=== PATIENT | female | born 1945 | race Caucasian/White ===

== ENCOUNTER 2018-02-16 10:53 | Inpatient (IN) | payer OTHER ==
[2018-02-16 12:19] VITALS: BMI 29.7
--- NOTE | 2018-02-16 12:30 | RAD REPORT ---
EXAM DESCRIPTION: RAD - Foot Right 2 View - 02/16/2018 12:12 pm CLINICAL HISTORY: Soft tissue foot infection COMPARISON: None. FINDINGS: No fracture, dislocation or periosteal reaction. No acute or destructive bone process seen . Moderate plantar spur is present. There is spurring at the Achilles attachment as well. Second- fourth toe soft tissue swelling is evident. No air or foreign body in the soft tissues. IMPRESSION: Soft tissue swelling of the second-fourth toes with no air or foreign body in the soft t issues. No acute or destructive bone process.
[2018-02-16 12:33] LABS: Absolute Lymphocytes (CBC) 1.4 K/uL (0.7-4.9); Absolute Monocytes 0.5 K/uL (0.1-1.3); Basophils % 0.7 % (0-1.3); Eosinophils % 3.5 % (0-4.4); Hematocrit 37.4 % (36.0-45.0); MCH 28.1 pg (27.0-35.0); MCV 86.2 fL (80-100); MPV 10.3 fL (7.6-11.3); Monocytes % 8.7 % (3.3-12.3); RBC Red Blood Cell Count 4.34 M/uL (3.86-4.86)
[2018-02-16 12:43] LABS: Albumin 4.1 g/dL (3.2-5.5); Bilirubin Total 1.1 mg/dL (0.3-1.2); Protein, Total 8.2 g/dL (6.0-8.3)
[2018-02-16 12:57] LABS: Urine Appearance CLEAR; Urine Bilirubin NEGATIVE (NEG); Urine Blood NEGATIVE (NEG); Urine Color YELLOW; Urine Glucose NEGATIVE (NEG); Urine Protein NEGATIVE (NEG)
[2018-02-16] MEDS ORDERED: VANCOMYCIN 1.5 GM in NA CHLORIDE 0.9% 500 ML IVPB ONE (13:00)
[2018-02-16 13:01] LABS: Urine Microscopic Reflex NO UMIC
[2018-02-16] MEDS: VANCOMYCIN 1.5 GM in NA CHLORIDE 0.9% 500 ML IVPB SCH (13:57)
[2018-02-16] MEDS ORDERED: HYDROCODONE/APAP 5/325 MG TAB PO PRN (16:03)
[2018-02-16] MEDS: HYDRALAZINE HCL 20 MG/ML VIAL IV PRN (18:06)
[2018-02-16] MEDS: ATORVASTATIN 20 MG TAB PO SCH (21:43)
[2018-02-16] MEDS: CITALOPRAM 10 MG TABLET PO SCH (21:43)
[2018-02-16] MEDS: GLIMEPIRIDE 2 MG TABLET PO SCH (21:43)
[2018-02-16] MEDS: METOPROLOL TAR 50 MG TAB PO SCH (21:43)
[2018-02-17] MEDS: VANCOMYCIN 1.5 GM in NA CHLORIDE 0.9% 500 ML IVPB SCH (06:47)
[2018-02-17] MEDS: LOSARTAN POTASSIUM 50 MG TABLET PO SCH (08:52)
[2018-02-17] MEDS: METOPROLOL TAR 50 MG TAB PO SCH ×2 (08:53→20:26)
[2018-02-17] MEDS: CLOPIDOGREL 75 MG TABLET PO SCH (08:53)
[2018-02-17] MEDS: ENOXAPARIN 30 MG/0.3 ML SQ SCH (17:32)
--- NOTE | 2018-02-17 20:03 | HP ---
Date of Admission: 02/16/2018 Chief Complaint: Pain, redness, and swelling, foot. History Of Present Illness: A 72-year-old female, who has history of diabetes and history of previou s foot infections, was brought to the office with redness, swelling, and pain of the right distal marilee t. She was found to have evidence of cellulitis and possible early abscess formation. The patient i s admitted for IV antibiotic therapy in view of her diabetes and previous surgeries that were require d for her foot infection. Past Medical History: Positive for type 2 diabetes, hyperlipidemia, coronary artery disease, hyperte nsion, depression. Past Surgical History: Include cardiac coronary stenting, hysterectomy, left foot surgery, cataract surgery. Family History: Diabetes present. Personal History: Allergic to sulfa. Review of Systems: No chest pain or shortness of breath. Physical Examination: General: Revealed a 72-year-old female, in moderate pain. HEENT: Negative. Neck: Supple. JVD negative. Chest: Clear. Heart: Regular. Abdomen: Soft. Extremities: There is diffuse area of redness of the distal foot that includes the first, second, an d third toes. There is minimal fluctuation with mild lymphangitis. Assessment: 1.Cellulitis, right foot. 2.Type 2 diabetes. 3.Known coronary artery disease. 4.Hypertension. 5.Hyperlipidemia. Plan: IV vancomycin. Restart home medications, fingerstick blood sugars, and insulin coverage. BENNETT/CK Voice ID: [id number]
[2018-02-17] MEDS: GLIMEPIRIDE 2 MG TABLET PO SCH (20:27)
[2018-02-17] MEDS: ATORVASTATIN 20 MG TAB PO SCH (20:27)
[2018-02-17] MEDS: CITALOPRAM 10 MG TABLET PO SCH (20:27)
[2018-02-18] MEDS: VANCOMYCIN 1.5 GM in NA CHLORIDE 0.9% 500 ML IVPB SCH ×2 (00:06→18:29)
--- NOTE | 2018-02-18 06:31 | PN ---
Her foot looks better. The swelling and redness are better. Lymphangitis is more contained. The pa paulette very likely will not need surgical exploration. She will be continued on the same antibiotic. BENNETT/CK Voice ID: [id number] Report ID: [id number]
[2018-02-18] MEDS: METOPROLOL TAR 50 MG TAB PO SCH ×2 (09:00→10:04)
[2018-02-18] MEDS: LOSARTAN POTASSIUM 50 MG TABLET PO SCH ×2 (10:04→12:21)
[2018-02-18] MEDS: CLOPIDOGREL 75 MG TABLET PO SCH (10:04)
--- NOTE | 2018-02-18 15:22 | EKG ---
Test Date: 2018-02-18 Test Time: 10:40:09 Cast Shell Grinder: AJ MEASUREMENT RESULTS: Intervals: Rate: 44 WV: 154 QRSD: 92 QT: 488 QTc: 417 [place]: P: 50 WV: 154 QRS: 11 T: 30 INTERPRETIVE STATEMENTS: Marked sinus bradycardia Abnormal ECG Compared to ECG 11/15/2015 06:36:50 no significant change from previous ECG Electronically Signed On 02-18-18 15:21:36 CDT by Rajinder Roberts
[2018-02-18] MEDS: HYDRALAZINE HCL 20 MG/ML VIAL IV PRN (18:29)
[2018-02-18] MEDS: ENOXAPARIN 30 MG/0.3 ML SQ SCH (18:29)
[2018-02-18] MEDS: ATORVASTATIN 20 MG TAB PO SCH (22:12)
[2018-02-18] MEDS: CITALOPRAM 10 MG TABLET PO SCH (22:13)
[2018-02-18] MEDS: GLIMEPIRIDE 2 MG TABLET PO SCH (22:14)
[2018-02-19] MEDS: LOSARTAN POTASSIUM 50 MG TABLET PO SCH (08:31)
[2018-02-19] MEDS: CLOPIDOGREL 75 MG TABLET PO SCH (08:31)
[2018-02-19] MEDS: AMLODIPINE 5 MG TAB PO SCH (08:31)
[2018-02-19] MEDS: VANCOMYCIN 1.5 GM in NA CHLORIDE 0.9% 500 ML IVPB SCH (14:38)
[2018-02-19] MEDS: ENOXAPARIN 30 MG/0.3 ML SQ SCH (17:47)
[2018-02-19] MEDS: GLIMEPIRIDE 2 MG TABLET PO SCH (21:18)
[2018-02-19] MEDS: CITALOPRAM 10 MG TABLET PO SCH (21:18)
[2018-02-19] MEDS: ATORVASTATIN 20 MG TAB PO SCH (21:18)
[2018-02-19 22:50] VITALS: O2SAT 99
[2018-02-20] MEDS: VANCOMYCIN 1.5 GM in NA CHLORIDE 0.9% 500 ML IVPB SCH (06:37)
--- NOTE | 2018-02-20 07:33 | PN ---
Date of Progress Note: 02/19/2018 The patient had minimal redness and swelling. No fever. The patient is able to walk in the hallways . It was decided that the patient would need another 24 hours of IV antibiotics, which was given. BENNETT/CK Voice ID: [id number] Report ID: [id number]
[2018-02-20] MEDS: CLOPIDOGREL 75 MG TABLET PO SCH (08:54)
[2018-02-20] MEDS: LOSARTAN POTASSIUM 50 MG TABLET PO SCH (08:54)
[2018-02-20] MEDS: AMLODIPINE 5 MG TAB PO SCH (08:55)
[2018-02-20 10:41] VITALS: BP 195/81; TEMP 97.1
--- NOTE | 2018-03-16 04:20 | DS ---
Date of Discharge: 02/20/2018 Final Diagnoses: 1.Cellulitis, right foot. 2.Type 2 diabetes. 3.Known coronary artery disease. 4.Hypertension. 5.Hyperlipidemia. Hospital Course: This patient was admitted because of evidence of cellulitis and type 2 diabetes. T he patient after admission to the hospital was started on IV antibiotic in the form of vancomycin. H er regular medications were restarted and fingerstick blood sugar insulin coverage was instituted. T he patient showed improvement over the next few days with decreased swelling and redness. She was ab le to walk on 3:30 at the time of discharge. She was given oral antibiotic and advised to follow up in the office. Laboratory: Please refer to the chart. BENNETT/CK Voice ID: [id number] Report ID: [id number]
== END 2018-02-20 09:02 | disposition home or self-care (01) | DRG 603 ==
LOC: 2ND 11:39
PROVIDERS: ADMIT Internal Medicine; ATTEND Internal Medicine
DX: L03.115 Cellulitis of right lower limb (principal); E11.9 Type 2 diabetes mellitus without complications; I25.10 Atherosclerotic heart disease of native coronary artery without angina pectoris; I10 Essential (primary) hypertension; E78.5 Hyperlipidemia, unspecified; Z88.2 Allergy status to sulfonamides; Z95.5 Presence of coronary angioplasty implant and graft
CPT/HCPCS: 36415; 80053; 80202; 81003; 82962; 85025; 87040; 93005; J0360; J1650

== ENCOUNTER 2018-10-09 14:21 | Inpatient (IN) | payer OTHER ==
[2018-10-09] MEDS ORDERED: D50W 25 GM/50 ML SYRINGE IV PRN (16:04)
[2018-10-09] MEDS ORDERED: GLUCAGON 1 MG/VIAL IM PRN (16:04)
[2018-10-09 16:27] LABS: Absolute Lymphocytes (CBC) 1.3 K/uL (0.7-4.9); Absolute Monocytes 0.8 K/uL (0.1-1.3); Absolute Neutrophil 6.4 K/uL (1.8-8.0); Basophils % 0.6 % (0-1.3); Eosinophils % 2.6 % (0-4.4); Lymphocytes % 14.8 % (15.3-44.8); MCH 28.8 pg (27.0-35.0); MCV 86.1 fL (80-100); MPV 10.2 fL (7.6-11.3); Monocytes % 8.6 % (3.3-12.3); RBC Red Blood Cell Count 4.06 M/uL (3.86-4.86)
[2018-10-09] MEDS: INSULIN -REGULAR HUMAN 50 UNIT/0.5 ML ML SQ SCH ×2 (16:30→20:32)
[2018-10-09 16:42] LABS: Albumin 3.5 g/dL (3.4-5.0); Bilirubin Total 0.6 mg/dL (0.2-1.0); Potassium 3.6 mmol/L (3.5-5.1); Protein, Total 8.3 g/dL (6.4-8.2)
--- NOTE | 2018-10-09 17:52 | RAD REPORT ---
EXAM DESCRIPTION: RAD - Hand Right 3 View - 10/09/2018 5:40 pm CLINICAL HISTORY: Right hand pain and swelling FINDINGS: Most of the second distal phalanx is destroyed likely the sequela of osteomyelitis. Amputation involves part of the third middle phalanx. No fracture or dislocation seen
[2018-10-09 19:19] VITALS: BMI 25.0
[2018-10-09] MEDS: CODEINE 30MG/APAP 300MG TAB PO PRN (20:32)
[2018-10-09] MEDS ORDERED: VANCOMYCIN 1.5 GM in NA CHLORIDE 0.9% 500 ML IVPB SCH (21:00)
[2018-10-10] MEDS: CODEINE 30MG/APAP 300MG TAB PO PRN ×3 (04:09→20:48)
[2018-10-10] MEDS: INSULIN -REGULAR HUMAN 50 UNIT/0.5 ML ML SQ SCH ×4 (07:30→20:50)
[2018-10-10] MEDS ORDERED: INFLUENZA VACCINE (for 3y+) 0.5 ML DOSE IMVAC ONE (08:00)
[2018-10-10] MEDS ORDERED: AMLODIPINE 5 MG TAB PO ONE (08:24)
[2018-10-10] MEDS: LOSARTAN POTASSIUM 50 MG TABLET PO SCH (12:13)
[2018-10-10] MEDS: VANCOMYCIN 1.25 GM in NA CHLORIDE 0.9% 250 ML IVPB SCH (15:15)
[2018-10-10] MEDS: ENOXAPARIN 30 MG/0.3 ML SQ SCH (17:17)
[2018-10-10] MEDS: ATORVASTATIN 10 MG TAB PO SCH (20:48)
[2018-10-10] MEDS: CITALOPRAM 10 MG TABLET PO SCH (20:49)
--- NOTE | 2018-10-10 22:03 | HP ---
Date of Admission: 10/09/2018 Chief Complaint: Pain, redness, right hand finger. History Of Present Illness: A 72-year-old female was brought to the office because of pain and redne ss. She was found to have evidence of cellulitis with open wound. In view of her diabetes, she was admitted for IV antibiotic therapy. She had similar episodes of cellulitis and osteomyelitis, requir ing amputation of the fingers in the past. Past Medical History: Positive for type 2 diabetes and depression. Family History: Noncontributory. Allergies: SHE HAS ALLERGIES TO SULFA. Home Medicines: Citalopram, metformin. Review of Systems: The patient denied any chest pain, fever, chills, or rigors. Physical Examination: General: Revealed a 72-year-old female, slightly confused HEENT: Negative. Neck: Supple. JVD negative. Chest: Occasional wheezes. Heart: Regular. Abdomen: Soft. Extremities: There is open area and clear-cut cellulitis of the second finger. There is an old ampu tation of the third finger. Assessment: 1.Osteomyelitis, right hand. 2.Type 2 diabetes. 3.Depression. Plan: IV vancomycin and Surgery consultation. BENNETT/CK Voice ID: [id number]
[2018-10-11] MEDS: INSULIN -REGULAR HUMAN 50 UNIT/0.5 ML ML SQ SCH ×4 (07:30→21:00)
[2018-10-11] MEDS: LOSARTAN POTASSIUM 50 MG TABLET PO SCH (09:05)
[2018-10-11] MEDS: AMLODIPINE 5 MG TAB PO SCH (09:05)
[2018-10-11] MEDS: VANCOMYCIN 1.25 GM in NA CHLORIDE 0.9% 250 ML IVPB SCH (09:06)
[2018-10-11] MEDS ORDERED: VANCOMYCIN 250 MG in NA CHLORIDE 0.9% 100 ML IVPB ONE (12:00)
[2018-10-11] MEDS: ENOXAPARIN 30 MG/0.3 ML SQ SCH (16:08)
[2018-10-11] MEDS: CODEINE 30MG/APAP 300MG TAB PO PRN (21:12)
[2018-10-11] MEDS: ATORVASTATIN 10 MG TAB PO SCH (21:14)
[2018-10-11] MEDS: CITALOPRAM 10 MG TABLET PO SCH (21:14)
--- NOTE | 2018-10-11 22:22 | PN ---
The patient's finger swelling is slightly better. However, in view of osteomyelitis, she may still n eed any intervention. This was explained to the family members as well as the patient. The patient will be seen by Dr. Early in a.m. after which plan will be done whether to continue long-term IV antibiotics or whether surgical intervention will be better in patient's interest. BENNETT/CK Voice ID: [id number] Report ID: [id number]
[2018-10-12] MEDS ORDERED: VANCOMYCIN 1.5 GM in NA CHLORIDE 0.9% 500 ML IVPB SCH ×2 (02:00→06:00)
[2018-10-12] MEDS: VANCOMYCIN 1.5 GM in NA CHLORIDE 0.9% 500 ML IVPB SCH ×2 (03:23→20:36)
[2018-10-12] MEDS: INSULIN -REGULAR HUMAN 50 UNIT/0.5 ML ML SQ SCH ×4 (07:30→21:00)
[2018-10-12] MEDS: CODEINE 30MG/APAP 300MG TAB PO PRN ×2 (09:21→22:54)
[2018-10-12] MEDS: LOSARTAN POTASSIUM 50 MG TABLET PO SCH (09:22)
[2018-10-12] MEDS: AMLODIPINE 5 MG TAB PO SCH (09:22)
[2018-10-12] MEDS: ENOXAPARIN 30 MG/0.3 ML SQ SCH (16:35)
[2018-10-12] MEDS: CITALOPRAM 10 MG TABLET PO SCH (20:36)
[2018-10-12] MEDS: ATORVASTATIN 10 MG TAB PO SCH (20:37)
--- NOTE | 2018-10-13 01:01 | PN ---
The patient has been seen by Dr. Early. He is planning to do exploration, debridement of the fin franck. The patient meanwhile will be continued on vancomycin as the blood cultures were positive for g mei-positive cocci. BENNETT/CK Voice ID: [id number] Report ID: [id number]
[2018-10-13] MEDS: INSULIN -REGULAR HUMAN 50 UNIT/0.5 ML ML SQ SCH ×4 (07:30→20:22)
[2018-10-13] MEDS: LOSARTAN POTASSIUM 50 MG TABLET PO SCH (08:10)
[2018-10-13] MEDS: AMLODIPINE 5 MG TAB PO SCH (08:10)
[2018-10-13] MEDS ORDERED: NA CHLORIDE 0.9% 1,000 ML ONE (08:24)
[2018-10-13] MEDS ORDERED: MIDAZOLAM HCL 2 MG/2 ML INJ ONE (08:49)
[2018-10-13] MEDS ORDERED: FENTANYL CITR 100 MCG/2 ML ONE (08:49)
[2018-10-13] MEDS ORDERED: LIDOCAINE 2% MPF 5 ML VIAL ONE (08:49)
[2018-10-13] MEDS ORDERED: KETOROLAC 30 MG/ML INJ ONE (08:49)
[2018-10-13] MEDS ORDERED: PROPOFOL 200 MG/20 ML VIAL IV ONE (08:49)
[2018-10-13] MEDS ORDERED: GLYCOPYRROLATE 0.2 MG/ML SYR ONE (09:09)
[2018-10-13] MEDS: VANCOMYCIN 1.5 GM in NA CHLORIDE 0.9% 500 ML IVPB SCH (15:21)
[2018-10-13] MEDS: ENOXAPARIN 30 MG/0.3 ML SQ SCH (17:00)
[2018-10-13] MEDS: ATORVASTATIN 10 MG TAB PO SCH (20:22)
[2018-10-13] MEDS: CITALOPRAM 10 MG TABLET PO SCH (20:22)
[2018-10-13] MEDS: HYDROCODONE/APAP 5/325 MG TAB PO PRN (21:22)
--- NOTE | 2018-10-13 22:37 | PN ---
The patient underwent surgery today. Postoperatively, the patient is stable, afebrile. Her vital si gns include a blood pressure of 155/67, oxygen saturation 100%, and afebrile. BENNETT/CK Voice ID: [id number] Report ID: [id number]
[2018-10-14] MEDS: HYDROCODONE/APAP 5/325 MG TAB PO PRN (02:05)
[2018-10-14] MEDS: INSULIN -REGULAR HUMAN 50 UNIT/0.5 ML ML SQ SCH ×4 (07:30→20:53)
[2018-10-14] MEDS: AMLODIPINE 5 MG TAB PO SCH (09:10)
[2018-10-14] MEDS: LOSARTAN POTASSIUM 50 MG TABLET PO SCH (09:10)
[2018-10-14] MEDS: VANCOMYCIN 1.5 GM in NA CHLORIDE 0.9% 500 ML IVPB SCH (09:13)
[2018-10-14] MEDS: ENOXAPARIN 30 MG/0.3 ML SQ SCH (16:50)
[2018-10-14] MEDS: CITALOPRAM 10 MG TABLET PO SCH (20:04)
[2018-10-14] MEDS: ATORVASTATIN 10 MG TAB PO SCH (20:04)
--- NOTE | 2018-10-15 01:45 | PN ---
The patient is afebrile. I spoke to Dr. Early. He wants to revise the surgical site on Friday. Pending that, she will be continued on IV antibiotics. BENNETT/CK Voice ID: [id number] Report ID: [id number]
[2018-10-15] MEDS: VANCOMYCIN 1.5 GM in NA CHLORIDE 0.9% 500 ML IVPB SCH (02:33)
--- NOTE | 2018-10-15 03:55 | DS ---
The patient every 8 hours. We will plan on surgery next week when the flank goes down. C william antibiotics. KATELYN/CK Voice ID: [id number] Report ID: [id number]
[2018-10-15] MEDS: INSULIN -REGULAR HUMAN 50 UNIT/0.5 ML ML SQ SCH ×4 (07:30→21:00)
[2018-10-15] MEDS: LOSARTAN POTASSIUM 50 MG TABLET PO SCH ×2 (09:00→10:27)
[2018-10-15] MEDS: AMLODIPINE 5 MG TAB PO SCH (10:27)
[2018-10-15] MEDS ORDERED: AMLODIPINE 5 MG TAB PO ONE (12:41)
[2018-10-15 14:08] LABS: Potassium 3.8 mmol/L (3.5-5.1)
[2018-10-15] MEDS: ENOXAPARIN 30 MG/0.3 ML SQ SCH (17:00)
[2018-10-15] MEDS: CITALOPRAM 10 MG TABLET PO SCH (21:19)
[2018-10-15] MEDS: ATORVASTATIN 10 MG TAB PO SCH (21:19)
[2018-10-16] MEDS: HYDROCODONE/APAP 5/325 MG TAB PO PRN (03:30)
[2018-10-16] MEDS: AMLODIPINE 5 MG TAB PO SCH (09:06)
[2018-10-16] MEDS: levoFLOXacin 500 MG TAB PO SCH (09:08)
[2018-10-16] MEDS: LOSARTAN POTASSIUM 50 MG TABLET PO SCH (09:08)
[2018-10-16] MEDS: INSULIN -REGULAR HUMAN 50 UNIT/0.5 ML ML SQ SCH ×4 (09:09→21:57)
[2018-10-16] MEDS: ENOXAPARIN 30 MG/0.3 ML SQ SCH (17:37)
--- NOTE | 2018-10-16 19:53 | PN ---
The patient is afebrile. She still has difficulty with range of motion of the finger. The patient w ill be continued on Levaquin pending re-evaluation by Hand Surgery and possible closure of the wound. BENNETT/CK Voice ID: [id number] Report ID: [id number]
[2018-10-16] MEDS: CITALOPRAM 10 MG TABLET PO SCH (21:58)
[2018-10-16] MEDS: ATORVASTATIN 10 MG TAB PO SCH (21:58)
[2018-10-17] MEDS: INSULIN -REGULAR HUMAN 50 UNIT/0.5 ML ML SQ SCH ×4 (07:30→21:58)
[2018-10-17] MEDS: AMLODIPINE 5 MG TAB PO SCH (10:07)
[2018-10-17] MEDS: LOSARTAN POTASSIUM 50 MG TABLET PO SCH (10:08)
[2018-10-17] MEDS: levoFLOXacin 500 MG TAB PO SCH (10:08)
--- NOTE | 2018-10-17 10:52 | PN ---
Date of Progress Note: 10/09/2018 The patient is a 72-year-old white female, right-hand dominant . She has diabetes and infe cted right index finger probably for several months. She amputation of the right middle f demetra 2 years ago. No other medical problems other than diabetes mellitus. Surgery was amputation. Does not smoke. Does not drink. She . She is 5 feet 7 inches, weighs approximately 200 pounds. On examination, she had fusiform swelling of the entire finger. There is purulent drainage the nail. Assessment: Osteomyelitis of the right index finger. Plan: Debridement and possible amputation. N.p.o. at midnight. KATELYN/CK Voice ID: [id number] Report ID: [id number]
--- NOTE | 2018-10-17 10:55 | OP ---
Surgeon: Ugo Early MD Glazier Supervisor: Robert. Preoperative Diagnosis: Osteomyelitis of the right index finger. Postoperative Diagnosis: Osteomyelitis of the right index finger. Procedure: Amputation of the right index finger at the middle phalanx level. Anesthesia: General. Procedure In Detail: After satisfactory induction of general anesthesia, the right hand was prepped with Betadine scrub, Betadine paint, dry sterile drapes placed in the usual manner. The arm was elev ated and exsanguinated with Esmarch outside the area of the infection. Tourniquet inflated to 250 mm Hg. Hand placed on a [place] table. Bilateral lateral incisions were made, and the transverse incis ion was made over the middle of the middle phalanx. The tissue was quite woody and indurated. There was cloudy fluid present in the flexor tendon sheath. The profundus was placed on tension, transect ed proximally and was retracted. This was done after cultures were taken and then the bone was cut w ith a bone cutter, then wound jet lavaged, irrigated with 3 L of dilute Betadine solution. Tournique t released. Electrocautery was used for hemostasis. Wound packed with Betadine soaked, quarter-inch Nu Gauze and 2-inch Stanley. The patient tolerated the procedure well and returned to Recovery. KATELYN/CK Voice ID: [id number] Report ID: [id number]
[2018-10-17] MEDS: ENOXAPARIN 30 MG/0.3 ML SQ SCH (17:02)
[2018-10-17] MEDS: ATORVASTATIN 10 MG TAB PO SCH (21:58)
[2018-10-17] MEDS: CITALOPRAM 10 MG TABLET PO SCH (21:58)
[2018-10-18] MEDS: INSULIN -REGULAR HUMAN 50 UNIT/0.5 ML ML SQ SCH ×4 (07:26→21:38)
[2018-10-18] MEDS: AMLODIPINE 5 MG TAB PO SCH (08:41)
[2018-10-18] MEDS: levoFLOXacin 500 MG TAB PO SCH (08:42)
[2018-10-18] MEDS: LOSARTAN POTASSIUM 50 MG TABLET PO SCH (08:42)
[2018-10-18] MEDS: HYDROCODONE/APAP 5/325 MG TAB PO PRN (14:11)
[2018-10-18] MEDS: ENOXAPARIN 30 MG/0.3 ML SQ SCH (18:51)
--- NOTE | 2018-10-18 20:05 | PN ---
The patient is doing well. She is ambulating and she is scheduled for surgery Friday after which juliane will be discharged. BENNETT/CK Voice ID: [id number] Report ID: [id number]
[2018-10-18] MEDS: ATORVASTATIN 10 MG TAB PO SCH (21:42)
[2018-10-18] MEDS: CITALOPRAM 10 MG TABLET PO SCH (21:43)
[2018-10-19] MEDS: INSULIN -REGULAR HUMAN 50 UNIT/0.5 ML ML SQ SCH ×4 (07:30→21:06)
[2018-10-19] MEDS: AMLODIPINE 5 MG TAB PO SCH (08:46)
[2018-10-19] MEDS: levoFLOXacin 500 MG TAB PO SCH (08:46)
[2018-10-19] MEDS: LOSARTAN POTASSIUM 50 MG TABLET PO SCH (08:46)
[2018-10-19] MEDS: ENOXAPARIN 30 MG/0.3 ML SQ SCH (17:36)
[2018-10-19] MEDS: CITALOPRAM 10 MG TABLET PO SCH (21:05)
[2018-10-19] MEDS: ATORVASTATIN 10 MG TAB PO SCH (21:06)
--- NOTE | 2018-10-20 00:09 | PN ---
The patient is afebrile. She does not have any chest pain, shortness of breath, or any other symptom s. She is scheduled for surgery tomorrow, after which she will be discharged. BENNETT/CK Voice ID: [id number] Report ID: [id number]
[2018-10-20] MEDS: INSULIN -REGULAR HUMAN 50 UNIT/0.5 ML ML SQ SCH ×2 (07:30→11:30)
[2018-10-20 07:50] LABS: Absolute Monocytes 0.4 K/uL (0.1-1.3); Basophils % 0.5 % (0-1.3); Eosinophils % 5.3 % (0-4.4); Hematocrit 35.1 % (36.0-45.0); MCV 86.8 fL (80-100); MPV 9.5 fL (7.6-11.3); Monocytes % 7.8 % (3.3-12.3); RBC Red Blood Cell Count 4.04 M/uL (3.86-4.86)
[2018-10-20] MEDS: NA CHLORIDE 0.9% 1,000 ML ONE ×2 (08:07→08:51)
[2018-10-20] MEDS ORDERED: FENTANYL CITR 100 MCG/2 ML ONE (08:48)
[2018-10-20] MEDS ORDERED: MIDAZOLAM HCL 2 MG/2 ML INJ ONE (08:48)
[2018-10-20] MEDS ORDERED: LIDOCAINE 1% MPF 5 ML VIAL ONE (08:48)
[2018-10-20] MEDS ORDERED: PROPOFOL 200 MG/20 ML VIAL IV ONE (08:48)
[2018-10-20] MEDS ORDERED: GLYCOPYRROLATE 0.2 MG/ML SYR ONE (09:20)
[2018-10-20] MEDS ORDERED: EPHEDRINE SULF 50 MG/10 ML SYR ONE (09:26)
[2018-10-20] MEDS ORDERED: KETOROLAC 30 MG/ML INJ ONE (09:52)
[2018-10-20] MEDS ORDERED: ONDANSETRON 4 MG/2 ML VIAL ONE (09:52)
[2018-10-20 10:14] VITALS: O2SAT 99
[2018-10-20 10:22] VITALS: TEMP 98.1
[2018-10-20 12:05] VITALS: BP 150/58
[2018-10-20] MEDS: AMLODIPINE 5 MG TAB PO SCH (12:05)
[2018-10-20] MEDS: levoFLOXacin 500 MG TAB PO SCH (12:05)
[2018-10-20] MEDS: LOSARTAN POTASSIUM 50 MG TABLET PO SCH (12:05)
--- NOTE | 2018-10-22 10:05 | OP ---
Surgeon: Ugo Early MD Voip Network Engineer: Robert. Preoperative Diagnosis: Open amputation of the right index finger. Postoperative Diagnosis: Open amputation of the right index finger. Procedure Performed: Revision amputation with debridement of skin, subcutaneous tissue, and bone wit h flap closure. Anesthesia: General. General. Description Of Procedure: After satisfactory general anesthesia, the hand was prepped with Betadine scrub, Betadine paint, dry sterile drapes were applied in usual manner. Arm was elevated, exsanguina sara with Esmarch. Tourniquet inflated to 250 mmHg. Scalpel was used to debride the skin edges and t he underlying flexor tendon as well as extensor tendon. The wound was jet lavaged, irrigated, after the bone was filed with a file and then scrubbed with . Tourniquet released. Electrocaute ry was used for hemostasis. The flaps were advanced and closed with 4-0 Prolene simple sutures mattress. Dressed with Xeroform, 2 inch Stanley and Kerlix. The patient tolerated the procedure well. KATELYN/CK Voice ID: [id number] Report ID: [id number]
--- NOTE | 2018-10-27 12:55 | DS ---
Date of Discharge: 10/20/2018 The patient's wound is open with packing . KATELYN/MODL Voice ID: [id number] Report ID: [id number]
== END 2018-10-20 14:17 | disposition home or self-care (01) | DRG 623 ==
LOC: 4TH 15:11
PROVIDERS: ADMIT Internal Medicine; ATTEND Internal Medicine
PROC: 0X6N0Z2 Detachment at Right Index Finger, Mid, Open Approach (ICD-10-PCS; principal; 2018-10-13 09:00)
PROC: 0HXFXZZ Transfer Right Hand Skin, External Approach (ICD-10-PCS; 2018-10-20)
DX: E11.69 Type 2 diabetes mellitus with other specified complication (principal); M86.8X4 Other osteomyelitis, hand; F32.9 Major depressive disorder, single episode, unspecified; Z88.2 Allergy status to sulfonamides; Z23 Encounter for immunization
CPT/HCPCS: 36415; 80048; 80053; 80202; 82565; 82962; 85025; 87040; 87070; 87075; 87077; 87186; 87205; 88304; 88305; G0008; J1650; J2250; J2405; J2704; J3010; J7030; Q2035

== ENCOUNTER 2019-02-05 12:24 | Emergency (ER) | payer OTHER ==
--- NOTE | 2019-02-05 13:03 | RAD REPORT ---
EXAM DESCRIPTION: CT - Head Brain Wo Cont - 02/05/2019 12:57 pm CLINICAL HISTORY: Headache COMPARISON: June 2018 TECHNIQUE: Computed axial tomography of the head was obtained. IV contrast was not requested. All CT scans are performed using dose optimization technique as appropriate and may include automated exposure control or mA/KV adjustment according to patient size. FINDINGS: An intracranial bleed is not seen . The ventricles are normal in caliber. No extra-axial fluid collection is noted. Fluid within the sinuses/ mastoids is not seen. IMPRESSION: No acute intracranial abnormality is seen. If patient's symptoms persist MRI of the bra in would be recommended.
--- NOTE | 2019-02-05 13:30 | RAD REPORT ---
EXAM DESCRIPTION: RAD - Chest Single View - 02/05/2019 1:06 pm CLINICAL HISTORY: Seizure, shortness of breath COMPARISON: January 2017 TECHNIQUE: AP portable chest image was obtained 1302 hours . FINDINGS: No failure, mass, infiltrate or pulmonary edema findings. Heart and vasculature are normal . No measurable pleural effusion and no pneumothorax. Bony degenerative changes are present. No acute aortic findings suspected. IMPRESSION: No acute cardiopulmonary process. No significant interval changes.
[2019-02-05 13:50] LABS: Absolute Lymphocytes (CBC) 1.3 K/uL (0.7-4.9); Absolute Monocytes 0.4 K/uL (0.1-1.3); Absolute Neutrophil 2.8 K/uL (1.8-8.0); Basophils % 0.9 % (0-1.3); Eosinophils % 1.7 % (0-4.4); Hematocrit 40.1 % (36.0-45.0); Lymphocytes % 28.1 % (15.3-44.8); MPV 9.9 fL (7.6-11.3); Monocytes % 8.5 % (3.3-12.3); RBC Red Blood Cell Count 4.65 M/uL (3.86-4.86)
[2019-02-05 13:51] LABS: Protime INR 1.1
[2019-02-05 14:04] LABS: ALT/SGPT 19 U/L (12-78); AST/SGOT 16 U/L (15-37); Alkaline Phosphatase 67 U/L (45-117); BUN Blood Urea Nitrogen 15 mg/dL (7-18); Bicarbonate 29 mmol/L (21-32); Bilirubin Direct 0.2 mg/dL (0-0.2); Bilirubin Total 0.5 mg/dL (0.2-1.0); Glucose Level 137 mg/dL (74-106); Magnesium 1.8 mg/dL (1.8-2.4); NT PRO-BNP 758 pg/mL (<125); Potassium 4.2 mmol/L (3.5-5.1); Protein, Total 7.8 g/dL (6.4-8.2); Sodium Level 141 mmol/L (136-145); Troponin (Emerg Dept Use Only) < 0.02 ng/mL (0.0-0.045)
[2019-02-05 14:13] LABS: Barbiturates NEGATIVE (NEGATIVE); Benzodiazepines NEGATIVE (NEGATIVE); Cocaine NEGATIVE (NEGATIVE); METHAMPHETAM NEGATIVE (NEGATIVE); Methadone NEGATIVE (NEGATIVE); Opiates NEGATIVE (NEGATIVE); Phencyclidine NEGATIVE (NEGATIVE); THC Cannibis NEGATIVE (NEGATIVE)
--- NOTE | 2019-02-05 15:54 | EDPHYS ---
Physician Documentation [facility] Name: Ana Vang Age: 73 yrs Sex: Female : 1945 Arrival Date: 02/05/2019 Time: 12:31 Bed 23 Private MD: ED Physician Kadeem Polk HPI: 02/05 13:19 This 73 yrs old Female presents to ER via EMS with complaints of Probable asif Seizure. 13:19 The patient presents after having a single isolated seizure, that lasted 30 second(s). asif Character of seizure(s): Loss of consciousness: the patient experienced loss of consciousness, Motor activity: generalized, Incontinence: none, Apnea: the patient did not experience apnea, Circulation: the patient did not experience evidence of pulse disturbance. Seizure onset: just prior to arrival. Context: the seizure(s) was witnessed, by no one. Seizure Hx: the patient has no previous seizure history. Associated injury: The patient did not suffer any apparent associated injury. The patient has not experienced similar symptoms in the past. Historical: - Allergies: 12:32 Sulfa (Sulfonamide Antibiotics); aa5 - PMHx: 12:32 Diabetes - NIDDM; Hypertension; Anxiety; Depression; aa5 - PSHx: 12:32 Hysterectomy; PARTIAL AMPUTATION OF RIGHT MIDDLE FINGER; aa5 - Immunization history:: Flu vaccine status is unknown. - Social history:: Smoking status: Patient/guardian denies using tobacco. - Ebola Screening: : No symptoms or risks identified at this time. - Family history:: not pertinent. ROS: 13:19 Constitutional: Negative for fever, chills, and weight loss, Eyes: Negative for injury, asif pain, redness, and discharge, ENT: Negative for injury, pain, and discharge, Neck: Negative for injury, pain, and swelling, Cardiovascular: Negative for chest pain, palpitations, and edema, Respiratory: Negative for shortness of breath, cough, wheezing, and pleuritic chest pain, Abdomen/GI: Negative for abdominal pain, nausea, vomiting, diarrhea, and constipation, Back: Negative for injury and pain, : Negative for injury, bleeding, discharge, and swelling, MS/Extremity: Negative for injury and deformity, Skin: Negative for injury, rash, and discoloration, Psych: Negative for depression, anxiety, suicide ideation, homicidal ideation, and hallucinations, Allergy/Immunology: Negative for hives, rash, and allergies, Endocrine: Negative for neck swelling, polydipsia, polyuria, polyphagia, and marked weight changes, Hematologic/Lymphatic: Negative for swollen nodes, abnormal bleeding, and unusual bruising. 13:19 Neuro: Positive for seizure activity. Exam: 13:19 Constitutional: This is a well developed, well nourished patient who is awake, alert, asif and in no acute distress. Head/Face: Normocephalic, atraumatic. Eyes: Pupils equal round and reactive to light, extra-ocular motions intact. Lids and lashes normal. Conjunctiva and sclera are non-icteric and not injected. Cornea within normal limits. Periorbital areas with no swelling, redness, or edema. ENT: Nares patent. No nasal discharge, no septal abnormalities noted. Tympanic membranes are normal and external auditory canals are clear. Oropharynx with no redness, swelling, or masses, exudates, or evidence of obstruction, uvula midline. Mucous membranes moist. Neck: Trachea midline, no thyromegaly or masses palpated, and no cervical lymphadenopathy. Supple, full range of motion without nuchal rigidity, or vertebral point tenderness. No Meningismus. Chest/axilla: Normal chest wall appearance and motion. Nontender with no deformity. No lesions are appreciated. Cardiovascular: Regular rate and rhythm with a normal S1 and S2. No gallops, murmurs, or rubs. Normal PMI, no JVD. No pulse deficits. Respiratory: Lungs have equal breath sounds bilaterally, clear to auscultation and percussion. No rales, rhonchi or wheezes noted. No increased work of breathing, no retractions or nasal flaring. Abdomen/GI: Soft, non-tender, with normal bowel sounds. No distension or tympany. No guarding or rebound. No evidence of tenderness throughout. Back: No spinal tenderness. No costovertebral tenderness. Full range of motion. Female : Normal external genitalia. Skin: Warm, dry with normal turgor. Normal color with no rashes, no lesions, and no evidence of cellulitis. MS/ Extremity: Pulses equal, no cyanosis. Neurovascular intact. Full, normal range of motion. Neuro: Awake and alert, GCS 15, oriented to person, place, time, and situation. Cranial nerves II-XII grossly intact. Motor strength 5/5 in all extremities. Sensory grossly intact. Cerebellar exam normal. Normal gait. Psych: Awake, alert, with orientation to person, place and time. Behavior, mood, and affect are within normal limits. Vital Signs: 12:32 BP 197 / 60; Pulse 50; Resp 16 S; Temp 97.7(O); Pulse Ox 99% on R/A; Weight 77.11 kg aa5 (R); Height 5 ft. 6 in. (167.64 cm) (R); Pain 8/10; 14:25 BP 188 / 51; Pulse 47; Resp 16; Pulse Ox 98% on R/A; ca1 15:05 BP 172 / 59; Pulse 46; Resp 16; Pulse Ox 98% on R/A; ca1 15:35 BP 180 / 58; Pulse 51; Resp 19; Pulse Ox 100% on R/A; ca1 12:32 Body Mass Index 27.44 (77.11 kg, 167.64 cm) aa5 Tomy Coma Score: 12:35 Eye Response: spontaneous(4). Verbal Response: oriented(5). Motor Response: obeys aa5 commands(6). Total: 15. MDM: 12:54 Patient medically screened. [facility] 13:20 Data reviewed: vital signs, nurses notes, lab test result(s), EKG, radiologic studies, [facility] CT scan, plain films. 02/05 12:43 Order name: Basic Metabolic Panel ms 02/05 12:43 Order name: CBC with Diff ms 02/05 12:43 Order name: LFT's ms 02/05 12:43 Order name: Magnesium ms 02/05 12:43 Order name: NT PRO-BNP; Complete Time: 15:07 ms 02/05 12:43 Order name: PT-INR; Complete Time: 15: ms 02/05 12:43 Order name: Troponin (emerg Dept Use Only); Complete Time: 15:07 ms 02/05 12:44 Order name: Basic Metabolic Panel; Complete Time: 15: EDMS 02/05 12:44 Order name: CBC with Automated Diff; Complete Time: 15:07 EDMS 02/05 12:44 Order name: Liver (Hepatic) Function; Complete Time: 15:07 EDMS 02/05 12:44 Order name: Magnesium; Complete Time: 15: EDMS 02/05 13:19 Order name: Urine Culture [facility] 02/05 13:19 Order name: Urine Drug Screen; Complete Time: 15:07 [facility] 02/05 14:23 Order name: Glucose, Ancillary Testing EDNM 02/05 12:43 Order name: XRAY Chest (1 view); Complete Time: 15:07 ms 02/05 12:43 Order name: EKG; Complete Time: 12:44 ms 02/05 12:43 Order name: Cardiac monitoring; Complete Time: 12:45 ms 02/05 12:43 Order name: EKG - Nurse/Tech; Complete Time: 12:45 ms 02/05 12:43 Order name: IV Saline Lock; Complete Time: 12:45 ms 02/05 12:43 Order name: Labs collected and sent; Complete Time: 12:45 ms 02/05 12:43 Order name: O2 Per Protocol; Complete Time: 12:45 ms 02/05 12:43 Order name: O2 Sat Monitoring; Complete Time: 12:45 ms 02/05 12:44 Order name: CT Head Brain wo Cont; Complete Time: 15:07 la 02/05 13:19 Order name: Seizure Precautions; Complete Time: 14:11 [facility] 02/05 14:29 Order name: Urine Dipstick--Ancillary (enter results) eb Administered Medications: No medications were administered Point of Care Testing: Blood Glucose: 13:30 Blood Glucose: 144 mg/dL; ca1 Ranges: Critical Glucose Levels:Adult <50 mg/dl or >400 mg/dl <40 mg/dl or >180 mg/dl Disposition: 02/05/19 15:53 Discharged to Home. Impression: Epileptic seizures related to external causes, not intractable, Syncope and collapse. - Condition is Stable. - Discharge Instructions: Near-Syncope, Nonepileptic Seizures, Seizure, Adult, Weakness, Near-Syncope, [id number], Seizure, Adult, [id number], Syncope, Lmky-[id number]-Icqm, Weakness, [id number]. - Medication Reconciliation Form, Thank You Letter, Antibiotic Education, Prescription Opioid Use form. - Follow up: Private Physician; When: 2 - 3 days; Reason: Recheck today's complaints, Re-evaluation by your physician. Follow up: Madi Licona MD; When: 2 - 3 days; Reason: Recheck today's complaints, Continuance of care, Re-evaluation by your physician. Follow up: Marcial Monzon MD; When: 2 - 3 days; Reason: Recheck today's complaints, Re-evaluation by your physician. - Problem is new. - Symptoms have improved. Signatures: Dispatcher [employer] Kadeem Ashley MD MD cha Solis, Maria ms Kay, Ophelia, RN RN aa5 AcBrianna martell RN RN ca1 Corrections: (The following items were deleted from the chart) 16:10 15:53 02/05/2019 15:53 Discharged to Home. Impression: Epileptic seizures related to ca1 external causes, not intractable; Syncope and collapse. Condition is Stable. Forms are Medication Reconciliation Form, Thank You Letter, Antibiotic Education, Prescription Opioid Use. Follow up: Private Physician; When: 2 - 3 days; Reason: Recheck today's complaints, Re-evaluation by your physician. Follow up: Madi Licona; When: 2 - 3 days; Reason: Recheck today's complaints, Continuance of care, Re-evaluation by your physician. Follow up: Marcial Monzon; When: 2 - 3 days; Reason: Recheck today's complaints, Re-evaluation by your physician. Problem is new. Symptoms have improved. asif
--- NOTE | 2019-02-05 15:54 | ER ---
Nurse's Notes [facility] Name: Ana Vang Age: 73 yrs Sex: Female : 1945 Arrival Date: 02/05/2019 Time: 12:31 Bed 23 Private MD: Diagnosis: Epileptic seizures related to external causes, not intractable;Syncope and collapse Presentation: 02/05 12:31 Presenting complaint: EMS states: states "she was sitting in her chair coloring aa5 and she dropped the coloring book, her eyes rolled back and she went unresponsive for about 15 seconds". Pt c/o frontal headache at this time. States "I feel numb like not myself". Denies chest pain. EMS reports pt is uncompliant with home medication including anti-hypertensive and metformin, pt reports she has not taken them for the last 2 days. EMS also reports initial BP was 220/90 and HR 50bpm. Transition of care: patient was not received from another setting of care. Onset of symptoms was February 05, 2019. Risk Assessment: Do you want to hurt yourself or someone else? Patient reports no desire to harm self or others. Care prior to arrival: IV initiated. 20 GA, in the left antecubital area, Glucose check: 113. 12:31 Method Of Arrival: EMS: [facility] aa5 12:31 Acuity: MARICHUY 2 aa5 12:31 Initial Sepsis Screen: Does the patient meet any 2 criteria? No. Patient's initial aa5 sepsis screen is negative. Does the patient have a suspected source of infection? No. Patient's initial sepsis screen is negative. Historical: - Allergies: 12:32 Sulfa (Sulfonamide Antibiotics); aa5 - PMHx: 12:32 Diabetes - NIDDM; Hypertension; Anxiety; Depression; aa5 - PSHx: 12:32 Hysterectomy; PARTIAL AMPUTATION OF RIGHT MIDDLE FINGER; aa5 - Immunization history:: Flu vaccine status is unknown. - Social history:: Smoking status: Patient/guardian denies using tobacco. - Ebola Screening: : No symptoms or risks identified at this time. - Family history:: not pertinent. Screenin:35 Abuse screen: Denies threats or abuse. Nutritional screening: No deficits noted. aa5 Tuberculosis screening: No symptoms or risk factors identified. Fall Risk IV access (20 points). Total Lindsay Fall Scale indicates No Risk (0-24 pts). Assessment: 12:34 General: Appears uncomfortable, Behavior is calm, cooperative. Pain: Complains of pain aa5 in forehead Pain does not radiate. Pain currently is 8 out of 10 on a pain scale. Quality of pain is described as aching, Pain began today Is continuous. Neuro: Level of Consciousness is awake, alert, obeys commands, Oriented to person, place, time, situation, Cam Milling Machine Operator are equal bilaterally Moves all extremities. Speech is normal, Facial symmetry appears normal, Pupils are PERRLA. Cardiovascular: Heart tones S1 S2 present Rhythm is sinus bradycardia. Respiratory: Airway is patent Respiratory effort is even, unlabored, Respiratory pattern is regular, symmetrical. GI: Abdomen is round non-distended, Bowel sounds present X 4 quads. Abd is soft and non tender X 4 quads. : No signs and/or symptoms were reported regarding the genitourinary system. EENT: No signs and/or symptoms were reported regarding the EENT system. Derm: Skin is pink, warm \\T\\ dry. Musculoskeletal: Range of motion: intact in all extremities. 13:00 Reassessment: Pt's care will be continued by Brianna Rubio RN. aa5 13:30 Reassessment: Patient appears in no apparent distress at this time. Patient and/or ca1 family updated on plan of care and expected duration. Pain level reassessed. Patient is alert, oriented x 3, equal unlabored respirations, skin warm/dry/pink. 14:25 Reassessment: Patient appears in no apparent distress at this time. Patient and/or ca1 family updated on plan of care and expected duration. Pain level reassessed. Patient is alert, oriented x 3, equal unlabored respirations, skin warm/dry/pink. 15:35 Reassessment: Patient appears in no apparent distress at this time. Patient and/or ca1 family updated on plan of care and expected duration. Pain level reassessed. Patient is alert, oriented x 3, equal unlabored respirations, skin warm/dry/pink. Vital Signs: 12:32 BP 197 / 60; Pulse 50; Resp 16 S; Temp 97.7(O); Pulse Ox 99% on R/A; Weight 77.11 kg aa5 (R); Height 5 ft. 6 in. (167.64 cm) (R); Pain 8/10; 14:25 BP 188 / 51; Pulse 47; Resp 16; Pulse Ox 98% on R/A; ca1 15:05 BP 172 / 59; Pulse 46; Resp 16; Pulse Ox 98% on R/A; ca1 15:35 BP 180 / 58; Pulse 51; Resp 19; Pulse Ox 100% on R/A; ca1 12:32 Body Mass Index 27.44 (77.11 kg, 167.64 cm) aa5 [place] Coma Score: 12:35 Eye Response: spontaneous(4). Verbal Response: oriented(5). Motor Response: obeys aa5 commands(6). Total: 15. ED Course: 12:31 Patient arrived in ED. aa5 12:31 Arm band placed on. aa5 12:33 Triage completed. aa5 12:36 Placed in gown. Bed in low position. Call light in reach. Side rails up X 1. Side rails jp3 up X2. Warm blanket given. Pillow given. flame annealing machine operator on. Pulse ox on. NIBP on. 12:36 Seizure precautions initiated. jp3 12:48 Ophelia Kay, RN is Primary Nurse. aa5 12:54 Kadeem Polk MD is Attending Physician. [facility] 12:57 CT completed. Patient tolerated procedure well. Patient moved to CT via stretcher. Patient moved back from CT. 12:58 CT Head Brain wo Cont In Process Unspecified. EDMS 13:04 X-ray completed. Patient tolerated procedure well. Patient moved to radiology via mh1 stretcher. 13:04 XRAY Chest (1 view) In Process Unspecified. EDMS 13:27 EKG done, by environmental technology professor. reviewed by Kadeem Polk MD. at1 13:45 Maintain EMS IV. Dressing intact. Site clean \\T\\ dry. Gauge \\T\\ site: 20 gauge in LAC. carmen 3 Flushed left antecubital saline lock. 13:45 Initial lab(s) drawn, by me, sent to lab. jp3 13:50 Assisted to bedside commode. jp3 13:50 Urine collected: clean catch specimen, clear, micaela colored, Amount Voided: 100mL. jp3 Patient maintains SpO2 saturation greater than 95% on room air. 14:11 Urine Drug Screen Sent. jp3 14:11 Urine Culture Sent. jp3 14:11 CBC with Automated Diff Sent. jp3 14:11 Magnesium Sent. jp3 14:11 LFT's Sent. jp3 14:11 CBC with Diff Sent. jp3 14:11 Basic Metabolic Panel Sent. jp3 15:52 Madi Licona MD is Referral Physician. [facility] 15:52 Marcial Monzon MD is Referral Physician. asif 16:05 No provider procedures requiring assistance completed. IV discontinued, intact, ca1 bleeding controlled, No redness/swelling at site. Pressure dressing applied. Administered Medications: No medications were administered Point of Care Testing: Blood Glucose: 13:30 Blood Glucose: 144 mg/dL; ca1 Ranges: Outcome: 15:53 Discharge ordered by MD. asif 16:05 Discharged to home via wheelchair, with significant other. ca1 16:05 Condition: stable 16:05 Discharge instructions given to patient, significant other, Instructed on discharge instructions, follow up and referral plans. Demonstrated understanding of instructions, follow-up care. 16:10 Patient left the ED. ca1 Signatures: Dispatcher [employer] EDMS Kadeem Polk MD MD cha Harvey, Martha mh1 Krysten Faust Audri, RN RN aa5 Belinda Jones, monument mason EKG Tat1 Kenneth Bowie jp3 Brianna Rubio, RN RN ca1 Corrections: (The following items were deleted from the chart) 12:35 12:31 Presenting complaint: EMS states: states "she was sitting in her chair aa5 coloring and she dropped the coloring book, her eyes rolled back and she went unresponsive for about 15 seconds". Pt c/o frontal headache at this time. States "I feel numb like not myself" aa5 12:36 12:31 Care prior to arrival: IV initiated. 20 GA, in the left antecubital area, aa5 aa5 12:36 12:31 Presenting complaint: EMS states: states "she was sitting in her chair aa5 coloring and she dropped the coloring book, her eyes rolled back and she went unresponsive for about 15 seconds". Pt c/o frontal headache at this time. States "I feel numb like not myself". Denies chest pain. EMS reports pt is uncompliant with home medication including anti-hypertensive and metformin, pt reports she has not taken them for the last 2 days. aa5 12:50 12:31 Acuity: MARICHUY 3 aa5 aa5
[2019-02-05 16:16] VITALS: TEMP 97.7
[2019-02-05 16:20] VITALS: BP 180/58; O2SAT 100
[2019-02-05 18:11] LABS: Urine Blood 2+ (NEG); Urine Glucose NEGATIVE (NEG); Urine Protein 1+ (NEG)
--- NOTE | 2019-02-06 09:24 | EKG ---
Test Date: 2019-02-05 Test Time: 12:37:21 Networker: AJ MEASUREMENT RESULTS: Intervals: Rate: 50 ND: 164 QRSD: 92 QT: 482 QTc: 439 [place]: P: 54 ND: 164 QRS: 1 T: 19 INTERPRETIVE STATEMENTS: Sinus bradycardia Otherwise normal ECG Compared to ECG 02/18/2018 10:40:09 No significant changes Electronically Signed On 02-06-19 09:21:50 CDT by Conrad Martin
== END 2019-02-05 16:10 | disposition home or self-care (01) ==
LOC: ER 12:24
DX: G40.909 Epilepsy, unspecified, not intractable, without status epilepticus (principal); R55 Syncope and collapse; Z88.2 Allergy status to sulfonamides; E11.9 Type 2 diabetes mellitus without complications; I10 Essential (primary) hypertension; F41.9 Anxiety disorder, unspecified; F32.9 Major depressive disorder, single episode, unspecified
CPT/HCPCS: 36415; 70450; 71045; 80048; 80076; 80307; 81003; 82962; 83735; 83880; 84484; 85025; 85610; 87086; 87088; 93005; 99285

== ENCOUNTER 2020-05-27 18:47 | Emergency (ER) | payer OTHER ==
--- NOTE | 2020-05-27 19:10 | RAD REPORT ---
EXAM DESCRIPTION: CT - [id number] - 05/27/2020 7:01 pm CLINICAL HISTORY: Trauma, head and neck injury. PAIN COMPARISON: <Comparisons> TECHNIQUE: Axial 5 mm thick images of the head were obtained. Axial 2 mm thick images of the cervical spine were obtained with sagittal and coronal reconstruction images generated and reviewed. All CT scans are performed using dose optimization technique as appropriate and may include automated exposure control or mA/KV adjustment according to patient size. FINDINGS: CT HEAD WITHOUT CONTRAST: No acute hemorrhage, hydrocephalus or extra-axial collection is identified.No areas of brain edema or midline shift. The paranasal sinuses and mastoids are clear.The calvarium is intact. Small posterior scalp hematoma. Vertebral atherosclerosis. CT CERVICAL SPINE WITHOUT CONTRAST: No fracture or subluxation.Multilevel degenerative change involves the mid and lower cervical spine, most severe advanced C5-6.No prevertebral soft tissues swelling is identified. IMPRESSION: No acute intracranial or cervical spine findings. Moderate lower cervical degenerative change.
--- NOTE | 2020-05-27 20:21 | EDPHYS ---
Physician Documentation [facility] Name: Ana Vang Age: 74 yrs Sex: Female : 1945 Arrival Date: 05/27/2020 Time: 18:46 Bed 16 Private MD: ED Physician Kirill Yepez HPI: 05/27 19:21 This 74 yrs old Female presents to ER via Ambulatory with complaints of rn Closed Head Injury-Adult - on blood thinners. 19:21 The patient or guardian reports injury. The complaints affect the back of head. Context rn of injury: The problem was sustained at home, resulted from a fall. Onset: The symptoms/episode began/occurred just prior to arrival. Severity of symptoms: At their worst the symptoms were mild, in the emergency department the symptoms have improved. The patient has experienced similar episodes in the past. reports chasing dog, slipped on loose gravel, hit back of head on hard surface, no LOC, remembers all events, on blood thinners but does not recall what kind. No other injury. states at baseline mentally. . Historical: - Allergies: 18:50 Sulfa (Sulfonamide Antibiotics); dm5 - PMHx: 18:50 Anxiety; Depression; Diabetes - NIDDM; Hypertension; alzhiemer's disease; dm5 - Family history:: not pertinent. - Hospitalizations: : No recent hospitalization is reported. ROS: 19:21 Constitutional: Negative for fever, chills, and weight loss, Eyes: Negative for injury, rn pain, redness, and discharge, Neck: Negative for injury, pain, and swelling, Cardiovascular: Negative for chest pain, palpitations, and edema, Respiratory: Negative for shortness of breath, cough, wheezing, and pleuritic chest pain, Abdomen/GI: Negative for abdominal pain, nausea, vomiting, diarrhea, and constipation, MS/Extremity: Negative for injury and deformity, Skin: + wound to scalp Neuro: + headache, neg for numbness/tingling/seizure. Exam: 19:21 Constitutional: This is a well developed, well nourished patient who is awake, alert, rn and in no acute distress. Head/Face: Normocephalic, + non-bleeding wound to back of scalp, appears to be approx 2 cm superficial laceration. Eyes: Pupils equal round and reactive to light, extra-ocular motions intact. ENT: No oral trauma. Neck: Supple, full range of motion without nuchal rigidity, or vertebral point tenderness. Cardiovascular: Regular rate and rhythm with a normal S1 and S2. No gallops, murmurs, or rubs. Normal PMI, no JVD. No pulse deficits. Respiratory: Lungs have equal breath sounds bilaterally, clear to auscultation and percussion. No rales, rhonchi or wheezes noted. No increased work of breathing, no retractions or nasal flaring. Abdomen/GI: Soft, non-tender, with normal bowel sounds. No distension or tympany. No guarding or rebound. No evidence of tenderness throughout. MS/ Extremity: Pulses equal, no cyanosis. Neurovascular intact. Full, normal range of motion. Equal circumference. Neuro: Awake and alert, GCS 15, oriented to person, place, and situation. Cranial nerves II-XII grossly intact. Motor strength 5/5 in all extremities. Sensory grossly intact. Cerebellar exam normal. Vital Signs: 18:47 BP 184 / 63; Pulse 68; Resp 18; Temp 98.1; Pulse Ox 100% on R/A; Weight 69.85 kg; dm5 Height 5 ft. 6 in. (167.64 cm); Pain 5/10; 20:17 BP 183 / 57; Pulse 52; Resp 17; Temp 97.9; Pulse Ox 100% ; ah 18:47 Body Mass Index 24.86 (69.85 kg, 167.64 cm) dm5 [place] Coma Score: 18:47 Eye Response: spontaneous(4). Verbal Response: oriented(5). Motor Response: obeys dm5 commands(6). Total: 15. 19:21 Eye Response: spontaneous(4). Verbal Response: oriented(5). Motor Response: obeys rn commands(6). Total: 15. 20:18 Eye Response: spontaneous(4). Verbal Response: oriented(5). Motor Response: obeys rn commands(6). Total: 15. 18:47 pt has history of alzhiemer's dm5 Laceration: 20:18 Wound Repair of 2cm ( 0.8in ) subcutaneous laceration to scalp. Distal rn neuro/vascular/tendon intact. Wound prep: Extensive cleansing by nurse, Particulate matter removal of gravel. Skin closed with 2 35wide Miriam using staple gun. Patient tolerated well. MDM: 19:01 Patient medically screened. rn 20:18 Differential diagnosis: Contusion of Hematoma on Laceration of Intracranial bleed- rn Concussion cerebral contusion. Data reviewed: vital signs, nurses notes, radiologic studies, CT scan, and as a result, I will discharge patient. Counseling: I had a detailed discussion with the patient and/or guardian regarding: the historical points, exam findings, and any diagnostic results supporting the discharge/admit diagnosis, radiology results, the need for outpatient follow up, to return to the emergency department if symptoms worsen or persist or if there are any questions or concerns that arise at home. 20:18 Special discussion: Based on the patient's history, exam and DX evaluation, there is no rn indication for emergent intervention or inpatient TX. It is understood by the patient/guardian that if the SXs persist or worsen they need to return immediately for re-evaluation. I discussed with the patient/guardian in detail that at this point there is no indication for admission to the hospital. It is understood, however, that if the symptoms persist or worsen the patient needs to return immediately for re-evaluation. 05/27 18:53 Order name: CT Head C Spine; Complete Time: 19:21 05/27 19:07 Order name: Wound Care; Complete Time: 20:26 rn Administered Medications: No medications were administered Disposition: 05/27/20 20:20 Discharged to Home. Impression: Superficial injury of head, Scalp laceration. - Condition is Stable. - Discharge Instructions: Head Injury, Adult, Hematoma, Stitches, Backus, or Adhesive Wound Closure. - Medication Reconciliation Form, Thank You Letter, Antibiotic Education, Prescription Opioid Use form. - Follow up: Private Physician; When: As needed; Reason: Recheck today's complaints, Re-evaluation by your physician. - Problem is new. - Symptoms have improved. Signatures: Dispatcher [employer] Najma Davis RN RN [id number] Kirill Yepez MD MD rn Smirch, Shelby, RN RN ss Corrections: (The following items were deleted from the chart) 20:28 20:20 05/27/2020 20:20 Discharged to Home. Impression: Superficial injury of head; ss Scalp laceration. Condition is Stable. Forms are Medication Reconciliation Form, Thank You Letter, Antibiotic Education, Prescription Opioid Use. Follow up: Private Physician; When: As needed; Reason: Recheck today's complaints, Re-evaluation by your physician. Problem is new. Symptoms have improved. rn
--- NOTE | 2020-05-27 20:21 | ER ---
Nurse's Notes [facility] Name: Ana Vang Age: 74 yrs Sex: Female : 1945 Arrival Date: 05/27/2020 Time: 18:46 Bed 16 Private MD: Diagnosis: Superficial injury of head;Scalp laceration Presentation: 05/27 18:47 Chief complaint: Spouse and/or significant other states: fell from standing position dm5 backward. Pt is bleeding from scalp. Bleeding controlled at this time. Mechanism of Injury: resulted from a fall, from a standing position. Initial Sepsis Screen: Does the patient meet any 2 criteria? No. Patient's initial sepsis screen is negative. Does the patient have a suspected source of infection? No. Patient's initial sepsis screen is negative. Risk Assessment: Do you want to hurt yourself or someone else? Patient reports no desire to harm self or others. 18:47 Method Of Arrival: Ambulatory dm5 18:47 Acuity: MARICHUY 2 dm5 18:47 Coronavirus screen: Proceed with normal triage. Patient denies a cough. Patient denies dm5 shortness of breath or difficulty breathing. Patient denies measured and/or subjective temperature greater than 100.4F prior to today's visit. Patient reports travel on a cruise ship or to a country the [facility] currently lists as an affected area. Patient denies contact with known and/or suspected case of COVID-19. Ebola Screen: Patient negative for fever greater than or equal to 101.5 degrees Fahrenheit, and additional compatible Ebola Virus Disease symptoms Patient denies exposure to infectious person. Patient denies travel to an Ebola-affected area in the 21 days before illness onset. No symptoms or risks identified at this time. Triage Assessment: 18:47 General: Appears in no apparent distress. uncomfortable, Behavior is calm, cooperative. dm5 Pain: Complains of pain in right parietal area. Neuro: Level of Consciousness is awake, obeys commands, at baseline. Reports headache. Historical: - Allergies: 18:50 Sulfa (Sulfonamide Antibiotics); dm5 - PMHx: 18:50 Anxiety; Depression; Diabetes - NIDDM; Hypertension; alzhiemer's disease; dm5 - Family history:: not pertinent. - Hospitalizations: : No recent hospitalization is reported. Screenin:20 Abuse screen: Denies threats or abuse. Nutritional screening: No deficits noted. Tuberculosis screening: No symptoms or risk factors identified. Fall Risk None identified. Assessment: 18:47 General: SEE TRIAGE ASSESSMENT. ss 19:45 Reassessment: Cleansed wound to head with NS and chlorhexadine. Pt tolerated well. Minimal bleeding noted. Pt tolerated well. Vital Signs: 18:47 BP 184 / 63; Pulse 68; Resp 18; Temp 98.1; Pulse Ox 100% on R/A; Weight 69.85 kg; dm5 Height 5 ft. 6 in. (167.64 cm); Pain 5/10; 20:17 BP 183 / 57; Pulse 52; Resp 17; Temp 97.9; Pulse Ox 100% ; ah 18:47 Body Mass Index 24.86 (69.85 kg, 167.64 cm) dm5 [place] Coma Score: 18:47 Eye Response: spontaneous(4). Verbal Response: oriented(5). Motor Response: obeys dm5 commands(6). Total: 15. 19:21 Eye Response: spontaneous(4). Verbal Response: oriented(5). Motor Response: obeys rn commands(6). Total: 15. 20:18 Eye Response: spontaneous(4). Verbal Response: oriented(5). Motor Response: obeys rn commands(6). Total: 15. 18:47 pt has history of alzhiemer's dm5 ED Course: 18:46 Patient arrived in ED. dm5 18:47 Arm band placed on Patient placed in an exam room, on a stretcher. dm5 18:49 Triage completed. dm5 19:01 CT Head C Spine In Process Unspecified. EDMS 19:01 Kirill Yepez MD is Attending Physician. rn 20:00 Assist provider with laceration repair on back of head that was 2.5 cm. or less using cayla. Performed by Kirill Yepez MD Patient tolerated well. 20:20 Patient has correct armband on for positive identification. Bed in low position. Call light in reach. Side rails up X 1. Pulse ox on. NIBP on. 20:28 Patient did not have IV access during this emergency room visit. Administered Medications: No medications were administered Outcome: 20:20 Discharge ordered by . rn 20:23 Discharged to home ambulatory. 20:23 Condition: good 20:23 Discharge instructions given to patient, Instructed on discharge instructions, follow up and referral plans. wound care, Demonstrated understanding of instructions, follow-up care, wound care. 20:28 Patient left the ED. Signatures: Dispatcher [employer] Najma Davis, RN RN dm5 Kirill Yepez MD MD rn Smirch, Shelby, RN RN Mariella Roberts RN RN
[2020-05-27 20:39] VITALS: O2SAT 100
[2020-05-27 20:41] VITALS: BP 183/57; TEMP 97.9
== END 2020-05-27 20:28 | disposition home or self-care (01) ==
LOC: ER 18:47
PROC: 0JQ00ZZ Repair Scalp Subcutaneous Tissue and Fascia, Open Approach (ICD-10-PCS; principal; 2020-05-27)
DX: S01.01XA Laceration without foreign body of scalp, initial encounter (principal); W19.XXXA Unspecified fall, initial encounter; Y93.02 Activity, running; Y92.89 Other specified places as the place of occurrence of the external cause; I10 Essential (primary) hypertension; G30.9 Alzheimer's disease, unspecified; F02.80 Dementia in other diseases classified elsewhere, unspecified severity, without behavioral disturbance, psychotic disturbance, mood disturbance, and anxiety; Z88.2 Allergy status to sulfonamides
CPT/HCPCS: 70450; 72125; 99283

== ENCOUNTER 2021-03-22 12:43 | Inpatient (IN) | payer OTHER ==
--- NOTE | 2021-03-22 13:33 | RAD REPORT ---
EXAM DESCRIPTION: RAD - Chest Single View - 03/22/2021 1:25 pm CLINICAL HISTORY: CHEST PAIN COMPARISON: Portable January 2019 TECHNIQUE: AP portable chest image was obtained 03/22/2021 1:25 pm . FINDINGS: No peripheral mass or consolidation. Interstitial pattern is slightly increased from sandy rison. Interval changes minimal but a mild edema or infiltrate could be present. Heart size is normal range and stable. No abnormal vascular engorgement seen. No measurable pleural effusion and no pneumothorax. No acute bony abnormality seen. No acute aortic findings suspected. IMPRESSION: No focal mass or consolidation identified. Slight increase in prominence of the interstitial pattern since 2019 could indicated minimal amount o f underlying edema or infiltrate. Correlation is needed with clinical presentation.
[2021-03-22 13:45] LABS: Absolute Lymphocytes (CBC) 1.1 K/uL (0.7-4.9); Basophils % 0.6 % (0-1.3); Hematocrit 34.3 % (36.0-45.0); Lymphocytes % 18.4 % (15.3-44.8); MPV 9.2 fL (7.6-11.3); RBC Red Blood Cell Count 4.04 M/uL (3.86-4.86)
[2021-03-22 14:01] LABS: Protime INR 1.21
[2021-03-22 14:16] LABS: ALT/SGPT 14 U/L (12-78); AST/SGOT 13 U/L (15-37); Albumin 3.6 g/dL (3.4-5.0); Alkaline Phosphatase 64 U/L (45-117); BUN Blood Urea Nitrogen 17 mg/dL (7-18); Bicarbonate 27 mmol/L (21-32); Bilirubin Direct < 0.1 mg/dL (0-0.2); Bilirubin Total 0.4 mg/dL (0.2-1.0); Glucose Level 126 mg/dL (74-106); NT PRO-BNP 547 pg/mL (<125); Potassium 4.2 mmol/L (3.5-5.1); Protein, Total 7.6 g/dL (6.4-8.2); Sodium Level 142 mmol/L (136-145); Troponin (Emerg Dept Use Only) < 0.02 ng/mL (0.0-0.045)
--- NOTE | 2021-03-22 17:45 | EDPHYS ---
Physician Documentation [facility] Name: Ana Vang Age: 75 yrs Sex: Female : 1945 Arrival Date: 03/22/2021 Time: 12:49 Bed 16 Private MD: ED Physician Lei Tineo HPI: 03/22 17:44 This 75 yrs old Female presents to ER via EMS with complaints of Chest Pain > kdr 30 y/o, Nausea/Vomiting, Wound Infection. 17:44 The patient or guardian reports chest pain that is located primarily in the anterior kdr chest wall, right. Onset: suddenly, this morning. The pain does not radiate. Associated signs and symptoms: Pertinent positives: nausea, shortness of breath, vomiting. The chest pain is described as sharp. Duration: The patient or guardian reports a single episode, that is now resolved. Modifying factors: The symptoms are alleviated by nothing. the symptoms are aggravated by nothing. Severity of pain: At its worst the pain was moderate severe just prior to arrival. The patient has not experienced similar symptoms in the past. The patient has not recently seen a physician. Shortly after the patient got up this morning, she had acute onset of sharp CP with n/v and SOB at 7:30. Historical: - Allergies: 12:53 Sulfa (Sulfonamide Antibiotics); tw2 - Home Meds: 12:53 citalopram oral [Active]; tw2 - PMHx: 12:53 alzhiemer's disease; Anxiety; Depression; Diabetes - NIDDM; Hypertension; tw2 - Immunization history:: Adult Immunizations. - Social history:: Smoking status: . ROS: 17:44 Constitutional: Negative for fever, chills, and weight loss, Eyes: Negative for injury, kdr pain, redness, and discharge, ENT: Negative for injury, pain, and discharge, Neck: Negative for injury, pain, and swelling, Respiratory: Negative for shortness of breath, cough, wheezing, and pleuritic chest pain, Back: Negative for injury and pain, : Negative for injury, bleeding, discharge, and swelling, MS/Extremity: Negative for injury and deformity, Skin: Negative for injury, rash, and discoloration, Neuro: Negative for headache, weakness, numbness, tingling, and seizure activity. Psych: Negative for depression, anxiety, suicide ideation, homicidal ideation, and hallucinations, Allergy/Immunology: Negative for hives, rash, and allergies, Endocrine: Negative for neck swelling, polydipsia, polyuria, polyphagia, and marked weight changes, Hematologic/Lymphatic: Negative for swollen nodes, abnormal bleeding, and unusual bruising. 17:44 Cardiovascular: Positive for chest pain, Negative for edema, orthopnea, palpitations, paroxysmal nocturnal dyspnea. Exam: 17:44 Constitutional: This is a well developed, well nourished patient who is awake, alert, kdr and in no acute distress. Head/Face: Normocephalic, atraumatic. Eyes: Pupils equal round and reactive to light, extra-ocular motions intact. Lids and lashes normal. Conjunctiva and sclera are non-icteric and not injected. Cornea within normal limits. Periorbital areas with no swelling, redness, or edema. Neck: Trachea midline, no thyromegaly or masses palpated, and no cervical lymphadenopathy. Supple, full range of motion without nuchal rigidity, or vertebral point tenderness. No Meningismus. Chest/axilla: Normal chest wall appearance and motion. Nontender with no deformity. No lesions are appreciated. Respiratory: Lungs have equal breath sounds bilaterally, clear to auscultation and percussion. No rales, rhonchi or wheezes noted. No increased work of breathing, no retractions or nasal flaring. Abdomen/GI: Soft, non-tender, with normal bowel sounds. No distension or tympany. No guarding or rebound. No evidence of tenderness throughout. Back: No spinal tenderness. No costovertebral tenderness. Full range of motion. Skin: Warm, dry with normal turgor. Normal color with no rashes, no lesions, and no evidence of cellulitis. MS/ Extremity: Pulses equal, no cyanosis. Neurovascular intact. Full, normal range of motion. Neuro: Awake and alert, GCS 15, oriented to person, place, time, and situation. Cranial nerves II-XII grossly intact. Motor strength 5/5 in all extremities. Sensory grossly intact. Cerebellar exam normal. Normal gait. Psych: Awake, alert, with orientation to person, place and time. Behavior, mood, and affect are within normal limits. 17:44 Cardiovascular: Rate: bradycardic, actual rate is 45 bpm, Rhythm: regular, Heart sounds: normal. Vital Signs: 12:50 Pulse 48; Temp 97.6(O); Weight 58.97 kg (R); Height 5 ft. 5 in. (165.10 cm); tw2 13:30 BP 145 / 53; Pulse 48; Resp 14; Pulse Ox 100% on R/A; vg1 14:00 BP 144 / 56; Pulse 46; Resp 16; Pulse Ox 100% on R/A; vg1 14:30 BP 154 / 56; Pulse 48; Resp 12; Pulse Ox 100% on R/A; vg1 15:00 BP 168 / 56; Pulse 47; Resp 12; Pulse Ox 100% on R/A; vg1 16:26 BP 172 / 52 Supine; Pulse 45; vg1 16:28 BP 175 / 59 Sitting; Pulse 45; vg1 16:30 BP 180 / 57 Standing; Pulse 52; vg1 17:30 BP 200 / 60; Pulse 50; Resp 16; Pulse Ox 98% on R/A; vg1 18:00 BP 187 / 55; Pulse 46; Resp 16; Pulse Ox 100% on R/A; vg1 18:30 BP 164 / 47; Pulse 50; Resp 16; Pulse Ox 100% on R/A; vg1 19:00 BP 178 / 58; Pulse 47; Resp 14; Pulse Ox 100% on R/A; vg1 19:30 BP 186 / 64; Pulse 49; Resp 16; Pulse Ox 100% on R/A; vg1 19:45 BP 183 / 63; Pulse 51; Resp 18; Pulse Ox 100% on R/A; vg1 20:30 BP 162 / 70; Pulse 46; Resp 14; Temp 97.7; Pulse Ox 100% on R/A; vg1 12:50 Body Mass Index 21.63 (58.97 kg, 165.10 cm) tw2 MDM: 17:44 Patient medically screened. kdr 17:44 Data reviewed: vital signs, nurses notes. Counseling: I had a detailed discussion with kdr the patient and/or guardian regarding: the historical points, exam findings, and any diagnostic results supporting the discharge/admit diagnosis, lab results, radiology results, the need for further work-up and treatment in the hospital. 03/22 12:55 Order name: Basic Metabolic Panel; Complete Time: 15:18 em 03/22 12:55 Order name: CBC with Diff; Complete Time: 15:18 em 03/22 12:55 Order name: LFT's; Complete Time: 15:18 em 03/22 12:55 Order name: Magnesium; Complete Time: 15:18 em 03/22 12:55 Order name: NT PRO-BNP; Complete Time: 15:18 em 03/22 12:55 Order name: PT-INR; Complete Time: 15:18 em 03/22 12:55 Order name: Troponin (emerg Dept Use Only); Complete Time: 15:18 em 03/22 13:28 Order name: Basic Metabolic Panel kdr 03/22 13:28 Order name: CBC with Diff kdr 03/22 12:55 Order name: XRAY Chest (1 view); Complete Time: 15:18 em 03/22 12:55 Order name: EKG; Complete Time: 12:56 em 03/22 12:55 Order name: Cardiac monitoring; Complete Time: 13:58 em 03/22 12:55 Order name: EKG - Nurse/Tech; Complete Time: 13:58 em 03/22 12:55 Order name: IV Saline Lock; Complete Time: 13:58 em 03/22 12:55 Order name: Labs collected and sent; Complete Time: 13:58 em 03/22 12:55 Order name: O2 Per Protocol; Complete Time: 13:57 em 03/22 13:28 Order name: EKG; Complete Time: 13:29 kdr 03/22 15:31 Order name: Troponin (emerg Dept Use Only); Complete Time: 17:20 kdr 03/22 17:56 Order name: COVID-19 : Document "Date of Symptom Onset" if Symptomatic. 03/22 18:03 Order name: Hand Left 3 View XRAY; Complete Time: 21:10 vg1 03/22 20:16 Order name: SARS-COV-2 RT PCR; Complete Time: 21:10 EDMS 03/22 12:55 Order name: O2 Sat Monitoring; Complete Time: 13:57 em 03/22 13:28 Order name: Cardiac monitoring; Complete Time: 13:58 kdr 03/22 13:28 Order name: EKG - Nurse/Tech; Complete Time: 13:58 kdr 03/22 13:28 Order name: IV Saline Lock; Complete Time: 13:57 kdr 03/22 13:28 Order name: Labs collected and sent; Complete Time: 13:57 [facility] 03/22 13:28 Order name: O2 Per Protocol; Complete Time: 13:58 [facility] 03/22 13:28 Order name: O2 Sat Monitoring; Complete Time: 13:58 [facility] 03/22 15:31 Order name: Orthostatic Blood Pressure; Complete Time: 16:35 [facility] Administered Medications: No medications were administered Disposition: 03/22/21 17:44 Hospitalization ordered by Flex Yepez for Observation. Preliminary diagnosis are Chest pain, unspecified, Bradycardia, unspecified. - Bed requested for Telemetry/MedSurg (observation). - Status is Observation. bb - Condition is Fair. - Problem is an ongoing problem. - Symptoms are unchanged. Signatures: Dispatcher [employer] EDMS Lei Tineo MD MD kdr Misael Benjamin, RN SANDER em Darleen Nagy RN RN bb Christ Nagel, RETENTION MANAGER-C RETENTION MANAGER-Cla1 Lalitha Kumari RN RN cg Wise, Tara, RN RN tw2 Corrections: (The following items were deleted from the chart) 13:36 13:29 Chest Single View+RAD.RAD.BRZ ordered. [facility] 17:36 13:29 PROTIME (+INR)+COAG.LAB.BRZ ordered. [facility] 17:37 13:28 Basic Metabolic Panel ordered. [facility] 17:37 13:28 CBC with Automated Diff ordered. [facility] 17:37 13:29 HEPATIC FUNCTION+C.LAB.BRZ ordered. [facility] 17:37 13:29 MAGNESIUM+C.LAB.BRZ ordered. [facility] 17:37 13:29 PROBNP+C.LAB.BRZ ordered. [facility] 17:37 13:29 TROPONIN (EMERG DEPT USE ONLY)+C.LAB.BRZ ordered. [facility] 19:33 17:56 CORONAVIRUS ordered. [facility] 20:08 17:44 Hospitalization Ordered by Jovan Cabello DO for Observation. Preliminary cg diagnosis is Chest pain, unspecified; Bradycardia, unspecified. Bed requested for Telemetry/MedSurg (observation). Status is Observation. Condition is Fair. Problem is an ongoing problem. Symptoms are unchanged. kdr 21:12 20:08 03/22/2021 17:44 Hospitalization Ordered by Jovan Cabello DO for Observation. la1 Preliminary diagnosis is Chest pain, unspecified; Bradycardia, unspecified. Bed requested for Telemetry/MedSurg (observation). Status is Observation. Condition is Fair. Problem is an ongoing problem. Symptoms are unchanged. cg 22:08 21:12 03/22/2021 17:44 Hospitalization Ordered by Flex Yepez MD for Observation. bb Preliminary diagnosis is Chest pain, unspecified; Bradycardia, unspecified. Bed requested for Telemetry/MedSurg (observation). Status is Observation. Condition is Fair. Problem is an ongoing problem. Symptoms are unchanged. la1
--- NOTE | 2021-03-22 17:45 | ER ---
Nurse's Notes [facility] Name: Ana Vang Age: 75 yrs Sex: Female : 1945 Arrival Date: 03/22/2021 Time: 12:49 Bed 16 Private MD: Diagnosis: Chest pain, unspecified;Bradycardia, unspecified Presentation: 03/22 12:50 Chief complaint: EMS states: from home, has not been feeling well today, she does have tw2 an infected LEFT 1st finger, not sure if that is what is causing the nausea/vomiting, there is no blood or black tarry stools, she has started having chest pain on the right side, we gave 324 mg ASA and 4 mg Zofran, BGL 168 mg/dL, she was a little hypertensive and bradycardic as well, they are not sure if she is normally albino. Coronavirus screen: nausea, vomiting. Client presents with at least one sign or symptom that may indicate coronavirus-19. Standard/surgical mask placed on the client. Provider contacted for isolation considerations. Ebola Screen: Patient denies travel to an Ebola-affected area in the 21 days before illness onset. Initial Sepsis Screen: Does the patient meet any 2 criteria? Does the patient have a suspected source of infection? Yes: Skin breakdown/wound. Risk Assessment: Do you want to hurt yourself or someone else? Patient reports no desire to harm self or others. Onset of symptoms was March 22, 2021. Care prior to arrival: Medication(s) given: ASA, 324 mg zofran 4 mg, IV initiated. 20 GA, in the right antecubital area. 12:50 Method Of Arrival: EMS: [facility] tw2 12:50 Acuity: MARICHUY 2 tw2 Triage Assessment: 12:53 General: Appears ill, Behavior is calm, cooperative, appropriate for age. Pain: tw2 Complains of pain in chest. Cardiovascular: Reports chest pain. Derm:. Historical: - Allergies: 12:53 Sulfa (Sulfonamide Antibiotics); tw2 - Home Meds: 12:53 citalopram oral [Active]; tw2 - PMHx: 12:53 alzhiemer's disease; Anxiety; Depression; Diabetes - NIDDM; Hypertension; tw2 - Immunization history:: Adult Immunizations. - Social history:: Smoking status: . Screenin:54 Abuse screen: Denies threats or abuse. Nutritional screening: No deficits noted. em Tuberculosis screening: No symptoms or risk factors identified. Fall Risk None identified. Assessment: 13:55 Reassessment: Pt denies CP, but states that chest has a feeling of 'discomfort' and vg1 'pressure'. General: Appears in no apparent distress. comfortable, Behavior is calm, cooperative. Pain: Denies pain. Neuro: Level of Consciousness is awake, alert, obeys commands, Oriented to person, place, time, situation. Cardiovascular: Patient's skin is warm and dry. Respiratory: Airway is patent Respiratory effort is even, unlabored, Denies shortness of breath. GI: Patient currently denies nausea. : No signs and/or symptoms were reported regarding the genitourinary system. EENT: No signs and/or symptoms were reported regarding the EENT system. Derm: Skin is pink, warm \T\ dry. 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 Circulation, motion, and sensation intact. Swelling present in left index fingernail. 15:05 Reassessment: Patient appears in no apparent distress at this time. Patient and/or vg1 family updated on plan of care and expected duration. Pain level reassessed. Patient is alert, oriented x 3, equal unlabored respirations, skin warm/dry/pink. Pt stated that pressure in mid chest has subsided. Provider notified Patient states feeling better. 16:36 Reassessment: Othrostatics completed; pts stated 'i know why her BP is so high, vg1 I forgot to give her her blood pressure medication.' Provider notified. 17:48 Reassessment: Patient appears in no apparent distress at this time. Patient and/or vg1 family updated on plan of care and expected duration. Pain level reassessed. Patient is alert, oriented x 3, equal unlabored respirations, skin warm/dry/pink. Patient denies pain at this time. 20:10 Reassessment: Patient appears in no apparent distress at this time. Patient and/or vg1 family updated on plan of care and expected duration. Pain level reassessed. Patient is alert, oriented x 3, equal unlabored respirations, skin warm/dry/pink. Patient denies pain at this time. Vital Signs: 12:50 Pulse 48; Temp 97.6(O); Weight 58.97 kg (R); Height 5 ft. 5 in. (165.10 cm); tw2 13:30 BP 145 / 53; Pulse 48; Resp 14; Pulse Ox 100% on R/A; vg1 14:00 BP 144 / 56; Pulse 46; Resp 16; Pulse Ox 100% on R/A; vg1 14:30 BP 154 / 56; Pulse 48; Resp 12; Pulse Ox 100% on R/A; vg1 15:00 BP 168 / 56; Pulse 47; Resp 12; Pulse Ox 100% on R/A; vg1 16:26 BP 172 / 52 Supine; Pulse 45; vg1 16:28 BP 175 / 59 Sitting; Pulse 45; vg1 16:30 BP 180 / 57 Standing; Pulse 52; vg1 17:30 BP 200 / 60; Pulse 50; Resp 16; Pulse Ox 98% on R/A; vg1 18:00 BP 187 / 55; Pulse 46; Resp 16; Pulse Ox 100% on R/A; vg1 18:30 BP 164 / 47; Pulse 50; Resp 16; Pulse Ox 100% on R/A; vg1 19:00 BP 178 / 58; Pulse 47; Resp 14; Pulse Ox 100% on R/A; vg1 19:30 BP 186 / 64; Pulse 49; Resp 16; Pulse Ox 100% on R/A; vg1 19:45 BP 183 / 63; Pulse 51; Resp 18; Pulse Ox 100% on R/A; vg1 20:30 BP 162 / 70; Pulse 46; Resp 14; Temp 97.7; Pulse Ox 100% on R/A; vg1 12:50 Body Mass Index 21.63 (58.97 kg, 165.10 cm) tw2 ED Course: 12:49 Patient arrived in ED. tw2 12:51 EKG done, by ED staff, reviewed by Lei Tineo MD. em 12:53 Triage completed. tw2 12:53 Lei Tineo MD is Attending Physician. kdr 12:53 Misael Benjamin, SANDER is Primary Nurse. em 12:53 Arm band placed on. tw2 12:54 Patient has correct armband on for positive identification. Bed in low position. Call em light in reach. Side rails up X2. Adult w/ patient. secured entrance monitor on. Pulse ox on. NIBP on. 12:54 Maintain EMS IV. Dressing intact. Good blood return noted. Site clean \T\ dry. Gauge \T\ em site: 20 R AC. Patient maintains SpO2 saturation greater than 95% on room air. 13:25 XRAY Chest (1 view) In Process Unspecified. EDMS 17:44 Jovan Cabello DO is Hospitalizing Provider. kdr 18:11 COVID swab sent to lab. vg1 19:36 Hand Left 3 View XRAY In Process Unspecified. EDMS 20:30 Primary Nurse role handed off by Misael Benjamin, RN mw2 20:54 Jessica Kumari, RN is Primary Nurse. vg1 21:06 No provider procedures requiring assistance completed. Patient admitted, IV remains in vg1 place. 21:12 Flex Yepez MD is Hospitalizing Provider. la1 Administered Medications: No medications were administered Outcome: 17:44 Decision to Hospitalize by Provider. kdr 21:07 Admitted to Med/surg accompanied by tech, via wheelchair, room 407, with chart, Report vg1 called to SANDER Desai 21:07 Condition: stable 21:07 Instructed on the need for admit. 22:08 Patient left the ED. bb Signatures: Dispatcher [employer] EDWV Lei Tineo MD MD kdr Misael Benjamin, RN SANDER Darleen Nagy RN RN bb Christ Nagel, GRATING MACHINE OPERATOR-C GRATING MACHINE OPERATOR-Cla1 Shira Smith RN RN tw2 Noy Galindo mw2 Jessica Kumari, SANDER RN vg1 Corrections: (The following items were deleted from the chart) 13:04 13:00 Inserted saline lock: 22 gauge in right forearm, using aseptic technique. Blood tw2 collected. tw2 21:06 13:55 Derm: Skin is pink, warm \T\ dry. vg1 vg1 21:06 13:55 Musculoskeletal: Circulation, motion, and sensation intact. vg1 vg1
--- NOTE | 2021-03-22 19:53 | RAD REPORT ---
EXAM DESCRIPTION: RAD - Hand Left 3 View - 03/22/2021 7:36 pm CLINICAL HISTORY: PAIN, left second digit infection COMPARISON: None. FINDINGS: Significant soft tissue swelling involves the left second digit. Erosive bone destructive changes are present involving the second distal phalanx. Advanced degenerative change at the second D IP joint with joint space narrowing and large marginal spurs. Erosive changes do not involve the IP j oint. Patient has significant IP joint degenerative changes throughout the hand with all findings wor se at the DIP joints compared to the PIP joints. MCP joint degenerative changes minimal. Trapezium fi rst metacarpal degenerative changes are present. No air or foreign body in the soft tissues. IMPRESSION: Osteomyelitis with bone destruction involving left second distal phalanx. DIP joint does not appear to be involved Advanced bony degenerative change as detailed
--- NOTE | 2021-03-22 21:18 | P.HP ---
Certification for Inpatient Patient admitted to: Inpatient With expected LOS: >2 Midnights Patient will require the following post-hospital care: None Practitioner: I am a practitioner with admitting privileges, knowledge of patient current condition, hospital course, and medical plan of care. Services: Services provided to patient in accordance with Admission requirements found in Title 42 Section 412.3 of the Code of Federal Regulations Patient History Date of Service: 03/22/21 Reason for admission: Chest pain, osteomyelitis History of Present Illness: 75-year-old female with history of dementia, diabetes mellitus type 2, hypertension, CAD presents emergency department for chest pain. has been elicited patient reports that earlier today she complained of chest pain and said that she is also dizzy, patient unable to recall these events that she does have significant Alzheimer's. Evaluation in the emergency department relatively unremarkable, troponin negative B and P 547 chest x-ray shows slight increase in prominence of interstitial pattern from 2019, possible trace edema/infiltrate. During my exam patient was noted to have some ulcerations to the distal tip of her left fingers, for this reason an x-ray of the left hand was ordered which did reveal osteomyelitis with bone destruction involving the left 2nd distal phalanx. Will admit for further evaluation and management. Allergies Sulfa (Sulfonamide Antibiotics) Allergy (Verified 11/14/15 16:08) Hives/Rash Home Medications: Citalopram [Celexa*] 40 mg PO BEDTIME 10/08/13 Metformin ER [Glucophage ER*] 1,000 mg PO BID 10/08/13 levoFLOXacin [Levaquin] 500 mg PO DAILY #7 tab 10/20/18 - Past Medical/Surgical History Diabetic: Yes -: NIDDM -: HTN -: CAD -: hyperlipidemia -: anxiety -: depression -: Dementia -: HEART STENT -: HYSTERECTOMY-tumor removal -: CATARACT SX -: sx. left foot -: Amputation digits Psychosocial/ Personal History: Patient is disabled, lives at home with her - Family History Father -: Heart disease, Hypertension Mother -: Heart disease, Hypertension, Lung disease, Stroke, Cancer, Seizures - Social History Smoking Status: Never smoker Alcohol use: No CD- Drugs: No Caffeine use: No Place of Residence: Home Review of Systems 10-point ROS is otherwise unremarkable Cardiovascular: Chest Pain, Light Headedness, As per HPI Physical Examination - Physical Exam General: Alert, In no apparent distress, Oriented x2 HEENT: Atraumatic, PERRLA, Mucous membr. moist/pink Neck: Supple, 2+ carotid pulse no bruit, No LAD Respiratory: Clear to auscultation bilaterally, Normal air movement Cardiovascular: Regular rate/rhythm, Normal S1 S2 Gastrointestinal: Normal bowel sounds, No tenderness Musculoskeletal: No tenderness Integumentary: Diabetic ulcer (Distal tip of the left 2nd digit) Neurological: Normal speech, Normal strength at 5/5 x4 extr, Normal tone, Normal affect - Studies Laboratory Data (last 24 hrs) 03/22/21 13:30: PT 14.0 H, INR 1.21 03/22/21 13:30: WBC 5.80, Hgb 11.3 L, Hct 34.3 L, Plt Count 207 03/22/21 13:30: Sodium 142, Potassium 4.2, BUN 17, Creatinine 0.81, Glucose 126 H, Magnesium 2.0, Total Bilirubin 0.4, AST 13 L, ALT 14, Alkaline Phosphatase 64 03/22/21 13:28: PT Cancelled, INR Cancelled 03/22/21 13:28: WBC Cancelled, Hgb Cancelled, Hct Cancelled, Plt Count Cancelled 03/22/21 13:28: Sodium Cancelled, Potassium Cancelled, BUN Cancelled, Creatinine Cancelled, Glucose Cancelled, Magnesium Cancelled, Total Bilirubin Cancelled, AST Cancelled, ALT Cancelled, Alkaline Phosphatase Cancelled Assessment and Plan - Plan Assessment Chest pain, bradycardia rule out ACS Osteomyelitis Left 2nd digit phalanx Diabetes mellitus type 2 Hypertension, hyperlipidemia, Alzheimer's/dementia Plan Chest pain, bradycardia rule out ACS: Monitor on telemetry, trend troponins, continue home medications including aspirin, statin. DVT prophylaxis Lovenox 40 mg subcutaneous once daily. Cardiology consult in place. Osteomyelitis Left 2nd digit phalanx : Discussed case with surgery who will see patient. Continue with IV vancomycin/cefepime at this time. Infectious Disease consulted for additional input. Surgery plans for debridement early next week. Diabetes mellitus type 2: A.c. HS Accu-Cheks, sliding scale insulin therapy. ADA diet, A1c with morning labs. Hypertension, hyperlipidemia, Alzheimer's/dementia: Obtain and continue home medications as appropriate. Adjust as necessary. Discharge Plan: Home Plan to discharge in: Greater than 2 days - Advance Directives Does patient have a Living Will: No Does patient have a Durable POA for Healthcare: No - Code Status/Comfort Care Code Status Assessed: Yes (Full code) Critical Care: No Time Spent Managing Pts Care (In Minutes): 55
[2021-03-22] MEDS: INSULIN -REGULAR HUMAN 50 UNIT/0.5 ML ML SQ SCH (22:25)
[2021-03-22] MEDS ORDERED: CEFEPIME 1 GM/VIAL IV SCH (22:25)
[2021-03-22 22:44] VITALS: BMI 21.6
[2021-03-22] MEDS ORDERED: CEFEPIME/SWI 1gm 10 ML IV SCH (22:45)
[2021-03-22] MEDS: VANCOMYCIN/NS 1 gm 1 GM/250 ML BAG IVPB SCH (23:00)
[2021-03-22] MEDS: ATORVASTATIN 40 MG TAB PO SCH (23:00)
[2021-03-23] MEDS ORDERED: VANCOMYCIN 1 GM/VIAL ONE (00:38)
[2021-03-23] MEDS ORDERED: NA CHLORIDE 0.9% 250 ML ONE (00:46)
[2021-03-23] MEDS ORDERED: CEFEPIME/SWI 1gm 10 ML ONE (00:56)
[2021-03-23 03:07] LABS: Urine Appearance CLEAR (Clear); Urine Bilirubin NEGATIVE (Negataive); Urine Blood NEGATIVE (Negative); Urine Color YELLOW (Yellow); Urine Glucose NEGATIVE (Negative); Urine Protein NEGATIVE (Negative); Urine Urobilinogen 0.2 mg/dL (0.2-1.0)
[2021-03-23 03:33] LABS: Urine Microscopic Reflex NO UMIC
[2021-03-23 04:09] LABS: Absolute Lymphocytes (CBC) 1.9 K/uL (0.7-4.9); Basophils % 0.7 % (0-1.3); Hematocrit 34.9 % (36.0-45.0); MPV 9.2 fL (7.6-11.3)
[2021-03-23 04:22] LABS: ALT/SGPT 15 U/L (12-78); AST/SGOT 12 U/L (15-37); Albumin 3.3 g/dL (3.4-5.0); Alkaline Phosphatase 58 U/L (45-117); BUN Blood Urea Nitrogen 17 mg/dL (7-18); Bicarbonate 26 mmol/L (21-32); Bilirubin Total 0.4 mg/dL (0.2-1.0); Glucose Level 88 mg/dL (74-106); HDL Cholesterol 43 mg/dL (40-60); LDL Cholesterol, Calculated 103 (<130); Magnesium 1.9 mg/dL (1.8-2.4); Potassium 3.8 mmol/L (3.5-5.1); Protein, Total 7.3 g/dL (6.4-8.2); Sodium Level 144 mmol/L (136-145); Troponin I < 0.02 ng/mL (0.0-0.045)
[2021-03-23] MEDS: INSULIN -REGULAR HUMAN 50 UNIT/0.5 ML ML SQ SCH ×4 (07:30→19:47)
[2021-03-23] MEDS ORDERED: POTASSIUM CL SA 10 MEQ TAB PO ONE (08:00)
[2021-03-23] MEDS: CEFEPIME/SWI 1gm 10 ML IV SCH ×2 (08:40→19:58)
[2021-03-23] MEDS: ENOXAPARIN 40 MG/0.4 ML SQ SCH (08:40)
[2021-03-23] MEDS: DONEPEZIL HCL 5 MG TAB PO SCH ×2 (08:41→19:58)
[2021-03-23] MEDS: ASPIRIN EC 81 MG TAB PO SCH (08:41)
[2021-03-23] MEDS: AMLODIPINE 5 MG TAB PO SCH (08:41)
[2021-03-23] MEDS: CITALOPRAM 10 MG TABLET PO SCH (08:42)
[2021-03-23] MEDS: METFORMIN HCL 500 MG TAB PO SCH ×2 (08:42→16:39)
[2021-03-23] MEDS: ONDANSETRON 4 MG/2 ML VIAL IV PRN ×2 (11:20→16:39)
[2021-03-23] MEDS ORDERED: HYDRALAZINE HCL 20 MG/ML VIAL IV ONE (11:47)
--- NOTE | 2021-03-23 12:18 | P.CNS ---
Date of Consult: 03/23/21 Chief Complaint: Chest pain, osteomyelitis History of Present Illness: The patient is a 75-year-old female with a past medical history of dementia, diabetes type 2, hypertension, CAD, chronic chewing tobacco user who presented to the emergency department due to chest pain and nausea. Patient stated that earlier that stay she was experiencing some chest pain and also felt dizzy and of vomited about morning. Evaluation emergency department was relatively unremarkable, any acute myocardial infarction has been ruled out. Patient had ulcerations on the distal aspect of her left 2nd and 3rd phalanges. X-ray of the left hand showed osteomyelitis in the distal phalanx of the left 2nd digit. Patient has been started on cefepime, will need an antibiotic course of 6 weeks. Also recommend a surgery consultation. Sugars well controlled with an hemoglobin A1c is 6.0. Patient denies nausea, vomiting, chest pain, shortness of breath. Allergies Sulfa (Sulfonamide Antibiotics) Allergy (Verified 11/14/15 16:08) Hives/Rash Home Medications: Amlodipine [Norvasc] 5 mg PO DAILY 03/22/21 Citalopram Hydrobromide [Celexa] 40 mg PO DAILY 03/22/21 Donepezil HCl 10 mg PO BID 03/22/21 Doxycycline Hyclate [Vibramycin] 100 mg PO BID 03/22/21 Memantine HCl [Namenda] 10 mg PO BEDTIME 03/22/21 Metformin HCl 1,000 mg PO BID 03/22/21 - Past Medical/Surgical History Diabetic: Yes -: NIDDM -: HTN -: CAD -: hyperlipidemia -: anxiety -: depression -: Dementia -: HEART STENT -: HYSTERECTOMY-tumor removal -: CATARACT SX -: sx. left foot -: Amputation digits Psychosocial/ Personal History: Patient is disabled, lives at home with her - Family History Father Medical History: Heart disease, Hypertension Mother Medical History: Heart disease, Hypertension, Lung disease, Stroke, Cancer, Seizures - Social History Smoking Status: Never smoker Alcohol use: No CD- Drugs: No Caffeine use: No Place of Residence: Home Review of Systems 10-point ROS is otherwise unremarkable Physical Examination Temp Pulse Resp BP Pulse Ox 97.9 F 50 16 181/79 H 100 03/23/21 11:36 03/23/21 11:36 03/23/21 11:36 03/23/21 11:36 03/23/21 11:36 General: Alert, In no apparent distress HEENT: Atraumatic, Normocephalic Neck: Supple, 2+ carotid pulse no bruit Respiratory: Clear to auscultation bilaterally, Normal air movement Cardiovascular: No edema, Normal pulses Capillary refill: >2 Seconds Gastrointestinal: Soft and benign Musculoskeletal: No clubbing, No swelling Integumentary: No rashes, No breakdown, Arterial ulcer (2 distal aspect of left 2nd phalanges and left 3rd phalanges.) Neurological: Normal speech Laboratory Data (last 24 hrs) 03/23/21 03:27: Sodium 144, Potassium 3.8, BUN 17, Creatinine 0.76, Glucose 88, Magnesium 1.9, Total Bilirubin 0.4, AST 12 L, ALT 15, Alkaline Phosphatase 58, Troponin I < 0.02, Triglycerides 103, Cholesterol 167, HDL Cholesterol 43, Cholesterol/HDL Ratio 3.88 03/23/21 03:27: WBC 6.20, Hgb 11.5 L, Hct 34.9 L, Plt Count 208 03/22/21 23:06: Troponin I < 0.02 03/22/21 13:30: PT 14.0 H, INR 1.21 03/22/21 13:30: WBC 5.80, Hgb 11.3 L, Hct 34.3 L, Plt Count 207 03/22/21 13:30: Sodium 142, Potassium 4.2, BUN 17, Creatinine 0.81, Glucose 126 H, Magnesium 2.0, Total Bilirubin 0.4, AST 13 L, ALT 14, Alkaline Phosphatase 64 03/22/21 13:28: PT Cancelled, INR Cancelled 03/22/21 13:28: WBC Cancelled, Hgb Cancelled, Hct Cancelled, Plt Count Cancelled 03/22/21 13:28: Sodium Cancelled, Potassium Cancelled, BUN Cancelled, Creatinine Cancelled, Glucose Cancelled, Magnesium Cancelled, Total Bilirubin Cancelled, AST Cancelled, ALT Cancelled, Alkaline Phosphatase Cancelled Conclusions/Impression: Antibiotics: Vancomycin start: 03/22 stop:-- Cefepime start: 03/22 stop:-- Assessment: 1. Osteomyelitis of left 2nd distal phalanx 2. Diabetes mellitus type 2 3. Chronic chewing tobacco user plan: 1. X-ray of left hand demonstrated osteomyelitis to the left 2nd distal phalanx. Surgery consulted. Patient started on vancomycin and cefepime. Continue to monitor vanc trough order vanc trough after 4th dose of vancomycin, goal of 15-20. 2. Sugars well controlled with hemoglobin A1c of 6.0. -medical management per primary team -continue monitor for signs of infection -continue monitor CBC and BMP plan of care discussed with Dr. Tobias Thank you for consultation.
[2021-03-23] MEDS: ACETAMINOPHEN 500 MG TAB PO PRN (16:38)
--- NOTE | 2021-03-23 17:24 | P.PN ---
Subjective Date of Service: 03/23/21 Chief Complaint: Chest pain, osteomyelitis Subjective: No new changes (overall feeling ok, denies chest pain at this time, +dementia) Review of Systems 10-point ROS is otherwise unremarkable Physical Examination - Vital Signs Temperature: 97.9 F Blood Pressure: 167/71 Pulse: 52 Respirations: 16 Pulse Ox (%): 99 - Studies Laboratory Data (last 24 hrs) 03/23/21 03:27: Sodium 144, Potassium 3.8, BUN 17, Creatinine 0.76, Glucose 88, Magnesium 1.9, Total Bilirubin 0.4, AST 12 L, ALT 15, Alkaline Phosphatase 58, Troponin I < 0.02, Triglycerides 103, Cholesterol 167, HDL Cholesterol 43, Cholesterol/HDL Ratio 3.88 03/23/21 03:27: WBC 6.20, Hgb 11.5 L, Hct 34.9 L, Plt Count 208 03/22/21 23:06: Troponin I < 0.02 03/22/21 13:28: PT Cancelled, INR Cancelled 03/22/21 13:28: WBC Cancelled, Hgb Cancelled, Hct Cancelled, Plt Count Cancelled 03/22/21 13:28: Sodium Cancelled, Potassium Cancelled, BUN Cancelled, Creatinine Cancelled, Glucose Cancelled, Magnesium Cancelled, Total Bilirubin Cancelled, AST Cancelled, ALT Cancelled, Alkaline Phosphatase Cancelled Assessment & Plan Physician Review Additional Text: Physical Exam Gen: alert, NAD, AAOx3, +Dementia HEENT: PERRL, normal conjunctiva Pulm: CTAB, nonlabored CV: regular rate and rhythm, normal S1/S2 Abd: soft, nontender Ext: Distal tip of left 2nd digit: small ulceration/erythema, with swelling Problem List Chest pain, bradycardia rule out ACS Osteomyelitis Left 2nd digit phalanx Diabetes mellitus type 2 Hypertension, hyperlipidemia, Alzheimer's/dementia -monitor on telemetry -trend troponin -continue asa,statin -cardiology consuled -Osteomyelitis - has had prior amputations, Dr. Early consulted -continue IV vanc/cefepime -ID consulted -continue home meds as appropriate Time Spent Managing Pts Care (In Minutes): 35
[2021-03-23] MEDS: HYDRALAZINE HCL 20 MG/ML VIAL IV PRN (17:46)
[2021-03-23] MEDS: MEMANTINE HCL 10 MG TABLET PO SCH (19:58)
[2021-03-23] MEDS: TRAMADOL HCL 50 MG TAB PO PRN (19:58)
[2021-03-23] MEDS: ATORVASTATIN 40 MG TAB PO SCH (19:58)
[2021-03-24] MEDS: VANCOMYCIN/NS 1 gm 1 GM/250 ML BAG IVPB SCH (00:25)
[2021-03-24 04:12] LABS: Hematocrit 36.2 % (36.0-45.0); MPV 9.4 fL (7.6-11.3); RBC Red Blood Cell Count 4.24 M/uL (3.86-4.86)
[2021-03-24 04:27] LABS: Albumin 3.3 g/dL (3.4-5.0); Bilirubin Total 0.5 mg/dL (0.2-1.0); Magnesium 1.6 mg/dL (1.8-2.4); Protein, Total 7.3 g/dL (6.4-8.2)
[2021-03-24] MEDS: TRAMADOL HCL 50 MG TAB PO PRN ×2 (04:49→21:12)
[2021-03-24] MEDS ORDERED: MAGNESIUM SULFATE 1 gm IVPB 1 GM/100 ML BAG IV ONE (06:13)
--- NOTE | 2021-03-24 07:28 | EKG ---
Test Date: 2021-03-22 Test Time: 12:51:05 Zinc Plate Grainer: MUMTAZ MEASUREMENT RESULTS: Intervals: Rate: 48 RI: 146 QRSD: 92 QT: 526 QTc: 469 [place]: P: RI: 146 QRS: 50 T: 100 INTERPRETIVE STATEMENTS: Marked sinus bradycardia Abnormal ECG Compared to ECG 02/05/2019 12:37:21 No significant changes Electronically Signed On 03-24-21 07:22:45 CDT by Conrad Martin
[2021-03-24] MEDS: INSULIN -REGULAR HUMAN 50 UNIT/0.5 ML ML SQ SCH ×2 (07:30→11:30)
[2021-03-24] MEDS: CITALOPRAM 10 MG TABLET PO SCH (09:48)
[2021-03-24] MEDS: DONEPEZIL HCL 5 MG TAB PO SCH ×2 (09:48→19:31)
[2021-03-24] MEDS: CEFEPIME/SWI 1gm 10 ML IV SCH ×2 (09:48→19:31)
[2021-03-24] MEDS: AMLODIPINE 5 MG TAB PO SCH (09:49)
[2021-03-24] MEDS: ASPIRIN EC 81 MG TAB PO SCH (09:50)
[2021-03-24] MEDS: METFORMIN HCL 500 MG TAB PO SCH ×2 (09:50→16:50)
[2021-03-24] MEDS: ENOXAPARIN 40 MG/0.4 ML SQ SCH (09:50)
--- NOTE | 2021-03-24 12:09 | CON ---
Date of Consultation: 03/23/2021 Reason For Consultation: Ms. Vang is a 75-year-old woman. She has history of dementia, Alzheimer' s, diabetes, hypertension, and depression. Has had a finger osteomyelitis for which she has been fol lowed for that by Dr. Early. She is on antibiotics right now. She came in mostly with nausea, v omiting, wound infection, sharp stabbing pain at the mid-epigastric that lasted very briefly. She wa s noted to be bradycardic, heart rate of 50. No syncope reported. She had an EKG in my office years ago that showed the same exact heart rate of 60. The patient denies any dizziness or syn cope on a regular basis. Allergies: SULFA. Review of Systems: Negative. Social History: Negative. Family History: Noncontributory. Medications: At home include Celexa, benazepril, Namenda, and metformin. Physical Examination: Vital Signs: When I saw her, blood pressure was 160/77. Her pulse was 52, asymptomatic and afebrile . HEENT: Negative. Neck: Supple. No bruit. Chest: Clear. Cardiac: No pericardial rub. Abdomen: Benign. Extremities: Revealed no clubbing, cyanosis, or edema. Impression And Plan: 1.Chronic bradycardia, asymptomatic. No need for cardiac workup. No need to change medicine. 2.Diabetes, well controlled. 3.Hypertension, poorly controlled. May need to add small dose of diuretic observe this. 4.Depression. She has osteomyelitis, which being followed by Dr. Early and I think I need to do more surgery in her left fingers. Very comfortable with her going home. Okay with Dr. Yepez. ANABEL/CK Voice ID: [id number] Report ID: [id number]
--- NOTE | 2021-03-24 12:20 | P.PN ---
Subjective Date of Service: 03/24/21 Chief Complaint: Chest pain, osteomyelitis Subjective: No new changes (+dementia, AAO to self only, pleasant. without complaints this morning except for L finger pain) Review of Systems 10-point ROS is otherwise unremarkable Physical Examination - Vital Signs Temperature: 97.0 F Blood Pressure: 142/65 Pulse: 44 Respirations: 16 Pulse Ox (%): 99 Assessment & Plan Physician Review Additional Text: Physical Exam Gen: alert, NAD, AAOx1, +Dementia HEENT: PERRL, normal conjunctiva Pulm: CTAB, nonlabored CV: regular rate and rhythm, normal S1/S2 Abd: soft, nontender Ext: Distal tip of left 2nd digit: small ~3mm ulceration/erythema, with swelling and tenderness Problem List Chest pain, bradycardia Osteomyelitis Left 2nd digit phalanx Diabetes mellitus type 2 Hypertension Hyperlipidemia Alzheimer's/dementia -monitor on telemetry, continues with chronic bradycardia, no acute events overnight -troponin negative, cardiology consulted - bradycardia is chronic for patient, recommend no changes to home medications at this time and can continue to f/u as outpatient -continue asa, statin -Osteomyelitis - has had prior amputations on other fingers for similar issues, Dr. Early consulted - for possible debridement Fri/ -ID consulted, continue IV vanc/cefepime -continue home meds as appropriate Dispo: anticipate hospitalization for 3-4 days, possible debridement/amputation Time Spent Managing Pts Care (In Minutes): 35
[2021-03-24] MEDS: ACETAMINOPHEN 500 MG TAB PO PRN (16:54)
[2021-03-24] MEDS: ATORVASTATIN 40 MG TAB PO SCH (19:31)
[2021-03-24] MEDS: MEMANTINE HCL 10 MG TABLET PO SCH (19:32)
[2021-03-24] MEDS: GUAIFENESIN 600 MG SA TAB PO PRN (21:52)
[2021-03-25] MEDS: VANCOMYCIN/NS 1 gm 1 GM/250 ML BAG IVPB SCH ×2 (00:07→17:00)
[2021-03-25 04:10] LABS: Magnesium 1.9 mg/dL (1.8-2.4)
[2021-03-25] MEDS: CITALOPRAM 10 MG TABLET PO SCH (08:49)
[2021-03-25] MEDS: AMLODIPINE 5 MG TAB PO SCH (08:49)
[2021-03-25] MEDS: ENOXAPARIN 40 MG/0.4 ML SQ SCH (08:49)
[2021-03-25] MEDS: CEFEPIME/SWI 1gm 10 ML IV SCH ×2 (08:49→20:36)
[2021-03-25] MEDS: ASPIRIN EC 81 MG TAB PO SCH (08:49)
[2021-03-25] MEDS: METFORMIN HCL 500 MG TAB PO SCH ×2 (08:49→18:52)
[2021-03-25] MEDS: DONEPEZIL HCL 5 MG TAB PO SCH ×2 (08:50→20:36)
[2021-03-25] MEDS: TRAMADOL HCL 50 MG TAB PO PRN ×3 (09:13→22:50)
[2021-03-25] MEDS: GUAIFENESIN 600 MG SA TAB PO PRN ×2 (09:13→20:36)
--- NOTE | 2021-03-25 09:18 | P.PN ---
Subjective Date of Service: 03/25/21 Chief Complaint: Chest pain, osteomyelitis Subjective: No new changes (doing well, confused/+Dementia, without complaints this morning) Review of Systems 10-point ROS is otherwise unremarkable Physical Examination - Vital Signs Temperature: 97.4 F Blood Pressure: 164/72 Pulse: 46 Respirations: 16 Pulse Ox (%): 100 Assessment & Plan Physician Review Additional Text: Physical Exam Gen: alert, NAD, AAOx1, +Dementia HEENT: PERRL, normal conjunctiva Pulm: CTAB, nonlabored on room air CV: regular rate and rhythm, normal S1/S2 Abd: soft, nontender Ext: Distal tip of left 2nd digit: small ~3mm ulceration/erythema, with swelling and tenderness, mild drainage Problem List Chest pain, bradycardia Osteomyelitis Left 2nd digit phalanx Diabetes mellitus type 2 Hypertension Hyperlipidemia Alzheimer's/dementia -monitor on telemetry, continues with chronic bradycardia, no acute events overnight -troponin negative, cardiology consulted - bradycardia is chronic for patient, recommend no changes to home medications at this time and can continue to f/u as outpatient -continue ASA, statin -denies any further chest pain since admission -Osteomyelitis - has had prior amputations on other fingers for similar issues, Dr. Early consulted - for possible debridement Fri/ -ID consulted, continue IV vanc/cefepime -continue home meds as appropriate Dispo: anticipate hospitalization for 2-3 days, possible debridement/amputation Time Spent Managing Pts Care (In Minutes): 35
[2021-03-25] MEDS: ATORVASTATIN 40 MG TAB PO SCH (20:36)
[2021-03-25] MEDS: MEMANTINE HCL 10 MG TABLET PO SCH (20:36)
[2021-03-26] MEDS: ACETAMINOPHEN 500 MG TAB PO PRN ×2 (04:54→16:12)
[2021-03-26] MEDS: ONDANSETRON 4 MG/2 ML VIAL IV PRN ×2 (04:54→20:26)
[2021-03-26 06:20] LABS: Protime INR 1.12
[2021-03-26 06:32] LABS: Absolute Lymphocytes (CBC) 1.6 K/uL (0.7-4.9); Basophils % 0.9 % (0-1.3); Hematocrit 34.8 % (36.0-45.0); Lymphocytes % 30.8 % (15.3-44.8); MPV 9.5 fL (7.6-11.3); RBC Red Blood Cell Count 4.11 M/uL (3.86-4.86)
[2021-03-26] MEDS: CEFEPIME/SWI 1gm 10 ML IV SCH ×2 (08:41→20:26)
[2021-03-26] MEDS: METFORMIN HCL 500 MG TAB PO SCH ×2 (08:42→16:12)
[2021-03-26] MEDS: ENOXAPARIN 40 MG/0.4 ML SQ SCH (08:42)
[2021-03-26] MEDS: DONEPEZIL HCL 5 MG TAB PO SCH ×2 (08:42→20:26)
[2021-03-26] MEDS: AMLODIPINE 5 MG TAB PO SCH (08:42)
[2021-03-26] MEDS: ASPIRIN EC 81 MG TAB PO SCH (08:43)
[2021-03-26] MEDS: CITALOPRAM 10 MG TABLET PO SCH (08:43)
--- NOTE | 2021-03-26 10:45 | P.PN ---
Subjective Date of Service: 03/26/21 Chief Complaint: Chest pain, osteomyelitis Patient seen examined at bedside, no acute complaints at this time. Patient took off the bandages on the left fingers yesterday, spoke with nurse to send she will readdress the wounds. Also recommend denture shakes with every male due to protein caloric malnutrition. Vital stable, labs reviewed with no significant abnormalities. Review of Systems 10-point ROS is otherwise unremarkable Physical Examination - Vital Signs Temperature: 97.7 F Blood Pressure: 141/67 Pulse: 53 Respirations: 16 Pulse Ox (%): 98 - Physical Exam General: Alert, In no apparent distress HEENT: Atraumatic, Normocephalic Neck: Supple, 2+ carotid pulse no bruit Respiratory: Clear to auscultation bilaterally Cardiovascular: No edema, Normal pulses, Regular rate/rhythm Gastrointestinal: Normal bowel sounds, Hypoactive Musculoskeletal: No clubbing, No swelling Integumentary: Arterial ulcer (On left 2nd and 3rd digit) - Studies Temp Pulse Resp BP Pulse Ox 97.7 F 53 16 141/67 H 98 03/26/21 08:00 03/26/21 08:42 03/26/21 08:00 03/26/21 08:42 03/26/21 08:00 Laboratory Last Values WBC 6.20 K/uL (4.3-10.9) 03/23/21 03:27 RBC 4.10 M/uL (3.86-4.86) 03/23/21 03:27 Hgb 11.5 g/dL (12.0-15.0) L 03/23/21 03:27 Hct 34.9 % (36.0-45.0) L 03/23/21 03:27 MCV 84.9 fL (80-100) 03/23/21 03:27 MCH 28.0 pg (27.0-35.0) 03/23/21 03:27 MCHC 32.9 g/dL (32.0-36.0) 03/23/21 03:27 RDW 13.7 % (12.1-15.2) 03/23/21 03:27 Plt Count 208 K/uL (152-406) 03/23/21 03:27 MPV 9.2 fL (7.6-11.3) 03/23/21 03:27 Plt Distribution Width Cancelled 03/22/21 13:28 Absolute Nucleated RBC Cancelled 03/22/21 13:28 Neutrophils % 57.1 % (41.7-73.7) 03/23/21 03:27 Lymphocytes % 31.0 % (15.3-44.8) 03/23/21 03:27 Monocytes % 8.8 % (3.3-12.3) 03/23/21 03:27 Eosinophils % 2.4 % (0-4.4) 03/23/21 03:27 Basophils % 0.7 % (0-1.3) 03/23/21 03:27 Nucleated RBC % Cancelled 03/22/21 13:28 Absolute Neutrophils 3.6 K/uL (1.8-8.0) 03/23/21 03:27 Absolute Lymphocytes 1.9 K/uL (0.7-4.9) 03/23/21 03:27 Absolute Monocytes 0.5 K/uL (0.1-1.3) 03/23/21 03:27 Absolute Eosinophils 0.1 K/uL (0-0.5) 03/23/21 03:27 Absolute Basophils 0.0 K/uL (0-0.5) 03/23/21 03:27 Diff Path Review Cancelled 03/22/21 13:28 PT 14.0 SECONDS (9.5-12.5) H 03/22/21 13:30 INR 1.21 03/22/21 13:30 Sodium 144 mmol/L (136-145) 03/23/21 03:27 Potassium 3.8 mmol/L (3.5-5.1) 03/23/21 03:27 Chloride 112 mmol/L (98-107) H 03/23/21 03:27 Carbon Dioxide 26 mmol/L (21-32) 03/23/21 03:27 BUN 17 mg/dL (7-18) 03/23/21 03:27 Creatinine 0.76 mg/dL (0.55-1.3) 03/23/21 03:27 Estimated GFR 74 mL/min (=/>90) L 03/23/21 03:27 Glucose 88 mg/dL (74-106) 03/23/21 03:27 POC Glucose 99 mg/dL (65-120) 03/22/21 22:15 Hemoglobin A1c 6.0 % (4.2-6.3) 03/23/21 03:27 Calcium 9.0 mg/dL (8.5-10.1) 03/23/21 03:27 Magnesium 1.9 mg/dL (1.8-2.4) 03/23/21 03:27 Total Bilirubin 0.4 mg/dL (0.2-1.0) 03/23/21 03:27 Direct Bilirubin < 0.1 mg/dL (0-0.2) 03/22/21 13:30 AST 12 U/L (15-37) L 03/23/21 03:27 ALT 15 U/L (12-78) 03/23/21 03:27 Alkaline Phosphatase 58 U/L (45-117) 03/23/21 03:27 Rapid Troponin I < 0.02 ng/mL (0.0-0.045) 03/22/21 15:56 Troponin I < 0.02 ng/mL (0.0-0.045) 03/23/21 03:27 NT-Pro-B Natriuret Pep 547 pg/mL (<125) H 03/22/21 13:30 Serum Total Protein 7.3 g/dL (6.4-8.2) 03/23/21 03:27 Albumin 3.3 g/dL (3.4-5.0) L 03/23/21 03:27 Globulin 4.0 g/dL (2.3-3.5) H 03/23/21 03:27 Albumin/Globulin Ratio 0.8 (1.1-1.8) L 03/23/21 03:27 Triglycerides 103 mg/dL (<150) 03/23/21 03:27 Cholesterol 167 mg/dL (<200) 03/23/21 03:27 LDL Cholesterol, Calc 103 (<130) 03/23/21 03:27 HDL Cholesterol 43 mg/dL (40-60) 03/23/21 03:27 Cholesterol/HDL Ratio 3.88 03/23/21 03:27 TSH 1.780 uIU/mL (0.360-3.740) 03/23/21 03:27 Free T4 0.84 ng/dL (0.76-1.46) 03/23/21 03:27 Urine Color Yellow (Yellow) 03/23/21 00:17 Urine Appearance Clear (Clear) 03/23/21 00:17 Urine pH 6.0 (5.0-7.0) 03/23/21 00:17 Ur Specific Centre 1.020 (1.005-1.030) 03/23/21 00:17 Glucose (UA)(Auto) Negative (Negative) 03/23/21 00:17 Urine Ketones Negative (Negative) 03/23/21 00:17 Urine Blood Negative (Negative) 03/23/21 00:17 Urine Nitrite Negative (Negative) 03/23/21 00:17 Urine Bilirubin Negative (Negataive) 03/23/21 00:17 Urine Urobilinogen 0.2 mg/dL (0.2-1.0) 03/23/21 00:17 Ur Leukocyte Esterase Negative (Negative) 03/23/21 00:17 Urine Total Protein Negative (Negative) 03/23/21 00:17 SARS-CoV-2 RNA (RT-PCR) Negative (NEGATIVE) 03/22/21 18:10 Assessment And Plan - Plan Antibiotics: Vancomycin start: 03/22 stop:-- Cefepime start: 03/22 stop:-- Assessment: 1. Osteomyelitis of left 2nd distal phalanx 2. Diabetes mellitus type 2 3. Chronic chewing tobacco user 4. Protein caloric malnutrition plan: 1. X-ray of left hand demonstrated osteomyelitis to the left 2nd distal phalanx. Surgery consulted-Dr. Early consulted for possible debridement to either Friday or Friday of this week. Patient started on vancomycin and cefepime. Continue to monitor vanc trough order vanc trough after 4th dose of vancomycin, goal of 15-20. Vanc trough on 03/24 was 7.5, recommend increasing dose. 2. Sugars well controlled with hemoglobin A1c of 6.0. 3. Albumin low, recommend supplemental Ensure drinks with every meal. -medical management per primary team -continue monitor for signs of infection -continue monitor CBC and BMP plan of care discussed with Dr. Tobias Thank you for consultation.
[2021-03-26] MEDS: VANCOMYCIN/NS 1 gm 1 GM/250 ML BAG IVPB SCH (12:01)
--- NOTE | 2021-03-26 12:57 | P.PN ---
Subjective Date of Service: 03/26/21 Chief Complaint: Chest pain, osteomyelitis Subjective: No new changes (without complaints this morning, +confusion/dementia, but pleasant) Review of Systems 10-point ROS is otherwise unremarkable Physical Examination - Vital Signs Temperature: 97.4 F Blood Pressure: 127/58 Pulse: 54 Respirations: 16 Pulse Ox (%): 100 Assessment & Plan Physician Review Additional Text: Physical Exam Gen: alert, NAD, AAOx1, +Dementia HEENT: PERRL, normal conjunctiva Pulm: CTAB, nonlabored on room air CV: regular rate and rhythm, normal S1/S2 Abd: soft, nontender Ext: Distal tip of left 2nd digit: small ~3mm ulceration/erythema, with swelling, nontender, mild drainage Problem List Chest pain, bradycardia Acute Osteomyelitis Left 2nd digit phalanx Diabetes mellitus type 2, noninsulin dependent Hypertension Hyperlipidemia Alzheimer's/dementia -monitor on telemetry, continues with chronic bradycardia, no acute events overnight -troponin negative, cardiology consulted - bradycardia is chronic for patient, recommend no changes to home medications at this time and can continue to f/u as outpatient -continue ASA, statin, denies any further chest pain since admission -Osteomyelitis - has had prior amputations on other fingers for similar issues, Dr. Early consulted - for possible debridement Fri/ -ID consulted, continue IV vanc/cefepime -holding off on PICC at this time, may not need if undergoes amputation -continue home meds as appropriate Dispo: anticipate hospitalization for 2-3 days, possible debridement/amputation Time Spent Managing Pts Care (In Minutes): 35
[2021-03-26] MEDS: ATORVASTATIN 40 MG TAB PO SCH (20:25)
[2021-03-26] MEDS: MEMANTINE HCL 10 MG TABLET PO SCH (20:26)
[2021-03-27] MEDS ORDERED: NA CHLORIDE 0.9% 250 ML ONE (04:16)
[2021-03-27] MEDS ORDERED: VANCOMYCIN 1 GM/VIAL ONE (04:17)
[2021-03-27] MEDS: VANCOMYCIN/NS 1 gm 1 GM/250 ML BAG IVPB SCH (04:36)
[2021-03-27] MEDS: CITALOPRAM 10 MG TABLET PO SCH (07:57)
[2021-03-27] MEDS: DONEPEZIL HCL 5 MG TAB PO SCH ×3 (07:57→22:14)
[2021-03-27] MEDS: ASPIRIN EC 81 MG TAB PO SCH (07:57)
[2021-03-27] MEDS: AMLODIPINE 5 MG TAB PO SCH (07:58)
[2021-03-27] MEDS: METFORMIN HCL 500 MG TAB PO SCH ×2 (08:00→16:32)
[2021-03-27] MEDS: ENOXAPARIN 40 MG/0.4 ML SQ SCH (09:00)
[2021-03-27] MEDS: CEFEPIME/SWI 1gm 10 ML IV SCH ×2 (10:12→22:15)
--- NOTE | 2021-03-27 12:05 | P.PN ---
Subjective Date of Service: 03/27/21 Chief Complaint: Chest pain, osteomyelitis Patient seen examined at bedside, no acute complaints at this time. Still awaiting consultation from , family is getting irritated. Review of Systems 10-point ROS is otherwise unremarkable Physical Examination - Vital Signs Temperature: 97.4 F Blood Pressure: 152/68 Pulse: 48 Respirations: 16 Pulse Ox (%): 96 - Studies Active Medications Acetaminophen (Acetaminophen 500 Mg Tab) 500 mg PO Q4HP PRN PRN Reason: TEMP > 100' F Last Admin: 03/26/21 16:12 Dose: 500 mg Documented by: Amlodipine Besylate (Amlodipine 5 Mg Tab) 5 mg PO DAILY [facility] Last Admin: 03/27/21 07:58 Dose: 5 mg Documented by: Aspirin (Aspirin Ec 81 Mg Tab) 81 mg PO DAILY [facility] Last Admin: 03/27/21 07:57 Dose: 81 mg Documented by: Atorvastatin Calcium (Atorvastatin 40 Mg Tab) 40 mg PO BEDTIME [facility] Last Admin: 03/26/21 20:25 Dose: 40 mg Documented by: Citalopram Hydrobromide (Citalopram 10 Mg Tablet) 40 mg PO DAILY [facility] Last Admin: 03/27/21 07:57 Dose: 40 mg Documented by: Donepezil HCl (Donepezil Hcl 5 Mg Tab) 10 mg PO BID [facility] Last Admin: 03/27/21 07:57 Dose: 10 mg Documented by: Enoxaparin Sodium (Enoxaparin 40 Mg/0.4 Ml) 40 mg SQ DAILY [facility] Last Admin: 03/27/21 09:00 Dose: Not Given Documented by: Guaifenesin (Guaifenesin 600 Mg Sa Tab) 600 mg PO BID PRN PRN Reason: nasal congestion Last Admin: 03/25/21 20:36 Dose: 600 mg Documented by: Hydralazine HCl (Hydralazine Hcl 20 Mg/Ml Vial) 5 mg IV Q6HP PRN PRN Reason: Titrate to SBP (MUST DEFINE) Last Admin: 03/23/21 17:46 Dose: 5 mg Documented by: Cefepime HCl (Maxipime 1 Gm/10 Ml Ivp) 10 mls @ 120 mls/hr IV BID [facility] Last Admin: 03/27/21 10:12 Dose: 10 mls Documented by: Vancomycin HCl (Vancomycin 1 Gm/250 Ml Ns Ivpb) 1 gm in 250 mls @ 166.667 mls/hr IVPB Q18H [facility]; Protocol Last Admin: 03/27/21 04:36 Dose: Not Given Documented by: Memantine (Memantine Hcl 10 Mg Tablet) 10 mg PO BEDTIME [facility] Last Admin: 03/26/21 20:26 Dose: 10 mg Documented by: Metformin HCl (Metformin Hcl 500 Mg Tab) 1,000 mg PO BIDWM [facility] Last Admin: 03/27/21 08:00 Dose: Not Given Documented by: Ondansetron HCl (Ondansetron 4 Mg/2 Ml Vial) 4 mg IV Q6HP PRN PRN Reason: NAUSEA / VOMITING Last Admin: 03/26/21 20:26 Dose: 4 mg Documented by: Sodium Chloride (Flush Normal Saline 10 Ml) 10 ml IV BID [facility] Last Admin: 03/27/21 08:00 Dose: 10 ml Documented by: Tramadol HCl (Tramadol Hcl 50 Mg Tab) 50 mg PO TID PRN PRN Reason: Pain scale 5-7 (Moderate) Last Admin: 03/25/21 22:50 Dose: 50 mg Documented by: Temp Pulse Resp BP Pulse Ox 97.4 F 48 L 16 152/68 H 96 03/27/21 12:05 03/27/21 12:05 03/27/21 12:05 03/27/21 12:05 03/27/21 12:05 Assessment And Plan - Plan General: Alert, In no apparent distress HEENT: Atraumatic, Normocephalic Neck: Supple, 2+ carotid pulse no bruit Respiratory: Clear to auscultation bilaterally Cardiovascular: No edema, Normal pulses, Regular rate/rhythm Gastrointestinal: Normal bowel sounds, Hypoactive Musculoskeletal: No clubbing, No swelling Integumentary: Arterial ulcer (On left 2nd and 3rd digit) Antibiotics: Vancomycin start: 03/22 stop:-- Cefepime start: 03/22 stop:-- Assessment: 1. Osteomyelitis of left 2nd distal phalanx 2. Diabetes mellitus type 2 3. Chronic chewing tobacco user 4. Protein caloric malnutrition plan: 1. X-ray of left hand demonstrated osteomyelitis to the left 2nd distal phalanx. Surgery consulted-Dr. Early consulted for possible debridement to either Friday or Friday of this week. Patient started on vancomycin and cefepime. Continue to monitor vanc trough order vanc trough after 4th dose of vancomycin, goal of 15-20. Vanc trough on 03/24 was 7.5, recommend increasing dose. Repeat trough taken on 03/27: Pending. 2. Sugars well controlled with hemoglobin A1c of 6.0. 3. Albumin low, recommend supplemental Ensure drinks with every meal. -medical management per primary team -continue monitor for signs of infection -continue monitor CBC and BMP plan of care discussed with Dr. Tobias Thank you for consultation.
[2021-03-27] MEDS: HYDRALAZINE HCL 20 MG/ML VIAL IV PRN (12:22)
--- NOTE | 2021-03-27 14:07 | P.PN ---
Subjective Date of Service: 03/27/21 Chief Complaint: Chest pain, osteomyelitis Subjective: No new changes Patient seen and examined. No signs or symptoms of distress. Patient currently denies pain to her left finger. Continue supportive care <Chandler Jesus - Last Filed: 03/27/21 14:23> Date of Service: 03/27/21 <annette de jesus - Last Filed: 03/27/21 17:22> Review of Systems General: Unremarkable Eyes: Unremarkable ENT: Unremarkable Respiratory: Wheezing, Unremarkable Cardiovascular: Unremarkable Gastrointestinal: Unremarkable Genitourinary: Unremarkable Musculoskeletal: Unremarkable Integumentary: Unremarkable Neurological: Unremarkable <Chandler Jesus - Last Filed: 03/27/21 14:23> Physical Examination - Vital Signs Temperature: 97.4 F Blood Pressure: 133/62 Pulse: 50 Respirations: 16 Pulse Ox (%): 96 - Physical Exam General: Alert, In no apparent distress, Oriented x3 HEENT: Atraumatic, PERRLA, EOMI Neck: Supple, JVD not distended Respiratory: Clear to auscultation bilaterally, Normal air movement Cardiovascular: Regular rate/rhythm, Normal S1 S2 Gastrointestinal: Normal bowel sounds, No tenderness Musculoskeletal: No tenderness Integumentary: No rashes, Other ( Distal tip of left 2nd digit: small ~3mm ulceration/erythema, with swelling, nontender, mild drainage) Neurological: Normal speech, Normal tone, Normal affect Lymphatics: No axilla or inguinal lymphadenopathy External genitalia: Deferred Rectal: Deferred <Chandler Jesus - Last Filed: 03/27/21 14:23> Assessment And Plan - Plan --Chest pain\ Bradycardia. Stable. Serial troponins negative. Telemetry. Further management per mission manager. --Acute Osteomyelitis Left 2nd digit phalanx. Previous amputations on other fingers for similar issues. Infection disease MD onboard. Continue antibiotics. Awaiting further recommendation from Surgeon --Diabetes mellitus type 2. BS monitoring with sliding scale insulin. --Hypertension. Poorly controlled. Continue current BP meds and hydralazine prn . --Hyperlipidemia. Continue statin --Alzheimer's/dementia. Stable. Continue home meds. --DVT prophylaxis with Lovenox subQ Discharge Plan: Home Plan to discharge in: 24 Hours - Code Status/Comfort Care Code Status: Full Code Critical Care: No <GiuliaChandler cardozo Nuris - Last Filed: 03/27/21 14:23> Physician Review: Patient Assessed, Agree with Above Assessment and Plan Physician Review Additional Text: Patient seen and examined. Patient declines prolonged antibiotic therapy via PICC line and preferring amputation. Contacted Dr. Early. Surgery scheduled for tomorrow. Patient seen by cardiology. No further cardiac intervention needed. Bradycardia is chronic. Condition is optimal for surgery. <annette de jesus - Last Filed: 03/27/21 17:22>
[2021-03-27] MEDS ORDERED: GLUCAGON 1 MG/VIAL IM PRN (14:22)
[2021-03-27] MEDS ORDERED: D50W 25 GM/50 ML SYRINGE IV PRN (14:22)
[2021-03-27] MEDS: INSULIN -REGULAR HUMAN 50 UNIT/0.5 ML ML SQ SCH ×2 (16:30→21:00)
[2021-03-27] MEDS: ATORVASTATIN 40 MG TAB PO SCH (22:12)
[2021-03-27] MEDS: MEMANTINE HCL 10 MG TABLET PO SCH (22:13)
--- NOTE | 2021-03-27 23:23 | CON ---
History Of Present Illness: The patient is well known to me from the previous amputation. She is a 75-year-old white female right-hand dominant, who has already had amputation of right index and middle left fingertips. Over the last month, she had a progressive infection to the fingertips and now has osteomyelitis of the tip of the left index finger. She previously has hysterectomy, multiple finger amputations Physical Examination: Reveals swelling of the tip of the finger. Assessment: Osteomyelitis. Plan: Amputation at the dIP joint . KATELYN/CK Voice ID: [id number] Report ID: [id number] MTDSelina
[2021-03-28] MEDS: VANCOMYCIN/NS 1 gm 1 GM/250 ML BAG IVPB SCH ×2 (00:47→17:21)
[2021-03-28] MEDS ORDERED: LORazepam 2 MG/ML VIAL IV PRN (00:50)
[2021-03-28] MEDS: INSULIN -REGULAR HUMAN 50 UNIT/0.5 ML ML SQ SCH ×4 (07:30→20:34)
[2021-03-28] MEDS: METFORMIN HCL 500 MG TAB PO SCH ×2 (08:00→16:40)
[2021-03-28] MEDS: CEFEPIME/SWI 1gm 10 ML IV SCH ×2 (08:17→20:29)
[2021-03-28] MEDS: HYDRALAZINE HCL 20 MG/ML VIAL IV PRN (08:17)
[2021-03-28] MEDS: AMLODIPINE 5 MG TAB PO SCH (08:18)
[2021-03-28] MEDS: ASPIRIN EC 81 MG TAB PO SCH (08:18)
[2021-03-28] MEDS: ENOXAPARIN 40 MG/0.4 ML SQ SCH (08:18)
[2021-03-28] MEDS: CITALOPRAM 10 MG TABLET PO SCH (08:18)
--- NOTE | 2021-03-28 11:41 | P.PN ---
Subjective Date of Service: 03/28/21 Chief Complaint: Chest pain, osteomyelitis Patient seen examined at bedside, no acute complaints at this time. Seen by -plan for amputation today. Vitals stable, no new labs. Review of Systems 10-point ROS is otherwise unremarkable Physical Examination - Vital Signs Temperature: 97.0 F Blood Pressure: 167/67 Pulse: 51 Respirations: 16 Pulse Ox (%): 99 - Studies Temp Pulse Resp BP Pulse Ox 97.0 F 51 16 167/67 H 99 03/28/21 08:00 03/28/21 08:00 03/28/21 08:00 03/28/21 08:00 03/28/21 08:00 Active Medications Acetaminophen (Acetaminophen 500 Mg Tab) 500 mg PO Q4HP PRN PRN Reason: TEMP > 100' F Last Admin: 03/26/21 16:12 Dose: 500 mg Documented by: Amlodipine Besylate (Amlodipine 5 Mg Tab) 5 mg PO DAILY [facility] Last Admin: 03/28/21 08:18 Dose: Not Given Documented by: Aspirin (Aspirin Ec 81 Mg Tab) 81 mg PO DAILY [facility] Last Admin: 03/28/21 08:18 Dose: Not Given Documented by: Atorvastatin Calcium (Atorvastatin 40 Mg Tab) 40 mg PO BEDTIME [facility] Last Admin: 03/27/21 22:12 Dose: 40 mg Documented by: Citalopram Hydrobromide (Citalopram 10 Mg Tablet) 40 mg PO DAILY [facility] Last Admin: 03/28/21 08:18 Dose: Not Given Documented by: Dextrose (D50w 25 Gm/50 Ml Syringe) 12.5 gm IV PRN PRN PRN Reason: HYPOGLYCEMIA Donepezil HCl (Donepezil Hcl 5 Mg Tab) 10 mg PO BID [facility] Last Admin: 03/27/21 22:14 Dose: 10 mg Documented by: Enoxaparin Sodium (Enoxaparin 40 Mg/0.4 Ml) 40 mg SQ DAILY [facility] Last Admin: 03/28/21 08:18 Dose: Not Given Documented by: Glucagon (Glucagon 1 Mg/Vial) 1 mg IM 1X PRN PRN Reason: HYPOGLYCEMIA Guaifenesin (Guaifenesin 600 Mg Sa Tab) 600 mg PO BID PRN PRN Reason: nasal congestion Last Admin: 03/25/21 20:36 Dose: 600 mg Documented by: Hydralazine HCl (Hydralazine Hcl 20 Mg/Ml Vial) 5 mg IV Q6HP PRN PRN Reason: Titrate to SBP (MUST DEFINE) Last Admin: 03/28/21 08:17 Dose: 5 mg Documented by: Cefepime HCl (Maxipime 1 Gm/10 Ml Ivp) 10 mls @ 120 mls/hr IV BID [facility] Last Admin: 03/28/21 08:17 Dose: 10 mls Documented by: Vancomycin HCl (Vancomycin 1 Gm/250 Ml Ns Ivpb) 1 gm in 250 mls @ 166.667 mls/hr IVPB Q18H [facility]; Protocol Last Admin: 03/28/21 00:47 Dose: 250 mls Documented by: Insulin Human Regular (Insulin -Regular Human 50 Unit/0.5 Ml Ml) 0 unit SQ ACHS [facility]; Protocol Last Admin: 03/28/21 07:30 Dose: Not Given Documented by: Lorazepam (Lorazepam 2 Mg/Ml Vial) 0.5 mg IV 1X PRN PRN Reason: ANXIETY Last Admin: 03/28/21 01:50 Dose: 0.5 mg Documented by: Memantine (Memantine Hcl 10 Mg Tablet) 10 mg PO BEDTIME [facility] Last Admin: 03/27/21 22:13 Dose: 10 mg Documented by: Metformin HCl (Metformin Hcl 500 Mg Tab) 1,000 mg PO BIDWM [facility] Last Admin: 03/28/21 08:00 Dose: Not Given Documented by: Ondansetron HCl (Ondansetron 4 Mg/2 Ml Vial) 4 mg IV Q6HP PRN PRN Reason: NAUSEA / VOMITING Last Admin: 03/26/21 20:26 Dose: 4 mg Documented by: Sodium Chloride (Flush Normal Saline 10 Ml) 10 ml IV BID [facility] Last Admin: 03/28/21 08:18 Dose: 10 ml Documented by: Tramadol HCl (Tramadol Hcl 50 Mg Tab) 50 mg PO TID PRN PRN Reason: Pain scale 5-7 (Moderate) Last Admin: 03/25/21 22:50 Dose: 50 mg Documented by: Assessment And Plan - Plan General: Alert, In no apparent distress HEENT: Atraumatic, Normocephalic Neck: Supple, 2+ carotid pulse no bruit Respiratory: Clear to auscultation bilaterally Cardiovascular: No edema, Normal pulses, Regular rate/rhythm Gastrointestinal: Normal bowel sounds, Hypoactive Musculoskeletal: No clubbing, No swelling Integumentary: Arterial ulcer (On left 2nd and 3rd digit) Antibiotics: Vancomycin start: 03/22 stop:-- Cefepime start: 03/22 stop:-- Assessment: 1. Osteomyelitis of left 2nd distal phalanx 2. Diabetes mellitus type 2 3. Chronic chewing tobacco user 4. Protein caloric malnutrition plan: 1. X-ray of left hand demonstrated osteomyelitis to the left 2nd distal phalanx. Surgery consulted-Dr. Early consulted plan for amputation on 03/28. Patient started on vancomycin and cefepime. Continue to monitor vanc trough order vanc trough after 4th dose of vancomycin, goal of 15-20. Vanc trough . Repeat trough taken on 03/27: 14.6. Patient does not want senior care treatment with IV antibioitcs and favor amputation. Patinet can be sent home on oral antibiotics depending on outcome of surgery. 2. Sugars well controlled with hemoglobin A1c of 6.0. 3. Albumin low, recommend supplemental Ensure drinks with every meal. -medical management per primary team -continue monitor for signs of infection -continue monitor CBC and BMP plan of care discussed with Dr. Tobias Thank you for consultation. Physician Review: Patient Assessed, Agree with Above Assessment and Plan
[2021-03-28] MEDS ORDERED: NA CHLORIDE 0.9% 1,000 ML ONE (12:58)
[2021-03-28] MEDS ORDERED: FENTANYL CITR 100 MCG/2 ML ONE (13:35)
[2021-03-28] MEDS ORDERED: propofoL 200 MG/20 ML VIAL IV ONE (13:35)
[2021-03-28] MEDS ORDERED: LIDOCAINE 1% MPF 5 ML VIAL ONE (13:35)
[2021-03-28] MEDS ORDERED: dexAMETHasone 10 MG/ML VIAL ONE (13:59)
[2021-03-28] MEDS ORDERED: KETOROLAC 30 MG/ML INJ ONE (13:59)
[2021-03-28] MEDS ORDERED: D50W 25 GM/50 ML VIAL IV PRN (14:00)
[2021-03-28] MEDS ORDERED: ONDANSETRON 4 MG/2 ML VIAL ONE (14:06)
[2021-03-28] MEDS ORDERED: EPHEDRINE SULF 50 MG/ML VIAL ONE (14:07)
[2021-03-28] MEDS ORDERED: NS 0.9% VIAL 10 ML ONE (14:07)
--- NOTE | 2021-03-28 14:33 | P.PN ---
Subjective Date of Service: 03/28/21 Chief Complaint: Chest pain, osteomyelitis Patient has no new complain. She is scheduled for surgery today. Physical Examination - Vital Signs Temperature: 97.5 F Blood Pressure: 130/63 Pulse: 53 Respirations: 16 Pulse Ox (%): 97 - Physical Exam General: Alert, In no apparent distress Respiratory: Clear to auscultation bilaterally, Normal air movement Cardiovascular: No edema, Regular rate/rhythm, Normal S1 S2 Gastrointestinal: Normal bowel sounds, Soft and benign, Non-distended Musculoskeletal: Other (Left index distal phalanx is deformed.) Integumentary: No rashes Neurological: Normal strength at 5/5 x4 extr Assessment And Plan Physician Review: Patient Assessed, Agree with Above Assessment and Plan Physician Review Additional Text: Continue antibiotics. Patient declines prolonged antibiotic therapy via PICC line and preferring amputation. Patient seen by Dr. Early and scheduled for left index distal phalanx amputation today. Patient seen by cardiology. No further cardiac intervention needed. Bradycardia is chronic. Pain management as needed.
[2021-03-28 15:01] VITALS: O2SAT 99
[2021-03-28] MEDS: ACETAMINOPHEN 500 MG TAB PO PRN (20:27)
[2021-03-28] MEDS: DONEPEZIL HCL 5 MG TAB PO SCH (20:28)
[2021-03-28] MEDS: MEMANTINE HCL 10 MG TABLET PO SCH (20:28)
[2021-03-28] MEDS: ATORVASTATIN 40 MG TAB PO SCH (20:29)
[2021-03-29 04:02] LABS: Absolute Lymphocytes (CBC) 0.8 K/uL (0.7-4.9); Basophils % 0.2 % (0-1.3); Hematocrit 34.3 % (36.0-45.0); Lymphocytes % 16.7 % (15.3-44.8); MPV 10.2 fL (7.6-11.3); RBC Red Blood Cell Count 4.07 M/uL (3.86-4.86)
[2021-03-29 04:26] LABS: Potassium 4.4 mmol/L (3.5-5.1)
[2021-03-29] MEDS: INSULIN -REGULAR HUMAN 50 UNIT/0.5 ML ML SQ SCH ×2 (07:30→11:30)
[2021-03-29 08:40] VITALS: TEMP 97.6
[2021-03-29] MEDS: DONEPEZIL HCL 5 MG TAB PO SCH (09:00)
[2021-03-29] MEDS: ENOXAPARIN 40 MG/0.4 ML SQ SCH (09:23)
[2021-03-29] MEDS: CEFEPIME/SWI 1gm 10 ML IV SCH (09:23)
[2021-03-29] MEDS: CITALOPRAM 10 MG TABLET PO SCH (09:24)
[2021-03-29] MEDS: ASPIRIN EC 81 MG TAB PO SCH (09:24)
[2021-03-29] MEDS: AMLODIPINE 5 MG TAB PO SCH (09:25)
[2021-03-29] MEDS: METFORMIN HCL 500 MG TAB PO SCH (09:31)
--- NOTE | 2021-03-29 10:34 | P.PN ---
Subjective Date of Service: 03/29/21 Chief Complaint: Chest pain, osteomyelitis Patient seen examined at bedside status post amputation of left 2nd distal phalanx. Patient is doing well, surgical dressing still in place. Denies any acute complaints. Review of Systems 10-point ROS is otherwise unremarkable Physical Examination - Vital Signs Temperature: 97.6 F Blood Pressure: 124/50 Pulse: 49 Respirations: 17 Pulse Ox (%): 100 - Studies Temp Pulse Resp BP Pulse Ox 97.6 F 49 L 17 124/50 L 100 03/29/21 08:00 03/29/21 09:25 03/29/21 08:00 03/29/21 09:25 03/29/21 08:00 Acetaminophen (Acetaminophen 500 Mg Tab) 500 mg PO Q4HP PRN PRN Reason: TEMP > 100' F Last Admin: 03/28/21 20:27 Dose: 500 mg Documented by: Amlodipine Besylate (Amlodipine 5 Mg Tab) 5 mg PO DAILY [facility] Last Admin: 03/29/21 09:25 Dose: 5 mg Documented by: Aspirin (Aspirin Ec 81 Mg Tab) 81 mg PO DAILY [facility] Last Admin: 03/29/21 09:24 Dose: 81 mg Documented by: Atorvastatin Calcium (Atorvastatin 40 Mg Tab) 40 mg PO BEDTIME [facility] Last Admin: 03/28/21 20:29 Dose: 40 mg Documented by: Citalopram Hydrobromide (Citalopram 10 Mg Tablet) 40 mg PO DAILY [facility] Last Admin: 03/29/21 09:24 Dose: 40 mg Documented by: Dextrose (D50w 25 Gm/50 Ml Vial) 12.5 gm IV PRN PRN PRN Reason: HYPOGLYCEMIA Donepezil HCl (Donepezil Hcl 5 Mg Tab) 10 mg PO BID [facility] Last Admin: 03/29/21 09:00 Dose: 10 mg Documented by: Enoxaparin Sodium (Enoxaparin 40 Mg/0.4 Ml) 40 mg SQ DAILY [facility] Last Admin: 03/29/21 09:23 Dose: 40 mg Documented by: Glucagon (Glucagon 1 Mg/Vial) 1 mg IM 1X PRN PRN Reason: HYPOGLYCEMIA Guaifenesin (Guaifenesin 600 Mg Sa Tab) 600 mg PO BID PRN PRN Reason: nasal congestion Last Admin: 03/25/21 20:36 Dose: 600 mg Documented by: Hydralazine HCl (Hydralazine Hcl 20 Mg/Ml Vial) 5 mg IV Q6HP PRN PRN Reason: Titrate to SBP (MUST DEFINE) Last Admin: 03/28/21 08:17 Dose: 5 mg Documented by: Cefepime HCl (Maxipime 1 Gm/10 Ml Ivp) 10 mls @ 120 mls/hr IV BID [facility] Last Admin: 03/29/21 09:23 Dose: 10 mls Documented by: Vancomycin HCl (Vancomycin 1 Gm/250 Ml Ns Ivpb) 1 gm in 250 mls @ 166.667 mls/hr IVPB Q18H [facility]; Protocol Last Admin: 03/28/21 17:21 Dose: 250 mls Documented by: Insulin Human Regular (Insulin -Regular Human 50 Unit/0.5 Ml Ml) 0 unit SQ ACHS [facility]; Protocol Last Admin: 03/29/21 07:30 Dose: Not Given Documented by: Lorazepam (Lorazepam 2 Mg/Ml Vial) 0.5 mg IV 1X PRN PRN Reason: ANXIETY Last Admin: 03/28/21 01:50 Dose: 0.5 mg Documented by: Memantine (Memantine Hcl 10 Mg Tablet) 10 mg PO BEDTIME [facility] Last Admin: 03/28/21 20:28 Dose: 10 mg Documented by: Metformin HCl (Metformin Hcl 500 Mg Tab) 1,000 mg PO BIDWM [facility] Last Admin: 03/29/21 09:31 Dose: 1,000 mg Documented by: Ondansetron HCl (Ondansetron 4 Mg/2 Ml Vial) 4 mg IV Q6HP PRN PRN Reason: NAUSEA / VOMITING Last Admin: 03/26/21 20:26 Dose: 4 mg Documented by: Sodium Chloride (Flush Normal Saline 10 Ml) 10 ml IV BID [facility] Last Admin: 03/29/21 09:00 Dose: 10 ml Documented by: Tramadol HCl (Tramadol Hcl 50 Mg Tab) 50 mg PO TID PRN PRN Reason: Pain scale 5-7 (Moderate) Last Admin: 03/25/21 22:50 Dose: 50 mg Documented by: Assessment And Plan - Plan General: Alert, In no apparent distress HEENT: Atraumatic, Normocephalic Neck: Supple, 2+ carotid pulse no bruit Respiratory: Clear to auscultation bilaterally Cardiovascular: No edema, Normal pulses, Regular rate/rhythm Gastrointestinal: Normal bowel sounds, Hypoactive Musculoskeletal: No clubbing, No swelling Integumentary: Arterial ulcer (On left 2nd and 3rd digit--2nd distal phalanx amputation performed on 03/28.) Antibiotics: Vancomycin start: 03/22 stop:-- Cefepime start: 03/22 stop:-- Assessment: 1. Osteomyelitis of left 2nd distal phalanx 2. Diabetes mellitus type 2 3. Chronic chewing tobacco user 4. Protein caloric malnutrition plan: 1. X-ray of left hand demonstrated osteomyelitis to the left 2nd distal phalanx. Surgery consulted-Dr. Early performed amputation on 03/28. No longer need for 6 weeks treatment of antibiotics, recommend sending patient home on 1 week of oral antibiotic therapy. 2. Sugars well controlled with hemoglobin A1c of 6.0. 3. Albumin low, recommend supplemental Ensure drinks with every meal. -medical management per primary team -continue monitor for signs of infection -continue monitor CBC and BMP plan of care discussed with Dr. Tobias Thank you for consultation. Physician Review: Patient Assessed, Agree with Above Assessment and Plan
[2021-03-29] MEDS: VANCOMYCIN/NS 1 gm 1 GM/250 ML BAG IVPB SCH (12:09)
[2021-03-29] MEDS: ACETAMINOPHEN 500 MG TAB PO PRN (12:11)
[2021-03-29 12:31] VITALS: BP 155/58
--- NOTE | 2021-03-29 13:22 | P.DS ---
Admission Date: 03/23/21 Discharge Date: 03/29/21 Disposition: ROUTINE DISCHARGE Discharge Condition: FAIR Reason for Admission: Chest pain, osteomyelitis Consultations: Hand Surgeon-Dr. Early Cardiology-Dr. Martin. - Problems (1) Alzheimer's dementia Status: Acute (2) Diabetes mellitus, type II Onset Date: 11/15/15 Status: Acute (3) Finger osteomyelitis, right Onset Date: 01/20/17 Status: Acute (4) Bradycardia Status: Acute (5) Hypertension Status: Acute Brief History of Present Illness: 75-year-old woman with history of dementia, diabetes mellitus type 2, hypertension, CAD presented to the emergency department with a complaint of chest pain and dizziness. She has memory impairment due to Alzheimer's dementia and could not provide much history. Troponin in the ED was negative, BNP 547 chest x-ray showed slight increase in prominence of interstitial pattern from 2019, possible trace edema/infiltrate. Patient was noted to have some ulcerations to the distal tip of her left fingers, for this reason an x-ray of the left hand was ordered which did reveal osteomyelitis with bone destruction involving the left 2nd distal phalanx. Patient admitted for further management. Hospital Course: Patient was admitted to the medical floor and started on IV Vanco and IV cefepime. She was seen by cardiology for chest pain and bradycardia. No further recommendation by cardiology. Troponin trended negative. Patient was seen by hand surgeon Dr. Early who amputated her left 2nd distal phalanx per spouse request. He did not want the option of prolonged IV antibiotic therapy. Patient was stable after surgery, had no symptoms. She was seen in consultation by infectious disease who assisted with antibiotic treatment. Patient is discharged with 7 days of Augmentin per infectious disease recommendation. Vital Signs/Physical Exam: Temp Pulse Resp BP Pulse Ox 97.6 F 51 16 155/58 H 100 03/29/21 12:00 03/29/21 12:00 03/29/21 12:00 03/29/21 12:00 03/29/21 12:00 General: In no apparent distress, Other (Awake) Respiratory: Clear to auscultation bilaterally, Normal air movement Cardiovascular: No edema, Regular rate/rhythm, Normal S1 S2 Gastrointestinal: Normal bowel sounds, Soft and benign, Non-distended, No tenderness Musculoskeletal: Other (Left 2nd finger in dressing) Integumentary: No rashes Neurological: Normal strength at 5/5 x4 extr Laboratory Data at Discharge: WBC 4.70 K/uL (4.3-10.9) 03/29/21 03:04 Hgb 11.6 g/dL (12.0-15.0) L 03/29/21 03:04 Hct 34.3 % (36.0-45.0) L 03/29/21 03:04 Plt Count 175 K/uL (152-406) 03/29/21 03:04 PT 12.9 SECONDS (9.5-12.5) H 03/26/21 05:09 INR 1.12 03/26/21 05:09 Sodium 140 mmol/L (136-145) 03/29/21 03:04 Potassium 4.4 mmol/L (3.5-5.1) 03/29/21 03:04 BUN 28 mg/dL (7-18) H 03/29/21 03:04 Creatinine 0.83 mg/dL (0.55-1.3) 03/29/21 03:04 Glucose 163 mg/dL (74-106) H 03/29/21 03:04 Magnesium 1.9 mg/dL (1.8-2.4) 03/25/21 03:43 Total Bilirubin 0.5 mg/dL (0.2-1.0) 03/24/21 03:44 AST 16 U/L (15-37) 03/24/21 03:44 ALT 14 U/L (12-78) 03/24/21 03:44 Alkaline Phosphatase 55 U/L (45-117) 03/24/21 03:44 Troponin I < 0.02 ng/mL (0.0-0.045) 03/23/21 03:27 Triglycerides 103 mg/dL (<150) 03/23/21 03:27 Cholesterol 167 mg/dL (<200) 03/23/21 03:27 HDL Cholesterol 43 mg/dL (40-60) 03/23/21 03:27 Cholesterol/HDL Ratio 3.88 03/23/21 03:27 Home Medications: Amlodipine [Norvasc*] 5 mg PO DAILY 03/22/21 Citalopram Hydrobromide [Celexa] 40 mg PO DAILY 03/22/21 Donepezil HCl 10 mg PO BID 03/22/21 Memantine HCl [Namenda*] 10 mg PO BEDTIME 03/22/21 Metformin HCl 1,000 mg PO BID 03/22/21 Amox/Clavulanate [Augmentin 875-125 Tab] 1 each PO BID #14 tab 03/29/21 Atorvastatin Calcium [Lipitor] 40 mg PO BEDTIME #30 tab 03/29/21 traMADol HCL [Ultram*] 50 mg PO TID PRN #20 tab 03/29/21 New Medications: Amox/Clavulanate [Augmentin 875-125 Tab] 1 each PO BID #14 tab Atorvastatin Calcium [Lipitor] 40 mg PO BEDTIME #30 tab traMADol HCL [Ultram*] 50 mg PO TID PRN #20 tab PRN Reason: Pain Scale 5-7 (Moderate) Diet: ADA Activity: Ad loly Followup: Ugo Early MD [ACTIVE - CAN ADMIT] - 04/02/21 8:00 am (follow up in [place] office at [address] [place] [address] [address]) Madi Licona MD [Primary Care Provider] - Time spent managing pt's care (in minutes): 32
== END 2021-03-29 15:10 | disposition home or self-care (01) | DRG 988 ==
LOC: ER 12:43 → ERHOLD 19:54 → 4TH 21:03 → OBSVTOIN 03-23 07:22 → 4TH 03-24 22:34
PROVIDERS: ADMIT Hospitalist; ATTEND Internal Medicine
PROC: 0X6P0Z3 Detachment at Left Index Finger, Low, Open Approach (ICD-10-PCS; principal; 2021-03-28 13:00)
DX: E11.69 Type 2 diabetes mellitus with other specified complication (principal); E46 Unspecified protein-calorie malnutrition; M86.142 Other acute osteomyelitis, left hand; I10 Essential (primary) hypertension; I25.10 Atherosclerotic heart disease of native coronary artery without angina pectoris; G30.9 Alzheimer's disease, unspecified; F02.80 Dementia in other diseases classified elsewhere, unspecified severity, without behavioral disturbance, psychotic disturbance, mood disturbance, and anxiety; F17.220 Nicotine dependence, chewing tobacco, uncomplicated; E78.5 Hyperlipidemia, unspecified; F32.9 Major depressive disorder, single episode, unspecified; L98.499 Non-pressure chronic ulcer of skin of other sites with unspecified severity; R00.1 Bradycardia, unspecified; Z79.899 Other long term (current) drug therapy; Z88.1 Allergy status to other antibiotic agents; Z79.84 Long term (current) use of oral hypoglycemic drugs; Z95.5 Presence of coronary angioplasty implant and graft; Z90.710 Acquired absence of both cervix and uterus; Z68.21 Body mass index [BMI] 21.0-21.9, adult; Z89.022 Acquired absence of left finger(s); Z89.021 Acquired absence of right finger(s); Z20.822 Contact with and (suspected) exposure to COVID-19
CPT/HCPCS: 36415; 71045; 80048; 80053; 80061; 80076; 80202; 81003; 82947; 83036; 83735; 83880; 84439; 84443; 84484; 85025; 85610; 86140; 88305; 88311; 93005; 99285; G0378; J0360; J0692; J1100; J1650; J2405; J2704; J3010; J3370; J3475; J7030; J7050; U0003

== ENCOUNTER 2023-11-12 15:27 | Inpatient (IN) | payer OTHER ==
--- OUTSIDE RECORDS SUMMARY | 2023-11-12 15:41 | XMS REPORT | Continuity of Care Document ---
Author Name Unknown Address [address] [facility] [address] [place] [address] [facility] thconnect Address [address] [facility] 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 Role Phone Raza Starr Primary Care Physician [phone] JESUS MARQUEZ Attending Clinician Unavail able RAZA AMAYA Attending Clinician Unavailable GRICELDA MEJIA Attending Clinician Unavailable CHUY MCKNIGHT Attending Clinician UnavailRaza Frias Attending Clinician + [phone] Twin Joseph MD Attending Clinician [phone] Kalyn Méndez Attending Clinician + [phone] GERALD WEST Attending Clinician Unavailable Gerald West MD Attending Clinician [phone] Doctor Unassigned, [place] Attending Clinician U navailable Lab, Ang - Db Attending Clinician Unavailable Teresita Russo MA Attending Clinician Unavail able Demetrius Mcnair RN Attending Clinician Unavailab Nils Alvares MD Attending Clinician + [phone] TWIN JOSEPH Attending Clinician Unavail able TWIN JOSEPH Attending Clinician Unavail able Gretel Jon RN Attending Clinician Unavailable YOKO PALACIO Attending Clinician Unav Yoko Collins MDika Attending Clinician + ARVIND CROSS Attending Clinician Unavailable Arvind Cross MD Attending Clinician [phone] Ana Bright Attending Clinician [phone] KALYN ROD Attending Clinician Unavailable Vaccine, Ang Db Cbc Fam Attending Clinician Unav ailreal Nurse, Ang Db Attending Clinician Unavailable ANA LI Attending Clinician Unavailable ErvinLesly Pa Attending Clinician [phone] ERVINLESLY CONTRERAS Attending Clinician Unavailable Jacob Wheeler MD Attending Clinician [phone] JACOB WHEELER Attending Clinician UnavailFARAZ Heard Attending Clinician Unavaila bowen Morris HUNTERFaraz Ruano F Attending Clinician [phone] BECKY ROSS S Attending Clinician Unavailable RossBecky Nino S Attending Clinician [phone] Jon Roblero MD Attending Clinician [phone] JON ROBLERO Attending Clinician Unavailcoleman Buckley HUNTERLisa Ruano A Attending Clinician [phone] Jesus Marquez MD Attending Clinician [phone] Ector_S_AH Attending Clinician Unavailable Refugio-Deirdreayo_A_AH Attending Clinician Unavailable JESUS MARQUEZ Admitting Clinician Unavail able GERALD WEST Admitting Clinician Unavailable YOKO PALACIO Admitting Clinician Unav kacey Palacio MD, Yoko Simmons Admitting Clinician + ARVIND CROSS Admitting Clinician Unavailable JACOB WHEELER Admitting Clinician UnavailJacob Philip MD Admitting Clinician [phone] LinoSDANNY Admitting Clinician Unavailable Refugio-Deirdreayo_A_AH Admitting Clinician Unavailable Payers Payer Name Policy Type Policy Number Effective Date Expirati on Date Source [facility] [id number] 2020 00:00:00 [employer] [place] [facility] [place] (MEDICARE REPLACEMENT/ADVANT AGE - HMO) [id number] [id number] 00:00:00 Problems Condition Name Condition Details Condition Category Status Onset Date Resolution Date Last Treatment Date Treating Clinician Comments Source Syncope and collapse Syncope and collapse Disease Active 330 00:00: 00 [facility] Essential hypertensi on Essential hypertensi on Disease Active 04-13 00:00: 00 [facility] Coronary artery disease involving [place] coronary artery of [place] heart without angina 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 Disease Active 04-13 00:00: 00 [facility] Chronic right shoulder pain Chronic right shoulder pain Disease Active 04-13 00:00: 00 [facility] Dementia without behavioral disturbanc e, unspecifie d dementia type Dementia without behavioral disturbanc e, unspecifie d dementia type Disease Active 04-13 00:00: 00 [facility] Coronary artery disease involving [place] coronary artery of [place] heart without angina 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 Disease Active 04-13 00:00: 00 [facility] 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, 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 Added automatic ally from request for surgery [id number] [facility] Allergies, Adverse Reactions, Alerts Allergy Name Allergy Type Status Severity Reaction(s) Onset Date Inactive Date Treating Clinician Comments Source Sulfur Propensi ty to adverse reaction s Active Unknown - See comments 2020-11 00:00: 00 [facility] SULFUR DRUG INGREDI Active Unknown-Cmnt 2020-11 0 00:00: 00 [facility] Social History Social Habit Start Date Stop Date Quantity Comments Source Gender identity [facility] 2023-11-03 00:00:00 2023-11-03 00:00:00 Lifetime non-drinker (finding) [facility] History of Social function 2023-09-19 00:00:00 2023-09-19 00:00:00 [facility] Exposure to SARS-CoV-2 (event) 2023-05-03 00:00:00 2023-05-13 06:33:00 Not sure [facility] Tobacco use and exposure 2021-08-30 00:00:00 2021-08-30 00:00:00 Smokeless tobacco non-user [facility] Sex Ass[birth year] At 1945 00:00:00 1945 00:00:00 [facility] Smoking Status Start Date Stop Date Source Never smoked tobacco [facility] Medications Ordered Medication Name Filled Medication Name Start Date Stop Date Current Medication? Ordering Clinician Indication Dosage Frequency Signature (SIG) Comments Components Source mirtazapine 15 mg tablet 2022-11 00:00: 00 Yes [id number] 15mg Take 1 tablet by mouth at bedtime. [facility] mirtazapine 15 mg tablet 2022-11 00:00: 00 Yes [id number] 15mg Take 1 tablet by mouth at bedtime. [facility] cyclobenzap rine 10 mg tablet 2022-11 00:00: 00 Yes [id number] 10mg Take 1 tablet by mouth in the morning and 1 tablet at noon and 1 tablet in the evening. [facility] metFORMIN 1,000 mg tablet 2022-11 00:00: 00 Yes [id number] 1000mg Take 1 tablet by mouth in the morning and 1 tablet in the evening. Take with meals. [facility] cyclobenzap rine 10 mg tablet 2022-11 00:00: 00 Yes [id number] 10mg Take 1 tablet by mouth in the morning and 1 tablet at noon and 1 tablet in the evening. [facility] metFORMIN 1,000 mg tablet 2022-11 00:00: 00 Yes [id number] 1000mg Take 1 tablet by mouth in the morning and 1 tablet in the evening. Take with meals. [facility] cyclobenzap rine 10 mg tablet 2022-11 00:00: 00 Yes [id number] 10mg Take 1 tablet by mouth in the morning and 1 tablet at noon and 1 tablet in the evening. [facility] metFORMIN 1,000 mg tablet 2022-11 00:00: 00 Yes [id number] 1000mg Take 1 tablet by mouth in the morning and 1 tablet in the evening. Take with meals. [facility] Donepezil 23 mg Tab 2022-11 00:00: 00 Yes [id number] 23mg Take 23 mg by mouth at bedtime. [facility] Donepezil 23 mg Tab 2022-11 00:00: 00 Yes [id number] 23mg Take 23 mg by mouth at bedtime. [facility] Donepezil 23 mg Tab 2022-11 00:00: 00 Yes [id number] 23mg Take 23 mg by mouth at bedtime. [facility] Donepezil 23 mg Tab 2022-11 00:00: 00 Yes [id number] 23mg Take 23 mg by mouth at bedtime. [facility] Donepezil 23 mg Tab 2022-11 00:00: 00 Yes [id number] 23mg Take 23 mg by mouth at bedtime. [facility] Donepezil 23 mg Tab 2022-11 00:00: 00 Yes [id number] 23mg Take 23 mg by mouth at bedtime. [facility] memantine 10 mg tablet 2022-11 00:00: 00 Yes [id number] 10mg Take 1 tablet by mouth in the morning and 1 tablet in the evening. [facility] divalproex 250 mg EC tablet 2022-11 00:00: 00 Yes [id number] 250mg Take 1 tablet by mouth every 12 (twelve) hours. [facility] clonazePAM 1 mg tablet 2022-11 00:00: 00 Yes [id number] 1mg Take 1 tablet by mouth at bedtime. [facility] memantine 10 mg tablet 2022-11 00:00: 00 Yes [id number] 10mg Take 1 tablet by mouth in the morning and 1 tablet in the evening. [facility] divalproex 250 mg EC tablet 2022-11 00:00: 00 Yes [id number] 250mg Take 1 tablet by mouth every 12 (twelve) hours. [facility] clonazePAM 1 mg tablet 2022-11 00:00: 00 Yes [id number] 1mg Take 1 tablet by mouth at bedtime. [facility] memantine 10 mg tablet 2022-11 00:00: 00 Yes [id number] 10mg Take 1 tablet by mouth in the morning and 1 tablet in the evening. [facility] divalproex 250 mg EC tablet 2022-11 00:00: 00 Yes [id number] 250mg Take 1 tablet by mouth every 12 (twelve) hours. [facility] clonazePAM 1 mg tablet 2022-11 00:00: 00 Yes [id number] 1mg Take 1 tablet by mouth at bedtime. [facility] memantine 10 mg tablet 2022-11 00:00: 00 Yes [id number] 10mg Take 1 tablet by mouth in the morning and 1 tablet in the evening. [facility] divalproex 250 mg EC tablet 2022-11 00:00: 00 Yes [id number] 250mg Take 1 tablet by mouth every 12 (twelve) hours. [facility] clonazePAM 1 mg tablet 2022-11 00:00: 00 Yes [id number] 1mg Take 1 tablet by mouth at bedtime. [facility] memantine 10 mg tablet 2022-11 00:00: 00 Yes [id number] 10mg Take 1 tablet by mouth in the morning and 1 tablet in the evening. [facility] divalproex 250 mg EC tablet 2022-11 00:00: 00 Yes [id number] 250mg Take 1 tablet by mouth every 12 (twelve) hours. [facility] clonazePAM 1 mg tablet 2022-11 00:00: 00 Yes [id number] 1mg Take 1 tablet by mouth at bedtime. [facility] memantine 10 mg tablet 2022-11 00:00: 00 Yes [id number] 10mg Take 1 tablet by mouth in the morning and 1 tablet in the evening. [facility] divalproex 250 mg EC tablet 2022-11 00:00: 00 Yes [id number] 250mg Take 1 tablet by mouth every 12 (twelve) hours. [facility] clonazePAM 1 mg tablet 2022-11 00:00: 00 Yes [id number] 1mg Take 1 tablet by mouth at bedtime. [facility] memantine 10 mg tablet 2022-11 00:00: 00 Yes [id number] 10mg Take 1 tablet by mouth in the morning and 1 tablet in the evening. [facility] divalproex 250 mg EC tablet 2022-11 00:00: 00 Yes [id number] 250mg Take 1 tablet by mouth every 12 (twelve) hours. [facility] clonazePAM 1 mg tablet 2022-11 00:00: 00 Yes [id number] 1mg Take 1 tablet by mouth at bedtime. [facility] donepeziL 23 mg Tab 2022-11 00:00: 00 11-04 00:00 :00 No [id number] 10mg Take 10 mg by mouth at bedtime. [facility] donepeziL 23 mg Tab 2022-11 00:00: 00 11-04 00:00 :00 No [id number] 10mg Take 10 mg by mouth at bedtime. [facility] NaCl 0.9% (NS) bolus infusion 1,000 mL 2022-11 04:15: 00 10-01 04:33 :00 No 1000mL at 999 mL/hr, 1,000 mL, IV Infusion, ONCE, 1 dose, On Fri09/30/23 at 2215, STAT [facility] cefTRIAXone (ROCEPHIN) 1,000 mg in NaCl 0.9% (NS) 100 mL MINI-BAG 2022-11 03:45: 00 10-01 04:08 :00 No 1000mg 1,000 mg, IV Piggyback, ONCE, 1 dose, On Fri09/30/23 at 2145, Administer over 30 Minutes, 100 mL
Reas on for Anti-Infec tive: Documented Infection< br>Documen sara Infection Site: Urine
D uration of Therapy: Other (see Comments) [facility] cefpodoxime 200 mg tablet 2022-11 00:00: 00 Yes [id number] 200mg Take 1 tablet by mouth in the morning and 1 tablet in the evening. [facility] cefpodoxime 200 mg tablet 2022-11 00:00: 00 Yes [id number] 200mg Take 1 tablet by mouth in the morning and 1 tablet in the evening. [facility] cefpodoxime 200 mg tablet 2022-11 00:00: 00 Yes [id number] 200mg Take 1 tablet by mouth in the morning and 1 tablet in the evening. [facility] cefpodoxime 200 mg tablet 2022-11 00:00: 00 Yes [id number] 200mg Take 1 tablet by mouth in the morning and 1 tablet in the evening. [facility] cefpodoxime 200 mg tablet 2022-11 00:00: 00 Yes [id number] 200mg Take 1 tablet by mouth in the morning and 1 tablet in the evening. [facility] cefpodoxime 200 mg tablet 2022-11 00:00: 00 Yes [id number] 200mg Take 1 tablet by mouth in the morning and 1 tablet in the evening. [facility] cefpodoxime 200 mg tablet 2022-11 00:00: 00 Yes [id number] 200mg Take 1 tablet by mouth in the morning and 1 tablet in the evening. [facility] cefpodoxime 200 mg tablet 2022-11 00:00: 00 Yes [id number] 200mg Take 1 tablet by mouth in the morning and 1 tablet in the evening. [facility] cefpodoxime 200 mg tablet 2022-11 00:00: 00 Yes [id number] 200mg Take 1 tablet by mouth in the morning and 1 tablet in the evening. [facility] cefpodoxime 200 mg tablet 2022-11 00:00: 00 Yes [id number] 200mg Take 1 tablet by mouth in the morning and 1 tablet in the evening. [facility] cefpodoxime 200 mg tablet 2022-11 00:00: 00 Yes [id number] 200mg Take 1 tablet by mouth in the morning and 1 tablet in the evening. [facility] cefpodoxime 200 mg tablet 2022-11 00:00: 00 Yes [id number] 200mg Take 1 tablet by mouth in the morning and 1 tablet in the evening. [facility] rosuvastati n 10 mg tablet 2022-11 00:00: 00 Yes [id number] 10mg Take 1 tablet by mouth at bedtime. [facility] rosuvastati n 10 mg tablet 2022-11 00:00: 00 Yes [id number] 10mg Take 1 tablet by mouth at bedtime. [facility] rosuvastati n 10 mg tablet 2022-11 00:00: 00 Yes [id number] 10mg Take 1 tablet by mouth at bedtime. [facility] rosuvastati n 10 mg tablet 2022-11 00:00: 00 Yes [id number] 10mg Take 1 tablet by mouth at bedtime. [facility] rosuvastati n 10 mg tablet 2022-11 00:00: 00 Yes [id number] 10mg Take 1 tablet by mouth at bedtime. [facility] rosuvastati n 10 mg tablet 2022-11 00:00: 00 Yes [id number] 10mg Take 1 tablet by mouth at bedtime. [facility] rosuvastati n 10 mg tablet 2022-11 00:00: 00 Yes [id number] 10mg Take 1 tablet by mouth at bedtime. [facility] rosuvastati n 10 mg tablet 2022-11 0 00:00: 00 Yes [id number] 10mg Take 1 tablet by mouth at bedtime. [facility] rosuvastati n 10 mg tablet 2022-11 0 00:00: 00 Yes [id number] 10mg Take 1 tablet by mouth at bedtime. [facility] rosuvastati n 10 mg tablet 2022-11 0 00:00: 00 Yes [id number] 10mg Take 1 tablet by mouth at bedtime. [facility] rosuvastati n 10 mg tablet 2022-11 0 00:00: 00 Yes [id number] 10mg Take 1 tablet by mouth at bedtime. [facility] rosuvastati n 10 mg tablet 2022-11 0 00:00: 00 Yes [id number] 10mg Take 1 tablet by mouth at bedtime. [facility] rosuvastati n 10 mg tablet 2022-11 00:00: 00 Yes [id number] 10mg Take 1 tablet by mouth at bedtime. [facility] rosuvastati n 10 mg tablet 2022-11 0 00:00: 00 Yes [id number] 10mg Take 1 tablet by mouth at bedtime. [facility] mirtazapine 15 mg tablet 2022-11 00:00: 00 Yes [id number] 15mg Take 1 tablet by mouth at bedtime. [facility] DULoxetine 30 mg capsule 2022-11 0 00:00: 00 Yes 30mg Take 1 capsule by mouth in the morning and 1 capsule in the evening. [facility] mirtazapine 15 mg tablet 2022-11 0 00:00: 00 Yes [id number] 15mg Take 1 tablet by mouth at bedtime. [facility] DULoxetine 30 mg capsule 2022-11 0 00:00: 00 Yes 30mg Take 1 capsule by mouth in the morning and 1 capsule in the evening. [facility] mirtazapine 15 mg tablet 2022-11 0 00:00: 00 Yes [id number] 15mg Take 1 tablet by mouth at bedtime. [facility] DULoxetine 30 mg capsule 2022-11 0 00:00: 00 Yes 30mg Take 1 capsule by mouth in the morning and 1 capsule in the evening. [facility] mirtazapine 15 mg tablet 2022-11 0 00:00: 00 Yes [id number] 15mg Take 1 tablet by mouth at bedtime. [facility] DULoxetine 30 mg capsule 2022-11 0 00:00: 00 Yes 30mg Take 1 capsule by mouth in the morning and 1 capsule in the evening. [facility] mirtazapine 15 mg tablet 2022-11 0 00:00: 00 Yes [id number] 15mg Take 1 tablet by mouth at bedtime. [facility] DULoxetine 30 mg capsule 2022-11 0 00:00: 00 Yes 30mg Take 1 capsule by mouth in the morning and 1 capsule in the evening. [facility] mirtazapine 15 mg tablet 2022-11 0 00:00: 00 Yes [id number] 15mg Take 1 tablet by mouth at bedtime. [facility] DULoxetine 30 mg capsule 2022-11 0 00:00: 00 Yes 30mg Take 1 capsule by mouth in the morning and 1 capsule in the evening. [facility] mirtazapine 15 mg tablet 2022-11 0 00:00: 00 Yes [id number] 15mg Take 1 tablet by mouth at bedtime. [facility] DULoxetine 30 mg capsule 2022-11 0 00:00: 00 Yes 30mg Take 1 capsule by mouth in the morning and 1 capsule in the evening. [facility] mirtazapine 15 mg tablet 2022-11 0 00:00: 00 Yes [id number] 15mg Take 1 tablet by mouth at bedtime. [facility] DULoxetine 30 mg capsule 2022-11 0 00:00: 00 Yes 30mg Take 1 capsule by mouth in the morning and 1 capsule in the evening. [facility] mirtazapine 15 mg tablet 2022-11 0 00:00: 00 Yes [id number] 15mg Take 1 tablet by mouth at bedtime. [facility] DULoxetine 30 mg capsule 2022-11 0 00:00: 00 Yes 30mg Take 1 capsule by mouth in the morning and 1 capsule in the evening. [facility] mirtazapine 15 mg tablet 2022-11 0 00:00: 00 Yes [id number] 15mg Take 1 tablet by mouth at bedtime. [facility] DULoxetine 30 mg capsule 2022-11 0 00:00: 00 Yes 30mg Take 1 capsule by mouth in the morning and 1 capsule in the evening. [facility] mirtazapine 15 mg tablet 2022-11 0 00:00: 00 Yes [id number] 15mg Take 1 tablet by mouth at bedtime. [facility] DULoxetine 30 mg capsule 2022-11 0 00:00: 00 Yes 30mg Take 1 capsule by mouth in the morning and 1 capsule in the evening. [facility] mirtazapine 15 mg tablet 2022-11 0 00:00: 00 Yes [id number] 15mg Take 1 tablet by mouth at bedtime. [facility] DULoxetine 30 mg capsule 2022-11 0 00:00: 00 Yes 30mg Take 1 capsule by mouth in the morning and 1 capsule in the evening. [facility] mirtazapine 15 mg tablet 2022-11 0 00:00: 00 Yes [id number] 15mg Take 1 tablet by mouth at bedtime. [facility] DULoxetine 30 mg capsule 2022-11 0 00:00: 00 Yes 30mg Take 1 capsule by mouth in the morning and 1 capsule in the evening. [facility] mirtazapine 15 mg tablet 2022-11 0 00:00: 00 Yes [id number] 15mg Take 1 tablet by mouth at bedtime. [facility] DULoxetine 30 mg capsule 2022-11 0 00:00: 00 Yes 30mg Take 1 capsule by mouth in the morning and 1 capsule in the evening. [facility] mirtazapine 15 mg tablet 2022-11 0 00:00: 00 Yes [id number] 15mg Take 1 tablet by mouth at bedtime. [facility] DULoxetine 30 mg capsule 2022-11 0 00:00: 00 Yes 30mg Take 1 capsule by mouth in the morning and 1 capsule in the evening. [facility] mirtazapine 15 mg tablet 2022-11 0 00:00: 00 Yes [id number] 15mg Take 1 tablet by mouth at bedtime. [facility] DULoxetine 30 mg capsule 2022-11 0 00:00: 00 Yes 30mg Take 1 capsule by mouth in the morning and 1 capsule in the evening. [facility] mirtazapine 15 mg tablet 2022-11 0 00:00: 00 Yes [id number] 15mg Take 1 tablet by mouth at bedtime. [facility] DULoxetine 30 mg capsule 2022-11 0 00:00: 00 Yes 30mg Take 1 capsule by mouth in the morning and 1 capsule in the evening. [facility] DULoxetine 30 mg capsule 2022-11 0 00:00: 00 Yes 30mg Take 1 capsule by mouth in the morning and 1 capsule in the evening. [facility] DULoxetine 30 mg capsule 2022-11 0 00:00: 00 Yes 30mg Take 1 capsule by mouth in the morning and 1 capsule in the evening. [facility] mirtazapine 15 mg tablet 2022-11 0 00:00: 00 11-11 00:00 :00 No [id number] 15mg Take 1 tablet by mouth at bedtime. [facility] gabapentin 100 mg capsule 2022-11 0 00:00: 00 09-19 00:00 :00 No [id number] 100mg Take 1 capsule by mouth in the morning and 1 capsule at noon and 1 capsule in the evening. [facility] gabapentin 100 mg capsule 2022-11 0 00:00: 00 09-19 00:00 :00 No [id number] 100mg Take 1 capsule by mouth in the morning and 1 capsule at noon and 1 capsule in the evening. [facility] gabapentin 100 mg capsule 2022-11 0 00:00: 00 09-19 00:00 :00 No [id number] 100mg Take 1 capsule by mouth in the morning and 1 capsule at noon and 1 capsule in the evening. [facility] gabapentin 100 mg capsule 2022-11 0 00:00: 00 09-19 00:00 :00 No [id number] 100mg Take 1 capsule by mouth in the morning and 1 capsule at noon and 1 capsule in the evening. [facility] divalproex 125 mg EC tablet 2022-11 0 00:00: 00 Yes [id number] 125mg Take 1 tablet by mouth every 12 (twelve) hours. [facility] memantine 10 mg tablet 2022-11 0 00:00: 00 Yes 10mg Take 1 tablet by mouth in the morning and 1 tablet in the evening. [facility] divalproex 125 mg EC tablet 2022-11 0 00:00: 00 Yes [id number] 125mg Take 1 tablet by mouth every 12 (twelve) hours. [facility] memantine 10 mg tablet 2022-11 0 00:00: 00 Yes 10mg Take 1 tablet by mouth in the morning and 1 tablet in the evening. [facility] divalproex 125 mg EC tablet 2022-11 0 00:00: 00 Yes [id number] 125mg Take 1 tablet by mouth every 12 (twelve) hours. [facility] memantine 10 mg tablet 2022-11 0 00:00: 00 Yes 10mg Take 1 tablet by mouth in the morning and 1 tablet in the evening. [facility] divalproex 125 mg EC tablet 2022-11 0 00:00: 00 Yes [id number] 125mg Take 1 tablet by mouth every 12 (twelve) hours. [facility] memantine 10 mg tablet 2022-11 0 00:00: 00 Yes 10mg Take 1 tablet by mouth in the morning and 1 tablet in the evening. [facility] divalproex 125 mg EC tablet 2022-11 0-24 00:00: 00 Yes [id number] 125mg Take 1 tablet by mouth every 12 (twelve) hours. [facility] memantine 10 mg tablet 2022-11 0-24 00:00: 00 Yes 10mg Take 1 tablet by mouth in the morning and 1 tablet in the evening. [facility] divalproex 125 mg EC tablet 2022-11 0- 00:00: 00 Yes [id number] 125mg Take 1 tablet by mouth every 12 (twelve) hours. [facility] memantine 10 mg tablet 2022-11 0 00:00: 00 Yes 10mg Take 1 tablet by mouth in the morning and 1 tablet in the evening. [facility] divalproex 125 mg EC tablet 2022-11 0 00:00: 00 Yes [id number] 125mg Take 1 tablet by mouth every 12 (twelve) hours. [facility] memantine 10 mg tablet 2022-11 0 00:00: 00 Yes 10mg Take 1 tablet by mouth in the morning and 1 tablet in the evening. [facility] divalproex 125 mg EC tablet 2022-11 0 00:00: 00 Yes [id number] 125mg Take 1 tablet by mouth every 12 (twelve) hours. [facility] memantine 10 mg tablet 2022-11 0 00:00: 00 Yes 10mg Take 1 tablet by mouth in the morning and 1 tablet in the evening. [facility] divalproex 125 mg EC tablet 2022-11 0 00:00: 00 Yes [id number] 125mg Take 1 tablet by mouth every 12 (twelve) hours. [facility] memantine 10 mg tablet 2022-11 024 00:00: 00 Yes 10mg Take 1 tablet by mouth in the morning and 1 tablet in the evening. [facility] divalproex 125 mg EC tablet 2022-11 0 00:00: 00 Yes [id number] 125mg Take 1 tablet by mouth every 12 (twelve) hours. [facility] memantine 10 mg tablet 2022-11 0-24 00:00: 00 Yes 10mg Take 1 tablet by mouth in the morning and 1 tablet in the evening. [facility] divalproex 125 mg EC tablet 2022-11 0-24 00:00: 00 Yes [id number] 125mg Take 1 tablet by mouth every 12 (twelve) hours. [facility] memantine 10 mg tablet 2022-11 0-24 00:00: 00 Yes 10mg Take 1 tablet by mouth in the morning and 1 tablet in the evening. [facility] divalproex 125 mg EC tablet 2022-11 0-24 00:00: 00 Yes [id number] 125mg Take 1 tablet by mouth every 12 (twelve) hours. [facility] memantine 10 mg tablet 2022-11 0-24 00:00: 00 Yes 10mg Take 1 tablet by mouth in the morning and 1 tablet in the evening. [facility] divalproex 125 mg EC tablet 2022-11 0-24 00:00: 00 Yes [id number] 125mg Take 1 tablet by mouth every 12 (twelve) hours. [facility] memantine 10 mg tablet 2022-11 024 00:00: 00 Yes 10mg Take 1 tablet by mouth in the morning and 1 tablet in the evening. [facility] divalproex 125 mg EC tablet 2022-11 024 00:00: 00 Yes [id number] 125mg Take 1 tablet by mouth every 12 (twelve) hours. [facility] memantine 10 mg tablet 2022-11 0-24 00:00: 00 Yes 10mg Take 1 tablet by mouth in the morning and 1 tablet in the evening. [facility] divalproex 125 mg EC tablet 2022-11 0-24 00:00: 00 11-03 00:00 :00 No [id number] 125mg Take 1 tablet by mouth every 12 (twelve) hours. [facility] memantine 10 mg tablet 2022-11 0-24 00:00: 00 11-03 00:00 :00 No 10mg Take 1 tablet by mouth in the morning and 1 tablet in the evening. [facility] divalproex 125 mg EC tablet 2022-11 0-24 00:00: 00 11-03 00:00 :00 No [id number] 125mg Take 1 tablet by mouth every 12 (twelve) hours. [facility] memantine 10 mg tablet 2022-11 0-24 00:00: 00 11-03 00:00 :00 No 10mg Take 1 tablet by mouth in the morning and 1 tablet in the evening. [facility] meloxicam 7.5 mg tablet 2022-11 0-17 00:00: 00 Yes [id number] 7.5mg Take 1 tablet by mouth every morning. [facility] meloxicam 7.5 mg tablet 2022-11 0-17 00:00: 00 Yes [id number] 7.5mg Take 1 tablet by mouth every morning. [facility] meloxicam 7.5 mg tablet 2022-11 0-17 00:00: 00 Yes [id number] 7.5mg Take 1 tablet by mouth every morning. [facility] meloxicam 7.5 mg tablet 2022-11 0-17 00:00: 00 Yes [id number] 7.5mg Take 1 tablet by mouth every morning. [facility] meloxicam 7.5 mg tablet 2022-11 0-17 00:00: 00 Yes [id number] 7.5mg Take 1 tablet by mouth every morning. [facility] meloxicam 7.5 mg tablet 2022-11 0-17 00:00: 00 Yes [id number] 7.5mg Take 1 tablet by mouth every morning. [facility] meloxicam 7.5 mg tablet 2022-11 0-17 00:00: 00 Yes [id number] 7.5mg Take 1 tablet by mouth every morning. [facility] meloxicam 7.5 mg tablet 2022-11 0-17 00:00: 00 Yes [id number] 7.5mg Take 1 tablet by mouth every morning. [facility] meloxicam 7.5 mg tablet 2022-11 0-17 00:00: 00 Yes [id number] 7.5mg Take 1 tablet by mouth every morning. [facility] meloxicam 7.5 mg tablet 2022-11 0-17 00:00: 00 Yes [id number] 7.5mg Take 1 tablet by mouth every morning. [facility] meloxicam 7.5 mg tablet 2022-11 0-17 00:00: 00 Yes [id number] 7.5mg Take 1 tablet by mouth every morning. [facility] 20[facility]-11 0-17 00:00: 00 Yes [id number] 7.5mg Take 1 tablet by mouth every morning. [facility] 2022-11 0-17 00:00: 00 Yes [id number] 7.5mg Take 1 tablet by mouth every morning. [facility] meloxicam 7.5 mg tablet 2022-11 0-17 00:00: 00 Yes [id number] 7.5mg Take 1 tablet by mouth every morning. [facility] meloxicam 7.5 mg tablet 2022-11 0- 00:00: 00 Yes [id number] 7.5mg Take 1 tablet by mouth every morning. [facility] meloxicam 7.5 mg tablet 2022-11 0 00:00: 00 Yes [id number] 7.5mg Take 1 tablet by mouth every morning. [facility] meloxicam 7.5 mg tablet 2022-11 0 00:00: 00 Yes [id number] 7.5mg Take 1 tablet by mouth every morning. [facility] meloxicam 7.5 mg tablet 2022-11 0 00:00: 00 Yes [id number] 7.5mg Take 1 tablet by mouth every morning. [facility] meloxicam 7.5 mg tablet 2022-11 0-17 00:00: 00 Yes [id number] 7.5mg Take 1 tablet by mouth every morning. [facility] meloxicam 7.5 mg tablet 2022- 0-17 00:00: 00 Yes [id number] 7.5mg Take 1 tablet by mouth every morning. [facility] meloxicam 7.5 mg tablet 2022- 0-17 00:00: 00 Yes [id number] 7.5mg Take 1 tablet by mouth every morning. [facility] meloxicam 7.5 mg tablet 2022- 0-17 00:00: 00 Yes [id number] 7.5mg Take 1 tablet by mouth every morning. [facility] traZODone 50 mg tablet 2022-11 0 00:00: 00 Yes [id number] 50mg Take 1 tablet by mouth at bedtime. [facility] DULoxetine 30 mg capsule 2022-11 0 00:00: 00 Yes [id number] 30mg Take 1 capsule by mouth in the morning. [facility] lisinopriL 40 mg tablet 2022-11 00:00: 00 Yes [id number] 40mg Take 1 tablet by mouth every morning. [facility] cyclobenzap rine 10 mg tablet 2022-11 00:00: 00 Yes [id number] 10mg Take 1 tablet by mouth in the morning and 1 tablet at noon and 1 tablet in the evening. [facility] metFORMIN 1,000 mg tablet 2022-11 00:00: 00 Yes [id number] 1000mg Take 1 tablet by mouth in the morning and 1 tablet in the evening. Take with meals. [facility] traZODone 50 mg tablet 2022-11 00:00: 00 Yes [id number] 50mg Take 1 tablet by mouth at bedtime. [facility] DULoxetine 30 mg capsule 2022-11 00:00: 00 Yes [id number] 30mg Take 1 capsule by mouth in the morning. [facility] lisinopriL 40 mg tablet 2022-11 00:00: 00 Yes [id number] 40mg Take 1 tablet by mouth every morning. [facility] cyclobenzap rine 10 mg tablet 2022-11 00:00: 00 Yes [id number] 10mg Take 1 tablet by mouth in the morning and 1 tablet at noon and 1 tablet in the evening. [facility] metFORMIN 1,000 mg tablet 2022-11 00:00: 00 Yes [id number] 1000mg Take 1 tablet by mouth in the morning and 1 tablet in the evening. Take with meals. [facility] traZODone 50 mg tablet 2022-11 00:00: 00 Yes [id number] 50mg Take 1 tablet by mouth at bedtime. [facility] DULoxetine 30 mg capsule 2022-11 00:00: 00 Yes [id number] 30mg Take 1 capsule by mouth in the morning. [facility] lisinopriL 40 mg tablet 2022-11 00:00: 00 Yes [id number] 40mg Take 1 tablet by mouth every morning. [facility] cyclobenzap rine 10 mg tablet 2022-11 00:00: 00 Yes [id number] 10mg Take 1 tablet by mouth in the morning and 1 tablet at noon and 1 tablet in the evening. [facility] metFORMIN 1,000 mg tablet 2022-11 00:00: 00 Yes [id number] 1000mg Take 1 tablet by mouth in the morning and 1 tablet in the evening. Take with meals. [facility] traZODone 50 mg tablet 2022-11 00:00: 00 Yes [id number] 50mg Take 1 tablet by mouth at bedtime. [facility] DULoxetine 30 mg capsule 2022-11 00:00: 00 Yes [id number] 30mg Take 1 capsule by mouth in the morning. [facility] lisinopriL 40 mg tablet 2022-11 00:00: 00 Yes [id number] 40mg Take 1 tablet by mouth every morning. [facility] cyclobenzap rine 10 mg tablet 2022-11 00:00: 00 Yes [id number] 10mg Take 1 tablet by mouth in the morning and 1 tablet at noon and 1 tablet in the evening. [facility] metFORMIN 1,000 mg tablet 2022-11 00:00: 00 Yes [id number] 1000mg Take 1 tablet by mouth in the morning and 1 tablet in the evening. Take with meals. [facility] traZODone 50 mg tablet 2022-11 00:00: 00 Yes [id number] 50mg Take 1 tablet by mouth at bedtime. [facility] DULoxetine 30 mg capsule 2022-11 00:00: 00 Yes [id number] 30mg Take 1 capsule by mouth in the morning. [facility] lisinopriL 40 mg tablet 2022-11 00:00: 00 Yes [id number] 40mg Take 1 tablet by mouth every morning. [facility] cyclobenzap rine 10 mg tablet 2022-11 00:00: 00 Yes [id number] 10mg Take 1 tablet by mouth in the morning and 1 tablet at noon and 1 tablet in the evening. [facility] metFORMIN 1,000 mg tablet 2022-11 00:00: 00 Yes [id number] 1000mg Take 1 tablet by mouth in the morning and 1 tablet in the evening. Take with meals. [facility] traZODone 50 mg tablet 2022-11 00:00: 00 Yes [id number] 50mg Take 1 tablet by mouth at bedtime. [facility] lisinopriL 40 mg tablet 2022-11 00:00: 00 Yes [id number] 40mg Take 1 tablet by mouth every morning. [facility] cyclobenzap rine 10 mg tablet 2022-11 00:00: 00 Yes [id number] 10mg Take 1 tablet by mouth in the morning and 1 tablet at noon and 1 tablet in the evening. [facility] metFORMIN 1,000 mg tablet 2022-11 00:00: 00 Yes [id number] 1000mg Take 1 tablet by mouth in the morning and 1 tablet in the evening. Take with meals. [facility] traZODone 50 mg tablet 2022-11 00:00: 00 Yes [id number] 50mg Take 1 tablet by mouth at bedtime. [facility] lisinopriL 40 mg tablet 2022-11 00:00: 00 Yes [id number] 40mg Take 1 tablet by mouth every morning. [facility] cyclobenzap rine 10 mg tablet 2022-11 00:00: 00 Yes [id number] 10mg Take 1 tablet by mouth in the morning and 1 tablet at noon and 1 tablet in the evening. [facility] metFORMIN 1,000 mg tablet 2022-11 00:00: 00 Yes [id number] 1000mg Take 1 tablet by mouth in the morning and 1 tablet in the evening. Take with meals. [facility] traZODone 50 mg tablet 2022-11 00:00: 00 Yes [id number] 50mg Take 1 tablet by mouth at bedtime. [facility] lisinopriL 40 mg tablet 2022-11 00:00: 00 Yes [id number] 40mg Take 1 tablet by mouth every morning. [facility] cyclobenzap rine 10 mg tablet 2022-11 00:00: 00 Yes [id number] 10mg Take 1 tablet by mouth in the morning and 1 tablet at noon and 1 tablet in the evening. [facility] metFORMIN 1,000 mg tablet 2022-11 00:00: 00 Yes [id number] 1000mg Take 1 tablet by mouth in the morning and 1 tablet in the evening. Take with meals. [facility] traZODone 50 mg tablet 2022-11 00:00: 00 Yes [id number] 50mg Take 1 tablet by mouth at bedtime. [facility] lisinopriL 40 mg tablet 2022-11 00:00: 00 Yes [id number] 40mg Take 1 tablet by mouth every morning. [facility] cyclobenzap rine 10 mg tablet 2022-11 00:00: 00 Yes [id number] 10mg Take 1 tablet by mouth in the morning and 1 tablet at noon and 1 tablet in the evening. [facility] metFORMIN 1,000 mg tablet 2022-11 00:00: 00 Yes [id number] 1000mg Take 1 tablet by mouth in the morning and 1 tablet in the evening. Take with meals. [facility] traZODone 50 mg tablet 2022-11 00:00: 00 Yes [id number] 50mg Take 1 tablet by mouth at bedtime. [facility] lisinopriL 40 mg tablet 2022-11 00:00: 00 Yes [id number] 40mg Take 1 tablet by mouth every morning. [facility] cyclobenzap rine 10 mg tablet 2022-11 00:00: 00 Yes [id number] 10mg Take 1 tablet by mouth in the morning and 1 tablet at noon and 1 tablet in the evening. [facility] metFORMIN 1,000 mg tablet 2022-11 00:00: 00 Yes [id number] 1000mg Take 1 tablet by mouth in the morning and 1 tablet in the evening. Take with meals. [facility] traZODone 50 mg tablet 2022-11 00:00: 00 Yes [id number] 50mg Take 1 tablet by mouth at bedtime. [facility] lisinopriL 40 mg tablet 2022-11 00:00: 00 Yes [id number] 40mg Take 1 tablet by mouth every morning. [facility] cyclobenzap rine 10 mg tablet 2022-11 00:00: 00 Yes [id number] 10mg Take 1 tablet by mouth in the morning and 1 tablet at noon and 1 tablet in the evening. [facility] metFORMIN 1,000 mg tablet 2022-11 00:00: 00 Yes [id number] 1000mg Take 1 tablet by mouth in the morning and 1 tablet in the evening. Take with meals. [facility] traZODone 50 mg tablet 2022-11 00:00: 00 Yes [id number] 50mg Take 1 tablet by mouth at bedtime. [facility] lisinopriL 40 mg tablet 2022-11 00:00: 00 Yes [id number] 40mg Take 1 tablet by mouth every morning. [facility] cyclobenzap rine 10 mg tablet 2022-11 00:00: 00 Yes [id number] 10mg Take 1 tablet by mouth in the morning and 1 tablet at noon and 1 tablet in the evening. [facility] metFORMIN 1,000 mg tablet 2022-11 00:00: 00 Yes [id number] 1000mg Take 1 tablet by mouth in the morning and 1 tablet in the evening. Take with meals. [facility] traZODone 50 mg tablet 2022-11 00:00: 00 Yes [id number] 50mg Take 1 tablet by mouth at bedtime. [facility] lisinopriL 40 mg tablet 2022-11 00:00: 00 Yes [id number] 40mg Take 1 tablet by mouth every morning. [facility] cyclobenzap rine 10 mg tablet 2022-11 00:00: 00 Yes [id number] 10mg Take 1 tablet by mouth in the morning and 1 tablet at noon and 1 tablet in the evening. [facility] metFORMIN 1,000 mg tablet 2022-11 00:00: 00 Yes [id number] 1000mg Take 1 tablet by mouth in the morning and 1 tablet in the evening. Take with meals. [facility] traZODone 50 mg tablet 2022-11 00:00: 00 Yes [id number] 50mg Take 1 tablet by mouth at bedtime. [facility] lisinopriL 40 mg tablet 2022-11 00:00: 00 Yes [id number] 40mg Take 1 tablet by mouth every morning. [facility] cyclobenzap rine 10 mg tablet 2022-11 00:00: 00 Yes [id number] 10mg Take 1 tablet by mouth in the morning and 1 tablet at noon and 1 tablet in the evening. [facility] metFORMIN 1,000 mg tablet 2022-11 00:00: 00 Yes [id number] 1000mg Take 1 tablet by mouth in the morning and 1 tablet in the evening. Take with meals. [facility] traZODone 50 mg tablet 2022-11 00:00: 00 Yes [id number] 50mg Take 1 tablet by mouth at bedtime. [facility] lisinopriL 40 mg tablet 2022-11 00:00: 00 Yes [id number] 40mg Take 1 tablet by mouth every morning. [facility] cyclobenzap rine 10 mg tablet 2022-11 00:00: 00 Yes [id number] 10mg Take 1 tablet by mouth in the morning and 1 tablet at noon and 1 tablet in the evening. [facility] metFORMIN 1,000 mg tablet 2022-11 00:00: 00 Yes [id number] 1000mg Take 1 tablet by mouth in the morning and 1 tablet in the evening. Take with meals. [facility] traZODone 50 mg tablet 2022-11 00:00: 00 Yes [id number] 50mg Take 1 tablet by mouth at bedtime. [facility] lisinopriL 40 mg tablet 2022-11 00:00: 00 Yes [id number] 40mg Take 1 tablet by mouth every morning. [facility] cyclobenzap rine 10 mg tablet 2022-11 00:00: 00 Yes [id number] 10mg Take 1 tablet by mouth in the morning and 1 tablet at noon and 1 tablet in the evening. [facility] metFORMIN 1,000 mg tablet 2022-11 00:00: 00 Yes [id number] 1000mg Take 1 tablet by mouth in the morning and 1 tablet in the evening. Take with meals. [facility] traZODone 50 mg tablet 2022-11 00:00: 00 Yes [id number] 50mg Take 1 tablet by mouth at bedtime. [facility] lisinopriL 40 mg tablet 2022-11 00:00: 00 Yes [id number] 40mg Take 1 tablet by mouth every morning. [facility] cyclobenzap rine 10 mg tablet 2022-11 00:00: 00 Yes [id number] 10mg Take 1 tablet by mouth in the morning and 1 tablet at noon and 1 tablet in the evening. [facility] metFORMIN 1,000 mg tablet 2022-11 00:00: 00 Yes [id number] 1000mg Take 1 tablet by mouth in the morning and 1 tablet in the evening. Take with meals. [facility] traZODone 50 mg tablet 2022-11 00:00: 00 Yes [id number] 50mg Take 1 tablet by mouth at bedtime. [facility] lisinopriL 40 mg tablet 2022-11 00:00: 00 Yes [id number] 40mg Take 1 tablet by mouth every morning. [facility] cyclobenzap rine 10 mg tablet 2022-11 00:00: 00 Yes [id number] 10mg Take 1 tablet by mouth in the morning and 1 tablet at noon and 1 tablet in the evening. [facility] metFORMIN 1,000 mg tablet 2022-11 00:00: 00 Yes [id number] 1000mg Take 1 tablet by mouth in the morning and 1 tablet in the evening. Take with meals. [facility] traZODone 50 mg tablet 2022-11 00:00: 00 Yes [id number] 50mg Take 1 tablet by mouth at bedtime. [facility] lisinopriL 40 mg tablet 2022-11 00:00: 00 Yes [id number] 40mg Take 1 tablet by mouth every morning. [facility] cyclobenzap rine 10 mg tablet 2022-11 00:00: 00 Yes [id number] 10mg Take 1 tablet by mouth in the morning and 1 tablet at noon and 1 tablet in the evening. [facility] metFORMIN 1,000 mg tablet 2022-11 00:00: 00 Yes [id number] 1000mg Take 1 tablet by mouth in the morning and 1 tablet in the evening. Take with meals. [facility] traZODone 50 mg tablet 2022-11 00:00: 00 Yes [id number] 50mg Take 1 tablet by mouth at bedtime. [facility] lisinopriL 40 mg tablet 2022-11 00:00: 00 Yes [id number] 40mg Take 1 tablet by mouth every morning. [facility] cyclobenzap rine 10 mg tablet 2022-11 00:00: 00 Yes [id number] 10mg Take 1 tablet by mouth in the morning and 1 tablet at noon and 1 tablet in the evening. [facility] metFORMIN 1,000 mg tablet 2022-11 00:00: 00 Yes [id number] 1000mg Take 1 tablet by mouth in the morning and 1 tablet in the evening. Take with meals. [facility] traZODone 50 mg tablet 2022-11 00:00: 00 Yes [id number] 50mg Take 1 tablet by mouth at bedtime. [facility] lisinopriL 40 mg tablet 2022-11 00:00: 00 Yes [id number] 40mg Take 1 tablet by mouth every morning. [facility] cyclobenzap rine 10 mg tablet 2022-11 00:00: 00 Yes [id number] 10mg Take 1 tablet by mouth in the morning and 1 tablet at noon and 1 tablet in the evening. [facility] metFORMIN 1,000 mg tablet 2022-11 00:00: 00 Yes [id number] 1000mg Take 1 tablet by mouth in the morning and 1 tablet in the evening. Take with meals. [facility] traZODone 50 mg tablet 2022-11 00:00: 00 Yes [id number] 50mg Take 1 tablet by mouth at bedtime. [facility] lisinopriL 40 mg tablet 2022-11 00:00: 00 Yes [id number] 40mg Take 1 tablet by mouth every morning. [facility] traZODone 50 mg tablet 2022-11 00:00: 00 Yes [id number] 50mg Take 1 tablet by mouth at bedtime. [facility] lisinopriL 40 mg tablet 2022-11 00:00: 00 Yes [id number] 40mg Take 1 tablet by mouth every morning. [facility] traZODone 50 mg tablet 2022-11 00:00: 00 Yes [id number] 50mg Take 1 tablet by mouth at bedtime. [facility] lisinopriL 40 mg tablet 2022-11 00:00: 00 Yes [id number] 40mg Take 1 tablet by mouth every morning. [facility] traZODone 50 mg tablet 2022-11 00:00: 00 Yes [id number] 50mg Take 1 tablet by mouth at bedtime. [facility] cyclobenzap rine 10 mg tablet 2022-11 0 00:00: 00 11-04 00:00 :00 No [id number] 10mg Take 1 tablet by mouth in the morning and 1 tablet at noon and 1 tablet in the evening. [facility] metFORMIN 1,000 mg tablet 2022-11 0-13 00:00: 00 11-04 00:00 :00 No [id number] 1000mg Take 1 tablet by mouth in the morning and 1 tablet in the evening. Take with meals. [facility] DULoxetine 30 mg capsule 2022-11 0-13 00:00: 00 09-19 00:00 :00 No [id number] 30mg Take 1 capsule by mouth in the morning. [facility] DULoxetine 30 mg capsule 2022-11 0-13 00:00: 00 09-19 00:00 :00 No [id number] 30mg Take 1 capsule by mouth in the morning. [facility] DULoxetine 30 mg capsule 2022-11 0-13 00:00: 00 09-19 00:00 :00 No [id number] 30mg Take 1 capsule by mouth in the morning. [facility] DULoxetine 30 mg capsule 2022-11 0-13 00:00: 00 09-19 00:00 :00 No [id number] 30mg Take 1 capsule by mouth in the morning. [facility] METFORMIN 1,000 mg tablet 05-19 00:00: 00 Yes [id number] TAKE 1 TABLET BY MOUTH TWICE A DAY WITH MEALS [facility] METFORMIN 1,000 mg tablet 2022-0 05-19 00:00: 00 Yes [id number] TAKE 1 TABLET BY MOUTH TWICE A DAY WITH MEALS [facility] METFORMIN 1,000 mg tablet 2022-0 05-19 00:00: 00 Yes [id number] TAKE 1 TABLET BY MOUTH TWICE A DAY WITH MEALS [facility] MEMANTINE 10 mg tablet 2022-0 05-19 00:00: 00 Yes TAKE 1 TABLET BY MOUTH TWICE A DAY [facility] METFORMIN 1,000 mg tablet 2022-0 05-19 00:00: 00 Yes [id number] TAKE 1 TABLET BY MOUTH TWICE A DAY WITH MEALS [facility] MEMANTINE 10 mg tablet 2022-0 05-19 00:00: 00 Yes TAKE 1 TABLET BY MOUTH TWICE A DAY [facility] METFORMIN 1,000 mg tablet 0 05-19 00:00: 00 Yes [id number] TAKE 1 TABLET BY MOUTH TWICE A DAY WITH MEALS [facility] MEMANTINE 10 mg tablet 0 05-19 00:00: 00 Yes TAKE 1 TABLET BY MOUTH TWICE A DAY [facility] METFORMIN 1,000 mg tablet 0 05-19 00:00: 00 Yes [id number] TAKE 1 TABLET BY MOUTH TWICE A DAY WITH MEALS [facility] MEMANTINE 10 mg tablet 0 05-19 00:00: 00 Yes TAKE 1 TABLET BY MOUTH TWICE A DAY [facility] METFORMIN 1,000 mg tablet 0 05-19 00:00: 00 Yes [id number] TAKE 1 TABLET BY MOUTH TWICE A DAY WITH MEALS [facility] MEMANTINE 10 mg tablet 0 05-19 00:00: 00 Yes TAKE 1 TABLET BY MOUTH TWICE A DAY [facility] MEMANTINE 10 mg tablet 0 05-19 00:00: 00 Yes TAKE 1 TABLET BY MOUTH TWICE A DAY [facility] MEMANTINE 10 mg tablet 0 05-19 00:00: 00 Yes TAKE 1 TABLET BY MOUTH TWICE A DAY [facility] MEMANTINE 10 mg tablet 0 05-19 00:00: 00 Yes TAKE 1 TABLET BY MOUTH TWICE A DAY [facility] MEMANTINE 10 mg tablet 0 05-19 00:00: 00 09-16 00:00 :00 No TAKE 1 TABLET BY MOUTH TWICE A DAY [facility] METFORMIN 1,000 mg tablet 0 05-19 00:00: 00 09-05 00:00 :00 No [id number] TAKE 1 TABLET BY MOUTH TWICE A DAY WITH MEALS [facility] METFORMIN 1,000 mg tablet 0 05-19 00:00: 00 09-05 00:00 :00 No [id number] TAKE 1 TABLET BY MOUTH TWICE A DAY WITH MEALS [facility] cyclobenzap rine 10 mg tablet 0 04 00:00: 00 Yes [id number] 10mg Take 1 tablet by mouth in the morning and 1 tablet at noon and 1 tablet in the evening. [facility] cyclobenzap rine 10 mg tablet 3-0 5-04 00:00: 00 Yes [id number] 10mg Take 1 tablet by mouth in the morning and 1 tablet at noon and 1 tablet in the evening. [facility] cyclobenzap rine 10 mg tablet 3-0 5-04 00:00: 00 Yes [id number] 10mg Take 1 tablet by mouth in the morning and 1 tablet at noon and 1 tablet in the evening. [facility] cyclobenzap rine 10 mg tablet 3-0 5-04 00:00: 00 Yes [id number] 10mg Take 1 tablet by mouth in the morning and 1 tablet at noon and 1 tablet in the evening. [facility] cyclobenzap rine 10 mg tablet 3-0 5-04 00:00: 00 Yes [id number] 10mg Take 1 tablet by mouth in the morning and 1 tablet at noon and 1 tablet in the evening. [facility] cyclobenzap rine 10 mg tablet 3-0 5-04 00:00: 00 Yes [id number] 10mg Take 1 tablet by mouth in the morning and 1 tablet at noon and 1 tablet in the evening. [facility] cyclobenzap rine 10 mg tablet 3-0 5-04 00:00: 00 Yes [id number] 10mg Take 1 tablet by mouth in the morning and 1 tablet at noon and 1 tablet in the evening. [facility] cyclobenzap rine 10 mg tablet 3-0 5-04 00:00: 00 Yes [id number] 10mg Take 1 tablet by mouth in the morning and 1 tablet at noon and 1 tablet in the evening. [facility] cyclobenzap rine 10 mg tablet 3-0 5-04 00:00: 00 Yes [id number] 10mg Take 1 tablet by mouth in the morning and 1 tablet at noon and 1 tablet in the evening. [facility] cyclobenzap rine 10 mg tablet 3-0 5-04 00:00: 00 Yes [id number] 10mg Take 1 tablet by mouth in the morning and 1 tablet at noon and 1 tablet in the evening. [facility] cyclobenzap rine 10 mg tablet 3-0 5-04 00:00: 00 Yes [id number] 10mg Take 1 tablet by mouth in the morning and 1 tablet at noon and 1 tablet in the evening. [facility] cyclobenzap rine 10 mg tablet 2022-0 5-04 00:00: 00 Yes [id number] 10mg Take 1 tablet by mouth in the morning and 1 tablet at noon and 1 tablet in the evening. [facility] cyclobenzap rine 10 mg tablet 2022-0 5-04 00:00: 00 Yes [id number] 10mg Take 1 tablet by mouth in the morning and 1 tablet at noon and 1 tablet in the evening. [facility] cyclobenzap rine 10 mg tablet 2022-0 5-04 00:00: 00 Yes [id number] 10mg Take 1 tablet by mouth in the morning and 1 tablet at noon and 1 tablet in the evening. [facility] cyclobenzap rine 10 mg tablet 3-0 5-04 00:00: 00 Yes [id number] 10mg Take 1 tablet by mouth in the morning and 1 tablet at noon and 1 tablet in the evening. [facility] cyclobenzap rine 10 mg tablet 2022-0 5-04 00:00: 00 Yes [id number] 10mg Take 1 tablet by mouth in the morning and 1 tablet at noon and 1 tablet in the evening. [facility] cyclobenzap rine 10 mg tablet 3-0 5-04 00:00: 00 Yes [id number] 10mg Take 1 tablet by mouth in the morning and 1 tablet at noon and 1 tablet in the evening. [facility] cyclobenzap rine 10 mg tablet 3-0 5-04 00:00: 00 Yes [id number] 10mg Take 1 tablet by mouth in the morning and 1 tablet at noon and 1 tablet in the evening. [facility] cyclobenzap rine 10 mg tablet 3-0 5-04 00:00: 00 Yes [id number] 10mg Take 1 tablet by mouth in the morning and 1 tablet at noon and 1 tablet in the evening. [facility] cyclobenzap rine 10 mg tablet 03-27 00:00: 00 Yes [id number] 10mg Take 1 tablet by mouth in the morning and 1 tablet at noon and 1 tablet in the evening. [facility] cyclobenzap rine 10 mg tablet 03-27 00:00: 00 Yes [id number] 10mg Take 1 tablet by mouth in the morning and 1 tablet at noon and 1 tablet in the evening. [facility] cyclobenzap rine 10 mg tablet 03-27 00:00: 00 09-05 00:00 :00 No [id number] 10mg Take 1 tablet by mouth in the morning and 1 tablet at noon and 1 tablet in the evening. [facility] cyclobenzap rine 10 mg tablet 03-27 00:00: 00 09-05 00:00 :00 No [id number] 10mg Take 1 tablet by mouth in the morning and 1 tablet at noon and 1 tablet in the evening. [facility] lancets (ONETOUCH DELICA PLUS LANCET) 33 gauge [facility] 03-26 00:00: 00 Yes [id number] Use as directed, once a day to monitor blood glucose for ICD code E11.9 [facility] blood sugar diagnostic (ONETOUCH ULTRA TEST) strip 03-26 00:00: 00 Yes [id number] Use as directed, once a day to monitor blood glucose for ICD code E11.9 [facility] lancets (ONETOUCH DELICA PLUS LANCET) 33 gauge [facility] 03-26 00:00: 00 Yes [id number] Use as directed, once a day to monitor blood glucose for ICD code E11.9 [facility] blood sugar diagnostic (ONETOUCH ULTRA TEST) strip 03-26 00:00: 00 Yes [id number] Use as directed, once a day to monitor blood glucose for ICD code E11.9 [facility] lancets (ONETOUCH DELICA PLUS LANCET) 33 gauge [facility] 03-26 00:00: 00 Yes [id number] Use as directed, once a day to monitor blood glucose for ICD code E11.9 [facility] blood sugar diagnostic (ONETOUCH ULTRA TEST) strip 03-26 00:00: 00 Yes [id number] Use as directed, once a day to monitor blood glucose for ICD code E11.9 [facility]ONETOUCH DELICA PLUS LANCET) 33 gauge [facility] 03-26 00:00: 00 Yes [id number] Use as directed, once a day to monitor blood glucose for ICD code E11.9 [facility] blood sugar diagnostic (ONETOUCH ULTRA TEST) strip 03-26 00:00: 00 Yes [id number] Use as directed, once a day to monitor blood glucose for ICD code E11.9 [facility] lancets (ONETOUCH DELICA PLUS LANCET) 33 gauge [facility] 03-26 00:00: 00 Yes [id number] Use as directed, once a day to monitor blood glucose for ICD code E11.9 [facility] blood sugar diagnostic (ONETOUCH ULTRA TEST) strip 03-26 00:00: 00 Yes [id number] Use as directed, once a day to monitor blood glucose for ICD code E11.9 [facility] lancets (ONETOUCH DELICA PLUS LANCET) 33 gauge [facility] 03-26 00:00: 00 Yes [id number] Use as directed, once a day to monitor blood glucose for ICD code E11.9 [facility] blood sugar diagnostic (ONETOUCH ULTRA TEST) strip 03-26 00:00: 00 Yes [id number] Use as directed, once a day to monitor blood glucose for ICD code E11.9 [facility] lancets (ONETOUCH DELICA PLUS LANCET) 33 gauge [facility] 03-26 00:00: 00 Yes [id number] Use as directed, once a day to monitor blood glucose for ICD code E11.9 [facility] blood sugar diagnostic (ONETOUCH ULTRA TEST) strip 03-26 00:00: 00 Yes [id number] Use as directed, once a day to monitor blood glucose for ICD code E11.9 [facility] lancets (ONETOUCH DELICA PLUS LANCET) 33 gauge [facility] 03-26 00:00: 00 Yes [id number] Use as directed, once a day to monitor blood glucose for ICD code E11.9 [facility] ([facility]CH ULTRA TEST) strip 03-26 00:00: 00 Yes [id number] Use as directed, once a day to monitor blood glucose for ICD code E11.9 [facility] lancets (ONETOUCH DELICA PLUS LANCET) 33 gauge [facility] 03-26 00:00: 00 Yes [id number] Use as directed, once a day to monitor blood glucose for ICD code E11.9 [facility] blood sugar diagnostic (ONETOUCH ULTRA TEST) strip 03-26 00:00: 00 Yes [id number] Use as directed, once a day to monitor blood glucose for ICD code E11.9 [facility] lancets (ONETOUCH DELICA PLUS LANCET) 33 gauge [facility] 03-26 00:00: 00 Yes [id number] Use as directed, once a day to monitor blood glucose for ICD code E11.9 [facility] blood sugar diagnostic (ONETOUCH ULTRA TEST) strip 03-26 00:00: 00 Yes [id number] Use as directed, once a day to monitor blood glucose for ICD code E11.9 [facility] lancets (ONETOUCH DELICA PLUS LANCET) 33 gauge [facility] 03-26 00:00: 00 Yes [id number] Use as directed, once a day to monitor blood glucose for ICD code E11.9 [facility] blood sugar diagnostic (ONETOUCH ULTRA TEST) strip 03-26 00:00: 00 Yes [id number] Use as directed, once a day to monitor blood glucose for ICD code E11.9 [facility] lancets (ONETOUCH DELICA PLUS LANCET) 33 gauge [facility] 03-26 00:00: 00 Yes [id number] Use as directed, once a day to monitor blood glucose for ICD code E11.9 [facility] blood sugar diagnostic (ONETOUCH ULTRA TEST) strip 03-26 00:00: 00 Yes [id number] Use as directed, once a day to monitor blood glucose for ICD code E11.9 [facility] lancets (ONETOUCH DELICA PLUS LANCET) 33 gauge [facility] 03-26 00:00: 00 Yes [id number] Use as directed, once a day to monitor blood glucose for ICD code E11.9 [facility] blood sugar diagnostic (ONETOUCH ULTRA TEST) strip 03-26 00:00: 00 Yes [id number] Use as directed, once a day to monitor blood glucose for ICD code E11.9 [facility] lancets (ONETOUCH DELICA PLUS LANCET) 33 gauge [facility] 03-26 00:00: 00 Yes [id number] Use as directed, once a day to monitor blood glucose for ICD code E11.9 [facility] blood sugar diagnostic (ONETOUCH ULTRA TEST) strip 03-26 00:00: 00 Yes [id number] Use as directed, once a day to monitor blood glucose for ICD code E11.9 [facility] lancets (ONETOUCH DELICA PLUS LANCET) 33 gauge [facility] 03-26 00:00: 00 Yes [id number] Use as directed, once a day to monitor blood glucose for ICD code E11.9 [facility] blood sugar diagnostic (ONETOUCH ULTRA TEST) strip 03-26 00:00: 00 Yes [id number] Use as directed, once a day to monitor blood glucose for ICD code E11.9 [facility] lancets (ONETOUCH DELICA PLUS LANCET) 33 gauge [facility] 03-26 00:00: 00 Yes [id number] Use as directed, once a day to monitor blood glucose for ICD code E11.9 [facility] (ONETOUCH ULTRA TEST) strip 03-26 00:00: 00 Yes [id number] Use as directed, once a day to monitor blood glucose for ICD code E11.9 [facility] lancets (ONETOUCH DELICA PLUS LANCET) 33 gauge [facility] 03-26 00:00: 00 Yes [id number] Use as directed, once a day to monitor blood glucose for ICD code E11.9 [facility] blood sugar diagnostic (ONETOUCH ULTRA TEST) strip 03-26 00:00: 00 Yes [id number] Use as directed, once a day to monitor blood glucose for ICD code E11.9 [facility] lancets (ONETOUCH DELICA PLUS LANCET) 33 gauge [facility] 03-26 00:00: 00 Yes [id number] Use as directed, once a day to monitor blood glucose for ICD code E11.9 [facility] (ONETOUCH ULTRA TEST) strip 03-26 00:00: 00 Yes [id number] Use as directed, once a day to monitor blood glucose for ICD code E11.9 [facility] lancets (ONETOUCH DELICA PLUS LANCET) 33 gauge [facility] 03-26 00:00: 00 Yes [id number] Use as directed, once a day to monitor blood glucose for ICD code E11.9 [facility] (ONETOUCH ULTRA TEST) strip 03-26 00:00: 00 Yes [id number] Use as directed, once a day to monitor blood glucose for ICD code E11.9 [facility] lancets (ONETOUCH DELICA PLUS LANCET) 33 gauge [facility] 03-26 00:00: 00 Yes [id number] Use as directed, once a day to monitor blood glucose for ICD code E11.9 [facility] blood sugar diagnostic (ONETOUCH ULTRA TEST) strip 03-26 00:00: 00 Yes [id number] Use as directed, once a day to monitor blood glucose for ICD code E11.9 [facility] lancets (ONETOUCH DELICA PLUS LANCET) 33 gauge [facility] 03-26 00:00: 00 Yes [id number] Use as directed, once a day to monitor blood glucose for ICD code E11.9 [facility] (ONETOUCH ULTRA TEST) strip 03-26 00:00: 00 Yes [id number] Use as directed, once a day to monitor blood glucose for ICD code E11.9 [facility] lancets (ONETOUCH DELICA PLUS LANCET) 33 gauge [facility] 03-26 00:00: 00 Yes [id number] Use as directed, once a day to monitor blood glucose for ICD code E11.9 [facility] blood sugar diagnostic (ONETOUCH ULTRA TEST) strip 03-26 00:00: 00 Yes [id number] Use as directed, once a day to monitor blood glucose for ICD code E11.9 [facility] lancets (ONETOUCH DELICA PLUS LANCET) 33 gauge [facility] 03-26 00:00: 00 Yes [id number] Use as directed, once a day to monitor blood glucose for ICD code E11.9 [facility] blood sugar diagnostic (ONETOUCH ULTRA TEST) strip 03-26 00:00: 00 Yes [id number] Use as directed, once a day to monitor blood glucose for ICD code E11.9 [facility] lancets (ONETOUCH DELICA PLUS LANCET) 33 gauge [facility] 03-26 00:00: 00 Yes [id number] Use as directed, once a day to monitor blood glucose for ICD code E11.9 [facility] blood sugar diagnostic (ONETOUCH ULTRA TEST) strip 03-26 00:00: 00 Yes [id number] Use as directed, once a day to monitor blood glucose for ICD code E11.9 [facility] lancets (ONETOUCH DELICA PLUS LANCET) 33 gauge [facility] 03-26 00:00: 00 Yes [id number] Use as directed, once a day to monitor blood glucose for ICD code E11.9 [facility] blood sugar diagnostic (ONETOUCH ULTRA TEST) strip 03-26 00:00: 00 Yes [id number] Use as directed, once a day to monitor blood glucose for ICD code E11.9 [facility] lancets (ONETOUCH DELICA PLUS LANCET) 33 gauge [facility] 03-26 00:00: 00 Yes [id number] Use as directed, once a day to monitor blood glucose for ICD code E11.9 [facility] blood sugar diagnostic (ONETOUCH ULTRA TEST) strip 03-26 00:00: 00 Yes [id number] Use as directed, once a day to monitor blood glucose for ICD code E11.9 [facility] lancets (ONETOUCH DELICA PLUS LANCET) 33 gauge [facility] 03-26 00:00: 00 Yes [id number] Use as directed, once a day to monitor blood glucose for ICD code E11.9 [facility] blood sugar diagnostic (ONETOUCH ULTRA TEST) strip 03-26 00:00: 00 Yes [id number] Use as directed, once a day to monitor blood glucose for ICD code E11.9 [facility] lancets (ONETOUCH DELICA PLUS LANCET) 33 gauge [facility] 03-26 00:00: 00 Yes [id number] Use as directed, once a day to monitor blood glucose for ICD code E11.9 [facility] blood sugar diagnostic (ONETOUCH ULTRA TEST) strip 03-26 00:00: 00 Yes [id number] Use as directed, once a day to monitor blood glucose for ICD code E11.9 [facility] (ONETOUCH DELICA PLUS LANCET) 33 gauge [facility] 03-26 00:00: 00 Yes [id number] Use as directed, once a day to monitor blood glucose for ICD code E11.9 [facility] blood sugar diagnostic (ONETOUCH ULTRA TEST) strip 03-26 00:00: 00 Yes [id number] Use as directed, once a day to monitor blood glucose for ICD code E11.9 [facility] lancets (ONETOUCH DELICA PLUS LANCET) 33 gauge [facility] 03-26 00:00: 00 Yes [id number] Use as directed, once a day to monitor blood glucose for ICD code E11.9 [facility] (ONETOUCH ULTRA TEST) strip 03-26 00:00: 00 Yes [id number] Use as directed, once a day to monitor blood glucose for ICD code E11.9 [facility] lancets (ONETOUCH DELICA PLUS LANCET) 33 gauge [facility] 03-26 00:00: 00 Yes [id number] Use as directed, once a day to monitor blood glucose for ICD code E11.9 [facility] blood sugar diagnostic (ONETOUCH ULTRA TEST) strip 03-26 00:00: 00 Yes [id number] Use as directed, once a day to monitor blood glucose for ICD code E11.9 [facility] (ONETOUCH DELICA PLUS LANCET) 33 gauge [facility] 03-26 00:00: 00 Yes [id number] Use as directed, once a day to monitor blood glucose for ICD code E11.9 [facility] blood sugar diagnostic (ONETOUCH ULTRA TEST) strip 03-26 00:00: 00 Yes [id number] Use as directed, once a day to monitor blood glucose for ICD code E11.9 [facility] lancets (ONETOUCH DELICA PLUS LANCET) 33 gauge [facility] 03-26 00:00: 00 Yes [id number] Use as directed, once a day to monitor blood glucose for ICD code E11.9 [facility] blood sugar diagnostic (ONETOUCH ULTRA TEST) strip 03-26 00:00: 00 Yes [id number] Use as directed, once a day to monitor blood glucose for ICD code E11.9 [facility] lancets (ONETOUCH DELICA PLUS LANCET) 33 gauge [facility] 03-26 00:00: 00 Yes [id number] Use as directed, once a day to monitor blood glucose for ICD code E11.9 [facility] blood sugar diagnostic (ONETOUCH ULTRA TEST) strip 03-26 00:00: 00 Yes [id number] Use as directed, once a day to monitor blood glucose for ICD code E11.9 [facility] lancets (ONETOUCH DELICA PLUS LANCET) 33 gauge [facility] 03-26 00:00: 00 Yes [id number] Use as directed, once a day to monitor blood glucose for ICD code E11.9 [facility] blood sugar diagnostic (ONETOUCH ULTRA TEST) strip 03-26 00:00: 00 Yes [id number] Use as directed, once a day to monitor blood glucose for ICD code E11.9 [facility] lancets (ONETOUCH DELICA PLUS LANCET) 33 gauge [facility] 03-26 00:00: 00 Yes [id number] Use as directed, once a day to monitor blood glucose for ICD code E11.9 [facility] blood sugar diagnostic (ONETOUCH ULTRA TEST) strip 03-26 00:00: 00 Yes [id number] Use as directed, once a day to monitor blood glucose for ICD code E11.9 [facility] lancets (ONETOUCH DELICA PLUS LANCET) 33 gauge [facility] 03-26 00:00: 00 Yes [id number] Use as directed, once a day to monitor blood glucose for ICD code E11.9 [facility] blood sugar diagnostic (ONETOUCH ULTRA TEST) strip 03-26 00:00: 00 Yes [id number] Use as directed, once a day to monitor blood glucose for ICD code E11.9 [facility] lancets (ONETOUCH DELICA PLUS LANCET) 33 gauge [facility] 03-26 00:00: 00 Yes [id number] Use as directed, once a day to monitor blood glucose for ICD code E11.9 [facility] blood sugar diagnostic (ONETOUCH ULTRA TEST) strip 03-26 00:00: 00 Yes [id number] Use as directed, once a day to monitor blood glucose for ICD code E11.9 [facility] (ONETOUCH DELICA PLUS LANCET) 33 gauge [facility] 03-26 00:00: 00 Yes [id number] Use as directed, once a day to monitor blood glucose for ICD code E11.9 [facility] blood sugar diagnostic (ONETOUCH ULTRA TEST) strip 03-26 00:00: 00 Yes [id number] Use as directed, once a day to monitor blood glucose for ICD code E11.9 [facility] lancets (ONETOUCH DELICA PLUS LANCET) 33 gauge [facility] 03-26 00:00: 00 Yes [id number] Use as directed, once a day to monitor blood glucose for ICD code E11.9 [facility] blood sugar diagnostic (ONETOUCH ULTRA TEST) strip 03-26 00:00: 00 Yes [id number] Use as directed, once a day to monitor blood glucose for ICD code E11.9 [facility] lancets (ONETOUCH DELICA PLUS LANCET) 33 gauge [facility] 03-26 00:00: 00 Yes [id number] Use as directed, once a day to monitor blood glucose for ICD code E11.9 [facility] (ONETOUCH ULTRA TEST) strip 03-26 00:00: 00 Yes [id number] Use as directed, once a day to monitor blood glucose for ICD code E11.9 [facility] lancets (ONETOUCH DELICA PLUS LANCET) 33 gauge [facility] 03-26 00:00: 00 Yes [id number] Use as directed, once a day to monitor blood glucose for ICD code E11.9 [facility] blood sugar diagnostic (ONETOUCH ULTRA TEST) strip 03-26 00:00: 00 Yes [id number] Use as directed, once a day to monitor blood glucose for ICD code E11.9 [facility]anc[facility] (ONETOUCH DELICA PLUS LANCET) 33 gauge [facility] [place] 03-26 00:00: 00 Yes [id number] Use as directed, once a day to monitor blood glucose for ICD code E11.9 [facility] blood sugar diagnostic (ONETOUCH ULTRA TEST) strip 03-26 00:00: 00 Yes [id number] Use as directed, once a day to monitor blood glucose for ICD code E11.9 [facility] lancets (ONETOUCH DELICA PLUS LANCET) 33 gauge [facility] [place] 03-26 00:00: 00 Yes [id number] Use as directed, once a day to monitor blood glucose for ICD code E11.9 [facility] blood sugar diagnostic (ONETOUCH ULTRA TEST) strip 03-26 00:00: 00 Yes [id number] Use as directed, once a day to monitor blood glucose for ICD code E11.9 [facility] lancets (ONETOUCH DELICA PLUS LANCET) 33 gauge [facility] 03-26 00:00: 00 Yes [id number] Use as directed, once a day to monitor blood glucose for ICD code E11.9 [facility] blood sugar diagnostic (ONETOUCH ULTRA TEST) strip 03-26 00:00: 00 Yes [id number] Use as directed, once a day to monitor blood glucose for ICD code E11.9 [facility] lancets (ONETOUCH DELICA PLUS LANCET) 33 gauge [facility] 03-26 00:00: 00 Yes [id number] Use as directed, once a day to monitor blood glucose for ICD code E11.9 [facility] blood sugar diagnostic (ONETOUCH ULTRA TEST) strip 03-26 00:00: 00 Yes [id number] Use as directed, once a day to monitor blood glucose for ICD code E11.9 [facility] lancets (ONETOUCH DELICA PLUS LANCET) 33 gauge [facility] 03-26 00:00: 00 Yes [id number] Use as directed, once a day to monitor blood glucose for ICD code E11.9 [facility] blood sugar diagnostic (ONETOUCH ULTRA TEST) strip 03-26 00:00: 00 Yes [id number] Use as directed, once a day to monitor blood glucose for ICD code E11.9 [facility] LISINOPRIL 40 mg tablet 03-24 00:00: 00 Yes [id number] TAKE 1 TABLET BY MOUTH EVERY MORNING [facility] LISINOPRIL 40 mg tablet 0 03-24 00:00: 00 Yes [id number] TAKE 1 TABLET BY MOUTH EVERY MORNING [facility] LISINOPRIL 40 mg tablet 03-24 00:00: 00 Yes [id number] TAKE 1 TABLET BY MOUTH EVERY MORNING [facility] LISINOPRIL 40 mg tablet 03-24 00:00: 00 Yes [id number] TAKE 1 TABLET BY MOUTH EVERY MORNING [facility] LISINOPRIL 40 mg tablet 2022-0 03-24 00:00: 00 Yes [id number] TAKE 1 TABLET BY MOUTH EVERY MORNING [facility] LISINOPRIL 40 mg tablet 0 03-24 00:00: 00 Yes [id number] TAKE 1 TABLET BY MOUTH EVERY MORNING [facility] LISINOPRIL 40 mg tablet 2022-0 03-24 00:00: 00 Yes [id number] TAKE 1 TABLET BY MOUTH EVERY MORNING [facility] LISINOPRIL 40 mg tablet 2022-0 03-24 00:00: 00 Yes [id number] TAKE 1 TABLET BY MOUTH EVERY MORNING [facility] LISINOPRIL 40 mg tablet 2022-0 03-24 00:00: 00 Yes [id number] TAKE 1 TABLET BY MOUTH EVERY MORNING [facility] LISINOPRIL 40 mg tablet 2022-0 03-24 00:00: 00 Yes [id number] TAKE 1 TABLET BY MOUTH EVERY MORNING [facility] LISINOPRIL 40 mg tablet 2022-0 03-24 00:00: 00 Yes [id number] TAKE 1 TABLET BY MOUTH EVERY MORNING [facility] LISINOPRIL 40 mg tablet 2022-0 03-24 00:00: 00 Yes [id number] TAKE 1 TABLET BY MOUTH EVERY MORNING [facility] LISINOPRIL 40 mg tablet 0 03-24 00:00: 00 Yes [id number] TAKE 1 TABLET BY MOUTH EVERY MORNING [facility] LISINOPRIL 40 mg tablet 2022-0 03-24 00:00: 00 Yes [id number] TAKE 1 TABLET BY MOUTH EVERY MORNING [facility] LISINOPRIL 40 mg tablet 2022-0 03-24 00:00: 00 Yes [id number] TAKE 1 TABLET BY MOUTH EVERY MORNING [facility] LISINOPRIL 40 mg tablet 2022-0 03-24 00:00: 00 Yes [id number] TAKE 1 TABLET BY MOUTH EVERY MORNING [facility] LISINOPRIL 40 mg tablet 2022-0 03-24 00:00: 00 Yes [id number] TAKE 1 TABLET BY MOUTH EVERY MORNING [facility] LISINOPRIL 40 mg tablet 03-24 00:00: 00 Yes [id number] TAKE 1 TABLET BY MOUTH EVERY MORNING [facility] LISINOPRIL 40 mg tablet 03-24 00:00: 00 Yes [id number] TAKE 1 TABLET BY MOUTH EVERY MORNING [facility] LISINOPRIL 40 mg tablet 03-24 00:00: 00 Yes [id number] TAKE 1 TABLET BY MOUTH EVERY MORNING [facility] LISINOPRIL 40 mg tablet 03-24 00:00: 00 Yes [id number] TAKE 1 TABLET BY MOUTH EVERY MORNING [facility] LISINOPRIL 40 mg tablet 03-24 00:00: 00 09-05 00:00 :00 No [id number] TAKE 1 TABLET BY MOUTH EVERY MORNING [facility] LISINOPRIL 40 mg tablet 03-24 00:00: 00 09-05 00:00 :00 No [id number] TAKE 1 TABLET BY MOUTH EVERY MORNING [facility] cefTRIAXone (ROCEPHIN) 1,000 mg in NaCl 0.9% (NS) 100 mL MINI-BAG 02-21 16:00: 00 02-21 19:29 :00 No 1000mg 1,000 mg, IV Piggyback, ONCE, 1 dose, On Fri02/21/23 at 1100, Administer over 30 Minutes, 100 mL
Reas on for Anti-Infec tive: Documented Infection< br>Documen sara Infection Site: Urine
D uration of Therapy: Other (see Comments) [facility] magnesium sulfate in water 4 gram/50 mL (8 %) IV Piggyback 4 g 02-21 15:00: 00 02-21 19:03 :00 No 4g 4 g, IV Piggyback, at 25 mL/hr Administer over 120 Minutes, ONCE, 1 dose, On Fri02/21/23 at 1000, Routine [facility] polyethylen e glycol 3350 powder 17 g 02-21 14:00: 00 Yes 17g 17 g, Oral, DAILY, First dose on Fri02/21/23 at 0900, Until Discontinu ed, Routine [facility] sennosides- docusate sodium (SENOKOT-S) 8.6-50 mg per tablet 1 tablet 02-21 14:00: 00 Yes 1{tbl} 1 tablet, Oral, DAILY, First dose on Fri02/21/23 at 0900, Until Discontinu ed, Routine [facility] lisinopriL (PRINIVIL,Z ESTRIL) tablet 40 mg 02-21 14:00: 00 Yes 40mg 40 mg, Oral, DAILY, First dose on Fri02/21/23 at 0900, Until Discontinu ed [facility] DULoxetine (CYMBALTA) capsule 30 mg 02-21 14:00: 00 Yes 30mg 30 mg, Oral, DAILY, First dose on Fri02/21/23 at 0900, Until Discontinu ed, Routine [facility] traZODone (DESYREL) tablet 50 mg 02-21 02:00: 00 Yes 50mg 50 mg, Oral, QHS, First dose on Fri02/20/23 at 2100, Until Discontinu ed, Routine [facility] donepeziL (ARICEPT) tablet 10 mg 02-21 02:00: 00 Yes 10mg 10 mg, Oral, QHS, First dose on Fri02/20/23 at 2100, Until Discontinu ed, Routine [facility] heparin (porcine) injection 5,000 Units 02-21 01:00: 00 Yes 5000U 5,000 Units, Subcutaneo us, Q12H, First dose on Fri02/20/23 at 2000, Until Discontinu ed, Routine [facility] memantine (NAMENDA) tablet 10 mg 02-21 01:00: 00 Yes 10mg 10 mg, Oral, BID, First dose on Fri02/20/23 at 2000, Until Discontinu ed, Routine
team member approving Restricted medication : YOKO PALACIO [facility] divalproex (DEPAKOTE) EC tablet 125 mg 02-21 01:00: 00 Yes 125mg 125 mg, Oral, Q12H, First dose on Fri02/20/23 at 2000, Until Discontinu ed, Routine [facility] cefTRIAXone (ROCEPHIN) 1,000 mg in NaCl 0.9% (NS) 100 mL MINI-BAG 02-20 17:30: 00 02-21 14:48 :35 No 1000mg 1,000 mg, IV Piggyback, Q24H ABX, 3 doses, First dose on Fara 02/20/23 at 1230, Last dose on Fri02/22/23 at 1230, Administer over 30 Minutes, 100 mL
Reas on for Anti-Infec tive: Empiric Therapy for Suspected Infection< br>Empiric Therapy Site: Urine
D uration of therapy: 72 hours [facility] NaCl 0.9% (NS) IV infusion 1,000 mL 02-20 17:30: 00 02-20 20:41 :10 No 1000mL at 125 mL/hr, IV Infusion, ONCE, 1 dose, On Fri02/20/23 at 1230, Routine [facility] Sliding Scale Insulin - Lispro (HumaLOG) + Fsbg Testing 02-20 17:00: 00 Yes Subcutaneo us, TID MEALS+HS, First dose on Fri02/20/23 at 1200, Until Discontinu ed, Routine [facility] sulfur hexafluorid e microsphr (LUMASON) injection 5 mL 02-20 15:45: 00 02-20 15:45 :00 No [id number] 5mL 5 mL, Intravenou s, ONCE, 1 dose, On Fri02/20/23 at 1045, Routine
team member approving Restricted medication : RADHA RASHID [facility] acetaminoph en (TYLENOL) tablet 650 mg 02-20 14:03: 51 Yes 650mg 650 mg, Oral, Q6HPRN, Starting on Fri02/20/23 at 0903, Until Discontinu ed, Routine, Pain (scale 1-3) [facility] glucagon (GLUCAGEN DIAGNOSTIC KIT) injection 1 mg 02-20 14:01: 25 Yes 1mg 1 mg, Intramuscu lar, PRN, Starting on Fara 02/20/23 at 0901, Until Discontinu ed, AUGUSTINA, Blood Glucose < or = 70 mg/dL and patient is NPO, unable to swallow or has mental changes. [facility] dextrose 50 % in water (D50W) injection 25 mL 02-20 14:01: 25 Yes 25mL 25 mL, Slow IV Push, PRN, Starting on Fara 02/20/23 at 0901, Until Discontinu ed, AUGUSTINA, Blood Glucose < or = 70 mg/dL and patient is NPO, unable to swallow or has mental status changes. [facility] divalproex 125 mg EC tablet 02-13 00:00: 00 Yes [id number] 125mg Take 1 tablet by mouth every 12 (twelve) hours. [facility] divalproex 125 mg EC tablet 02-13 00:00: 00 Yes [id number] 125mg Take 1 tablet by mouth every 12 (twelve) hours. [facility] divalproex 125 mg EC tablet 02-13 00:00: 00 Yes [id number] 125mg Take 1 tablet by mouth every 12 (twelve) hours. [facility] divalproex 125 mg EC tablet 02-13 00:00: 00 Yes [id number] 125mg Take 1 tablet by mouth every 12 (twelve) hours. [facility] divalproex 125 mg EC tablet 02-13 00:00: 00 Yes [id number] 125mg Take 1 tablet by mouth every 12 (twelve) hours. [facility] divalproex 125 mg EC tablet 02-13 00:00: 00 Yes [id number] 125mg Take 1 tablet by mouth every 12 (twelve) hours. [facility] divalproex 125 mg EC tablet 02-13 00:00: 00 Yes [id number] 125mg Take 1 tablet by mouth every 12 (twelve) hours. [facility] divalproex 125 mg EC tablet 2023-0 3-23 00:00: 00 Yes [id number] 125mg Take 1 tablet by mouth every 12 (twelve) hours. [facility] dival[facility] EC tablet 0 02-13 00:00: 00 Yes [id number] 125mg Take 1 tablet by mouth every 12 (twelve) hours. [facility] divalproex 125 mg EC tablet 0 02-13 00:00: 00 Yes [id number] 125mg Take 1 tablet by mouth every 12 (twelve) hours. [facility] div[facility] mg EC tablet 2022-0 02-13 00:00: 00 Yes [id number] 125mg Take 1 tablet by mouth every 12 (twelve) hours. [facility] divalproex 125 mg EC tablet 0 02-13 00:00: 00 Yes [id number] 125mg Take 1 tablet by mouth every 12 (twelve) hours. [facility] divalproex 125 mg EC tablet 2022-0 02-13 00:00: 00 Yes [id number] 125mg Take 1 tablet by mouth every 12 (twelve) hours. [facility] divalproex 125 mg EC tablet 2022-0 02-13 00:00: 00 Yes [id number] 125mg Take 1 tablet by mouth every 12 (twelve) hours. [facility] divalproex 125 mg EC tablet 0 02-13 00:00: 00 Yes [id number] 125mg Take 1 tablet by mouth every 12 (twelve) hours. [facility] divalproex 125 mg EC tablet 2022-0 02-13 00:00: 00 Yes [id number] 125mg Take 1 tablet by mouth every 12 (twelve) hours. [facility] divalproex 125 mg EC tablet 2022-0 23 00:00: 00 Yes [id number] 125mg Take 1 tablet by mouth every 12 (twelve) hours. [facility] divalproex 125 mg EC tablet 2022-0 23 00:00: 00 Yes [id number] 125mg Take 1 tablet by mouth every 12 (twelve) hours. [facility] divalproex 125 mg EC tablet 2022-0 23 00:00: 00 Yes [id number] 125mg Take 1 tablet by mouth every 12 (twelve) hours. [facility] divalproex 125 mg EC tablet 2022-0 23 00:00: 00 Yes [id number] 125mg Take 1 tablet by mouth every 12 (twelve) hours. [facility] divalproex 125 mg EC tablet 2022-0 02-13 00:00: 00 Yes [id number] 125mg Take 1 tablet by mouth every 12 (twelve) hours. [facility] divalproex 125 mg EC tablet 2022-0 02-13 00:00: 00 Yes [id number] 125mg Take 1 tablet by mouth every 12 (twelve) hours. [facility] divalproex 125 mg EC tablet 2022-0 02-13 00:00: 00 Yes [id number] 125mg Take 1 tablet by mouth every 12 (twelve) hours. [facility] divalproex 125 mg EC tablet 2022-0 02-13 00:00: 00 Yes [id number] 125mg Take 1 tablet by mouth every 12 (twelve) hours. [facility] divalproex 125 mg EC tablet 2022-0 23 00:00: 00 Yes [id number] 125mg Take 1 tablet by mouth every 12 (twelve) hours. [facility] divalproex 125 mg EC tablet 2022-0 23 00:00: 00 Yes [id number] 125mg Take 1 tablet by mouth every 12 (twelve) hours. [facility] divalproex 125 mg EC tablet 2022-0 23 00:00: 00 Yes [id number] 125mg Take 1 tablet by mouth every 12 (twelve) hours. [facility] divalproex 125 mg EC tablet 2022-0 323 00:00: 00 Yes [id number] 125mg Take 1 tablet by mouth every 12 (twelve) hours. [facility] divalproex 125 mg EC tablet 2022-0 3-23 00:00: 00 Yes [id number] 125mg Take 1 tablet by mouth every 12 (twelve) hours. [facility] divalproex 125 mg EC tablet 2022-0 323 00:00: 00 Yes [id number] 125mg Take 1 tablet by mouth every 12 (twelve) hours. [facility] divalproex 125 mg EC tablet 2022-0 02-13 00:00: 00 Yes [id number] 125mg Take 1 tablet by mouth every 12 (twelve) hours. [facility] divalproex 125 mg EC tablet 2022-0 02-13 00:00: 00 Yes [id number] 125mg Take 1 tablet by mouth every 12 (twelve) hours. [facility] divalproex 125 mg EC tablet 2022-0 02-13 00:00: 00 Yes [id number] 125mg Take 1 tablet by mouth every 12 (twelve) hours. [facility] divalproex 125 mg EC tablet 2022-0 02-13 00:00: 00 09-16 00:00 :00 No [id number] 125mg Take 1 tablet by mouth every 12 (twelve) hours. [facility] metFORMIN 1,000 mg tablet 2022-0 02-11 00:00: 00 Yes [id number] 1000mg Take 1 tablet by mouth in the morning and 1 tablet in the evening. Take with meals. [facility] lisinopriL 40 mg tablet 2022-0 02-11 00:00: 00 Yes [id number] 40mg Take 1 tablet by mouth in the morning. [facility] metFORMIN 1,000 mg tablet 2022-0 02-11 00:00: 00 Yes [id number] 1000mg Take 1 tablet by mouth in the morning and 1 tablet in the evening. Take with meals. [facility] lisinopriL 40 mg tablet 3-0 02-11 00:00: 00 Yes [id number] 40mg Take 1 tablet by mouth in the morning. [facility] metFORMIN 1,000 mg tablet 3-0 02-11 00:00: 00 Yes [id number] 1000mg Take 1 tablet by mouth in the morning and 1 tablet in the evening. Take with meals. [facility] lisinopriL 40 mg tablet 3-0 321 00:00: 00 Yes [id number] 40mg Take 1 tablet by mouth in the morning. [facility] metFORMIN 1,000 mg tablet 3-0 21 00:00: 00 Yes [id number] 1000mg Take 1 tablet by mouth in the morning and 1 tablet in the evening. Take with meals. [facility] lisinopriL 40 mg tablet 3-0 02-11 00:00: 00 Yes [id number] 40mg Take 1 tablet by mouth in the morning. [facility] metFORMIN 1,000 mg tablet 3-0 02-11 00:00: 00 Yes [id number] 1000mg Take 1 tablet by mouth in the morning and 1 tablet in the evening. Take with meals. [facility] lisinopriL 40 mg tablet 3-0 02-11 00:00: 00 Yes [id number] 40mg Take 1 tablet by mouth in the morning. [facility] metFORMIN 1,000 mg tablet 3-0 02-11 00:00: 00 Yes [id number] 1000mg Take 1 tablet by mouth in the morning and 1 tablet in the evening. Take with meals. [facility] lisinopriL 40 mg tablet 3-0 02-11 00:00: 00 Yes [id number] 40mg Take 1 tablet by mouth in the morning. [facility] metFORMIN 1,000 mg tablet 3-0 02-11 00:00: 00 Yes [id number] 1000mg Take 1 tablet by mouth in the morning and 1 tablet in the evening. Take with meals. [facility] metFORMIN 1,000 mg tablet 3-0 02-11 00:00: 00 Yes [id number] 1000mg Take 1 tablet by mouth in the morning and 1 tablet in the evening. Take with meals. [facility] metFORMIN 1,000 mg tablet 3-0 21 00:00: 00 Yes [id number] 1000mg Take 1 tablet by mouth in the morning and 1 tablet in the evening. Take with meals. [facility] metFORMIN 1,000 mg tablet 3-0 -21 00:00: 00 Yes [id number] 1000mg Take 1 tablet by mouth in the morning and 1 tablet in the evening. Take with meals. [facility] metFORMIN 1,000 mg tablet 3-0 -21 00:00: 00 Yes [id number] 1000mg Take 1 tablet by mouth in the morning and 1 tablet in the evening. Take with meals. [facility] metFORMIN 1,000 mg tablet 2023-0 3-21 00:00: 00 Yes [id number] 1000mg Take 1 tablet by mouth in the morning and 1 tablet in the evening. Take with meals. [facility] metFORMIN 1,000 mg tablet 2023-0 3-21 00:00: 00 Yes [id number] 1000mg Take 1 tablet by mouth in the morning and 1 tablet in the evening. Take with meals. [facility] metFORMIN 1,000 mg tablet 2023-0 3-21 00:00: 00 Yes [id number] 1000mg Take 1 tablet by mouth in the morning and 1 tablet in the evening. Take with meals. [facility] metFORMIN 1,000 mg tablet 2023-0 3-21 00:00: 00 Yes [id number] 1000mg Take 1 tablet by mouth in the morning and 1 tablet in the evening. Take with meals. [facility] metFORMIN 1,000 mg tablet 2023-0 3-21 00:00: 00 Yes [id number] 1000mg Take 1 tablet by mouth in the morning and 1 tablet in the evening. Take with meals. [facility] metFORMIN 1,000 mg tablet 3-0 3-21 00:00: 00 Yes [id number] 1000mg Take 1 tablet by mouth in the morning and 1 tablet in the evening. Take with meals. [facility] metFORMIN 1,000 mg tablet 2023-0 3-21 00:00: 00 Yes [id number] 1000mg Take 1 tablet by mouth in the morning and 1 tablet in the evening. Take with meals. [facility] metFORMIN 1,000 mg tablet 2023-0 3-21 00:00: 00 Yes [id number] 1000mg Take 1 tablet by mouth in the morning and 1 tablet in the evening. Take with meals. [facility] metFORMIN 1,000 mg tablet 2023-0 3-21 00:00: 00 05-19 00:00 :00 No [id number] 1000mg Take 1 tablet by mouth in the morning and 1 tablet in the evening. Take with meals. [facility] metFORMIN 1,000 mg tablet 2023-0 3-21 00:00: 00 05-19 00:00 :00 No [id number] 1000mg Take 1 tablet by mouth in the morning and 1 tablet in the evening. Take with meals. [facility] metFORMIN 1,000 mg tablet 02-11 00:00: 00 05-19 00:00 :00 No [id number] 1000mg Take 1 tablet by mouth in the morning and 1 tablet in the evening. Take with meals. [facility] lisinopriL 40 mg tablet 0 02-11 00:00: 00 03-24 00:00 :00 No [id number] 40mg Take 1 tablet by mouth in the morning. [facility] lisinopriL 40 mg tablet 02-11 00:00: 00 03-24 00:00 :00 No [id number] 40mg Take 1 tablet by mouth in the morning. [facility] lisinopriL 40 mg tablet 0 02-11 00:00: 00 03-24 00:00 :00 No [id number] 40mg Take 1 tablet by mouth in the morning. [facility] lisinopriL 40 mg tablet 0 02-11 00:00: 00 03-24 00:00 :00 No [id number] 40mg Take 1 tablet by mouth in the morning. [facility] traZODone 50 mg tablet 2022-0 2-15 00:00: 00 Yes [id number] 50mg Take 1 tablet by mouth at bedtime. [facility] traZODone 50 mg tablet 2022-0 2-15 00:00: 00 Yes [id number] 50mg Take 1 tablet by mouth at bedtime. [facility] traZODone 50 mg tablet 2022-0 2-15 00:00: 00 Yes [id number] 50mg Take 1 tablet by mouth at bedtime. [facility] traZODone 50 mg tablet 2022-0 2-15 00:00: 00 Yes [id number] 50mg Take 1 tablet by mouth at bedtime. [facility] traZODone 50 mg tablet 2022-0 2-15 00:00: 00 Yes [id number] 50mg Take 1 tablet by mouth at bedtime. [facility] traZODone 50 mg tablet 3-0 2-15 00:00: 00 Yes [id number] 50mg Take 1 tablet by mouth at bedtime. [facility] traZODone 50 mg tablet 3-0 2-15 00:00: 00 Yes [id number] 50mg Take 1 tablet by mouth at bedtime. [facility] traZODone 50 mg tablet 3-0 2-15 00:00: 00 Yes [id number] 50mg Take 1 tablet by mouth at bedtime. [facility] traZODone 50 mg tablet 3-0 2-15 00:00: 00 Yes [id number] 50mg Take 1 tablet by mouth at bedtime. [facility] traZODone 50 mg tablet 3-0 2-15 00:00: 00 Yes [id number] 50mg Take 1 tablet by mouth at bedtime. [facility] traZODone 50 mg tablet 3-0 2-15 00:00: 00 Yes [id number] 50mg Take 1 tablet by mouth at bedtime. [facility] traZODone 50 mg tablet 3-0 2-15 00:00: 00 Yes [id number] 50mg Take 1 tablet by mouth at bedtime. [facility] traZODone 50 mg tablet 3-0 2-15 00:00: 00 Yes [id number] 50mg Take 1 tablet by mouth at bedtime. [facility] traZODone 50 mg tablet 3-0 2-15 00:00: 00 Yes [id number] 50mg Take 1 tablet by mouth at bedtime. [facility] traZODone 50 mg tablet 3-0 2-15 00:00: 00 Yes [id number] 50mg Take 1 tablet by mouth at bedtime. [facility] traZODone 50 mg tablet 3-0 2-15 00:00: 00 Yes [id number] 50mg Take 1 tablet by mouth at bedtime. [facility] traZODone 50 mg tablet 3-0 2-15 00:00: 00 Yes [id number] 50mg Take 1 tablet by mouth at bedtime. [facility] traZODone 50 mg tablet 3-0 2-15 00:00: 00 Yes [id number] 50mg Take 1 tablet by mouth at bedtime. [facility] traZODone 50 mg tablet 3-0 2-15 00:00: 00 Yes [id number] 50mg Take 1 tablet by mouth at bedtime. [facility] traZODone 50 mg tablet 3-0 2-15 00:00: 00 Yes [id number] 50mg Take 1 tablet by mouth at bedtime. [facility] traZODone 50 mg tablet 3-0 2-15 00:00: 00 Yes [id number] 50mg Take 1 tablet by mouth at bedtime. [facility] traZODone 50 mg tablet 3-0 2-15 00:00: 00 Yes [id number] 50mg Take 1 tablet by mouth at bedtime. [facility] traZODone 50 mg tablet 3-0 2-15 00:00: 00 Yes [id number] 50mg Take 1 tablet by mouth at bedtime. [facility] traZODone 50 mg tablet 3-0 2-15 00:00: 00 Yes [id number] 50mg Take 1 tablet by mouth at bedtime. [facility] traZODone 50 mg tablet 3-0 2-15 00:00: 00 Yes [id number] 50mg Take 1 tablet by mouth at bedtime. [facility] traZODone 50 mg tablet 3-0 2-15 00:00: 00 Yes [id number] 50mg Take 1 tablet by mouth at bedtime. [facility] traZODone 50 mg tablet 3-0 2-15 00:00: 00 Yes [id number] 50mg Take 1 tablet by mouth at bedtime. [facility] traZODone 50 mg tablet 2023-0 2-15 00:00: 00 Yes [id number] 50mg Take 1 tablet by mouth at bedtime. [facility] traZODone 50 mg tablet 2023-0 2-15 00:00: 00 Yes [id number] 50mg Take 1 tablet by mouth at bedtime. [facility] traZODone 50 mg tablet 2022-0 2-15 00:00: 00 Yes [id number] 50mg Take 1 tablet by mouth at bedtime. [facility] traZODone 50 mg tablet 2022-0 2-15 00:00: 00 Yes [id number] 50mg Take 1 tablet by mouth at bedtime. [facility] traZODone 50 mg tablet 2022-0 2-15 00:00: 00 Yes [id number] 50mg Take 1 tablet by mouth at bedtime. [facility] traZODone 50 mg tablet 2022-0 2-15 00:00: 00 Yes [id number] 50mg Take 1 tablet by mouth at bedtime. [facility] traZODone 50 mg tablet 2022-0 2-15 00:00: 00 09-05 00:00 :00 No [id number] 50mg Take 1 tablet by mouth at bedtime. [facility] traZODone 50 mg tablet 2022-0 2-08 00:00: 00 Yes [id number] 50mg Take 1 tablet by mouth at bedtime. [facility] traZODone 50 mg tablet 2022-0 2-08 00:00: 00 Yes [id number] 50mg Take 1 tablet by mouth at bedtime. [facility] traZODone 50 mg tablet 2022-0 2-08 00:00: 00 Yes [id number] 50mg Take 1 tablet by mouth at bedtime. [facility] traZODone 50 mg tablet 2022-0 2-08 00:00: 00 15 00:00 :00 No [id number] 50mg Take 1 tablet by mouth at bedtime. [facility] divalproex 125 mg EC tablet 2022-0 2-06 00:00: 00 Yes [id number] 125mg Take 1 tablet by mouth every 12 (twelve) hours. [facility] divalproex 125 mg EC tablet 2022-0 2-06 00:00: 00 Yes [id number] 125mg Take 1 tablet by mouth every 12 (twelve) hours. [facility] divalproex 125 mg EC tablet 0 2-06 00:00: 00 Yes [id number] 125mg Take 1 tablet by mouth every 12 (twelve) hours. [facility] divalproex 125 mg EC tablet 0 2-06 00:00: 00 Yes [id number] 125mg Take 1 tablet by mouth every 12 (twelve) hours. [facility] divalproex 125 mg EC tablet 0 2-06 00:00: 00 Yes [id number] 125mg Take 1 tablet by mouth every 12 (twelve) hours. [facility] divalproex 125 mg EC tablet 0 2-06 00:00: 00 Yes [id number] 125mg Take 1 tablet by mouth every 12 (twelve) hours. [facility] divalproex 125 mg EC tablet 0 2-06 00:00: 00 Yes [id number] 125mg Take 1 tablet by mouth every 12 (twelve) hours. [facility] divalproex 125 mg EC tablet 0 2-06 00:00: 00 Yes [id number] 125mg Take 1 tablet by mouth every 12 (twelve) hours. [facility] divalproex 125 mg EC tablet 0 2-06 00:00: 00 02-13 00:00 :00 No [id number] 125mg Take 1 tablet by mouth every 12 (twelve) hours. [facility] divalproex 125 mg EC tablet 0 1-31 00:00: 00 Yes [id number] 125mg Take 1 tablet by mouth every 12 (twelve) hours. [facility] divalproex 125 mg EC tablet 0 1-31 00:00: 00 Yes [id number] 125mg Take 1 tablet by mouth every 12 (twelve) hours. [facility] divalproex 125 mg EC tablet 0 1-31 00:00: 00 12-30 00:00 :00 No [id number] 125mg Take 1 tablet by mouth every 12 (twelve) hours. [facility] DULoxetine 30 mg capsule 0 12-19 00:00: 00 Yes [id number] 9106 30mg Take 1 capsule by mouth in the morning. [facility] mirtazapine 15 mg tablet 2022-0 12-19 00:00: 00 Yes [id number] 9106 15mg Take 1 tablet by mouth at bedtime. [facility] DULoxetine 30 mg capsule 2022-0 12-19 00:00: 00 Yes [id number] 9106 30mg Take 1 capsule by mouth in the morning. [facility] DULoxetine 30 mg capsule 2022-0 12-19 00:00: 00 Yes [id number] 9106 30mg Take 1 capsule by mouth in the morning. [facility] DULoxetine 30 mg capsule 2022-0 12-19 00:00: 00 Yes [id number] 9106 30mg Take 1 capsule by mouth in the morning. [facility] DULoxetine 30 mg capsule 2022-0 12-19 00:00: 00 Yes [id number] 9106 30mg Take 1 capsule by mouth in the morning. [facility] DULoxetine 30 mg capsule 0 12-19 00:00: 00 Yes [id number] 9106 30mg Take 1 capsule by mouth in the morning. [facility] DULoxetine 30 mg capsule 2022-0 12-19 00:00: 00 Yes [id number] [id number] 30mg Take 1 capsule by mouth in the morning. [facility] DULoxetine 30 mg capsule 2022-0 12-19 00:00: 00 Yes [id number] 9106 30mg Take 1 capsule by mouth in the morning. [facility] DULoxetine 30 mg capsule 2022-0 12-19 00:00: 00 Yes [id number] 9106 30mg Take 1 capsule by mouth in the morning. [facility] DULoxetine 30 mg capsule 3-0 12-19 00:00: 00 Yes [id number] 9106 30mg Take 1 capsule by mouth in the morning. [facility] DULoxetine 30 mg capsule 3-0 12-19 00:00: 00 Yes [id number] 9106 30mg Take 1 capsule by mouth in the morning. [facility] DULoxetine 30 mg capsule 3-0 12-19 00:00: 00 Yes [id number] 9106 30mg Take 1 capsule by mouth in the morning. [facility] DULoxetine 30 mg capsule 3-0 12-19 00:00: 00 Yes [id number] 9106 30mg Take 1 capsule by mouth in the morning. [facility] DULoxetine 30 mg capsule 3-0 12-19 00:00: 00 Yes [id number] 9106 30mg Take 1 capsule by mouth in the morning. [facility] DULoxetine 30 mg capsule 3-0 12-19 00:00: 00 Yes [id number] 9106 30mg Take 1 capsule by mouth in the morning. [facility] DULoxetine 30 mg capsule 3-0 12-19 00:00: 00 Yes [id number] [id number] 30mg Take 1 capsule by mouth in the morning. [facility] DULoxetine 30 mg capsule 3-0 12-19 00:00: 00 Yes [id number] 9106 30mg Take 1 capsule by mouth in the morning. [facility] DULoxetine 30 mg capsule 3-0 12-19 00:00: 00 Yes [id number] 9106 30mg Take 1 capsule by mouth in the morning. [facility] DULoxetine 30 mg capsule 3-0 12-19 00:00: 00 Yes [id number] 9106 30mg Take 1 capsule by mouth in the morning. [facility] DULoxetine 30 mg capsule 3-0 12-19 00:00: 00 Yes [id number] 9106 30mg Take 1 capsule by mouth in the morning. [facility] DULoxetine 30 mg capsule 3-0 12-19 00:00: 00 Yes [id number] 9106 30mg Take 1 capsule by mouth in the morning. [facility] DULoxetine 30 mg capsule 3-0 12-19 00:00: 00 Yes [id number] 9106 30mg Take 1 capsule by mouth in the morning. [facility] DULoxetine 30 mg capsule 3-0 12-19 00:00: 00 Yes [id number] 9106 30mg Take 1 capsule by mouth in the morning. [facility] DULoxetine 30 mg capsule 2022-0 12-19 00:00: 00 Yes [id number] 9106 30mg Take 1 capsule by mouth in the morning. [facility] DULoxetine 30 mg capsule 3-0 12-19 00:00: 00 Yes [id number] 9106 30mg Take 1 capsule by mouth in the morning. [facility] DULoxetine 30 mg capsule 3-0 12-19 00:00: 00 Yes [id number] 9106 30mg Take 1 capsule by mouth in the morning. [facility] DULoxetine 30 mg capsule 2022-0 12-19 00:00: 00 Yes [id number] 9106 30mg Take 1 capsule by mouth in the morning. [facility] DULoxetine 30 mg capsule 2022-0 12-19 00:00: 00 Yes [id number] 9106 30mg Take 1 capsule by mouth in the morning. [facility] DULoxetine 30 mg capsule 2022-0 12-19 00:00: 00 Yes [id number] 9106 30mg Take 1 capsule by mouth in the morning. [facility] DULoxetine 30 mg capsule 2022-0 12-19 00:00: 00 Yes [id number] 9106 30mg Take 1 capsule by mouth in the morning. [facility] DULoxetine 30 mg capsule 2022-0 12-19 00:00: 00 Yes [id number] 9106 30mg Take 1 capsule by mouth in the morning. [facility] DULoxetine 30 mg capsule 3-0 12-19 00:00: 00 Yes [id number] 9106 30mg Take 1 capsule by mouth in the morning. [facility] DULoxetine 30 mg capsule 3-0 12-19 00:00: 00 Yes [id number] 9106 30mg Take 1 capsule by mouth in the morning. [facility] DULoxetine 30 mg capsule 3-0 12-19 00:00: 00 Yes [id number] 9106 30mg Take 1 capsule by mouth in the morning. [facility] DULoxetine 30 mg capsule 3-0 12-19 00:00: 00 Yes [id number] 9106 30mg Take 1 capsule by mouth in the morning. [facility] DULoxetine 30 mg capsule 2022-0 -26 00:00: 00 Yes [id number] 9106 30mg Take 1 capsule by mouth in the morning. [facility] DULoxetine 30 mg capsule 0 12-19 00:00: 00 Yes [id number] 9106 30mg Take 1 capsule by mouth in the morning. [facility] DULoxetine 30 mg capsule 2022-0 12-19 00:00: 00 Yes [id number] 9106 30mg Take 1 capsule by mouth in the morning. [facility] DULoxetine 30 mg capsule 0 12-19 00:00: 00 Yes [id number] [id number] 30mg Take 1 capsule by mouth in the morning. [facility] DULoxetine 30 mg capsule 0 12-19 00:00: 00 Yes [id number] 9106 30mg Take 1 capsule by mouth in the morning. [facility] DULoxetine 30 mg capsule 0 12-19 00:00: 00 Yes [id number] 9106 30mg Take 1 capsule by mouth in the morning. [facility] DULoxetine 30 mg capsule 0 12-19 00:00: 00 09-05 00:00 :00 No [id number] 9106 30mg Take 1 capsule by mouth in the morning. [facility] DULoxetine 30 mg capsule 0 12-19 00:00: 00 09-05 00:00 :00 No [id number] 9106 30mg Take 1 capsule by mouth in the morning. [facility] mirtazapine 15 mg tablet 0 12-19 00:00: 00 12-24 00:00 :00 No [id number] 9106 15mg Take 1 tablet by mouth at bedtime. [facility] mirtazapine 15 mg tablet 0 12-19 00:00: 00 12-24 00:00 :00 No [id number] 9106 15mg Take 1 tablet by mouth at bedtime. [facility] LORazepam (ATIVAN) tablet 1 mg 1-14 00:00: 00 12-06 23:46 :00 No 1mg 1 mg, Oral, ONCE, 1 dose, On Fri12/06/22 at 1800, [facility] NaCl 0.9% (NS) bolus infusion 1,000 mL 12-06 23:30: 00 12-06 23:43 :00 No 1000mL at 999 mL/hr, 1,000 mL, IV Piggyback, ONCE, 1 dose, On Fri12/06/22 at 1730, STAT [facility] traZODone 50 mg tablet 12-06 00:00: 00 Yes [id number] 25mg Take 0.5 tablets by mouth at bedtime. [facility] traZODone 50 mg tablet 12-06 00:00: 00 Yes [id number] 25mg Take 0.5 tablets by mouth at bedtime. [facility] traZODone 50 mg tablet 12-06 00:00: 00 Yes [id number] 25mg Take 0.5 tablets by mouth at bedtime. [facility] traZODone 50 mg tablet 12-06 00:00: 00 Yes [id number] 25mg Take 0.5 tablets by mouth at bedtime. [facility] traZODone 50 mg tablet 12-06 00:00: 00 Yes [id number] 25mg Take 0.5 tablets by mouth at bedtime. [facility] traZODone 50 mg tablet 12-06 00:00: 00 01-01 00:00 :00 No [id number] 25mg Take 0.5 tablets by mouth at bedtime. [facility] traZODone 50 mg tablet 12-06 00:00: 00 01-01 00:00 :00 No [id number] 25mg Take 0.5 tablets by mouth at bedtime. [facility] traZODone 50 mg tablet 12-06 00:00: 00 01-01 00:00 :00 No [id number] 25mg Take 0.5 tablets by mouth at bedtime. [facility] metFORMIN 1,000 mg tablet 2021-11 00:00: 00 Yes [id number] 1000mg Take 1 tablet by mouth in the morning and 1 tablet in the evening. Take with meals. [facility] lisinopriL 40 mg tablet 2021-11 00:00: 00 Yes [id number] 40mg Take 1 tablet by mouth in the morning. [facility] DULoxetine 30 mg capsule 2021-11 00:00: 00 Yes [id number] 9106 30mg Take 1 capsule by mouth in the morning. [facility] mirtazapine 15 mg tablet 2021-11 00:00: 00 Yes [id number] [id number] 15mg Take 1 tablet by mouth at bedtime. [facility] cyclobenzap rine 10 mg tablet 2021-11 00:00: 00 Yes [id number] 10mg Take 1 tablet by mouth in the morning and 1 tablet at noon and 1 tablet in the evening. [facility] metFORMIN 1,000 mg tablet 2021-11 00:00: 00 Yes [id number] 1000mg Take 1 tablet by mouth in the morning and 1 tablet in the evening. Take with meals. [facility] lisinopriL 40 mg tablet 2021-11 00:00: 00 Yes [id number] 40mg Take 1 tablet by mouth in the morning. [facility] DULoxetine 30 mg capsule 2021-11 00:00: 00 Yes [id number] 9106 30mg Take 1 capsule by mouth in the morning. [facility] mirtazapine 15 mg tablet 2021-11 00:00: 00 Yes [id number] 9106 15mg Take 1 tablet by mouth at bedtime. [facility] cyclobenzap rine 10 mg tablet 2021-11 00:00: 00 Yes [id number] 10mg Take 1 tablet by mouth in the morning and 1 tablet at noon and 1 tablet in the evening. [facility] metFORMIN 1,000 mg tablet 2021-11 00:00: 00 Yes [id number] 1000mg Take 1 tablet by mouth in the morning and 1 tablet in the evening. Take with meals. [facility] lisinopriL 40 mg tablet 2021-11 00:00: 00 Yes [id number] 40mg Take 1 tablet by mouth in the morning. [facility] DULoxetine 30 mg capsule 2021-11 00:00: 00 Yes [id number] 9106 30mg Take 1 capsule by mouth in the morning. [facility] mirtazapine 15 mg tablet 2021-11 00:00: 00 Yes [id number] 9106 15mg Take 1 tablet by mouth at bedtime. [facility] cyclobenzap rine 10 mg tablet 2021-11 00:00: 00 Yes [id number] 10mg Take 1 tablet by mouth in the morning and 1 tablet at noon and 1 tablet in the evening. [facility] metFORMIN 1,000 mg tablet 2021-11 00:00: 00 Yes [id number] 1000mg Take 1 tablet by mouth in the morning and 1 tablet in the evening. Take with meals. [facility] lisinopriL 40 mg tablet 2021-11 00:00: 00 Yes [id number] 40mg Take 1 tablet by mouth in the morning. [facility] cyclobenzap rine 10 mg tablet 2021-11 00:00: 00 Yes [id number] 10mg Take 1 tablet by mouth in the morning and 1 tablet at noon and 1 tablet in the evening. [facility] metFORMIN 1,000 mg tablet 2021-11 00:00: 00 Yes [id number] 1000mg Take 1 tablet by mouth in the morning and 1 tablet in the evening. Take with meals. [facility] lisinopriL 40 mg tablet 2021-11 00:00: 00 Yes [id number] 40mg Take 1 tablet by mouth in the morning. [facility] cyclobenzap rine 10 mg tablet 2021-11 00:00: 00 Yes [id number] 10mg Take 1 tablet by mouth in the morning and 1 tablet at noon and 1 tablet in the evening. [facility] metFORMIN 1,000 mg tablet 2021-11 00:00: 00 Yes [id number] 1000mg Take 1 tablet by mouth in the morning and 1 tablet in the evening. Take with meals. [facility] lisinopriL 40 mg tablet 2021-11 00:00: 00 Yes [id number] 40mg Take 1 tablet by mouth in the morning. [facility] cyclobenzap rine 10 mg tablet 2021-11 00:00: 00 Yes [id number] 10mg Take 1 tablet by mouth in the morning and 1 tablet at noon and 1 tablet in the evening. [facility] metFORMIN 1,000 mg tablet 2021-11 00:00: 00 Yes [id number] 1000mg Take 1 tablet by mouth in the morning and 1 tablet in the evening. Take with meals. [facility] lisinopriL 40 mg tablet 2021-11 00:00: 00 Yes [id number] 40mg Take 1 tablet by mouth in the morning. [facility] cyclobenzap rine 10 mg tablet 2021-11 00:00: 00 Yes [id number] 10mg Take 1 tablet by mouth in the morning and 1 tablet at noon and 1 tablet in the evening. [facility] metFORMIN 1,000 mg tablet 2021-11 00:00: 00 Yes [id number] 1000mg Take 1 tablet by mouth in the morning and 1 tablet in the evening. Take with meals. [facility] lisinopriL 40 mg tablet 2021-11 00:00: 00 Yes [id number] 40mg Take 1 tablet by mouth in the morning. [facility] cyclobenzap rine 10 mg tablet 2021-11 00:00: 00 Yes [id number] 10mg Take 1 tablet by mouth in the morning and 1 tablet at noon and 1 tablet in the evening. [facility] metFORMIN 1,000 mg tablet 2021-11 00:00: 00 Yes [id number] 1000mg Take 1 tablet by mouth in the morning and 1 tablet in the evening. Take with meals. [facility] lisinopriL 40 mg tablet 2021-11 00:00: 00 Yes [id number] 40mg Take 1 tablet by mouth in the morning. [facility] cyclobenzap rine 10 mg tablet 2021-11 00:00: 00 Yes [id number] 10mg Take 1 tablet by mouth in the morning and 1 tablet at noon and 1 tablet in the evening. [facility] metFORMIN 1,000 mg tablet 2021-11 00:00: 00 Yes [id number] 1000mg Take 1 tablet by mouth in the morning and 1 tablet in the evening. Take with meals. [facility] lisinopriL 40 mg tablet 2021-11 00:00: 00 Yes [id number] 40mg Take 1 tablet by mouth in the morning. [facility] cyclobenzap rine 10 mg tablet 2021-11 00:00: 00 Yes [id number] 10mg Take 1 tablet by mouth in the morning and 1 tablet at noon and 1 tablet in the evening. [facility] metFORMIN 1,000 mg tablet 2021-11 00:00: 00 Yes [id number] 1000mg Take 1 tablet by mouth in the morning and 1 tablet in the evening. Take with meals. [facility] lisinopriL 40 mg tablet 2021-11 00:00: 00 Yes [id number] 40mg Take 1 tablet by mouth in the morning. [facility] cyclobenzap rine 10 mg tablet 2021-11 00:00: 00 Yes [id number] 10mg Take 1 tablet by mouth in the morning and 1 tablet at noon and 1 tablet in the evening. [facility] metFORMIN 1,000 mg tablet 2021-11 00:00: 00 Yes [id number] 1000mg Take 1 tablet by mouth in the morning and 1 tablet in the evening. Take with meals. [facility] lisinopriL 40 mg tablet 2021-11 00:00: 00 Yes [id number] 40mg Take 1 tablet by mouth in the morning. [facility] cyclobenzap rine 10 mg tablet 2021-11 00:00: 00 Yes [id number] 10mg Take 1 tablet by mouth in the morning and 1 tablet at noon and 1 tablet in the evening. [facility] metFORMIN 1,000 mg tablet 2021-11 00:00: 00 Yes [id number] 1000mg Take 1 tablet by mouth in the morning and 1 tablet in the evening. Take with meals. [facility] lisinopriL 40 mg tablet 2021-11 00:00: 00 Yes [id number] 40mg Take 1 tablet by mouth in the morning. [facility] cyclobenzap rine 10 mg tablet 2021-11 00:00: 00 Yes [id number] 10mg Take 1 tablet by mouth in the morning and 1 tablet at noon and 1 tablet in the evening. [facility] cyclobenzap rine 10 mg tablet 2021-11 00:00: 00 Yes [id number] 10mg Take 1 tablet by mouth in the morning and 1 tablet at noon and 1 tablet in the evening. [facility] cyclobenzap rine 10 mg tablet 2021-11 00:00: 00 Yes [id number] 10mg Take 1 tablet by mouth in the morning and 1 tablet at noon and 1 tablet in the evening. [facility] cyclobenzap rine 10 mg tablet 2021-11 00:00: 00 Yes [id number] 10mg Take 1 tablet by mouth in the morning and 1 tablet at noon and 1 tablet in the evening. [facility] cyclobenzap rine 10 mg tablet 2021-11 00:00: 00 Yes [id number] 10mg Take 1 tablet by mouth in the morning and 1 tablet at noon and 1 tablet in the evening. [facility] cyclobenzap rine 10 mg tablet 2021-11 00:00: 00 Yes [id number] 10mg Take 1 tablet by mouth in the morning and 1 tablet at noon and 1 tablet in the evening. [facility] cyclobenzap rine 10 mg tablet 2021-11 00:00: 00 Yes [id number] 10mg Take 1 tablet by mouth in the morning and 1 tablet at noon and 1 tablet in the evening. [facility] cyclobenzap rine 10 mg tablet 2021-11 00:00: 00 Yes [id number] 10mg Take 1 tablet by mouth in the morning and 1 tablet at noon and 1 tablet in the evening. [facility] cyclobenzap rine 10 mg tablet 2021-11 00:00: 00 Yes [id number] 10mg Take 1 tablet by mouth in the morning and 1 tablet at noon and 1 tablet in the evening. [facility] cyclobenzap rine 10 mg tablet 2021-11 00:00: 00 Yes [id number] 10mg Take 1 tablet by mouth in the morning and 1 tablet at noon and 1 tablet in the evening. [facility] cyclobenzap rine 10 mg tablet 2021-11 00:00: 00 03-27 00:00 :00 No [id number] 10mg Take 1 tablet by mouth in the morning and 1 tablet at noon and 1 tablet in the evening. [facility] metFORMIN 1,000 mg tablet 2021-11 00:00: 00 02-11 00:00 :00 No [id number] 1000mg Take 1 tablet by mouth in the morning and 1 tablet in the evening. Take with meals. [facility] lisinopriL 40 mg tablet 2021-11 00:00: 00 02-11 00:00 :00 No [id number] 40mg Take 1 tablet by mouth in the morning. [facility] DULoxetine 30 mg capsule 2021-11 00:00: 00 12-19 00:00 :00 No [id number] 9106 30mg Take 1 capsule by mouth in the morning. [facility] mirtazapine 15 mg tablet 2021-11 00:00: 00 12-19 00:00 :00 No [id number] 9106 15mg Take 1 tablet by mouth at bedtime. [facility] MELOXICAM 7.5 mg tablet 2021-11 00:00: 00 Yes [id number] TAKE 1 TABLET BY MOUTH IN THE MORNING [facility] MELOXICAM 7.5 mg tablet 2021-11 00:00: 00 Yes [id number] TAKE 1 TABLET BY MOUTH IN THE MORNING [facility] MELOXICAM 7.5 mg tablet 2021- 00:00: 00 Yes [id number] TAKE 1 TABLET BY MOUTH IN THE MORNING [facility] MELOXICAM 7.5 mg tablet 2021- 00:00: 00 Yes [id number] TAKE 1 TABLET BY MOUTH IN THE MORNING [facility] MELOXICAM 7.5 mg tablet 2021- 00:00: 00 Yes [id number] TAKE 1 TABLET BY MOUTH IN THE MORNING [facility] MELOXICAM 7.5 mg tablet 2021- 00:00: 00 Yes [id number] TAKE 1 TABLET BY MOUTH IN THE MORNING [facility] MELOXICAM 7.5 mg tablet 2021- 00:00: 00 Yes [id number] TAKE 1 TABLET BY MOUTH IN THE MORNING [facility] MELOXICAM 7.5 mg tablet 2021- 00:00: 00 Yes [id number] TAKE 1 TABLET BY MOUTH IN THE MORNING [facility] MELOXICAM 7.5 mg tablet 2021- 00:00: 00 Yes [id number] TAKE 1 TABLET BY MOUTH IN THE MORNING [facility] MELOXICAM 7.5 mg tablet 2021- 00:00: 00 Yes [id number] TAKE 1 TABLET BY MOUTH IN THE MORNING [facility] MELOXICAM 7.5 mg tablet 2021- 00:00: 00 Yes [id number] TAKE 1 TABLET BY MOUTH IN THE MORNING [facility] MELOXICAM 7.5 mg tablet 2021- 00:00: 00 Yes [id number] TAKE 1 TABLET BY MOUTH IN THE MORNING [facility] MELOXICAM 7.5 mg tablet 2021- 00:00: 00 Yes [id number] TAKE 1 TABLET BY MOUTH IN THE MORNING [facility] MELOXICAM 7.5 mg tablet 2021- 00:00: 00 Yes [id number] TAKE 1 TABLET BY MOUTH IN THE MORNING [facility] MELOXICAM 7.5 mg tablet 2021- 00:00: 00 Yes [id number] TAKE 1 TABLET BY MOUTH IN THE MORNING [facility] MELOXICAM 7.5 mg tablet 2021- 00:00: 00 Yes [id number] TAKE 1 TABLET BY MOUTH IN THE MORNING [facility] MELOXICAM 7.5 mg tablet 2021- 00:00: 00 Yes [id number] TAKE 1 TABLET BY MOUTH IN THE MORNING [facility] MELOXICAM 7.5 mg tablet 2021- 00:00: 00 Yes [id number] TAKE 1 TABLET BY MOUTH IN THE MORNING [facility] MELOXICAM 7.5 mg tablet 2021- 00:00: 00 Yes [id number] TAKE 1 TABLET BY MOUTH IN THE MORNING [facility] MELOXICAM 7.5 mg tablet 2021- 00:00: 00 Yes [id number] TAKE 1 TABLET BY MOUTH IN THE MORNING [facility] MELOXICAM 7.5 mg tablet 2021- 00:00: 00 Yes [id number] TAKE 1 TABLET BY MOUTH IN THE MORNING [facility] MELOXICAM 7.5 mg tablet 2021- 00:00: 00 Yes [id number] TAKE 1 TABLET BY MOUTH IN THE MORNING [facility] MELOXICAM 7.5 mg tablet 2021-11 00:00: 00 Yes [id number] TAKE 1 TABLET BY MOUTH IN THE MORNING [facility] MELOXICAM 7.5 mg tablet 2021- 00:00: 00 Yes [id number] TAKE 1 TABLET BY MOUTH IN THE MORNING [facility] MELOXICAM 7.5 mg tablet 2021- 00:00: 00 Yes [id number] TAKE 1 TABLET BY MOUTH IN THE MORNING [facility] MELOXICAM 7.5 mg tablet 2021- 00:00: 00 Yes [id number] TAKE 1 TABLET BY MOUTH IN THE MORNING [facility] MELOXICAM 7.5 mg tablet 2021- 00:00: 00 Yes [id number] TAKE 1 TABLET BY MOUTH IN THE MORNING [facility] MELOXICAM 7.5 mg tablet 2021- 00:00: 00 Yes [id number] TAKE 1 TABLET BY MOUTH IN THE MORNING [facility] MELOXICAM 7.5 mg tablet 2021- 00:00: 00 Yes [id number] TAKE 1 TABLET BY MOUTH IN THE MORNING [facility] MELOXICAM 7.5 mg tablet 2021- 00:00: 00 Yes [id number] TAKE 1 TABLET BY MOUTH IN THE MORNING [facility] MELOXICAM 7.5 mg tablet 2021- 00:00: 00 Yes [id number] TAKE 1 TABLET BY MOUTH IN THE MORNING [facility] MELOXICAM 7.5 mg tablet 2021- 00:00: 00 Yes [id number] TAKE 1 TABLET BY MOUTH IN THE MORNING [facility] MELOXICAM 7.5 mg tablet 2021- 00:00: 00 Yes [id number] TAKE 1 TABLET BY MOUTH IN THE MORNING [facility] MELOXICAM 7.5 mg tablet 2021- 00:00: 00 Yes [id number] TAKE 1 TABLET BY MOUTH IN THE MORNING [facility] MELOXICAM 7.5 mg tablet 2021- 00:00: 00 Yes [id number] TAKE 1 TABLET BY MOUTH IN THE MORNING [facility] MELOXICAM 7.5 mg tablet 2021- 00:00: 00 Yes [id number] TAKE 1 TABLET BY MOUTH IN THE MORNING [facility] MELOXICAM 7.5 mg tablet 2021- 00:00: 00 Yes [id number] TAKE 1 TABLET BY MOUTH IN THE MORNING [facility] MELOXICAM 7.5 mg tablet 2021- 00:00: 00 Yes [id number] TAKE 1 TABLET BY MOUTH IN THE MORNING [facility] MELOXICAM 7.5 mg tablet 2021- 00:00: 00 Yes [id number] TAKE 1 TABLET BY MOUTH IN THE MORNING [facility] MELOXICAM 7.5 mg tablet 2021-1 00:00: 00 Yes [id number] TAKE 1 TABLET BY MOUTH IN THE MORNING [facility] MELOXICAM 7.5 mg tablet 2021-11 00:00: 00 Yes [id number] TAKE 1 TABLET BY MOUTH IN THE MORNING [facility] [place] [facility] 7.5 [facility] tablet 2021- 00:00: 00 Yes [id number] TAKE 1 TABLET BY MOUTH IN THE MORNING [facility] MELOXICAM 7.5 mg tablet 2021-11 00:00: 00 Yes [id number] TAKE 1 TABLET BY MOUTH IN THE MORNING [facility] 2021-11 00:00: 00 Yes [id number] TAKE 1 TABLET BY MOUTH IN THE MORNING [facility] MELOXICAM 7.5 mg tablet 2021-11 00:00: 00 Yes [id number] TAKE 1 TABLET BY MOUTH IN THE MORNING [facility] MELOXICAM 7.5 mg tablet 2021-11 00:00: 00 Yes [id number] TAKE 1 TABLET BY MOUTH IN THE MORNING [facility] MELOXICAM 7.5 mg tablet 2021-11 00:00: 00 Yes [id number] TAKE 1 TABLET BY MOUTH IN THE MORNING [facility] MELOXICAM 7.5 mg tablet 2021-11 00:00: 00 09-09 00:00 :00 No [id number] TAKE 1 TABLET BY MOUTH IN THE MORNING [facility] MELOXICAM 7.5 mg tablet 2021-11 00:00: 00 Yes [id number] TAKE 1 TABLET BY MOUTH EVERY DAY [facility] 7.5 mg tablet 2021-11 00:00: 00 Yes [id number] TAKE 1 TABLET BY MOUTH EVERY DAY [facility] MELOXICAM 7.5 mg tablet 2021-11 00:00: 00 11-21 00:00 :00 No [id number] TAKE 1 TABLET BY MOUTH EVERY DAY [facility] mirtazapine 15 mg tablet 2021-11 2 00:00: 00 Yes [id number] 15mg Take 1 tablet by mouth at bedtime. [facility] mirtazapine 15 mg tablet 2021-11 2-14 00:00: 00 Yes [id number] 15mg Take 1 tablet by mouth at bedtime. [facility] mirtazapine 15 mg tablet 2021-11 2-14 00:00: 00 Yes [id number] 15mg Take 1 tablet by mouth at bedtime. [facility] mirtazapine 15 mg tablet 2021-11 2-14 00:00: 00 Yes [id number] 15mg Take 1 tablet by mouth at bedtime. [facility] mirtazapine 15 mg tablet 2021-11 2-14 00:00: 00 11-22 00:00 :00 No [id number] 15mg Take 1 tablet by mouth at bedtime. [facility] METFORMIN 1,000 mg tablet 2021-11 00:00: 00 Yes [id number] TAKE 1 TABLET BY MOUTH TWICE DAILY WITH MEALS [facility] METFORMIN 1,000 mg tablet 2021-11 2 00:00: 00 Yes [id number] TAKE 1 TABLET BY MOUTH TWICE DAILY WITH MEALS [facility] METFORMIN 1,000 mg tablet 2021-11 00:00: 00 Yes [id number] TAKE 1 TABLET BY MOUTH TWICE DAILY WITH MEALS [facility] METFORMIN 1,000 mg tablet 2021-11 00:00: 00 Yes [id number] TAKE 1 TABLET BY MOUTH TWICE DAILY WITH MEALS [facility] METFORMIN 1,000 mg tablet 2021-11 00:00: 00 Yes [id number] TAKE 1 TABLET BY MOUTH TWICE DAILY WITH MEALS [facility] METFORMIN 1,000 mg tablet 2021-11 00:00: 00 11-22 00:00 :00 No [id number] TAKE 1 TABLET BY MOUTH TWICE DAILY WITH MEALS [facility] DULoxetine 30 mg capsule 2021-11 00:00: 00 Yes [id number] [id number] 30mg Take 1 capsule by mouth in the morning. [facility] DULoxetine 30 mg capsule 2021-11 00:00: 00 Yes [id number] 9106 30mg Take 1 capsule by mouth in the morning. [facility] DULoxetine 30 mg capsule 2021-11 00:00: 00 Yes [id number] 9106 30mg Take 1 capsule by mouth in the morning. [facility] DULoxetine 30 mg capsule 2021-11 00:00: 00 Yes [id number] [id number] 30mg Take 1 capsule by mouth in the morning. [facility] DULoxetine 30 mg capsule 2021-11 00:00: 00 Yes [id number] [id number] 30mg Take 1 capsule by mouth in the morning. [facility] DULoxetine 30 mg capsule 2021-11 00:00: 00 Yes [id number] 9106 30mg Take 1 capsule by mouth in the morning. [facility] DULoxetine 30 mg capsule 2021-11 00:00: 00 11-22 00:00 :00 No [id number] 9106 30mg Take 1 capsule by mouth in the morning. [facility] cyclobenzap rine 10 mg tablet 2021-11 00:00: 00 Yes [id number] 10mg Take 1 tablet by mouth in the morning and 1 tablet at noon and 1 tablet in the evening. [facility] cyclobenzap rine 10 mg tablet 2021-11 00:00: 00 Yes [id number] 10mg Take 1 tablet by mouth in the morning and 1 tablet at noon and 1 tablet in the evening. [facility] cyclobenzap rine 10 mg tablet 2021-11 00:00: 00 Yes [id number] 10mg Take 1 tablet by mouth in the morning and 1 tablet at noon and 1 tablet in the evening. [facility] cyclobenzap rine 10 mg tablet 2021-11 00:00: 00 Yes [id number] 10mg Take 1 tablet by mouth in the morning and 1 tablet at noon and 1 tablet in the evening. [facility] cyclobenzap rine 10 mg tablet 2021-11 00:00: 00 Yes [id number] 10mg Take 1 tablet by mouth in the morning and 1 tablet at noon and 1 tablet in the evening. [facility] cyclobenzap rine 10 mg tablet 2021-11 2 00:00: 00 Yes [id number] 10mg Take 1 tablet by mouth in the morning and 1 tablet at noon and 1 tablet in the evening. [facility] cyclobenzap rine 10 mg tablet 2021-11 2 00:00: 00 Yes [id number] 10mg Take 1 tablet by mouth in the morning and 1 tablet at noon and 1 tablet in the evening. [facility] cyclobenzap rine 10 mg tablet 2021-11 00:00: 00 11-22 00:00 :00 No [id number] 10mg Take 1 tablet by mouth in the morning and 1 tablet at noon and 1 tablet in the evening. [facility] mirtazapine 15 mg tablet 2021-11 00:00: 00 Yes [id number] [id number] 15mg Take 1 tablet by mouth at bedtime. [facility] mirtazapine 15 mg tablet 2021-11 00:00: 00 Yes [id number] [id number] 15mg Take 1 tablet by mouth at bedtime. [facility] mirtazapine 15 mg tablet 2021-11 00:00: 00 Yes [id number] 9106 15mg Take 1 tablet by mouth at bedtime. [facility] mirtazapine 15 mg tablet 2021-11 00:00: 00 Yes [id number] 9106 15mg Take 1 tablet by mouth at bedtime. [facility] mirtazapine 15 mg tablet 2021-1116 00:00: 00 11-06 00:00 :00 No [id number] 9106 15mg Take 1 tablet by mouth at bedtime. [facility] meloxicam 7.5 mg tablet 2021-11 027 00:00: 00 Yes [id number] 7.5mg Take 1 tablet by mouth in the morning. [facility] cyclobenzap rine 10 mg tablet 2021-11 0 00:00: 00 Yes [id number] 10mg Take 1 tablet by mouth in the morning and 1 tablet at noon and 1 tablet in the evening. [facility] meloxicam 7.5 mg tablet 2021-11 027 00:00: 00 Yes [id number] 7.5mg Take 1 tablet by mouth in the morning. [facility] cyclobenzap rine 10 mg tablet 2021-11 027 00:00: 00 Yes [id number] 10mg Take 1 tablet by mouth in the morning and 1 tablet at noon and 1 tablet in the evening. [facility] meloxicam 7.5 mg tablet 2021-11 0 00:00: 00 Yes [id number] 7.5mg Take 1 tablet by mouth in the morning. [facility] cyclobenzap rine 10 mg tablet 2021-11 0 00:00: 00 Yes [id number] 10mg Take 1 tablet by mouth in the morning and 1 tablet at noon and 1 tablet in the evening. [facility] meloxicam 7.5 mg tablet 2021-11 0 00:00: 00 Yes [id number] 7.5mg Take 1 tablet by mouth in the morning. [facility] meloxicam 7.5 mg tablet 2021-11 0 00:00: 00 Yes [id number] 7.5mg Take 1 tablet by mouth in the morning. [facility] meloxicam 7.5 mg tablet 2021-11 0 00:00: 00 Yes [id number] 7.5mg Take 1 tablet by mouth in the morning. [facility] meloxicam 7.5 mg tablet 2021-11 0 00:00: 00 Yes [id number] 7.5mg Take 1 tablet by mouth in the morning. [facility] meloxicam 7.5 mg tablet 2021-11 0 00:00: 00 11-13 00:00 :00 No [id number] 7.5mg Take 1 tablet by mouth in the morning. [facility] cyclobenzap rine 10 mg tablet 2021-11 0 00:00: 00 10-27 00:00 :00 No [id number] 10mg Take 1 tablet by mouth in the morning and 1 tablet at noon and 1 tablet in the evening. [facility] DULoxetine 30 mg capsule 2021-11 0-18 00:00: 00 Yes [id number] [id number] 30mg Take 1 capsule by mouth in the morning. [facility] mirtazapine 15 mg tablet 2021-11 0-18 00:00: 00 Yes [id number] 9106 15mg Take 1 tablet by mouth at bedtime. [facility] lisinopriL 40 mg tablet 2021-11 0-18 00:00: 00 Yes [id number] 40mg Take 1 tablet by mouth in the morning. [facility] DULoxetine 30 mg capsule 2021-11 0-18 00:00: 00 Yes [id number] 9106 30mg Take 1 capsule by mouth in the morning. [facility] mirtazapine 15 mg tablet 2021-11 0-18 00:00: 00 Yes [id number] 9106 15mg Take 1 tablet by mouth at bedtime. [facility] lisinopriL 40 mg tablet 2021-11 0-18 00:00: 00 Yes [id number] 40mg Take 1 tablet by mouth in the morning. [facility] DULoxetine 30 mg capsule 2021-11 018 00:00: 00 Yes [id number] 9106 30mg Take 1 capsule by mouth in the morning. [facility] mirtazapine 15 mg tablet 2021-11 0-18 00:00: 00 Yes [id number] 9106 15mg Take 1 tablet by mouth at bedtime. [facility] lisinopriL 40 mg tablet 2021-11 0-18 00:00: 00 Yes [id number] 40mg Take 1 tablet by mouth in the morning. [facility] DULoxetine 30 mg capsule 2021-11 0-18 00:00: 00 Yes [id number] [id number] 30mg Take 1 capsule by mouth in the morning. [facility] mirtazapine 15 mg tablet 2021-11 0-18 00:00: 00 Yes [id number] 9106 15mg Take 1 tablet by mouth at bedtime. [facility] lisinopriL 40 mg tablet 2021-11 0-18 00:00: 00 Yes [id number] 40mg Take 1 tablet by mouth in the morning. [facility] DULoxetine 30 mg capsule 2021-11 0-18 00:00: 00 Yes [id number] [id number] 30mg Take 1 capsule by mouth in the morning. [facility] mirtazapine 15 mg tablet 2021-11 0-18 00:00: 00 Yes [id number] 9106 15mg Take 1 tablet by mouth at bedtime. [facility] lisinopriL 40 mg tablet 2021-11 0-18 00:00: 00 Yes [id number] 40mg Take 1 tablet by mouth in the morning. [facility] DULoxetine 30 mg capsule 2021-11 0-18 00:00: 00 Yes [id number] 9106 30mg Take 1 capsule by mouth in the morning. [facility] lisinopriL 40 mg tablet 2021-11 0-18 00:00: 00 Yes [id number] 40mg Take 1 tablet by mouth in the morning. [facility] DULoxetine 30 mg capsule 2021-11 0-18 00:00: 00 Yes [id number] 9106 30mg Take 1 capsule by mouth in the morning. [facility] lisinopriL 40 mg tablet 2021-11 018 00:00: 00 Yes [id number] 40mg Take 1 tablet by mouth in the morning. [facility] lisinopriL 40 mg tablet 2021-11 018 00:00: 00 Yes [id number] 40mg Take 1 tablet by mouth in the morning. [facility] lisinopriL 40 mg tablet 2021-11 0-18 00:00: 00 Yes [id number] 40mg Take 1 tablet by mouth in the morning. [facility] lisinopriL 40 mg tablet 2021-11 0-18 00:00: 00 Yes [id number] 40mg Take 1 tablet by mouth in the morning. [facility] lisinopriL 40 mg tablet 2021-11 0-18 00:00: 00 Yes [id number] 40mg Take 1 tablet by mouth in the morning. [facility] lisinopriL 40 mg tablet 2021-11 0-18 00:00: 00 Yes [id number] 40mg Take 1 tablet by mouth in the morning. [facility] lisinopriL 40 mg tablet 2021-11 0-18 00:00: 00 Yes [id number] 40mg Take 1 tablet by mouth in the morning. [facility] lisinopriL 40 mg tablet 2021-11 0-18 00:00: 00 11-22 00:00 :00 No [id number] 40mg Take 1 tablet by mouth in the morning. [facility] DULoxetine 30 mg capsule 2021-11 0-18 00:00: 00 10-27 00:00 :00 No [id number] 9106 30mg Take 1 capsule by mouth in the morning. [facility] mirtazapine 15 mg tablet 2021-11 0-18 00:00: 00 10-06 00:00 :00 No [id number] 9106 15mg Take 1 tablet by mouth at bedtime. [facility] triamcinolo ne acetonide (KENALOG) injection 40 mg 2021-11 0-12 20:15: 00 09-04 19:08 :00 No [id number] 40mg [facility] triamcinolo ne acetonide (KENALOG) injection 40 mg 2021-11 0-12 20:15: 00 09-04 19:08 :00 No [id number] 40mg 40 mg, Intramuscu lar, ONCE, 1 dose, On Fri09/04/22 at 1515, Routine [facility] triamcinolo ne acetonide (KENALOG) injection 40 mg 2021-11 0-12 20:15: 00 09-04 19:08 :00 No [id number] 40mg [facility] triamcinolo ne acetonide (KENALOG) injection 40 mg 2021-11 0-12 20:15: 00 09-04 19:08 :00 No [id number] 40mg 40 mg, Intramuscu lar, ONCE, 1 dose, On Fri09/04/22 at 1515, Routine [facility] donepeziL 10 mg tablet 6-20 00:00: 00 Yes 10mg Take 1 tablet by mouth at bedtime. [facility] memantine 10 mg tablet 2022-0 6-20 00:00: 00 Yes 10mg Take 1 tablet by mouth 2 (two) times daily. [facility] donepeziL 10 mg tablet 2-0 6-20 00:00: 00 Yes 10mg Take 1 tablet by mouth at bedtime. [facility] memantine 10 mg tablet 2-0 6-20 00:00: 00 Yes 10mg Take 1 tablet by mouth 2 (two) times daily. [facility] donepeziL 10 mg tablet 2-0 6-20 00:00: 00 Yes 10mg Take 1 tablet by mouth at bedtime. [facility] memantine 10 mg tablet 2-0 6-20 00:00: 00 Yes 10mg Take 1 tablet by mouth 2 (two) times daily. [facility] donepeziL 10 mg tablet 2-0 6-20 00:00: 00 Yes 10mg Take 1 tablet by mouth at bedtime. [facility] memantine 10 mg tablet 2-0 6-20 00:00: 00 Yes 10mg Take 1 tablet by mouth 2 (two) times daily. [facility] donepeziL 10 mg tablet 2-0 6-20 00:00: 00 Yes 10mg Take 1 tablet by mouth at bedtime. [facility] memantine 10 mg tablet 2-0 6-20 00:00: 00 Yes 10mg Take 1 tablet by mouth 2 (two) times daily. [facility] donepeziL 10 mg tablet 2-0 6-20 00:00: 00 Yes 10mg Take 1 tablet by mouth at bedtime. [facility] memantine 10 mg tablet 2-0 6-20 00:00: 00 Yes 10mg Take 1 tablet by mouth 2 (two) times daily. [facility] donepeziL 10 mg tablet 2-0 6-20 00:00: 00 Yes 10mg Take 1 tablet by mouth at bedtime. [facility] memantine 10 mg tablet 2-0 6-20 00:00: 00 Yes 10mg Take 1 tablet by mouth 2 (two) times daily. [facility] donepeziL 10 mg tablet 2022-0 6-20 00:00: 00 Yes 10mg Take 1 tablet by mouth at bedtime. [facility] memantine 10 mg tablet 2-0 6-20 00:00: 00 Yes 10mg Take 1 tablet by mouth 2 (two) times daily. [facility] donepeziL 10 mg tablet 2-0 6-20 00:00: 00 Yes 10mg Take 1 tablet by mouth at bedtime. [facility] memantine 10 mg tablet 2-0 6-20 00:00: 00 Yes 10mg Take 1 tablet by mouth 2 (two) times daily. [facility] donepeziL 10 mg tablet 2-0 6-20 00:00: 00 Yes 10mg Take 1 tablet by mouth at bedtime. [facility] memantine 10 mg tablet 2-0 6-20 00:00: 00 Yes 10mg Take 1 tablet by mouth 2 (two) times daily. [facility] donepeziL 10 mg tablet 2-0 6-20 00:00: 00 Yes 10mg Take 1 tablet by mouth at bedtime. [facility] memantine 10 mg tablet 2-0 6-20 00:00: 00 Yes 10mg Take 1 tablet by mouth 2 (two) times daily. [facility] donepeziL 10 mg tablet 2-0 6-20 00:00: 00 Yes 10mg Take 1 tablet by mouth at bedtime. [facility] memantine 10 mg tablet 2-0 6-20 00:00: 00 Yes 10mg Take 1 tablet by mouth 2 (two) times daily. [facility] donepeziL 10 mg tablet 2-0 6-20 00:00: 00 Yes 10mg Take 1 tablet by mouth at bedtime. [facility] memantine 10 mg tablet 2-0 6-20 00:00: 00 Yes 10mg Take 1 tablet by mouth 2 (two) times daily. [facility] donepeziL 10 mg tablet 2-0 6-20 00:00: 00 Yes 10mg Take 1 tablet by mouth at bedtime. [facility] memantine 10 mg tablet 2022-0 6-20 00:00: 00 Yes 10mg Take 1 tablet by mouth 2 (two) times daily. [facility] donepeziL 10 mg tablet 2-0 6-20 00:00: 00 Yes 10mg Take 1 tablet by mouth at bedtime. [facility] memantine 10 mg tablet 2-0 6-20 00:00: 00 Yes 10mg Take 1 tablet by mouth 2 (two) times daily. [facility] donepeziL 10 mg tablet 2-0 6-20 00:00: 00 Yes 10mg Take 1 tablet by mouth at bedtime. [facility] memantine 10 mg tablet 2-0 6-20 00:00: 00 Yes 10mg Take 1 tablet by mouth 2 (two) times daily. [facility] donepeziL 10 mg tablet 2-0 6-20 00:00: 00 Yes 10mg Take 1 tablet by mouth at bedtime. [facility] memantine 10 mg tablet 2-0 6-20 00:00: 00 Yes 10mg Take 1 tablet by mouth 2 (two) times daily. [facility] donepeziL 10 mg tablet 2-0 6-20 00:00: 00 Yes 10mg Take 1 tablet by mouth at bedtime. [facility] memantine 10 mg tablet 2-0 6-20 00:00: 00 Yes 10mg Take 1 tablet by mouth 2 (two) times daily. [facility] donepeziL 10 mg tablet 2022-0 6-20 00:00: 00 Yes 10mg Take 1 tablet by mouth at bedtime. [facility] memantine 10 mg tablet 2-0 6-20 00:00: 00 Yes 10mg Take 1 tablet by mouth 2 (two) times daily. [facility] donepeziL 10 mg tablet 2022-0 6-20 00:00: 00 Yes 10mg Take 1 tablet by mouth at bedtime. [facility] memantine 10 mg tablet 2022-0 6-20 00:00: 00 Yes 10mg Take 1 tablet by mouth 2 (two) times daily. [facility] donepeziL 10 mg tablet 2022-0 6-20 00:00: 00 Yes 10mg Take 1 tablet by mouth at bedtime. [facility] memantine 10 mg tablet 2-0 6-20 00:00: 00 Yes 10mg Take 1 tablet by mouth 2 (two) times daily. [facility] donepeziL 10 mg tablet 2-0 6-20 00:00: 00 Yes 10mg Take 1 tablet by mouth at bedtime. [facility] memantine 10 mg tablet 2-0 6-20 00:00: 00 Yes 10mg Take 1 tablet by mouth 2 (two) times daily. [facility] donepeziL 10 mg tablet 2-0 6-20 00:00: 00 Yes 10mg Take 1 tablet by mouth at bedtime. [facility] memantine 10 mg tablet 2-0 6-20 00:00: 00 Yes 10mg Take 1 tablet by mouth 2 (two) times daily. [facility] donepeziL 10 mg tablet 2-0 6-20 00:00: 00 Yes 10mg Take 1 tablet by mouth at bedtime. [facility] memantine 10 mg tablet 2-0 6-20 00:00: 00 Yes 10mg Take 1 tablet by mouth 2 (two) times daily. [facility] donepeziL 10 mg tablet 2-0 6-20 00:00: 00 Yes 10mg Take 1 tablet by mouth at bedtime. [facility] memantine 10 mg tablet 2-0 6-20 00:00: 00 Yes 10mg Take 1 tablet by mouth 2 (two) times daily. [facility] donepeziL 10 mg tablet 2-0 6-20 00:00: 00 Yes 10mg Take 1 tablet by mouth at bedtime. [facility] memantine 10 mg tablet 2022-0 6-20 00:00: 00 Yes 10mg Take 1 tablet by mouth 2 (two) times daily. [facility] donepeziL 10 mg tablet 2022-0 6-20 00:00: 00 Yes 10mg Take 1 tablet by mouth at bedtime. [facility] memantine 10 mg tablet 2022-0 6-20 00:00: 00 Yes 10mg Take 1 tablet by mouth 2 (two) times daily. [facility] donepeziL 10 mg tablet 2022-0 6-20 00:00: 00 Yes 10mg Take 1 tablet by mouth at bedtime. [facility] memantine 10 mg tablet 2022-0 6-20 00:00: 00 Yes 10mg Take 1 tablet by mouth 2 (two) times daily. [facility] donepeziL 10 mg tablet 2-0 6-20 00:00: 00 Yes 10mg Take 1 tablet by mouth at bedtime. [facility] memantine 10 mg tablet 2-0 6-20 00:00: 00 Yes 10mg Take 1 tablet by mouth 2 (two) times daily. [facility] donepeziL 10 mg tablet 2-0 6-20 00:00: 00 Yes 10mg Take 1 tablet by mouth at bedtime. [facility] memantine 10 mg tablet 2-0 6-20 00:00: 00 Yes 10mg Take 1 tablet by mouth 2 (two) times daily. [facility] donepeziL 10 mg tablet 2-0 6-20 00:00: 00 Yes 10mg Take 1 tablet by mouth at bedtime. [facility] memantine 10 mg tablet 2-0 6-20 00:00: 00 Yes 10mg Take 1 tablet by mouth 2 (two) times daily. [facility] donepeziL 10 mg tablet 2022-0 6-20 00:00: 00 Yes 10mg Take 1 tablet by mouth at bedtime. [facility] memantine 10 mg tablet 2022-0 6-20 00:00: 00 Yes 10mg Take 1 tablet by mouth 2 (two) times daily. [facility] donepeziL 10 mg tablet 2022-0 6-20 00:00: 00 Yes 10mg Take 1 tablet by mouth at bedtime. [facility] memantine 10 mg tablet 2022-0 6-20 00:00: 00 Yes 10mg Take 1 tablet by mouth 2 (two) times daily. [facility] donepeziL 10 mg tablet 2022-0 6-20 00:00: 00 Yes 10mg Take 1 tablet by mouth at bedtime. [facility] memantine 10 mg tablet 2-0 6-20 00:00: 00 Yes 10mg Take 1 tablet by mouth 2 (two) times daily. [facility] donepeziL 10 mg tablet 2022-0 6-20 00:00: 00 Yes 10mg Take 1 tablet by mouth at bedtime. [facility] memantine 10 mg tablet 2-0 6-20 00:00: 00 Yes 10mg Take 1 tablet by mouth 2 (two) times daily. [facility] donepeziL 10 mg tablet 2-0 6-20 00:00: 00 Yes 10mg Take 1 tablet by mouth at bedtime. [facility] memantine 10 mg tablet 2-0 6-20 00:00: 00 Yes 10mg Take 1 tablet by mouth 2 (two) times daily. [facility] donepeziL 10 mg tablet 2-0 6-20 00:00: 00 Yes 10mg Take 1 tablet by mouth at bedtime. [facility] memantine 10 mg tablet 2-0 6-20 00:00: 00 Yes 10mg Take 1 tablet by mouth 2 (two) times daily. [facility] donepeziL 10 mg tablet 2-0 6-20 00:00: 00 Yes 10mg Take 1 tablet by mouth at bedtime. [facility] memantine 10 mg tablet 2-0 6-20 00:00: 00 Yes 10mg Take 1 tablet by mouth 2 (two) times daily. [facility] donepeziL 10 mg tablet 2-0 6-20 00:00: 00 Yes 10mg Take 1 tablet by mouth at bedtime. [facility] memantine 10 mg tablet 2022-0 6-20 00:00: 00 Yes 10mg Take 1 tablet by mouth 2 (two) times daily. [facility] donepeziL 10 mg tablet 2022-0 6-20 00:00: 00 Yes 10mg Take 1 tablet by mouth at bedtime. [facility] memantine 10 mg tablet 2022-0 6-20 00:00: 00 Yes 10mg Take 1 tablet by mouth 2 (two) times daily. [facility] donepeziL 10 mg tablet 2022-0 6-20 00:00: 00 Yes 10mg Take 1 tablet by mouth at bedtime. [facility] memantine 10 mg tablet 2022-0 6-20 00:00: 00 Yes 10mg Take 1 tablet by mouth 2 (two) times daily. [facility] donepeziL 10 mg tablet 2022-0 6-20 00:00: 00 Yes 10mg Take 1 tablet by mouth at bedtime. [facility] memantine 10 mg tablet 2-0 6-20 00:00: 00 Yes 10mg Take 1 tablet by mouth 2 (two) times daily. [facility] donepeziL 10 mg tablet 2022-0 6-20 00:00: 00 Yes 10mg Take 1 tablet by mouth at bedtime. [facility] memantine 10 mg tablet 2-0 6-20 00:00: 00 Yes 10mg Take 1 tablet by mouth 2 (two) times daily. [facility] donepeziL 10 mg tablet 2-0 6-20 00:00: 00 Yes 10mg Take 1 tablet by mouth at bedtime. [facility] memantine 10 mg tablet 2022-0 6-20 00:00: 00 Yes 10mg Take 1 tablet by mouth 2 (two) times daily. [facility] donepeziL 10 mg tablet 2022-0 6-20 00:00: 00 Yes 10mg Take 1 tablet by mouth at bedtime. [facility] memantine 10 mg tablet 2-0 6-20 00:00: 00 Yes 10mg Take 1 tablet by mouth 2 (two) times daily. [facility] donepeziL 10 mg tablet 2022-0 6-20 00:00: 00 Yes 10mg Take 1 tablet by mouth at bedtime. [facility] memantine 10 mg tablet 2022-0 6-20 00:00: 00 Yes 10mg Take 1 tablet by mouth 2 (two) times daily. [facility] donepeziL 10 mg tablet 2022-0 6-20 00:00: 00 Yes 10mg Take 1 tablet by mouth at bedtime. [facility] memantine 10 mg tablet 2022-0 6-20 00:00: 00 Yes 10mg Take 1 tablet by mouth 2 (two) times daily. [facility] donepeziL 10 mg tablet 2022-0 6-20 00:00: 00 Yes 10mg Take 1 tablet by mouth at bedtime. [facility] memantine 10 mg tablet 2-0 6-20 00:00: 00 Yes 10mg Take 1 tablet by mouth 2 (two) times daily. [facility] donepeziL 10 mg tablet 2-0 6-20 00:00: 00 Yes 10mg Take 1 tablet by mouth at bedtime. [facility] memantine 10 mg tablet 2022-0 6-20 00:00: 00 Yes 10mg Take 1 tablet by mouth 2 (two) times daily. [facility] donepeziL 10 mg tablet 2022-0 6-20 00:00: 00 Yes 10mg Take 1 tablet by mouth at bedtime. [facility] memantine 10 mg tablet 2022-0 6-20 00:00: 00 Yes 10mg Take 1 tablet by mouth 2 (two) times daily. [facility] donepeziL 10 mg tablet 2022-0 6-20 00:00: 00 Yes 10mg Take 1 tablet by mouth at bedtime. [facility] memantine 10 mg tablet 2022-0 6-20 00:00: 00 Yes 10mg Take 1 tablet by mouth 2 (two) times daily. [facility] donepeziL 10 mg tablet 2022-0 6-20 00:00: 00 Yes 10mg Take 1 tablet by mouth at bedtime. [facility] memantine 10 mg tablet 2022-0 6-20 00:00: 00 Yes 10mg Take 1 tablet by mouth 2 (two) times daily. [facility] donepeziL 10 mg tablet 2022-0 6-20 00:00: 00 Yes 10mg Take 1 tablet by mouth at bedtime. [facility] memantine 10 mg tablet 2-0 6-20 00:00: 00 Yes 10mg Take 1 tablet by mouth 2 (two) times daily. [facility] donepeziL 10 mg tablet 2-0 6-20 00:00: 00 Yes 10mg Take 1 tablet by mouth at bedtime. [facility] memantine 10 mg tablet 2-0 6-20 00:00: 00 Yes 10mg Take 1 tablet by mouth 2 (two) times daily. [facility] donepeziL 10 mg tablet 2-0 6-20 00:00: 00 Yes 10mg Take 1 tablet by mouth at bedtime. [facility] donepeziL 10 mg tablet 2-0 6-20 00:00: 00 Yes 10mg Take 1 tablet by mouth at bedtime. [facility] donepeziL 10 mg tablet 2-0 6-20 00:00: 00 Yes 10mg Take 1 tablet by mouth at bedtime. [facility] donepeziL 10 mg tablet 2-0 6-20 00:00: 00 Yes 10mg Take 1 tablet by mouth at bedtime. [facility] donepeziL 10 mg tablet 2-0 6-20 00:00: 00 Yes 10mg Take 1 tablet by mouth at bedtime. [facility] donepeziL 10 mg tablet 2-0 6-20 00:00: 00 Yes 10mg Take 1 tablet by mouth at bedtime. [facility] donepeziL 10 mg tablet 2-0 6-20 00:00: 00 Yes 10mg Take 1 tablet by mouth at bedtime. [facility] donepeziL 10 mg tablet 2-0 6-20 00:00: 00 Yes 10mg Take 1 tablet by mouth at bedtime. [facility] donepeziL 10 mg tablet 2-0 6-20 00:00: 00 Yes 10mg Take 1 tablet by mouth at bedtime. [facility] donepeziL 10 mg tablet 2-0 6-20 00:00: 00 Yes 10mg Take 1 tablet by mouth at bedtime. [facility] donepeziL 10 mg tablet 2022-0 6-20 00:00: 00 Yes 10mg Take 1 tablet by mouth at bedtime. [facility] donepeziL 10 mg tablet 2-0 6-20 00:00: 00 Yes 10mg Take 1 tablet by mouth at bedtime. [facility] donepeziL 10 mg tablet 2-0 6-20 00:00: 00 Yes 10mg Take 1 tablet by mouth at bedtime. [facility] donepeziL 10 mg tablet 2-0 6-20 00:00: 00 Yes 10mg Take 1 tablet by mouth at bedtime. [facility] donepeziL 10 mg tablet 2-0 6-20 00:00: 00 Yes 10mg Take 1 tablet by mouth at bedtime. [facility] donepeziL 10 mg tablet 2-0 6-20 00:00: 00 Yes 10mg Take 1 tablet by mouth at bedtime. [facility] donepeziL 10 mg tablet 2-0 6-20 00:00: 00 Yes 10mg Take 1 tablet by mouth at bedtime. [facility] donepeziL 10 mg tablet 2-0 6-20 00:00: 00 Yes 10mg Take 1 tablet by mouth at bedtime. [facility] donepeziL 10 mg tablet 2-0 6-20 00:00: 00 Yes 10mg Take 1 tablet by mouth at bedtime. [facility] donepeziL 10 mg tablet 2-0 6-20 00:00: 00 Yes 10mg Take 1 tablet by mouth at bedtime. [facility] donepeziL 10 mg tablet 2-0 6-20 00:00: 00 Yes 10mg Take 1 tablet by mouth at bedtime. [facility] donepeziL 10 mg tablet 2-0 6-20 00:00: 00 Yes 10mg Take 1 tablet by mouth at bedtime. [facility] donepeziL 10 mg tablet 2-0 6-20 00:00: 00 Yes 10mg Take 1 tablet by mouth at bedtime. [facility] donepeziL 10 mg tablet 2022-0 6-20 00:00: 00 Yes 10mg Take 1 tablet by mouth at bedtime. [facility] donepeziL 10 mg tablet 2-0 6-20 00:00: 00 Yes 10mg Take 1 tablet by mouth at bedtime. [facility] donepeziL 10 mg tablet 2-0 6-20 00:00: 00 Yes 10mg Take 1 tablet by mouth at bedtime. [facility] donepeziL 10 mg tablet 2-0 6-20 00:00: 00 Yes 10mg Take 1 tablet by mouth at bedtime. [facility] donepeziL 10 mg tablet 2-0 6-20 00:00: 00 Yes 10mg Take 1 tablet by mouth at bedtime. [facility] donepeziL 10 mg tablet 2-0 6-20 00:00: 00 11-03 00:00 :00 No 10mg Take 1 tablet by mouth at bedtime. [facility] donepeziL 10 mg tablet 2-0 6-20 00:00: 00 11-03 00:00 :00 No 10mg Take 1 tablet by mouth at bedtime. [facility] memantine 10 mg tablet 2-0 6-20 00:00: 00 05-19 00:00 :00 No 10mg Take 1 tablet by mouth 2 (two) times daily. [facility] memantine 10 mg tablet 2-0 6-20 00:00: 00 05-19 00:00 :00 No 10mg Take 1 tablet by mouth 2 (two) times daily. [facility] memantine 10 mg tablet 2-0 6-20 00:00: 00 05-19 00:00 :00 No 10mg Take 1 tablet by mouth 2 (two) times daily. [facility] donepeziL 10 mg tablet 2-0 6-17 16:31: 05-10 00:00 :00 No 10mg Take 10 mg by mouth at bedtime. [facility] donepeziL 10 mg tablet 2-0 6-17 16:31: 05-10 00:00 :00 No 10mg Take 10 mg by mouth at bedtime. [facility] donepeziL 10 mg tablet 2021-0 6-17 16:31: 05-10 00:00 :00 No 10mg Take 10 mg by mouth at bedtime. [facility] memantine 10 mg tablet 2021-0 6-17 16:29: 05-10 00:00 :00 No 10mg Take 10 mg by mouth daily. [facility] memantine 10 mg tablet 2021-0 6-17 16:29: 05-10 00:00 :00 No 10mg Take 10 mg by mouth daily. [facility] memantine 10 mg tablet 2021-0 -17 16:29: 05-10 00:00 :00 No 10mg Take 10 mg by mouth daily. [facility] memantine 10 mg tablet 2021-0 17 00:00: 00 05-13 00:00 :00 No 10mg Take 1 tablet by mouth 2 (two) times daily. [facility] donepeziL 10 mg tablet 2021-0 17 00:00: 00 05-13 00:00 :00 No 10mg Take 1 tablet by mouth at bedtime. [facility] memantine 10 mg tablet 2021-0 17 00:00: 00 05-10 00:00 :00 No 10mg Take 1 tablet by mouth daily. [facility] lisinopriL 20 mg tablet 2021-0 19 00:00: 00 Yes [id number] 20mg Take 1 tablet by mouth daily. [facility] metFORMIN 1,000 mg tablet 2021-0 - 00:00: 00 Yes [id number] 1000mg Take 1 tablet by mouth 2 (two) times daily with meals. [facility] lisinopriL 20 mg tablet 2-0 - 00:00: 00 Yes [id number] 20mg Take 1 tablet by mouth daily. [facility] metFORMIN 1,000 mg tablet 2021-0 - 00:00: 00 Yes [id number] 1000mg Take 1 tablet by mouth 2 (two) times daily with meals. [facility] lisinopriL 20 mg tablet 2021-0 -19 00:00: 00 Yes [id number] 20mg Take 1 tablet by mouth daily. [facility] metFORMIN 1,000 mg tablet 2021-0 -19 00:00: 00 Yes [id number] 1000mg Take 1 tablet by mouth 2 (two) times daily with meals. [facility] lisinopriL 20 mg tablet 2021-0 -19 00:00: 00 Yes [id number] 20mg Take 1 tablet by mouth daily. [facility] metFORMIN 1,000 mg tablet 2021-0 -19 00:00: 00 Yes [id number] 1000mg Take 1 tablet by mouth 2 (two) times daily with meals. [facility] lisinopriL 20 mg tablet 2021-0 -19 00:00: 00 Yes [id number] 20mg Take 1 tablet by mouth daily. [facility] metFORMIN 1,000 mg tablet 2021-0 -19 00:00: 00 Yes [id number] 1000mg Take 1 tablet by mouth 2 (two) times daily with meals. [facility] lisinopriL 20 mg tablet 2021-0 -19 00:00: 00 Yes [id number] 20mg Take 1 tablet by mouth daily. [facility] metFORMIN 1,000 mg tablet 2021-0 -19 00:00: 00 Yes [id number] 1000mg Take 1 tablet by mouth 2 (two) times daily with meals. [facility] lisinopriL 20 mg tablet 2-0 -19 00:00: 00 Yes [id number] 20mg Take 1 tablet by mouth daily. [facility] metFORMIN 1,000 mg tablet 2-0 -19 00:00: 00 Yes [id number] 1000mg Take 1 tablet by mouth 2 (two) times daily with meals. [facility] metFORMIN 1,000 mg tablet 2-0 -19 00:00: 00 Yes [id number] 1000mg Take 1 tablet by mouth 2 (two) times daily with meals. [facility] metFORMIN 1,000 mg tablet 2-0 5-19 00:00: 00 Yes [id number] 1000mg Take 1 tablet by mouth 2 (two) times daily with meals. [facility] metFORMIN 1,000 mg tablet 2-0 5-19 00:00: 00 Yes [id number] 1000mg Take 1 tablet by mouth 2 (two) times daily with meals. [facility] metFORMIN 1,000 mg tablet 2-0 5-19 00:00: 00 Yes [id number] 1000mg Take 1 tablet by mouth 2 (two) times daily with meals. [facility] metFORMIN 1,000 mg tablet 2021-0 5-19 00:00: 00 Yes [id number] 1000mg Take 1 tablet by mouth 2 (two) times daily with meals. [facility] metFORMIN 1,000 mg tablet 2021-0 5-19 00:00: 00 Yes [id number] 1000mg Take 1 tablet by mouth 2 (two) times daily with meals. [facility] metFORMIN 1,000 mg tablet 2021-0 -19 00:00: 00 Yes [id number] 1000mg Take 1 tablet by mouth 2 (two) times daily with meals. [facility] metFORMIN 1,000 mg tablet 2021-0 -19 00:00: 00 Yes [id number] 1000mg Take 1 tablet by mouth 2 (two) times daily with meals. [facility] metFORMIN 1,000 mg tablet 2021-0 -19 00:00: 00 10-31 00:00 :00 No [id number] 1000mg Take 1 tablet by mouth 2 (two) times daily with meals. [facility] metFORMIN 1,000 mg tablet 2-0 -19 00:00: 00 10-31 00:00 :00 No [id number] 1000mg Take 1 tablet by mouth 2 (two) times daily with meals. [facility] metFORMIN 1,000 mg tablet 2-0 5-19 00:00: 00 10-31 00:00 :00 No [id number] 1000mg Take 1 tablet by mouth 2 (two) times daily with meals. [facility] lisinopriL 20 mg tablet 0 5-19 00:00: 00 09-10 00:00 :00 No [id number] 20mg Take 1 tablet by mouth daily. [facility] lisinopriL 20 mg tablet 0 5-19 00:00: 00 09-10 00:00 :00 No [id number] 20mg Take 1 tablet by mouth daily. [facility] lisinopriL 20 mg tablet 0 - 00:00: 00 09-10 00:00 :00 No [id number] 20mg Take 1 tablet by mouth daily. [facility] lisinopriL 20 mg tablet 04-11 00:00: 00 09-10 00:00 :00 No [id number] 20mg Take 1 tablet by mouth daily. [facility] Immunizations Ordered Immunization Name Filled Immunization Name Date Status Comments Source SARS-COV-2 COVID-19 VACCINE 18 YRS+, BIVALENT 0.5ML, IM, (MODERNA BOOSTER) 2022-09-04 00:00:00 Completed [facility] SARS-COV-2 COVID-19 VACCINE 18 YRS+, BIVALENT 0.5ML, IM, (MODERNA BOOSTER) 2022-09-04 00:00:00 Completed [facility] SARS-COV-2 COVID-19 VACCINE 18 YRS+, BIVALENT 0.5ML, IM, (MODERNA BOOSTER) 2022-09-04 00:00:00 Completed [facility] SARS-COV-2 COVID-19 VACCINE 18 YRS+, BIVALENT 0.5ML, IM, (MODERNA BOOSTER) 2022-09-04 00:00:00 Completed [facility] SARS-COV-2 COVID-19 VACCINE 18 YRS+, BIVALENT 0.5ML, IM, (MODERNA BOOSTER) 2022-09-04 00:00:00 Completed [facility] SARS-COV-2 COVID-19 VACCINE 18 YRS+, BIVALENT 0.5ML, IM, (MODERNA BOOSTER) 2022-09-04 00:00:00 Completed [facility] SARS-COV-2 COVID-19 VACCINE 18 YRS+, BIVALENT 0.5ML, IM, (MODERNA BOOSTER) 2022-09-04 00:00:00 Completed [facility] SARS-COV-2 COVID-19 VACCINE 12 YRS+, BIVALENT 0.5ML, IM, (MODERNA BOOSTER) 2022-09-04 00:00:00 Completed [facility] SARS-COV-2 COVID-19 VACCINE 12 YRS+, BIVALENT 0.5ML, IM, (MODERNA BOOSTER) 2022-09-04 00:00:00 Completed [facility] SARS-COV-2 COVID-19 VACCINE 12 YRS+, BIVALENT 0.5ML, IM, (MODERNA BOOSTER) 2022-09-04 00:00:00 Completed [facility] SARS-COV-2 COVID-19 VACCINE 12 YRS+, BIVALENT 0.5ML, IM, (MODERNA BOOSTER) 2022-09-04 00:00:00 Completed [facility] SARS-COV-2 COVID-19 VACCINE 12 YRS+, BIVALENT 0.5ML, IM, (MODERNA BOOSTER) 2022-09-04 00:00:00 Completed [facility] SARS-COV-2 COVID-19 VACCINE 12 YRS+, BIVALENT 0.5ML, IM, (MODERNA BOOSTER) 2022-09-04 00:00:00 Completed [facility] SARS-COV-2 COVID-19 VACCINE 12 YRS+, BIVALENT 0.5ML, IM, (MODERNA BOOSTER) 2022-09-04 00:00:00 Completed [facility] SARS-COV-2 COVID-19 VACCINE 12 YRS+, BIVALENT 0.5ML, IM, (MODERNA BOOSTER) 2022-09-04 00:00:00 Completed [facility] SARS-COV-2 COVID-19 VACCINE 12 YRS+, BIVALENT 0.5ML, IM, (MODERNA BOOSTER) 2022-09-04 00:00:00 Completed [facility] SARS-COV-2 COVID-19 VACCINE 12 YRS+, BIVALENT 0.5ML, IM, (MODERNA BOOSTER) 2022-09-04 00:00:00 Completed [facility] SARS-COV-2 COVID-19 VACCINE 12 YRS+, BIVALENT 0.5ML, IM, (MODERNA BOOSTER) 2022-09-04 00:00:00 Completed [facility] SARS-COV-2 COVID-19 VACCINE 12 YRS+, BIVALENT 0.5ML, IM, (MODERNA BOOSTER) 2022-09-04 00:00:00 Completed [facility] SARS-COV-2 COVID-19 VACCINE 12 YRS+, BIVALENT 0.5ML, IM, (MODERNA BOOSTER) 2022-09-04 00:00:00 Completed [facility] SARS-COV-2 COVID-19 VACCINE 12 YRS+, BIVALENT 0.5ML, IM, (MODERNA BOOSTER) 2022-09-04 00:00:00 Completed [facility] SARS-COV-2 COVID-19 VACCINE 12 YRS+, BIVALENT 0.5ML, IM, (MODERNA BOOSTER) 2022-09-04 00:00:00 Completed [facility] SARS-COV-2 COVID-19 VACCINE 12 YRS+, BIVALENT 0.5ML, IM, (MODERNA BOOSTER) 2022-09-04 00:00:00 Completed [facility] SARS-COV-2 COVID-19 VACCINE 12 YRS+, BIVALENT 0.5ML, IM, (MODERNA BOOSTER) 2022-09-04 00:00:00 Completed [facility] SARS-COV-2 COVID-19 VACCINE 12 YRS+, BIVALENT 0.5ML, IM, (MODERNA BOOSTER) 2022-09-04 00:00:00 Completed [facility] SARS-COV-2 COVID-19 VACCINE 12 YRS+, BIVALENT 0.5ML, IM, (MODERNA BOOSTER) 2022-09-04 00:00:00 Completed [facility] SARS-COV-2 COVID-19 VACCINE 12 YRS+, BIVALENT 0.5ML, IM, (MODERNA BOOSTER) 2022-09-04 00:00:00 Completed [facility] SARS-COV-2 COVID-19 VACCINE 12 YRS+, BIVALENT 0.5ML, IM, (MODERNA BOOSTER) 2022-09-04 00:00:00 Completed [facility] SARS-COV-2 COVID-19 VACCINE 12 YRS+, BIVALENT 0.5ML, IM, (MODERNA BOOSTER) 2022-09-04 00:00:00 Completed [facility] SARS-COV-2 COVID-19 VACCINE 12 YRS+, BIVALENT 0.5ML, IM, (MODERNA BOOSTER) 2022-09-04 00:00:00 Completed [facility] SARS-COV-2 COVID-19 VACCINE 12 YRS+, BIVALENT 0.5ML, IM, (MODERNA BOOSTER) 2022-09-04 00:00:00 Completed [facility] SARS-COV-2 COVID-19 VACCINE 12 YRS+, BIVALENT 0.5ML, IM, (MODERNA BOOSTER) 2022-09-04 00:00:00 Completed [facility] SARS-COV-2 COVID-19 VACCINE 12 YRS+, BIVALENT 0.5ML, IM, (MODERNA BOOSTER) 2022-09-04 00:00:00 Completed [facility] SARS-COV-2 COVID-19 VACCINE 12 YRS+, BIVALENT 0.5ML, IM, (MODERNA BOOSTER) 2022-09-04 00:00:00 Completed [facility] SARS-COV-2 COVID-19 VACCINE 12 YRS+, BIVALENT 0.5ML, IM, (MODERNA BOOSTER) 2022-09-04 00:00:00 Completed [facility] SARS-COV-2 COVID-19 VACCINE 12 YRS+, BIVALENT 0.5ML, IM, (MODERNA BOOSTER) 2022-09-04 00:00:00 Completed [facility] SARS-COV-2 COVID-19 VACCINE 12 YRS+, BIVALENT 0.5ML, IM, (MODERNA BOOSTER) 2022-09-04 00:00:00 Completed [facility] SARS-COV-2 COVID-19 VACCINE 12 YRS+, BIVALENT 0.5ML, IM, (MODERNA) 2022-09-04 00:00:00 Completed [facility] SARS-COV-2 COVID-19 VACCINE 12 YRS+, BIVALENT 0.5ML, IM, (MODERNA) 2022-09-04 00:00:00 Completed [facility] SARS-COV-2 COVID-19 VACCINE 12 YRS+, BIVALENT 0.5ML, IM, (MODERNA) 2022-09-04 00:00:00 Completed [facility] SARS-COV-2 COVID-19 VACCINE 12 YRS+, BIVALENT 0.5ML, IM, (MODERNA) 2022-09-04 00:00:00 Completed [facility] SARS-COV-2 COVID-19 VACCINE 12 YRS+, BIVALENT 0.5ML, IM, (MODERNA-BLUE TOP) 2022-09-04 00:00:00 Completed [facility] SARS-COV-2 COVID-19 VACCINE 12 YRS+, BIVALENT 0.5ML, IM, (MODERNA-BLUE TOP) 2022-09-04 00:00:00 Completed [facility] SARS-COV-2 COVID-19 VACCINE 12 YRS+, BIVALENT 0.5ML, IM, (MODERNA-BLUE TOP) 2022-09-04 00:00:00 Completed [facility] SARS-COV-2 COVID-19 VACCINE 12 YRS+, BIVALENT 0.5ML, IM, (MODERNA-BLUE TOP) 2022-09-04 00:00:00 Completed [facility] SARS-COV-2 COVID-19 VACCINE 12 YRS+, BIVALENT 0.5ML, IM, (MODERNA-BLUE TOP) 2022-09-04 00:00:00 Completed [facility] SARS-COV-2 COVID-19 VACCINE 12 YRS+, BIVALENT 0.5ML, IM, (MODERNA-BLUE TOP) 2022-09-04 00:00:00 Completed [facility] SARS-COV-2 COVID-19 VACCINE 12 YRS+, BIVALENT 0.5ML, IM, (MODERNA-BLUE TOP) 2022-09-04 00:00:00 Completed [facility] SARS-COV-2 COVID-19 VACCINE 12 YRS+, BIVALENT 0.5ML, IM, (MODERNA-BLUE TOP) 2022-09-04 00:00:00 Completed [facility] SARS-COV-2 COVID-19 VACCINE 12 YRS+, BIVALENT 0.5ML, IM, (MODERNA-BLUE TOP) 2022-09-04 00:00:00 Completed [facility] SARS-COV-2 COVID-19 VACCINE 12 YRS+, BIVALENT 0.5ML, IM, (MODERNA-BLUE TOP) 2022-09-04 00:00:00 Completed [facility] SARS-COV-2 COVID-19 VACCINE 12 YRS+, BIVALENT 0.5ML, IM, (MODERNA-BLUE TOP) 2022-09-04 00:00:00 Completed [facility] SARS-COV-2 COVID-19 VACCINE 12 YRS+, BIVALENT 0.5ML, IM, (MODERNA-BLUE TOP) 2022-09-04 00:00:00 Completed [facility] SARS-COV-2 COVID-19 VACCINE 12 YRS+, BIVALENT 0.5ML, IM, (MODERNA-BLUE TOP) 2022-09-04 00:00:00 Completed [facility] SARS-COV-2 COVID-19 VACCINE 12 YRS+, BIVALENT 0.5ML, IM, (MODERNA-BLUE TOP) 2022-09-04 00:00:00 Completed [facility] SARS-COV-2 COVID-19 VACCINE 12 YRS+, BIVALENT 0.5ML, IM, (MODERNA-BLUE TOP) 2022-09-04 00:00:00 Completed [facility] SARS-COV-2 COVID-19 VACCINE 12 YRS+, BIVALENT 0.5ML, IM, (MODERNA-BLUE TOP) 2022-09-04 00:00:00 Completed [facility] Influenza Virus Vaccine,quad Im,preserve Free 65+ 2022-08-22 00:00:00 Completed [facility] Influenza Virus Vaccine,quad Im,preserve Free 652022-08-22 00:00:00 [facility] [facility] Influenza Virus Vaccine,quad Im,preserve Free 65+ 2022-08-22 00:00:00 Completed [facility] Influenza Virus Vaccine,quad Im,preserve Free 65+ 2022-08-22 00:00:00 Completed [facility] Influenza Virus Vaccine,quad Im,preserve Free 65+ 2022-08-22 00:00:00 Completed [facility] Influenza Virus Vaccine,quad Im,preserve Free 65+ 2022-08-22 00:00:00 Completed [facility] Influenza Virus Vaccine,quad Im,preserve Free 65+ 2022-08-22 00:00:00 Completed [facility] Influenza Virus Vaccine,quad Im,preserve Free 65+ 2022-08-22 00:00:00 Completed [facility] Influenza Virus Vaccine,quad Im,preserve Free 65+ 2022-08-22 00:00:00 Completed [facility] Influenza Virus Vaccine,quad Im,preserve Free 2022-08-22 00:00:00 Completed [facility] Influenza Virus Vaccine,quad Im,preserve Free 2022-08-22 00:00:00 Completed [facility] Influenza Virus Vaccine,quad Im,preserve Free 2022-08-22 00:00:00 Completed [facility] Influenza Virus Vaccine,quad Im,preserve Free 2022-08-22 00:00:00 Completed [facility] Influenza Virus Vaccine,quad Im,preserve Free 2022-08-22 00:00:00 Completed [facility] Influenza Virus Vaccine,quad Im,preserve Free 2022-08-22 00:00:00 Completed [facility] Influenza Virus Vaccine,quad Im,preserve Free 2022-08-22 00:00:00 Completed [facility] Influenza Virus Vaccine,quad Im,preserve Free 2022-08-22 00:00:00 Completed [facility] Influenza Virus Vaccine,quad Im,preserve Free 2022-08-22 00:00:00 Completed [facility] Influenza Virus Vaccine,quad Im,preserve Free 2022-08-22 00:00:00 Completed [facility] Influenza Virus Vaccine,quad Im,preserve Free 2022-08-22 00:00:00 Completed [facility] Influenza Virus Vaccine,quad Im,preserve Free 2022-08-22 00:00:00 Completed [facility] Influenza Virus Vaccine,quad Im,preserve Free 2022-08-22 00:00:00 Completed [facility] Influenza Virus Vaccine,quad Im,preserve Free 2022-08-22 00:00:00 Completed [facility] Influenza Virus Vaccine,quad Im,preserve Free 2022-08-22 00:00:00 Completed [facility] Influenza Virus Vaccine,quad Im,preserve Free 2022-08-22 00:00:00 Completed [facility] Influenza Virus Vaccine,quad Im,preserve Free 2022-08-22 00:00:00 Completed [facility] Influenza Virus Vaccine,quad Im,preserve Free 2022-08-22 00:00:00 Completed [facility] Influenza Virus Vaccine,quad Im,preserve Free 2022-08-22 00:00:00 Completed [facility] Influenza Virus Vaccine,quad Im,preserve Free 2022-08-22 00:00:00 Completed [facility] Influenza Virus Vaccine,quad Im,preserve Free 2022-08-22 00:00:00 Completed [facility] Influenza Virus Vaccine,quad Im,preserve Free 2022-08-22 00:00:00 Completed [facility] Influenza Virus Vaccine,quad Im,preserve Free 2022-08-22 00:00:00 Completed [facility] Influenza Virus Vaccine,quad Im,preserve Free 2022-08-22 00:00:00 Completed [facility] Influenza Virus Vaccine,quad Im,preserve Free 2022-08-22 00:00:00 Completed [facility] Influenza Virus Vaccine,quad Im,preserve Free 2022-08-22 00:00:00 Completed [facility] Influenza Virus Vaccine,quad Im,preserve Free 2022-08-22 00:00:00 Completed [facility] Influenza Virus Vaccine,quad Im,preserve Free 2022-08-22 00:00:00 Completed [facility] Influenza Virus Vaccine,quad Im,preserve Free 2022-08-22 00:00:00 Completed [facility] Influenza Virus Vaccine,quad Im,preserve Free 2022-08-22 00:00:00 Completed [facility] Influenza Virus Vaccine,quad Im,preserve Free 2022-08-22 00:00:00 Completed [facility] Influenza Virus Vaccine,quad Im,preserve Free 2022-08-22 00:00:00 Completed [facility] Influenza Virus Vaccine,quad Im,preserve Free 2022-08-22 00:00:00 Completed [facility] Influenza Virus Vaccine,quad Im,preserve Free 2022-08-22 00:00:00 Completed [facility] Influenza Virus Vaccine,quad Im,preserve Free 2022-08-22 00:00:00 Completed [facility] Influenza Virus Vaccine,quad Im,preserve Free 2022-08-22 00:00:00 Completed [facility] Influenza Virus Vaccine,quad Im,preserve Free 652022-08-22 00:00:00 Completed [facility] Influenza Virus Vaccine,quad Im,preserve Free 652022-08-22 00:00:00 Completed [facility] Influenza Virus Vaccine,quad Im,preserve Free 65+ 2022-08-22 00:00:00 Completed [facility] Influenza Virus Vaccine,quad Im,preserve Free 652022-08-22 00:00:00 Completed [facility] Influenza Virus Vaccine,quad Im,preserve Free 65+ 2022-08-22 00:00:00 Completed [facility] Influenza Virus Vaccine,quad Im,preserve Free 652022-08-22 00:00:00 Completed [facility] Influenza Virus Vaccine,quad Im,preserve Free 652022-08-22 00:00:00 Completed [facility] Influenza Virus Vaccine,quad Im,preserve Free 652022-08-22 00:00:00 Completed [facility] Influenza Virus Vaccine,quad Im,preserve Free 2022-08-22 00:00:00 Completed [facility] Influenza Virus Vaccine,quad Im,preserve Free 652022-08-22 00:00:00 Completed [facility] Influenza Virus Vaccine,quad Im,preserve Free 652022-08-22 00:00:00 Completed [facility] Influenza Virus Vaccine,quad Im,preserve Free 65+ 2022-08-22 00:00:00 Completed [facility] Influenza Virus Vaccine,quad Im,preserve Free 652022-08-22 00:00:00 Completed [facility] SARS-COV-2 COVID-19 MODERNA 0.25ML BOOSTER VACCINE 2021-11-09 00:00:00 Completed [facility] SARS-COV-2 COVID-19 MODERNA 0.25ML BOOSTER VACCINE 2021-11-09 00:00:00 Completed [facility] SARS-COV-2 COVID-19 MODERNA 0.25ML BOOSTER VACCINE 2021-11-09 00:00:00 Completed [facility] SARS-COV-2 COVID-19 MODERNA 0.25ML BOOSTER VACCINE 2021-11-09 00:00:00 Completed [facility] SARS-COV-2 COVID-19 MODERNA 0.25ML BOOSTER VACCINE 2021-11-09 00:00:00 Completed [facility] SARS-COV-2 COVID-19 MODERNA 0.25ML BOOSTER VACCINE 2021-11-09 00:00:00 Completed [facility] SARS-COV-2 COVID-19 MODERNA 0.25ML BOOSTER VACCINE 2021-11-09 00:00:00 Completed [facility] SARS-COV-2 COVID-19 MODERNA 0.25ML BOOSTER VACCINE 2021-11-09 00:00:00 Completed [facility] SARS-COV-2 COVID-19 MODERNA 0.25ML BOOSTER VACCINE 2021-11-09 00:00:00 Completed [facility] SARS-COV-2 COVID-19 MODERNA 0.25ML BOOSTER VACCINE 2021-11-09 00:00:00 Completed [facility] SARS-COV-2 COVID-19 MODERNA 0.25ML BOOSTER VACCINE 2021-11-09 00:00:00 Completed [facility] SARS-COV-2 COVID-19 MODERNA 0.25ML BOOSTER VACCINE 2021-11-09 00:00:00 Completed [facility] SARS-COV-2 COVID-19 MODERNA 0.25ML BOOSTER VACCINE 2021-11-09 00:00:00 Completed [facility] SARS-COV-2 COVID-19 MODERNA 0.25ML BOOSTER VACCINE 2021-11-09 00:00:00 Completed [facility] SARS-COV-2 COVID-19 MODERNA 0.25ML BOOSTER VACCINE 2021-11-09 00:00:00 Completed [facility] SARS-COV-2 COVID-19 MODERNA 0.25ML BOOSTER VACCINE 2021-11-09 00:00:00 Completed [facility] SARS-COV-2 COVID-19 MODERNA 0.25ML BOOSTER VACCINE 2021-11-09 00:00:00 Completed [facility] SARS-COV-2 COVID-19 MODERNA 0.25ML BOOSTER VACCINE 2021-11-09 00:00:00 Completed [facility] SARS-COV-2 COVID-19 MODERNA 0.25ML BOOSTER VACCINE 2021-11-09 00:00:00 Completed [facility] SARS-COV-2 COVID-19 MODERNA 0.25ML BOOSTER VACCINE 2021-11-09 00:00:00 Completed [facility] SARS-COV-2 COVID-19 MODERNA 0.25ML BOOSTER VACCINE 2021-11-09 00:00:00 Completed [facility] SARS-COV-2 COVID-19 MODERNA 0.25ML BOOSTER VACCINE 2021-11-09 00:00:00 Completed [facility] SARS-COV-2 COVID-19 MODERNA 0.25ML BOOSTER VACCINE 2021-11-09 00:00:00 Completed [facility] SARS-COV-2 COVID-19 MODERNA 0.25ML BOOSTER VACCINE 2021-11-09 00:00:00 Completed [facility] SARS-COV-2 COVID-19 MODERNA 0.25ML BOOSTER VACCINE 2021-11-09 00:00:00 Completed [facility] SARS-COV-2 COVID-19 MODERNA 0.25ML BOOSTER VACCINE 2021-11-09 00:00:00 Completed [facility] SARS-COV-2 COVID-19 MODERNA 0.25ML BOOSTER VACCINE 2021-11-09 00:00:00 Completed [facility] SARS-COV-2 COVID-19 MODERNA 0.25ML BOOSTER VACCINE 2021-11-09 00:00:00 Completed [facility] SARS-COV-2 COVID-19 MODERNA 0.25ML BOOSTER VACCINE 2021-11-09 00:00:00 Completed [facility] SARS-COV-2 COVID-19 MODERNA 0.25ML BOOSTER VACCINE 2021-11-09 00:00:00 Completed [facility] SARS-COV-2 COVID-19 MODERNA 0.25ML BOOSTER VACCINE 2021-11-09 00:00:00 Completed [facility] SARS-COV-2 COVID-19 MODERNA 0.25ML BOOSTER VACCINE 2021-11-09 00:00:00 Completed [facility] SARS-COV-2 COVID-19 MODERNA 0.25ML BOOSTER VACCINE 2021-11-09 00:00:00 Completed [facility] SARS-COV-2 COVID-19 MODERNA 0.25ML BOOSTER VACCINE 2021-11-09 00:00:00 Completed [facility] SARS-COV-2 COVID-19 MODERNA 0.25ML BOOSTER VACCINE 2021-11-09 00:00:00 Completed [facility] SARS-COV-2 COVID-19 MODERNA 0.25ML BOOSTER VACCINE 2021-11-09 00:00:00 Completed [facility] SARS-COV-2 COVID-19 MODERNA 0.25ML BOOSTER VACCINE 2021-11-09 00:00:00 Completed [facility] SARS-COV-2 COVID-19 MODERNA 0.25ML BOOSTER VACCINE 2021-11-09 00:00:00 Completed [facility] SARS-COV-2 COVID-19 MODERNA 0.25ML BOOSTER VACCINE 2021-11-09 00:00:00 Completed [facility] SARS-COV-2 COVID-19 MODERNA 0.25ML BOOSTER VACCINE 2021-11-09 00:00:00 Completed [facility] SARS-COV-2 COVID-19 MODERNA 0.25ML BOOSTER VACCINE 2021-11-09 00:00:00 Completed [facility] SARS-COV-2 COVID-19 MODERNA 0.25ML BOOSTER VACCINE 2021-11-09 00:00:00 Completed [facility] SARS-COV-2 COVID-19 MODERNA 0.25ML BOOSTER VACCINE 2021-11-09 00:00:00 Completed [facility] SARS-COV-2 COVID-19 MODERNA 0.25ML BOOSTER VACCINE 2021-11-09 00:00:00 Completed [facility] SARS-COV-2 COVID-19 MODERNA 0.25ML BOOSTER VACCINE 2021-11-09 00:00:00 Completed [facility] SARS-COV-2 COVID-19 MODERNA 0.25ML BOOSTER VACCINE 2021-11-09 00:00:00 Completed [facility] SARS-COV-2 COVID-19 MODERNA 0.25ML BOOSTER VACCINE 2021-11-09 00:00:00 Completed [facility] SARS-COV-2 COVID-19 MODERNA 0.25ML BOOSTER VACCINE 2021-11-09 00:00:00 Completed [facility] SARS-COV-2 COVID-19 MODERNA 0.25ML BOOSTER VACCINE 2021-11-09 00:00:00 Completed [facility] SARS-COV-2 COVID-19 MODERNA 0.25ML BOOSTER VACCINE 2021-11-09 00:00:00 Completed [facility] SARS-COV-2 COVID-19 MODERNA 0.25ML BOOSTER VACCINE 2021-11-09 00:00:00 Completed [facility] SARS-COV-2 COVID-19 MODERNA 0.25ML BOOSTER VACCINE 2021-11-09 00:00:00 Completed [facility] SARS-COV-2 COVID-19 MODERNA 0.25ML BOOSTER VACCINE 2021-11-09 00:00:00 Completed [facility] SARS-COV-2 COVID-19 MODERNA 0.25ML BOOSTER VACCINE 2021-11-09 00:00:00 Completed [facility] SARS-COV-2 COVID-19 MODERNA 0.25ML BOOSTER VACCINE 2021-11-09 00:00:00 Completed [facility] SARS-COV-2 COVID-19 MODERNA 0.25ML BOOSTER VACCINE 2021-11-09 00:00:00 Completed [facility] SARS-COV-2 COVID-19 MODERNA 0.25ML BOOSTER VACCINE 2021-11-09 00:00:00 Completed [facility] SARS-COV-2 COVID-19 MODERNA 0.25ML BOOSTER VACCINE 2021-11-09 00:00:00 Completed [facility] SARS-COV-2 COVID-19 MODERNA 0.25ML BOOSTER VACCINE 2021-11-09 00:00:00 Completed [facility] SARS-COV-2 COVID-19 MODERNA 0.25ML BOOSTER VACCINE 2021-11-09 00:00:00 Completed [facility] Influenza Virus Vaccine,quad Im,preserve Free 2021-08-30 00:00:00 Completed [facility] Influenza Virus Vaccine,quad Im,preserve Free 65+ 2021-08-30 00:00:00 Completed [facility] Influenza Virus Vaccine,quad Im,preserve Free 65+ 2021-08-30 00:00:00 Completed [facility] Influenza Virus Vaccine,quad Im,preserve Free 2021-08-30 00:00:00 Completed [facility] Influenza Virus Vaccine,quad Im,preserve Free 2021-08-30 00:00:00 Completed [facility] Influenza Virus Vaccine,quad Im,preserve Free 2021-08-30 00:00:00 Completed [facility] Influenza Virus Vaccine,quad Im,preserve Free 2021-08-30 00:00:00 Completed [facility] Influenza Virus Vaccine,quad Im,preserve Free 2021-08-30 00:00:00 Completed [facility] Influenza Virus Vaccine,quad Im,preserve Free 2021-08-30 00:00:00 Completed [facility] Influenza Virus Vaccine,quad Im,preserve Free 2021-08-30 00:00:00 Completed [facility] Influenza Virus Vaccine,quad Im,preserve Free 2021-08-30 00:00:00 Completed [facility] Influenza Virus Vaccine,quad Im,preserve Free 2021-08-30 00:00:00 Completed [facility] Influenza Virus Vaccine,quad Im,preserve Free 2021-08-30 00:00:00 Completed [facility] Influenza Virus Vaccine,quad Im,preserve Free 2021-08-30 00:00:00 Completed [facility] Influenza Virus Vaccine,quad Im,preserve Free 2021-08-30 00:00:00 Completed [facility] Influenza Virus Vaccine,quad Im,preserve Free 2021-08-30 00:00:00 Completed [facility] Influenza Virus Vaccine,quad Im,preserve Free 2021-08-30 00:00:00 Completed [facility] Influenza Virus Vaccine,quad Im,preserve Free 2021-08-30 00:00:00 Completed [facility] Influenza Virus Vaccine,quad Im,preserve Free 2021-08-30 00:00:00 Completed [facility] Influenza Virus Vaccine,quad Im,preserve Free 2021-08-30 00:00:00 Completed [facility] Influenza Virus Vaccine,quad Im,preserve Free 2021-08-30 00:00:00 Completed [facility] Influenza Virus Vaccine,quad Im,preserve Free 2021-08-30 00:00:00 Completed [facility] Influenza Virus Vaccine,quad Im,preserve Free 2021-08-30 00:00:00 Completed [facility] Influenza Virus Vaccine,quad Im,preserve Free 2021-08-30 00:00:00 Completed [facility] Influenza Virus Vaccine,quad Im,preserve Free 2021-08-30 00:00:00 Completed [facility] Influenza Virus Vaccine,quad Im,preserve Free 2021-08-30 00:00:00 Completed [facility] Influenza Virus Vaccine,quad Im,preserve Free 2021-08-30 00:00:00 Completed [facility] Influenza Virus Vaccine,quad Im,preserve Free 2021-08-30 00:00:00 Completed [facility] Influenza Virus Vaccine,quad Im,preserve Free 2021-08-30 00:00:00 Completed [facility] Influenza Virus Vaccine,quad Im,preserve Free 2021-08-30 00:00:00 Completed [facility] Influenza Virus Vaccine,quad Im,preserve Free 2021-08-30 00:00:00 Completed [facility] Influenza Virus Vaccine,quad Im,preserve Free 2021-08-30 00:00:00 Completed [facility] Influenza Virus Vaccine,quad Im,preserve Free 2021-08-30 00:00:00 Completed [facility] Influenza Virus Vaccine,quad Im,preserve Free 2021-08-30 00:00:00 Completed [facility] Influenza Virus Vaccine,quad Im,preserve Free 2021-08-30 00:00:00 Completed [facility] Influenza Virus Vaccine,quad Im,preserve Free 2021-08-30 00:00:00 Completed [facility] Influenza Virus Vaccine,quad Im,preserve Free 2021-08-30 00:00:00 Completed [facility] Influenza Virus Vaccine,quad Im,preserve Free 2021-08-30 00:00:00 Completed [facility] Influenza Virus Vaccine,quad Im,preserve Free 2021-08-30 00:00:00 Completed [facility] Influenza Virus Vaccine,quad Im,preserve Free 2021-08-30 00:00:00 Completed [facility] Influenza Virus Vaccine,quad Im,preserve Free 2021-08-30 00:00:00 Completed [facility] Influenza Virus Vaccine,quad Im,preserve Free 2021-08-30 00:00:00 Completed [facility] Influenza Virus Vaccine,quad Im,preserve Free 2021-08-30 00:00:00 Completed [facility] Influenza Virus Vaccine,quad Im,preserve Free 2021-08-30 00:00:00 Completed [facility] Influenza Virus Vaccine,quad Im,preserve Free 2021-08-30 00:00:00 Completed [facility] Influenza Virus Vaccine,quad Im,preserve Free 2021-08-30 00:00:00 Completed [facility] Influenza Virus Vaccine,quad Im,preserve Free 2021-08-30 00:00:00 Completed [facility] Influenza Virus Vaccine,quad Im,preserve Free 2021-08-30 00:00:00 Completed [facility] Influenza Virus Vaccine,quad Im,preserve Free 2021-08-30 00:00:00 Completed [facility] Influenza Virus Vaccine,quad Im,preserve Free 2021-08-30 00:00:00 Completed [facility] Influenza Virus Vaccine,quad Im,preserve Free 2021-08-30 00:00:00 Completed [facility] Influenza Virus Vaccine,quad Im,preserve Free 2021-08-30 00:00:00 Completed [facility] Influenza Virus Vaccine,quad Im,preserve Free 2021-08-30 00:00:00 Completed [facility] Influenza Virus Vaccine,quad Im,preserve Free 2021-08-30 00:00:00 Completed [facility] Influenza Virus Vaccine,quad Im,preserve Free 2021-08-30 00:00:00 Completed [facility] Influenza Virus Vaccine,quad Im,preserve Free 2021-08-30 00:00:00 Completed [facility] Influenza Virus Vaccine,quad Im,preserve Free 2021-08-30 00:00:00 Completed [facility] Influenza Virus Vaccine,quad Im,preserve Free + 2021-08-30 00:00:00 Completed [facility] Influenza Virus Vaccine,quad Im,preserve Free 2021-08-30 00:00:00 Completed [facility] Influenza Virus Vaccine,quad Im,preserve Free + 2021-08-30 00:00:00 Completed [facility] SARS-COV-2 COVID-19 MODERNA VACCINE 2021-04-21 00:00:00 Completed [facility] SARS-COV-2 COVID-19 MODERNA 12+ YRS VACCINE 2021-04-21 00:00:00 Completed [facility] SARS-COV-2 COVID-19 MODERNA 12+ YRS VACCINE 2021-04-21 00:00:00 Completed [facility] SARS-COV-2 COVID-19 MODERNA 12+ YRS VACCINE 2021-04-21 00:00:00 Completed [facility] SARS-COV-2 COVID-19 MODERNA 12+ YRS VACCINE 2021-04-21 00:00:00 Completed [facility] SARS-COV-2 COVID-19 MODERNA 12+ YRS VACCINE 2021-04-21 00:00:00 Completed [facility] SARS-COV-2 COVID-19 MODERNA 12+ YRS VACCINE 2021-04-21 00:00:00 Completed [facility] SARS-COV-2 COVID-19 MODERNA 12+ YRS VACCINE 2021-04-21 00:00:00 Completed [facility] SARS-COV-2 COVID-19 MODERNA 12+ YRS VACCINE 2021-04-21 00:00:00 Completed [facility] SARS-COV-2 COVID-19 MODERNA 12+ YRS VACCINE 2021-04-21 00:00:00 Completed [facility] SARS-COV-2 COVID-19 MODERNA 12+ YRS VACCINE 2021-04-21 00:00:00 Completed [facility] SARS-COV-2 COVID-19 MODERNA 12+ YRS VACCINE 2021-04-21 00:00:00 Completed [facility] SARS-COV-2 COVID-19 MODERNA 12+ YRS VACCINE 2021-04-21 00:00:00 Completed [facility] SARS-COV-2 COVID-19 MODERNA 12+ YRS VACCINE 2021-04-21 00:00:00 Completed [facility] SARS-COV-2 COVID-19 MODERNA 12+ YRS VACCINE 2021-04-21 00:00:00 Completed [facility] SARS-COV-2 COVID-19 MODERNA 12+ YRS VACCINE 2021-04-21 00:00:00 Completed [facility] SARS-COV-2 COVID-19 MODERNA 12+ YRS VACCINE 2021-04-21 00:00:00 Completed [facility] SARS-COV-2 COVID-19 MODERNA 12+ YRS VACCINE 2021-04-21 00:00:00 Completed [facility] SARS-COV-2 COVID-19 MODERNA 12+ YRS VACCINE 2021-04-21 00:00:00 Completed [facility] SARS-COV-2 COVID-19 MODERNA 12+ YRS VACCINE 2021-04-21 00:00:00 Completed [facility] SARS-COV-2 COVID-19 MODERNA 12+ YRS VACCINE 2021-04-21 00:00:00 Completed [facility] SARS-COV-2 COVID-19 MODERNA 12+ YRS VACCINE 2021-04-21 00:00:00 Completed [facility] SARS-COV-2 COVID-19 MODERNA 12+ YRS VACCINE 2021-04-21 00:00:00 Completed [facility] SARS-COV-2 COVID-19 MODERNA 12+ YRS VACCINE 2021-04-21 00:00:00 Completed [facility] SARS-COV-2 COVID-19 MODERNA 12+ YRS VACCINE 2021-04-21 00:00:00 Completed [facility] SARS-COV-2 COVID-19 MODERNA 12+ YRS VACCINE 2021-04-21 00:00:00 Completed [facility] SARS-COV-2 COVID-19 MODERNA 12+ YRS VACCINE 2021-04-21 00:00:00 Completed [facility] SARS-COV-2 COVID-19 MODERNA 12+ YRS VACCINE 2021-04-21 00:00:00 Completed [facility] SARS-COV-2 COVID-19 MODERNA 12+ YRS VACCINE 2021-04-21 00:00:00 Completed [facility] SARS-COV-2 COVID-19 MODERNA 12+ YRS VACCINE 2021-04-21 00:00:00 Completed [facility] SARS-COV-2 COVID-19 MODERNA 12+ YRS VACCINE 2021-04-21 00:00:00 Completed [facility] SARS-COV-2 COVID-19 MODERNA 12+ YRS VACCINE 2021-04-21 00:00:00 Completed [facility] SARS-COV-2 COVID-19 MODERNA 12+ YRS VACCINE 2021-04-21 00:00:00 Completed [facility] SARS-COV-2 COVID-19 MODERNA 12+ YRS VACCINE 2021-04-21 00:00:00 Completed [facility] SARS-COV-2 COVID-19 MODERNA 12+ YRS VACCINE 2021-04-21 00:00:00 Completed [facility] SARS-COV-2 COVID-19 MODERNA 12+ YRS VACCINE 2021-04-21 00:00:00 Completed [facility] SARS-COV-2 COVID-19 MODERNA 12+ YRS VACCINE 2021-04-21 00:00:00 Completed [facility] SARS-COV-2 COVID-19 MODERNA 12+ YRS VACCINE 2021-04-21 00:00:00 Completed [facility] SARS-COV-2 COVID-19 MODERNA 12+ YRS VACCINE 2021-04-21 00:00:00 Completed [facility] SARS-COV-2 COVID-19 MODERNA 12+ YRS VACCINE 2021-04-21 00:00:00 Completed [facility] SARS-COV-2 COVID-19 MODERNA 12+ YRS VACCINE 2021-04-21 00:00:00 Completed [facility] SARS-COV-2 COVID-19 MODERNA 12+ YRS VACCINE 2021-04-21 00:00:00 Completed [facility] SARS-COV-2 COVID-19 MODERNA 12+ YRS VACCINE 2021-04-21 00:00:00 Completed [facility] SARS-COV-2 COVID-19 MODERNA 12+ YRS VACCINE 2021-04-21 00:00:00 Completed [facility] SARS-COV-2 COVID-19 MODERNA 12+ YRS VACCINE 2021-04-21 00:00:00 Completed [facility] SARS-COV-2 COVID-19 MODERNA 12+ YRS VACCINE 2021-04-21 00:00:00 Completed [facility] SARS-COV-2 COVID-19 MODERNA 12+ YRS VACCINE 2021-04-21 00:00:00 Completed [facility] SARS-COV-2 COVID-19 MODERNA 12+ YRS VACCINE 2021-04-21 00:00:00 Completed [facility] SARS-COV-2 COVID-19 MODERNA 12+ YRS VACCINE 2021-04-21 00:00:00 Completed [facility] SARS-COV-2 COVID-19 MODERNA 12+ YRS VACCINE 2021-04-21 00:00:00 Completed [facility] SARS-COV-2 COVID-19 MODERNA 12+ YRS VACCINE 2021-04-21 00:00:00 Completed [facility] SARS-COV-2 COVID-19 MODERNA 12+ YRS VACCINE 2021-04-21 00:00:00 Completed [facility] SARS-COV-2 COVID-19 MODERNA 12+ YRS VACCINE 2021-04-21 00:00:00 Completed [facility] SARS-COV-2 COVID-19 MODERNA 12+ YRS VACCINE 2021-04-21 00:00:00 Completed [facility] SARS-COV-2 COVID-19 MODERNA 12+ YRS VACCINE 2021-04-21 00:00:00 Completed [facility] SARS-COV-2 COVID-19 MODERNA 12+ YRS VACCINE 2021-04-21 00:00:00 Completed [facility] SARS-COV-2 COVID-19 MODERNA 12+ YRS VACCINE 2021-04-21 00:00:00 Completed [facility] SARS-COV-2 COVID-19 MODERNA 12+ YRS VACCINE 2021-04-21 00:00:00 Completed [facility] SARS-COV-2 COVID-19 MODERNA 12+ YRS VACCINE 2021-04-21 00:00:00 Completed [facility] SARS-COV-2 COVID-19 MODERNA 12+ YRS VACCINE 2021-04-21 00:00:00 Completed [facility] SARS-COV-2 COVID-19 MODERNA VACCINE 2021-03-24 00:00:00 Completed [facility] SARS-COV-2 COVID-19 MODERNA 12+ YRS VACCINE 2021-03-24 00:00:00 Completed [facility] SARS-COV-2 COVID-19 MODERNA 12+ YRS VACCINE 2021-03-24 00:00:00 Completed [facility] SARS-COV-2 COVID-19 MODERNA 12+ YRS VACCINE 2021-03-24 00:00:00 Completed [facility] SARS-COV-2 COVID-19 MODERNA 12+ YRS VACCINE 2021-03-24 00:00:00 Completed [facility] SARS-COV-2 COVID-19 MODERNA 12+ YRS VACCINE 2021-03-24 00:00:00 Completed [facility] SARS-COV-2 COVID-19 MODERNA 12+ YRS VACCINE 2021-03-24 00:00:00 Completed [facility] SARS-COV-2 COVID-19 MODERNA 12+ YRS VACCINE 2021-03-24 00:00:00 Completed [facility] SARS-COV-2 COVID-19 MODERNA 12+ YRS VACCINE 2021-03-24 00:00:00 [facility] [facility] SARS-COV-2 COVID-19 MODERNA 12+ YRS VACCINE 2021-03-24 00:00:00 Completed [facility] SARS-COV-2 COVID-19 MODERNA 12+ YRS VACCINE 2021-03-24 00:00:00 Completed [facility] SARS-COV-2 COVID-19 MODERNA 12+ YRS VACCINE 2021-03-24 00:00:00 Completed [facility] SARS-COV-2 COVID-19 MODERNA 12+ YRS VACCINE 2021-03-24 00:00:00 Completed [facility] SARS-COV-2 COVID-19 MODERNA 12+ YRS VACCINE 2021-03-24 00:00:00 Completed [facility] SARS-COV-2 COVID-19 MODERNA 12+ YRS VACCINE 2021-03-24 00:00:00 Completed [facility] SARS-COV-2 COVID-19 MODERNA 12+ YRS VACCINE 2021-03-24 00:00:00 Completed [facility] SARS-COV-2 COVID-19 MODERNA 12+ YRS VACCINE 2021-03-24 00:00:00 Completed [facility] SARS-COV-2 COVID-19 MODERNA 12+ YRS VACCINE 2021-03-24 00:00:00 Completed [facility] SARS-COV-2 COVID-19 MODERNA 12+ YRS VACCINE 2021-03-24 00:00:00 Completed [facility] SARS-COV-2 COVID-19 MODERNA 12+ YRS VACCINE 2021-03-24 00:00:00 Completed [facility] SARS-COV-2 COVID-19 MODERNA 12+ YRS VACCINE 2021-03-24 00:00:00 Completed [facility] SARS-COV-2 COVID-19 MODERNA 12+ YRS VACCINE 2021-03-24 00:00:00 Completed [facility] SARS-COV-2 COVID-19 MODERNA 12+ YRS VACCINE 2021-03-24 00:00:00 Completed [facility] SARS-COV-2 COVID-19 MODERNA 12+ YRS VACCINE 2021-03-24 00:00:00 Completed [facility] SARS-COV-2 COVID-19 MODERNA 12+ YRS VACCINE 2021-03-24 00:00:00 Completed [facility] SARS-COV-2 COVID-19 MODERNA 12+ YRS VACCINE 2021-03-24 00:00:00 Completed [facility] SARS-COV-2 COVID-19 MODERNA 12+ YRS VACCINE 2021-03-24 00:00:00 Completed [facility] SARS-COV-2 COVID-19 MODERNA 12+ YRS VACCINE 2021-03-24 00:00:00 Completed [facility] SARS-COV-2 COVID-19 MODERNA 12+ YRS VACCINE 2021-03-24 00:00:00 Completed [facility] SARS-COV-2 COVID-19 MODERNA 12+ YRS VACCINE 2021-03-24 00:00:00 Completed [facility] SARS-COV-2 COVID-19 MODERNA 12+ YRS VACCINE 2021-03-24 00:00:00 Completed [facility] SARS-COV-2 COVID-19 MODERNA 12+ YRS VACCINE 2021-03-24 00:00:00 Completed [facility] SARS-COV-2 COVID-19 MODERNA 12+ YRS VACCINE 2021-03-24 00:00:00 Completed [facility] SARS-COV-2 COVID-19 MODERNA 12+ YRS VACCINE 2021-03-24 00:00:00 Completed [facility] SARS-COV-2 COVID-19 MODERNA 12+ YRS VACCINE 2021-03-24 00:00:00 Completed [facility] SARS-COV-2 COVID-19 MODERNA 12+ YRS VACCINE 2021-03-24 00:00:00 Completed [facility] SARS-COV-2 COVID-19 MODERNA 12+ YRS VACCINE 2021-03-24 00:00:00 Completed [facility] SARS-COV-2 COVID-19 MODERNA 12+ YRS VACCINE 2021-03-24 00:00:00 Completed [facility] SARS-COV-2 COVID-19 MODERNA 12+ YRS VACCINE 2021-03-24 00:00:00 Completed [facility] SARS-COV-2 COVID-19 MODERNA 12+ YRS VACCINE 2021-03-24 00:00:00 Completed [facility] SARS-COV-2 COVID-19 MODERNA 12+ YRS VACCINE 2021-03-24 00:00:00 Completed [facility] SARS-COV-2 COVID-19 MODERNA 12+ YRS VACCINE 2021-03-24 00:00:00 Completed [facility] SARS-COV-2 COVID-19 MODERNA 12+ YRS VACCINE 2021-03-24 00:00:00 Completed [facility] SARS-COV-2 COVID-19 MODERNA 12+ YRS VACCINE 2021-03-24 00:00:00 Completed [facility] SARS-COV-2 COVID-19 MODERNA 12+ YRS VACCINE 2021-03-24 00:00:00 Completed [facility] SARS-COV-2 COVID-19 MODERNA 12+ YRS VACCINE 2021-03-24 00:00:00 Completed [facility] SARS-COV-2 COVID-19 MODERNA 12+ YRS VACCINE 2021-03-24 00:00:00 Completed [facility] SARS-COV-2 COVID-19 MODERNA 12+ YRS VACCINE 2021-03-24 00:00:00 Completed [facility] SARS-COV-2 COVID-19 MODERNA 12+ YRS VACCINE 2021-03-24 00:00:00 Completed [facility] SARS-COV-2 COVID-19 MODERNA 12+ YRS VACCINE 2021-03-24 00:00:00 Completed [facility] SARS-COV-2 COVID-19 MODERNA 12+ YRS VACCINE 2021-03-24 00:00:00 Completed [facility] SARS-COV-2 COVID-19 MODERNA 12+ YRS VACCINE 2021-03-24 00:00:00 Completed [facility] SARS-COV-2 COVID-19 MODERNA 12+ YRS VACCINE 2021-03-24 00:00:00 Completed [facility] SARS-COV-2 COVID-19 MODERNA 12+ YRS VACCINE 2021-03-24 00:00:00 Completed [facility] SARS-COV-2 COVID-19 MODERNA 12+ YRS VACCINE 2021-03-24 00:00:00 Completed [facility] SARS-COV-2 COVID-19 MODERNA 12+ YRS VACCINE 2021-03-24 00:00:00 Completed [facility] SARS-COV-2 COVID-19 MODERNA 12+ YRS VACCINE 2021-03-24 00:00:00 Completed [facility] SARS-COV-2 COVID-19 MODERNA 12+ YRS VACCINE 2021-03-24 00:00:00 Completed [facility] SARS-COV-2 COVID-19 MODERNA 12+ YRS VACCINE 2021-03-24 00:00:00 Completed [facility] SARS-COV-2 COVID-19 MODERNA 12+ YRS VACCINE 2021-03-24 00:00:00 Completed [facility] Pneumococcal Polysaccharide, PPSV23 (PNEUMOVAX) 2020-06-07 00:00:00 Completed [facility] Pneumococcal Polysaccharide, PPSV23 (PNEUMOVAX) 2020-06-07 00:00:00 Completed [facility] Pneumococcal Polysaccharide, PPSV23 (PNEUMOVAX) 2020-06-07 00:00:00 Completed [facility] Pneumococcal Polysaccharide, PPSV23 (PNEUMOVAX) 2020-06-07 00:00:00 Completed [facility] Pneumococcal Polysaccharide, PPSV23 (PNEUMOVAX) 2020-06-07 00:00:00 Completed [facility] Pneumococcal Polysaccharide, PPSV23 (PNEUMOVAX) 2020-06-07 00:00:00 Completed [facility] Pneumococcal Polysaccharide, PPSV23 (PNEUMOVAX) 2020-06-07 00:00:00 Completed [facility] Pneumococcal Polysaccharide, PPSV23 (PNEUMOVAX) 2020-06-07 00:00:00 Completed [facility] Pneumococcal Polysaccharide, PPSV23 (PNEUMOVAX) 2020-06-07 00:00:00 Completed [facility] Pneumococcal Polysaccharide, PPSV23 (PNEUMOVAX) 2020-06-07 00:00:00 Completed [facility] Pneumococcal Polysaccharide, PPSV23 (PNEUMOVAX) 2020-06-07 00:00:00 Completed [facility] Pneumococcal Polysaccharide, PPSV23 (PNEUMOVAX) 2020-06-07 00:00:00 Completed [facility] Pneumococcal Polysaccharide, PPSV23 (PNEUMOVAX) 2020-06-07 00:00:00 Completed [facility] Pneumococcal Polysaccharide, PPSV23 (PNEUMOVAX) 2020-06-07 00:00:00 Completed [facility] Pneumococcal Polysaccharide, PPSV23 (PNEUMOVAX) 2020-06-07 00:00:00 Completed [facility] Pneumococcal Polysaccharide, PPSV23 (PNEUMOVAX) 2020-06-07 00:00:00 Completed [facility] Pneumococcal Polysaccharide, PPSV23 (PNEUMOVAX) 2020-06-07 00:00:00 Completed [facility] Pneumococcal Polysaccharide, PPSV23 (PNEUMOVAX) 2020-06-07 00:00:00 Completed [facility] Pneumococcal Polysaccharide, PPSV23 (PNEUMOVAX) 2020-06-07 00:00:00 Completed [facility] Pneumococcal Polysaccharide, PPSV23 (PNEUMOVAX) 2020-06-07 00:00:00 Completed [facility] Pneumococcal Polysaccharide, PPSV23 (PNEUMOVAX) 2020-06-07 00:00:00 Completed [facility] Pneumococcal Polysaccharide, PPSV23 (PNEUMOVAX) 2020-06-07 00:00:00 Completed [facility] Pneumococcal Polysaccharide, PPSV23 (PNEUMOVAX) 2020-06-07 00:00:00 Completed [facility] Pneumococcal Polysaccharide, PPSV23 (PNEUMOVAX) 2020-06-07 00:00:00 Completed [facility] Pneumococcal Polysaccharide, PPSV23 (PNEUMOVAX) 2020-06-07 00:00:00 Completed [facility] Pneumococcal Polysaccharide, PPSV23 (PNEUMOVAX) 2020-06-07 00:00:00 Completed [facility] Pneumococcal Polysaccharide, PPSV23 (PNEUMOVAX) 2020-06-07 00:00:00 Completed [facility] Pneumococcal Polysaccharide, PPSV23 (PNEUMOVAX) 2020-06-07 00:00:00 Completed [facility] Pneumococcal Polysaccharide, PPSV23 (PNEUMOVAX) 2020-06-07 00:00:00 Completed [facility] Pneumococcal Polysaccharide, PPSV23 (PNEUMOVAX) 2020-06-07 00:00:00 Completed [facility] Pneumococcal Polysaccharide, PPSV23 (PNEUMOVAX) 2020-06-07 00:00:00 Completed [facility] Pneumococcal Polysaccharide, PPSV23 (PNEUMOVAX) 2020-06-07 00:00:00 Completed [facility] Pneumococcal Polysaccharide, PPSV23 (PNEUMOVAX) 2020-06-07 00:00:00 Completed [facility] Pneumococcal Polysaccharide, PPSV23 (PNEUMOVAX) 2020-06-07 00:00:00 Completed [facility] Pneumococcal Polysaccharide, PPSV23 (PNEUMOVAX) 2020-06-07 00:00:00 Completed [facility] Pneumococcal Polysaccharide, PPSV23 (PNEUMOVAX) 2020-06-07 00:00:00 Completed [facility] Pneumococcal Polysaccharide, PPSV23 (PNEUMOVAX) 2020-06-07 00:00:00 Completed [facility] Pneumococcal Polysaccharide, PPSV23 (PNEUMOVAX) 2020-06-07 00:00:00 Completed [facility] Pneumococcal Polysaccharide, PPSV23 (PNEUMOVAX) 2020-06-07 00:00:00 Completed [facility] Pneumococcal Polysaccharide, PPSV23 (PNEUMOVAX) 2020-06-07 00:00:00 Completed [facility] Pneumococcal Polysaccharide, PPSV23 (PNEUMOVAX) 2020-06-07 00:00:00 Completed [facility] Pneumococcal Polysaccharide, PPSV23 (PNEUMOVAX) 2020-06-07 00:00:00 Completed [facility] Pneumococcal Polysaccharide, PPSV23 (PNEUMOVAX) 2020-06-07 00:00:00 Completed [facility] Pneumococcal Polysaccharide, PPSV23 (PNEUMOVAX) 2020-06-07 00:00:00 Completed [facility] Pneumococcal Polysaccharide, PPSV23 (PNEUMOVAX) 2020-06-07 00:00:00 Completed [facility] Pneumococcal Polysaccharide, PPSV23 (PNEUMOVAX) 2020-06-07 00:00:00 Completed [facility] Pneumococcal Polysaccharide, PPSV23 (PNEUMOVAX) 2020-06-07 00:00:00 Completed [facility] Pneumococcal Polysaccharide, PPSV23 (PNEUMOVAX) 2020-06-07 00:00:00 Completed [facility] Pneumococcal Polysaccharide, PPSV23 (PNEUMOVAX) 2020-06-07 00:00:00 Completed [facility] Pneumococcal Polysaccharide, PPSV23 (PNEUMOVAX) 2020-06-07 00:00:00 Completed [facility] Pneumococcal Polysaccharide, PPSV23 (PNEUMOVAX) 2020-06-07 00:00:00 Completed [facility] Pneumococcal Polysaccharide, PPSV23 (PNEUMOVAX) 2020-06-07 00:00:00 Completed [facility] Pneumococcal Polysaccharide, PPSV23 (PNEUMOVAX) 2020-06-07 00:00:00 Completed [facility] Pneumococcal Polysaccharide, PPSV23 (PNEUMOVAX) 2020-06-07 00:00:00 Completed [facility] Pneumococcal Polysaccharide, PPSV23 (PNEUMOVAX) 2020-06-07 00:00:00 Completed [facility] Pneumococcal Polysaccharide, PPSV23 (PNEUMOVAX) 2020-06-07 00:00:00 Completed [facility] Pneumococcal Polysaccharide, PPSV23 (PNEUMOVAX) 2020-06-07 00:00:00 Completed [facility] Pneumococcal Polysaccharide, PPSV23 (PNEUMOVAX) 2020-06-07 00:00:00 Completed [facility] Pneumococcal Polysaccharide, PPSV23 (PNEUMOVAX) 2020-06-07 00:00:00 Completed [facility] Pneumococcal Polysaccharide, PPSV23 (PNEUMOVAX) 2020-06-07 00:00:00 Completed [facility] DTAP 2018-01-07 00:00:00 Completed [facility] DTAP 2018-01-07 00:00:00 Completed [facility] DTAP 2018-01-07 00:00:00 Completed [facility] DTAP 2018-01-07 00:00:00 Completed [facility] DTAP 2018-01-07 00:00:00 Completed [facility] DTAP 2018-01-07 00:00:00 Completed [facility] DTAP 2018-01-07 00:00:00 Completed [facility] DTAP 2018-01-07 00:00:00 Completed [facility] DTAP 2018-01-07 00:00:00 Completed [facility] DTAP 2018-01-07 00:00:00 Completed [facility] DTAP 2018-01-07 00:00:00 Completed [facility] DTAP 2018-01-07 00:00:00 Completed [facility] DTAP 2018-01-07 00:00:00 Completed [facility] DTAP 2018-01-07 00:00:00 Completed [facility] DTAP 2018-01-07 00:00:00 Completed [facility] DTAP 2018-01-07 00:00:00 Completed [facility] DTAP 2018-01-07 00:00:00 Completed [facility] DTAP 2018-01-07 00:00:00 Completed [facility] DTAP 2018-01-07 00:00:00 Completed [facility] DTAP 2018-01-07 00:00:00 Completed [facility] DTAP 2018-01-07 00:00:00 Completed [facility] DTAP 2018-01-07 00:00:00 Completed [facility] DTAP 2018-01-07 00:00:00 Completed [facility] DTAP 2018-01-07 00:00:00 Completed [facility] DTAP 2018-01-07 00:00:00 Completed [facility] DTAP 2018-01-07 00:00:00 Completed [facility] DTAP 2018-01-07 00:00:00 Completed [facility] DTAP 2018-01-07 00:00:00 Completed [facility] DTAP 2018-01-07 00:00:00 Completed [facility] DTAP 2018-01-07 00:00:00 Completed [facility] DTAP 2018-01-07 00:00:00 Completed [facility] DTAP 2018-01-07 00:00:00 Completed [facility] DTAP 2018-01-07 00:00:00 Completed [facility] DTAP 2018-01-07 00:00:00 Completed [facility] DTAP 2018-01-07 00:00:00 Completed [facility] DTAP 2018-01-07 00:00:00 Completed [facility] DTAP 2018-01-07 00:00:00 Completed [facility] DTAP 2018-01-07 00:00:00 Completed [facility] DTAP 2018-01-07 00:00:00 Completed [facility] DTAP 2018-01-07 00:00:00 Completed [facility] DTAP 2018-01-07 00:00:00 Completed [facility] DTAP 2018-01-07 00:00:00 Completed [facility] DTAP 2018-01-07 00:00:00 Completed [facility] DTAP 2018-01-07 00:00:00 Completed [facility] DTAP 2018-01-07 00:00:00 Completed [facility] DTAP 2018-01-07 00:00:00 Completed [facility] DTAP 2018-01-07 00:00:00 Completed [facility] DTAP 2018-01-07 00:00:00 Completed [facility] DTAP 2018-01-07 00:00:00 Completed [facility] DTAP 2018-01-07 00:00:00 Completed [facility] DTAP 2018-01-07 00:00:00 Completed [facility] DTAP 2018-01-07 00:00:00 Completed [facility] DTAP 2018-01-07 00:00:00 Completed [facility] DTAP 2018-01-07 00:00:00 Completed [facility] DTAP 2018-01-07 00:00:00 Completed [facility] DTAP 2018-01-07 00:00:00 Completed [facility] DTAP 2018-01-07 00:00:00 Completed [facility] DTAP 2018-01-07 00:00:00 Completed [facility] DTAP 2018-01-07 00:00:00 Completed [facility] DTAP 2018-01-07 00:00:00 Completed [facility] SARS-COV-2 COVID-19 MODERNA 12+ YRS VACCINE Unknown Completed [facility] SARS-COV-2 COVID-19 MODERNA 12+ YRS VACCINE Unknown Completed [facility] DTAP Unknown Completed [facility] Pneumococcal Polysaccharide, PPSV23 (PNEUMOVAX) Unknown Completed [facility] Influenza Virus Vaccine,quad Im,preserve Free 65+ (FLUAD) Unknown Completed [facility] SARS-COV-2 COVID-19 MODERNA 0.25ML BOOSTER VACCINE Unknown Completed [facility] Influenza Virus Vaccine,quad Im,preserve Free 65+ (FLUAD) Unknown Completed [facility] SARS-COV-2 COVID-19 VACCINE 12 YRS+, BIVALENT 0.5ML, IM, (MODERNA-BLUE TOP) Unknown Completed [facility] SARS-COV-2 COVID-19 MODERNA 12+ YRS VACCINE Unknown Completed [facility] SARS-COV-2 COVID-19 MODERNA 12+ YRS VACCINE Unknown Completed [facility] DTAP Unknown Completed [facility] Pneumococcal Polysaccharide, PPSV23 (PNEUMOVAX) Unknown Completed [facility] Influenza Virus Vaccine,quad Im,preserve Free 65+ (FLUAD) Unknown Completed [facility] SARS-COV-2 COVID-19 MODERNA 0.25ML BOOSTER VACCINE Unknown Completed [facility] Influenza Virus Vaccine,quad Im,preserve Free 65+ (FLUAD) Unknown Completed [facility] SARS-COV-2 COVID-19 VACCINE 12 YRS+, BIVALENT 0.5ML, IM, (MODERNA-BLUE TOP) Unknown Completed [facility] SARS-COV-2 COVID-19 MODERNA 12+ YRS VACCINE Unknown Completed [facility] SARS-COV-2 COVID-19 MODERNA 12+ YRS VACCINE Unknown Completed [facility] DTAP Unknown Completed [facility] Pneumococcal Polysaccharide, PPSV23 (PNEUMOVAX) Unknown Completed [facility] Influenza Virus Vaccine,quad Im,preserve Free 65+ (FLUAD) Unknown Completed [facility] SARS-COV-2 COVID-19 MODERNA 0.25ML BOOSTER VACCINE Unknown Completed [facility] Influenza Virus Vaccine,quad Im,preserve Free 65+ (FLUAD) Unknown Completed [facility] SARS-COV-2 COVID-19 VACCINE 12 YRS+, BIVALENT 0.5ML, IM, (MODERNA-BLUE TOP) Unknown Completed [facility] SARS-COV-2 COVID-19 MODERNA 12+ YRS VACCINE Unknown Completed [facility] SARS-COV-2 COVID-19 MODERNA 12+ YRS VACCINE Unknown Completed [facility] DTAP Unknown Completed [facility] Pneumococcal Polysaccharide, PPSV23 (PNEUMOVAX) Unknown Completed [facility] Influenza Virus Vaccine,quad Im,preserve Free 65+ (FLUAD) Unknown Completed [facility] SARS-COV-2 COVID-19 MODERNA 0.25ML BOOSTER VACCINE Unknown Completed [facility] SARS-COV-2 COVID-19 MODERNA 12+ YRS VACCINE Unknown Completed [facility] SARS-COV-2 COVID-19 MODERNA 12+ YRS VACCINE Unknown Completed [facility] DTAP Unknown Completed [facility] Pneumococcal Polysaccharide, PPSV23 (PNEUMOVAX) Unknown Completed [facility] Influenza Virus Vaccine,quad Im,preserve Free 65+ (FLUAD) Unknown Completed [facility] SARS-COV-2 COVID-19 MODERNA 0.25ML BOOSTER VACCINE Unknown Completed [facility] SARS-COV-2 COVID-19 MODERNA 12+ YRS VACCINE Unknown Completed [facility] SARS-COV-2 COVID-19 MODERNA 12+ YRS VACCINE Unknown Completed [facility] DTAP Unknown Completed [facility] Pneumococcal Polysaccharide, PPSV23 (PNEUMOVAX) Unknown Completed [facility] Influenza Virus Vaccine,quad Im,preserve Free 65+ (FLUAD) Unknown Completed [facility] SARS-COV-2 COVID-19 MODERNA 0.25ML BOOSTER VACCINE Unknown Completed [facility] SARS-COV-2 COVID-19 MODERNA 12+ YRS VACCINE Unknown Completed [facility] SARS-COV-2 COVID-19 MODERNA 12+ YRS VACCINE Unknown Completed [facility] DTAP Unknown Completed [facility] Pneumococcal Polysaccharide, PPSV23 (PNEUMOVAX) Unknown Completed [facility] Influenza Virus Vaccine,quad Im,preserve Free 65+ (FLUAD) Unknown Completed [facility] SARS-COV-2 COVID-19 MODERNA 0.25ML BOOSTER VACCINE Unknown Completed [facility] SARS-COV-2 COVID-19 MODERNA 12+ YRS VACCINE Unknown Completed [facility] SARS-COV-2 COVID-19 MODERNA 12+ YRS VACCINE Unknown Completed [facility] DTAP Unknown Completed [facility] Pneumococcal Polysaccharide, PPSV23 (PNEUMOVAX) Unknown Completed [facility] Influenza Virus Vaccine,quad Im,preserve Free 65+ (FLUAD) Unknown Completed [facility] SARS-COV-2 COVID-19 MODERNA 0.25ML BOOSTER VACCINE Unknown Completed [facility] Influenza Virus Vaccine,quad Im,preserve Free 65+ (FLUAD) Unknown Completed [facility] SARS-COV-2 COVID-19 VACCINE 12 YRS+, BIVALENT 0.5ML, IM, (MODERNA-BLUE TOP) Unknown Completed [facility] SARS-COV-2 COVID-19 MODERNA 12+ YRS VACCINE Unknown Completed [facility] SARS-COV-2 COVID-19 MODERNA 12+ YRS VACCINE Unknown Completed [facility] DTAP Unknown Completed [facility] Pneumococcal Polysaccharide, PPSV23 (PNEUMOVAX) Unknown Completed [facility] Influenza Virus Vaccine,quad Im,preserve Free 65+ (FLUAD) Unknown Completed [facility] SARS-COV-2 COVID-19 MODERNA 0.25ML BOOSTER VACCINE Unknown Completed [facility] Influenza Virus Vaccine,quad Im,preserve Free 65+ (FLUAD) Unknown Completed [facility] SARS-COV-2 COVID-19 VACCINE 12 YRS+, BIVALENT 0.5ML, IM, (MODERNA-BLUE TOP) Unknown Completed [facility] SARS-COV-2 COVID-19 MODERNA 12+ YRS VACCINE Unknown Completed [facility] SARS-COV-2 COVID-19 MODERNA 12+ YRS VACCINE Unknown Completed [facility] DTAP Unknown Completed [facility] Pneumococcal Polysaccharide, PPSV23 (PNEUMOVAX) Unknown Completed [facility] Influenza Virus Vaccine,quad Im,preserve Free 65+ (FLUAD) Unknown Completed [facility] SARS-COV-2 COVID-19 MODERNA 0.25ML BOOSTER VACCINE Unknown Completed [facility] Influenza Virus Vaccine,quad Im,preserve Free 65+ (FLUAD) Unknown Completed [facility] SARS-COV-2 COVID-19 VACCINE 12 YRS+, BIVALENT 0.5ML, IM, (MODERNA-BLUE TOP) Unknown Completed [facility] SARS-COV-2 COVID-19 MODERNA 12+ YRS VACCINE Unknown Completed [facility] SARS-COV-2 COVID-19 MODERNA 12+ YRS VACCINE Unknown Completed [facility] DTAP Unknown Completed [facility] Pneumococcal Polysaccharide, PPSV23 (PNEUMOVAX) Unknown Completed [facility] Influenza Virus Vaccine,quad Im,preserve Free 65+ (FLUAD) Unknown Completed [facility] SARS-COV-2 COVID-19 MODERNA 0.25ML BOOSTER VACCINE Unknown Completed [facility] Influenza Virus Vaccine,quad Im,preserve Free 65+ (FLUAD) Unknown Completed [facility] SARS-COV-2 COVID-19 VACCINE 12 YRS+, BIVALENT 0.5ML, IM, (MODERNA-BLUE TOP) Unknown Completed [facility] SARS-COV-2 COVID-19 MODERNA 12+ YRS VACCINE Unknown Completed [facility] SARS-COV-2 COVID-19 MODERNA 12+ YRS VACCINE Unknown Completed [facility] DTAP Unknown Completed [facility] Pneumococcal Polysaccharide, PPSV23 (PNEUMOVAX) Unknown Completed [facility] Influenza Virus Vaccine,quad Im,preserve Free 65+ (FLUAD) Unknown Completed [facility] SARS-COV-2 COVID-19 MODERNA 0.25ML BOOSTER VACCINE Unknown Completed [facility] Influenza Virus Vaccine,quad Im,preserve Free 65+ (FLUAD) Unknown Completed [facility] SARS-COV-2 COVID-19 VACCINE 12 YRS+, BIVALENT 0.5ML, IM, (MODERNA-BLUE TOP) Unknown Completed [facility] SARS-COV-2 COVID-19 MODERNA 12+ YRS VACCINE Unknown Completed [facility] SARS-COV-2 COVID-19 MODERNA 12+ YRS VACCINE Unknown Completed [facility] DTAP Unknown Completed [facility] Pneumococcal Polysaccharide, PPSV23 (PNEUMOVAX) Unknown Completed [facility] Influenza Virus Vaccine,quad Im,preserve Free 65+ (FLUAD) Unknown Completed [facility] SARS-COV-2 COVID-19 MODERNA 0.25ML BOOSTER VACCINE Unknown Completed [facility] Influenza Virus Vaccine,quad Im,preserve Free 65+ (FLUAD) Unknown Completed [facility] SARS-COV-2 COVID-19 VACCINE 12 YRS+, BIVALENT 0.5ML, IM, (MODERNA-BLUE TOP) Unknown Completed [facility] SARS-COV-2 COVID-19 MODERNA 12+ YRS VACCINE Unknown Completed [facility] SARS-COV-2 COVID-19 MODERNA 12+ YRS VACCINE Unknown Completed [facility] DTAP Unknown Completed [facility] Pneumococcal Polysaccharide, PPSV23 (PNEUMOVAX) Unknown Completed [facility] Influenza Virus Vaccine,quad Im,preserve Free 65+ (FLUAD) Unknown Completed [facility] SARS-COV-2 COVID-19 MODERNA 0.25ML BOOSTER VACCINE Unknown Completed [facility] Influenza Virus Vaccine,quad Im,preserve Free 65+ (FLUAD) Unknown Completed [facility] SARS-COV-2 COVID-19 VACCINE 12 YRS+, BIVALENT 0.5ML, IM, (MODERNA-BLUE TOP) Unknown Completed [facility] SARS-COV-2 COVID-19 MODERNA 12+ YRS VACCINE Unknown Completed [facility] SARS-COV-2 COVID-19 MODERNA 12+ YRS VACCINE Unknown Completed [facility] DTAP Unknown Completed [facility] Pneumococcal Polysaccharide, PPSV23 (PNEUMOVAX) Unknown Completed [facility] Influenza Virus Vaccine,quad Im,preserve Free 65+ (FLUAD) Unknown Completed [facility] SARS-COV-2 COVID-19 MODERNA 0.25ML BOOSTER VACCINE Unknown Completed [facility] Influenza Virus Vaccine,quad Im,preserve Free 65+ (FLUAD) Unknown Completed [facility] SARS-COV-2 COVID-19 VACCINE 12 YRS+, BIVALENT 0.5ML, IM, (MODERNA-BLUE TOP) Unknown Completed [facility] Influenza Virus Vaccine,quad Im,preserve Free 65+ (FLUAD) Unknown Completed [facility] Pneumococcal 20 Conjugate, PCV20 (Prevnar 20) Unknown Completed [facility] SARS-COV-2 COVID-19 MODERNA 12+ YRS VACCINE Unknown Completed [facility] SARS-COV-2 COVID-19 MODERNA 12+ YRS VACCINE Unknown Completed [facility] DTAP Unknown Completed [facility] Pneumococcal Polysaccharide, PPSV23 (PNEUMOVAX) Unknown Completed [facility] Influenza Virus Vaccine,quad Im,preserve Free 65+ (FLUAD) Unknown Completed [facility] SARS-COV-2 COVID-19 MODERNA 0.25ML BOOSTER VACCINE Unknown Completed [facility] Influenza Virus Vaccine,quad Im,preserve Free 65+ (FLUAD) Unknown Completed [facility] SARS-COV-2 COVID-19 VACCINE 12 YRS+, BIVALENT 0.5ML, IM, (MODERNA-BLUE TOP) Unknown Completed [facility] Influenza Virus Vaccine,quad Im,preserve Free 65+ (FLUAD) Unknown Completed [facility] Pneumococcal 20 Conjugate, PCV20 (Prevnar 20) Unknown Completed [facility] SARS-COV-2 COVID-19 MODERNA 12+ YRS VACCINE Unknown Completed [facility] SARS-COV-2 COVID-19 MODERNA 12+ YRS VACCINE Unknown Completed [facility] DTAP Unknown Completed [facility] Pneumococcal Polysaccharide, PPSV23 (PNEUMOVAX) Unknown Completed [facility] Influenza Virus Vaccine,quad Im,preserve Free 65+ (FLUAD) Unknown Completed [facility] SARS-COV-2 COVID-19 MODERNA 0.25ML BOOSTER VACCINE Unknown Completed [facility] Influenza Virus Vaccine,quad Im,preserve Free 65+ (FLUAD) Unknown Completed [facility] SARS-COV-2 COVID-19 VACCINE 12 YRS+, BIVALENT 0.5ML, IM, (MODERNA-BLUE TOP) Unknown Completed [facility] Influenza Virus Vaccine,quad Im,preserve Free 65+ (FLUAD) Unknown Completed [facility] Pneumococcal 20 Conjugate, PCV20 (Prevnar 20) Unknown Completed [facility] SARS-COV-2 COVID-19 MODERNA 12+ YRS VACCINE Unknown Completed [facility] SARS-COV-2 COVID-19 MODERNA 12+ YRS VACCINE Unknown Completed [facility] DTAP Unknown Completed [facility] Pneumococcal Polysaccharide, PPSV23 (PNEUMOVAX) Unknown Completed [facility] Influenza Virus Vaccine,quad Im,preserve Free 65+ (FLUAD) Unknown Completed [facility] SARS-COV-2 COVID-19 MODERNA 0.25ML BOOSTER VACCINE Unknown Completed [facility] Influenza Virus Vaccine,quad Im,preserve Free 65+ (FLUAD) Unknown Completed [facility] SARS-COV-2 COVID-19 VACCINE 12 YRS+, BIVALENT 0.5ML, IM, (MODERNA-BLUE TOP) Unknown Completed [facility] Influenza Virus Vaccine,quad Im,preserve Free 65+ (FLUAD) Unknown Completed [facility] Pneumococcal 20 Conjugate, PCV20 (Prevnar 20) Unknown Completed [facility] SARS-COV-2 COVID-19 MODERNA 12+ YRS VACCINE Unknown Completed [facility] SARS-COV-2 COVID-19 MODERNA 12+ YRS VACCINE Unknown Completed [facility] DTAP Unknown Completed [facility] Pneumococcal Polysaccharide, PPSV23 (PNEUMOVAX) Unknown Completed [facility] Influenza Virus Vaccine,quad Im,preserve Free 65+ (FLUAD) Unknown Completed [facility] SARS-COV-2 COVID-19 MODERNA 0.25ML BOOSTER VACCINE Unknown Completed [facility] Influenza Virus Vaccine,quad Im,preserve Free 65+ (FLUAD) Unknown Completed [facility] SARS-COV-2 COVID-19 VACCINE 12 YRS+, BIVALENT 0.5ML, IM, (MODERNA-BLUE TOP) Unknown Completed [facility] Influenza Virus Vaccine,quad Im,preserve Free 65+ (FLUAD) Unknown Completed [facility] Pneumococcal 20 Conjugate, PCV20 (Prevnar 20) Unknown Completed [facility] SARS-COV-2 COVID-19 MODERNA 12+ YRS VACCINE Unknown Completed [facility] SARS-COV-2 COVID-19 MODERNA 12+ YRS VACCINE Unknown Completed [facility] DTAP Unknown Completed [facility] Pneumococcal Polysaccharide, PPSV23 (PNEUMOVAX) Unknown Completed [facility] Influenza Virus Vaccine,quad Im,preserve Free 65+ (FLUAD) Unknown Completed [facility] SARS-COV-2 COVID-19 MODERNA 0.25ML BOOSTER VACCINE Unknown Completed [facility] Influenza Virus Vaccine,quad Im,preserve Free 65+ (FLUAD) Unknown Completed [facility] SARS-COV-2 COVID-19 VACCINE 12 YRS+, BIVALENT 0.5ML, IM, (MODERNA-BLUE TOP) Unknown Completed [facility] Influenza Virus Vaccine,quad Im,preserve Free 65+ (FLUAD) Unknown Completed [facility] Pneumococcal 20 Conjugate, PCV20 (Prevnar 20) Unknown Completed [facility] SARS-COV-2 COVID-19 MODERNA 12+ YRS VACCINE Unknown Completed [facility] SARS-COV-2 COVID-19 MODERNA 12+ YRS VACCINE Unknown Completed [facility] DTAP Unknown Completed [facility] Pneumococcal Polysaccharide, PPSV23 (PNEUMOVAX) Unknown Completed [facility] Influenza Virus Vaccine,quad Im,preserve Free 65+ (FLUAD) Unknown Completed [facility] SARS-COV-2 COVID-19 MODERNA 0.25ML BOOSTER VACCINE Unknown Completed [facility] Influenza Virus Vaccine,quad Im,preserve Free 65+ (FLUAD) Unknown Completed [facility] SARS-COV-2 COVID-19 VACCINE 12 YRS+, BIVALENT 0.5ML, IM, (MODERNA-BLUE TOP) Unknown Completed [facility] Influenza Virus Vaccine,quad Im,preserve Free 65+ (FLUAD) Unknown Completed [facility] Pneumococcal 20 Conjugate, PCV20 (Prevnar 20) Unknown Completed [facility] SARS-COV-2 COVID-19 MODERNA 12+ YRS VACCINE Unknown Completed [facility] SARS-COV-2 COVID-19 MODERNA 12+ YRS VACCINE Unknown Completed [facility] DTAP Unknown Completed [facility] Pneumococcal Polysaccharide, PPSV23 (PNEUMOVAX) Unknown Completed [facility] Influenza Virus Vaccine,quad Im,preserve Free 65+ (FLUAD) Unknown Completed [facility] SARS-COV-2 COVID-19 MODERNA 0.25ML BOOSTER VACCINE Unknown Completed [facility] Influenza Virus Vaccine,quad Im,preserve Free 65+ (FLUAD) Unknown Completed [facility] SARS-COV-2 COVID-19 VACCINE 12 YRS+, BIVALENT 0.5ML, IM, (MODERNA-BLUE TOP) Unknown Completed [facility] Influenza Virus Vaccine,quad Im,preserve Free 65+ (FLUAD) Unknown Completed [facility] Pneumococcal 20 Conjugate, PCV20 (Prevnar 20) Unknown Completed [facility] SARS-COV-2 COVID-19 MODERNA 12+ YRS VACCINE Unknown Completed [facility] SARS-COV-2 COVID-19 MODERNA 12+ YRS VACCINE Unknown Completed [facility] DTAP Unknown Completed [facility] Pneumococcal Polysaccharide, PPSV23 (PNEUMOVAX) Unknown Completed [facility] Influenza Virus Vaccine,quad Im,preserve Free 65+ (FLUAD) Unknown Completed [facility] SARS-COV-2 COVID-19 MODERNA 0.25ML BOOSTER VACCINE Unknown Completed [facility] Influenza Virus Vaccine,quad Im,preserve Free 65+ (FLUAD) Unknown Completed [facility] SARS-COV-2 COVID-19 VACCINE 12 YRS+, BIVALENT 0.5ML, IM, (MODERNA-BLUE TOP) Unknown Completed [facility] Influenza Virus Vaccine,quad Im,preserve Free 65+ (FLUAD) Unknown Completed [facility] Pneumococcal 20 Conjugate, PCV20 (Prevnar 20) Unknown Completed [facility] SARS-COV-2 COVID-19 MODERNA 12+ YRS VACCINE Unknown Completed [facility] SARS-COV-2 COVID-19 MODERNA 12+ YRS VACCINE Unknown Completed [facility] DTAP Unknown Completed [facility] Pneumococcal Polysaccharide, PPSV23 (PNEUMOVAX) Unknown Completed [facility] Influenza Virus Vaccine,quad Im,preserve Free 65+ (FLUAD) Unknown Completed [facility] SARS-COV-2 COVID-19 MODERNA 0.25ML BOOSTER VACCINE Unknown Completed [facility] Influenza Virus Vaccine,quad Im,preserve Free 65+ (FLUAD) Unknown Completed [facility] SARS-COV-2 COVID-19 VACCINE 12 YRS+, BIVALENT 0.5ML, IM, (MODERNA-BLUE TOP) Unknown Completed [facility] Influenza Virus Vaccine,quad Im,preserve Free 65+ (FLUAD) Unknown Completed [facility] Pneumococcal 20 Conjugate, PCV20 (Prevnar 20) Unknown Completed [facility] SARS-COV-2 COVID-19 MODERNA 12+ YRS VACCINE Unknown Completed [facility] SARS-COV-2 COVID-19 MODERNA 12+ YRS VACCINE Unknown Completed [facility] DTAP Unknown Completed [facility] Pneumococcal Polysaccharide, PPSV23 (PNEUMOVAX) Unknown Completed [facility] Influenza Virus Vaccine,quad Im,preserve Free 65+ (FLUAD) Unknown Completed [facility] SARS-COV-2 COVID-19 MODERNA 0.25ML BOOSTER VACCINE Unknown Completed [facility] Influenza Virus Vaccine,quad Im,preserve Free 65+ (FLUAD) Unknown Completed [facility] SARS-COV-2 COVID-19 VACCINE 12 YRS+, BIVALENT 0.5ML, IM, (MODERNA-BLUE TOP) Unknown Completed [facility] Influenza Virus Vaccine,quad Im,preserve Free 65+ (FLUAD) Unknown Completed [facility] Pneumococcal 20 Conjugate, PCV20 (Prevnar 20) Unknown Completed [facility] SARS-COV-2 COVID-19 MODERNA 12+ YRS VACCINE Unknown Completed [facility] SARS-COV-2 COVID-19 MODERNA 12+ YRS VACCINE Unknown Completed [facility] DTAP Unknown Completed [facility] Pneumococcal Polysaccharide, PPSV23 (PNEUMOVAX) Unknown Completed [facility] Influenza Virus Vaccine,quad Im,preserve Free 65+ (FLUAD) Unknown Completed [facility] SARS-COV-2 COVID-19 MODERNA 0.25ML BOOSTER VACCINE Unknown Completed [facility] Influenza Virus Vaccine,quad Im,preserve Free 65+ (FLUAD) Unknown Completed [facility] SARS-COV-2 COVID-19 VACCINE 12 YRS+, BIVALENT 0.5ML, IM, (MODERNA-BLUE TOP) Unknown Completed [facility] Influenza Virus Vaccine,quad Im,preserve Free 65+ (FLUAD) Unknown Completed [facility] Pneumococcal 20 Conjugate, PCV20 (Prevnar 20) Unknown Completed [facility] SARS-COV-2 COVID-19 MODERNA 12+ YRS VACCINE Unknown Completed [facility] SARS-COV-2 COVID-19 MODERNA 12+ YRS VACCINE Unknown Completed [facility] DTAP Unknown Completed [facility] Pneumococcal Polysaccharide, PPSV23 (PNEUMOVAX) Unknown Completed [facility] Influenza Virus Vaccine,quad Im,preserve Free 65+ (FLUAD) Unknown Completed [facility] SARS-COV-2 COVID-19 MODERNA 0.25ML BOOSTER VACCINE Unknown Completed [facility] Influenza Virus Vaccine,quad Im,preserve Free 65+ (FLUAD) Unknown Completed [facility] SARS-COV-2 COVID-19 VACCINE 12 YRS+, BIVALENT 0.5ML, IM, (MODERNA-BLUE TOP) Unknown Completed [facility] Influenza Virus Vaccine,quad Im,preserve Free 65+ (FLUAD) Unknown Completed [facility] Pneumococcal 20 Conjugate, PCV20 (Prevnar 20) Unknown Completed [facility] SARS-COV-2 COVID-19 MODERNA 12+ YRS VACCINE Unknown Completed [facility] SARS-COV-2 COVID-19 MODERNA 12+ YRS VACCINE Unknown Completed [facility] DTAP Unknown Completed [facility] Pneumococcal Polysaccharide, PPSV23 (PNEUMOVAX) Unknown Completed [facility] Influenza Virus Vaccine,quad Im,preserve Free 65+ (FLUAD) Unknown Completed [facility] SARS-COV-2 COVID-19 MODERNA 0.25ML BOOSTER VACCINE Unknown Completed [facility] Influenza Virus Vaccine,quad Im,preserve Free 65+ (FLUAD) Unknown Completed [facility] SARS-COV-2 COVID-19 VACCINE 12 YRS+, BIVALENT 0.5ML, IM, (MODERNA-BLUE TOP) Unknown Completed [facility] Influenza Virus Vaccine,quad Im,preserve Free 65+ (FLUAD) Unknown Completed [facility] Pneumococcal 20 Conjugate, PCV20 (Prevnar 20) Unknown Completed [facility] SARS-COV-2 COVID-19 MODERNA 12+ YRS VACCINE Unknown Completed [facility] SARS-COV-2 COVID-19 MODERNA 12+ YRS VACCINE Unknown Completed [facility] DTAP Unknown Completed [facility] Pneumococcal Polysaccharide, PPSV23 (PNEUMOVAX) Unknown Completed [facility] Influenza Virus Vaccine,quad Im,preserve Free 65+ (FLUAD) Unknown Completed [facility] SARS-COV-2 COVID-19 MODERNA 0.25ML BOOSTER VACCINE Unknown Completed [facility] Influenza Virus Vaccine,quad Im,preserve Free 65+ (FLUAD) Unknown Completed [facility] SARS-COV-2 COVID-19 VACCINE 12 YRS+, BIVALENT 0.5ML, IM, (MODERNA-BLUE TOP) Unknown Completed [facility] Influenza Virus Vaccine,quad Im,preserve Free 65+ (FLUAD) Unknown Completed [facility] Pneumococcal 20 Conjugate, PCV20 (Prevnar 20) Unknown Completed [facility] SARS-COV-2 COVID-19 MODERNA 12+ YRS VACCINE Unknown Completed [facility] SARS-COV-2 COVID-19 MODERNA 12+ YRS VACCINE Unknown Completed [facility] DTAP Unknown Completed [facility] Pneumococcal Polysaccharide, PPSV23 (PNEUMOVAX) Unknown Completed [facility] Influenza Virus Vaccine,quad Im,preserve Free 65+ (FLUAD) Unknown Completed [facility] SARS-COV-2 COVID-19 MODERNA 0.25ML BOOSTER VACCINE Unknown Completed [facility] Influenza Virus Vaccine,quad Im,preserve Free 65+ (FLUAD) Unknown Completed [facility] SARS-COV-2 COVID-19 VACCINE 12 YRS+, BIVALENT 0.5ML, IM, (MODERNA-BLUE TOP) Unknown Completed [facility] Influenza Virus Vaccine,quad Im,preserve Free 65+ (FLUAD) Unknown Completed [facility] Pneumococcal 20 Conjugate, PCV20 (Prevnar 20) Unknown Completed [facility] SARS-COV-2 COVID-19 MODERNA 12+ YRS VACCINE Unknown Completed [facility] SARS-COV-2 COVID-19 MODERNA 12+ YRS VACCINE Unknown Completed [facility] DTAP Unknown Completed [facility] Pneumococcal Polysaccharide, PPSV23 (PNEUMOVAX) Unknown Completed [facility] Influenza Virus Vaccine,quad Im,preserve Free 65+ (FLUAD) Unknown Completed [facility] SARS-COV-2 COVID-19 MODERNA 0.25ML BOOSTER VACCINE Unknown Completed [facility] Influenza Virus Vaccine,quad Im,preserve Free 65+ (FLUAD) Unknown Completed [facility] SARS-COV-2 COVID-19 VACCINE 12 YRS+, BIVALENT 0.5ML, IM, (MODERNA-BLUE TOP) Unknown Completed [facility] Influenza Virus Vaccine,quad Im,preserve Free 65+ (FLUAD) Unknown Completed [facility] Pneumococcal 20 Conjugate, PCV20 (Prevnar 20) Unknown Completed [facility] SARS-COV-2 COVID-19 MODERNA 12+ YRS VACCINE Unknown Completed [facility] SARS-COV-2 COVID-19 MODERNA 12+ YRS VACCINE Unknown Completed [facility] DTAP Unknown Completed [facility] Pneumococcal Polysaccharide, PPSV23 (PNEUMOVAX) Unknown Completed [facility] Influenza Virus Vaccine,quad Im,preserve Free 65+ (FLUAD) Unknown Completed [facility] SARS-COV-2 COVID-19 MODERNA 0.25ML BOOSTER VACCINE Unknown Completed [facility] Influenza Virus Vaccine,quad Im,preserve Free 65+ (FLUAD) Unknown Completed [facility] SARS-COV-2 COVID-19 VACCINE 12 YRS+, BIVALENT 0.5ML, IM, (MODERNA-BLUE TOP) Unknown Completed [facility] Influenza Virus Vaccine,quad Im,preserve Free 65+ (FLUAD) Unknown Completed [facility] Pneumococcal 20 Conjugate, PCV20 (Prevnar 20) Unknown Completed [facility] SARS-COV-2 COVID-19 MODERNA 12+ YRS VACCINE Unknown Completed [facility] SARS-COV-2 COVID-19 MODERNA 12+ YRS VACCINE Unknown Completed [facility] DTAP Unknown Completed [facility] Pneumococcal Polysaccharide, PPSV23 (PNEUMOVAX) Unknown Completed [facility] Influenza Virus Vaccine,quad Im,preserve Free 65+ (FLUAD) Unknown Completed [facility] SARS-COV-2 COVID-19 MODERNA 0.25ML BOOSTER VACCINE Unknown Completed [facility] Influenza Virus Vaccine,quad Im,preserve Free 65+ (FLUAD) Unknown Completed [facility] SARS-COV-2 COVID-19 VACCINE 12 YRS+, BIVALENT 0.5ML, IM, (MODERNA-BLUE TOP) Unknown Completed [facility] Influenza Virus Vaccine,quad Im,preserve Free 65+ (FLUAD) Unknown Completed [facility] Pneumococcal 20 Conjugate, PCV20 (Prevnar 20) Unknown Completed [facility] Vital Signs Vital Name Observation Time Observation Value Comments S ource Systolic blood pressure 2023-11-03 21:45:00 175 mm[Hg] [facility] Diastolic blood pressure 2023-11-03 21:45:00 64 mm[Hg] [facility] Heart rate 2023-11-03 21:45:00 77 /min Un[facility] Body height 2023-11-03 21:45:00 167.6 cm [facility] Body weight 2023-11-03 21:45:00 62.143 kg [facility] BMI 2023-11-03 21:45:00 22.11 kg/m2 [facility] Oxygen saturation in Arterial blood by Pulse oximetry 2023-11-03 21:45:00 97 /min [facility] Systolic blood pressure 2023-10-01 04:00:00 164 mm[Hg] [facility] Diastolic blood pressure 2023-10-01 04:00:00 64 mm[Hg] [facility] Heart rate 2023-10-01 04:00:00 73 /min [facility] Respiratory rate 2023-10-01 04:00:00 20 /min [facility] Oxygen saturation in Arterial blood by Pulse oximetry 2023-10-01 04:00:00 99 /min [facility] Body temperature 2023-10-01 01:05:28 37.11 [facility] Body height 2023-09-30 23:33:00 167.6 cm [facility] Body weight 2023-09-30 23:33:00 62.143 kg [facility] BMI 2023-09-30 23:33:00 22.11 kg/m2 [facility] Systolic blood pressure 2023-09-19 16:32:00 108 mm[Hg] [facility] Diastolic blood pressure 2023-09-19 16:32:00 49 mm[Hg] [facility] Heart rate 2023-09-19 16:32:00 65 /min [facility] 2023-09-19 16:32:00 18 /min [facility] Body height 2023-09-19 16:32:00 [facility] 2023-09-19 16:32:00 [facility]37 [facility] 2023-09-19 16:32:00 22.19 kg[facility]m2 [facility] in Arterial blood by Pulse oximetry 2023-09-19 16:32:00 100 /min [facility] Systolic blood pressure 2023-05-13 16:55:00 130 mm[Hg] [facility] Diastolic blood pressure 2023-05-13 16:55:00 58 mm[Hg] [facility] Heart rate 2023-05-13 16:49:00 60 /min [facility] Body height 2023-05-13 16:49:00 167.6 cm Univ [facility] Oxygen saturation in Arterial blood by Pulse oximetry 2023-05-13 16:49:00 100 /min [facility] Systolic blood pressure 2023-05-13 15:28:00 130 mm[Hg] [facility] Diastolic blood pressure 2023-05-13 15:28:00 74 mm[Hg] [facility] Heart rate 2023-05-13 15:28:00 86 /min [facility] Body height 2023-05-13 15:28:00 167.6 cm [facility] Body weight 2023-05-13 15:28:00 63.322 kg Univ [facility] BMI 2023-05-13 15:28:00 22.53 kg/m2 [facility] O[facility] saturation in Arterial blood by Pulse oximetry 2023-05-13 15:28:00 100 /min [facility] Body weight 2023-02-21 17:00:00 64.9 kg Univ [facility] BMI 2023-02-21 17:00:00 23.09 kg/m2 [facility] Systolic blood pressure 2023-02-21 16:44:00 150 mm[Hg] [facility] Diastolic blood pressure 2023-02-21 16:44:00 61 mm[Hg] [facility] Heart rate 2023-02-21 16:44:00 57 /min [facility] Body temperature 2023-02-21 16:44:00 36.61 [facility] Respiratory rate 2023-02-21 16:44:00 20 /min [facility] Oxygen saturation in Arterial blood by Pulse oximetry 2023-02-21 16:44:00 100 /min [facility] Body height 2023-02-20 13:14:00 167.6 cm [facility] Systolic blood pressure 2022-12-24 21:44:00 155 mm[Hg] [facility] Diastolic blood pressure 2022-12-24 21:44:00 65 mm[Hg] [facility] Heart rate 2022-12-24 21:44:00 63 /min [facility] Respiratory rate 2022-12-24 21:40:00 18 /min [facility] Body height 2022-12-24 21:40:00 167.6 cm [facility] Body weight 2022-12-24 21:40:00 69.854 kg [facility] BMI 2022-12-24 21:40:00 24.86 kg/m2 [facility] Systolic blood pressure 2022-12-06 23:00:00 140 mm[Hg] [facility] Diastolic blood pressure 2022-12-06 23:00:00 74 mm[Hg] [facility] Heart rate 2022-12-06 23:00:00 62 /min [facility] Respiratory rate 2022-12-06 23:00:00 14 /min [facility] Oxygen saturation in Arterial blood by Pulse oximetry 2022-12-06 23:00:00 98 /min [facility] Body temperature 2022-12-06 19:58:00 36.83 [facility] Body height 2022-12-06 19:58:00 167.6 cm [facility] Body weight 2022-12-06 19:58:00 66.225 kg [facility] BMI 2022-12-06 19:58:00 23.57 kg/m2 [facility] Body height 2022-09-19 19:33:00 167.6 cm [facility] Body weight 2022-09-19 19:33:00 66.225 kg [facility] BMI 2022-09-19 19:33:00 23.57 kg/m2 [facility] Systolic blood pressure 2022-09-10 19:11:00 151 mm[Hg] [facility] Diastolic blood pressure 2022-09-10 19:11:00 62 mm[Hg] [facility] Heart rate 2022-09-10 19:02:00 65 /min [facility] Body height 2022-09-10 19:02:00 167.6 cm [facility] Body weight 2022-09-10 19:02:00 66.361 kg [facility] BMI 2022-09-10 19:02:00 23.61 kg/m2 [facility] Oxygen saturation in Arterial blood by Pulse oximetry 2022-09-10 19:02:00 98 /min [facility] Body height 2022-09-04 18:00:00 167.6 cm [facility] Body weight 2022-09-04 18:00:00 66.679 [address] [facility] BMI 2022-09-04 18:00:00 23.73 kg/m2 Univ [facility] Systolic blood pressure 2022-05-10 21:21:00 147 mm[Hg] [facility] Diastolic blood pressure 2022-05-10 21:21:00 69 mm[Hg] [facility] Heart rate 2022-05-10 21:21:00 64 /[facility] Body height 2022-05-10 21:21:00 167.6 cm [facility] Body weight 2022-05-10 21:21:00 66.679 kg [facility] BMI 2022-05-10 21:21:00 23.73 kg/m2 [facility] Oxygen saturation in Arterial blood by Pulse oximetry 2022-05-10 21:21:00 100 /min [facility] Procedures Procedure Date / Time Performed Performing Clinician Source URINALYSIS 2023-10-01 02:24[facility] URINE DRUG (IMMUNOASSAY) - COMPREHENSIVE DRUG SCREEN W/O REFLEX 2023-10-01 02:24:00 [facility] CT HEAD WO CONTRAST 2023-10-01 01:19:36 Cherelle [facility] TROPONIN I 2023-10-01 00:51:00 [facility] COMP. METABOLIC PANEL ([id number]) 2023-10-01 00:51:00 [facility] CBC WITH DIFF 2023-10-01 00:51:00 [facility] N-TERMINAL PRO-BNP 2023-10-01 00:51:00 [facility] CONSENT/REFUSAL FOR DIAGNOSIS AND TREATMENT 2023-09-30 23:26:16 Doctor Unassigned, [place] [facility] XR HIPS 2 VW BILATERAL 2023-09-19 18:20:00 Jewels Am[facility] COMP. METABOLIC PANEL ([id number]) 2023-09-19 17:56:00 Raza Am[facility] CBC WITH DIFF 2023-09-19 17:56:00 [facility] FLU VACC(),65+YR,0.5 ML,IM,ADJUVANTED,QUAD(FLU AD) 2023-09-19 16:50:14 Raza Am[facility] PNEUMOCOCCAL 20 CONJUGATE (PREVNAR 20) VACCINE 2023-09-19 16:50:14 Raza Amaya [facility] ASSIGNMENT OF BENEFITS 2023-09-19 15:33:16 Docto r Unassigned, [place] [facility] POCT URINALYSIS 2023-05-13 16:35:00 Raza Amaya [facility] PATIENT FINANCIAL POLICY 2023-05-13 14:51:01 Doctor Unassigned, [place] [facility] POCT GLUCOSE (AUTOMATED) 2023-02-21 18:19:00 Yoko Bajwa [facility] CAROTID DUPLEX BILATERAL - BY VASCULAR LAB 2023-02-21 14:41:59 Keith Cardona [facility] POCT GLUCOSE (AUTOMATED) 2023-02-21 13:20:00 Yoko Bajwa [facility] MAGNESIUM 2023-02-21 09:33:00 Imelda Vicente [facility] BASIC METABOLIC PANEL (NA, K, CL, CO2, GLUCOSE, BUN, CREATININE, CA) 2023-02-21 09:33:00 Imelda Vicente [facility] LIPID PANEL (99840)(TOTAL CHOLESTEROL, TRIGLYCERIDES, HDL) 2023-02-21 09:33:00 Keith Cardona [facility] POCT GLUCOSE (AUTOMATED) 2023-02-21 01:28:00 Yoko Bajwa [facility] POCT GLUCOSE (AUTOMATED) 2023-02-20 22:03:00 Yoko Bajwa [facility] CT HEAD WO CONTRAST 2023-02-20 19:42:48 Imelda Vicente [facility] URINE CULTURE 2023-02-20 17:35:00 Keith Cardona [facility] POCT GLUCOSE (AUTOMATED) 2023-02-20 17:09:00 Yoko Bajwa [facility] URINALYSIS 2023-02-20 16:25:00 [facility] KINASE 2023-02-20 16:02:00 Keith Cardona [facility] FERRITIN SERUM 2023-02-20 16:02:00 Keith Cardona [facility] PROLACTIN 2023-02-20 16:02:00 [facility] VITAMIN B12, LEVEL 2023-02-20 16:02:00 [facility] 2023-02-20 16:02:00 [facility] FREE T4 2023-02-20 16:02:00 [facility] THYROID STIMULATING HORMONE 2023-02-20 16:02:00 [facility] HEPATIC FUNCTION PANEL (00957) (ALB,T.PRO,BILI T,BU/BC,ALT,AST,ALK PHOS) 2023-02-20 16:02:00 [facility] BASIC METABOLIC PANEL (NA, K, CL, CO2, GLUCOSE, BUN, CREATININE, CA) 2023-02-20 16:02:00 [facility] IRON PANEL 2023-02-20 16:02:00 [facility] CBC WITH DIFF 2023-02-20 16:02:00 [facility] GLYCOS[facility] HEMOGLOBIN (A1C) 2023-02-20 16:02:00 [facility] ACTIVATED PARTIAL THRMPLAS RACHEL 2023-02-20 16:02:00 Dulce [facility] N-TERMINAL PRO-BNP 2023-02-20 16:02:00 [facility] HB ECG ROUTINE & RHYTHM STRIP 2023-02-20 15:42:27 Dulce [facility] TRANSTHORACIC ECHO (TTE) COMPLETE W/ CONTRAST 2023-02-20 15:31:00 [facility] X[facility] CHEST 1 VW 2023-02-20 14:38:00 Keith Cardona [facility] EKG-12 LEAD 2022-12-06 23:05:51 Arvind Cross [facility] CT HEAD WO CONTRAST 2022-12-06 22:19:05 Arvind Cross [facility] RAPID INFLUENZA A/B 2022-12-06 21:15:00 Arvind Cross [facility] XR CHEST 1 VW 2022-12-06 21:02:33 Arvind Cross [facility] TROPONIN I 2022-12-06 20:51:00 Arvind Cross [facility] COMP. METABOLIC PANEL (16804) 2022-12-06 20:51:00 Arvind Cross [facility] CBC WITH DIFF 2022-12-06 20:51:00 Arvind Cross [facility] URINALYSIS 2022-12-06 20:51:00 Arvind Cross [facility] COVID-19 (ID NOW RAPID TESTING) 2022-12-06 20:51:00 Arvind Cross [facility] CONSENT/REFUSAL FOR DIAGNOSIS AND TREATMENT 2022-12-06 19:47:28 Doctor Unassigned, [place] [facility] MEDICATION CORRESPONDENCE 2022-11-08 06:01:00 Do ctor Unassigned, [place] [facility] SARS-COV-2 COVID-19 VACCINE 18 YRS+, BIVALENT 0.5ML, IM (MODERNA BOOSTER) 2022-09-04 19:34:08 Doctor Unassigned, [place] [facility] FLU VACC(),65+YR,0.5 ML,IM,ADJUVANTED,QUAD(FLU AD) 2022-08-22 19:30:13 Doctor Unassigned, [place] [facility] Encounters Start Date/Time End Date/Time Encounter Type Admission Type Attending Clinicians Care Facility Care Department Encounter ID Source 2021-10-09 10:46:57 Outpatient JESUS PIZARRO [facility] [id number] [facility] 2024-02-05 09:00:00 2024-02-05 09:00:00 Outpatient GRICELDA [facility] [id number] [facility] 2023-11-12 00:00:00 2023-11-12 00:00:00 [facility] 1.2840.114 350.1.13.10 4.2.7.2.686 [id number] 092 [id number] [facility] 2023-11-11 00:00:00 2023-11-11 00:00:00 Refill Praveena [facility]ayaFormerly [facility] SANDY TRACY?[facility] 1.2840.114 350.1.13.10 4.2.7.2.686 [id number] 044 [id number] [facility] 2023 00:00:00 2023 00:00:00 [facility] 1.2840.114 350.1.13.10 4.2.7.2.686 [id number] [id number] [facility] 2023-11-04 00:00:00 2023-11-04 00:00:00 [facility] 1.0.114 350.1.13.10 4.2.7.2.686 [id number] 044 [id number] [facility] 2023-11-03 16:30:00 2023-11-03 17:09:44 Outpatient R JACKIE [facility] [id number] [facility] 2023-11-03 16:30:00 2023-11-03 17:09:44 [facility] 1.2840.114 350.1.13.10 4.2.7.2.686 [id number] [facility] 2023-11-03 00:00:00 2023-11-03 00:00:[address] [facility] SANDY TRACY?[facility] 1.2840.114 350.1.13.10 4.2.7.2.686 [id number] 092 [id number] [facility] 2023-10-30 00:00:00 2023-10-30 00:00:00 Refill [facility] DEMARCUS?[facility] 1.2.840.114 350.1.13.10 4.2.7.2.686 [id number] 092 [id number] [facility] 2023-10-29 00:00:00 2023-10-29 00:00:00 Telephone Twin Joseph [facility] DEMARCUS?[facility] 1.2.840.114 350.1.13.10 4.2.7.2.686 [id number] [id number] [facility] 2023-10-10 00:00:00 2023-10-10 00:00:00 [facility]Klyn [facility] 1.2.840.114 350.1.13.10 4.2.7.2.686 [id number] [facility] 2023-10-08 00:00:00 2023-10-08 00:00:00 Patient Secure Raza Pepe [facility] 1.2.840.114 350.1.13.10 4.2.7.2.686 [id number] 044 [id number] [facility] 2023-09-30 17:37:00 2023-09-30 22:36:00 Emergency X [facility] ERT [id number] [facility] 2023-09-30 17:37:00 2023-09-30 22:36:00 Emergency Gerald West [facility] 1.2.840.114 350.1.13.10 4.2.7.2.686 [id number] [facility] 2023-09-20 00:00:00 2023-09-20 00:00:00 Patient Secure Msg Doctor Unassigned, [place] [facility] 1.114 350.1.13.10 4.2.7.2.686 [id number] 019 [id number] [facility] 2023-09-19 12:21:44 2023-09-19 23:59:00 Hospital Encounter Jose Luis [facility] 1.114 350.1.13.10 4.2.7.2.686 [id number] [facility] 2023-09-19 12:45:00 2023-09-19 13:00:00 Naturopath Visit Lab, En Su Jose Luis [facility] 1.114 350.1.13.10 4.2.7.2.686 [id number] [facility] 2023-09-19 11:30:00 2023-09-19 12:19:49 Outpatient R JOSE LUIS [facility] [id number] [facility] 2023-09-19 11:30:00 2023-09-19 12:19:49 Office Visit Jose Luis [facility] 1.114 350.1.13.10 4.2.7.2.686 [id number] 044 [id number] [facility] 2023-09-19 00:00:00 2023-09-19 00:00:00 Orders Only Doctor Unassigned, [place] [facility] 1.114 350.1.13.10 4.2.7.2.686 [id number] [facility] 2023-09-16 00:00:00 2023-09-16 00:00:00 Teresita Shaikh [facility] 1.2.840.114 350.1.13.10 4.2.7.2.686 [id number] 092 [id number] [facility] 2023-09-09 00:00:00 2023-09-09 00:00:00 Refill Rod Kalyn V[facility] 1.2840.114 350.1.13.10 4.2.7.2.686 [id number] [facility] 2023-09-05 00:00:00 2023-09-05 00:00:00 Refill Twin Joseph [facility] DEMARCUS?[facility] 1.2840.114 350.1.13.10 4.2.7.2.686 [id number] 092 [id number] [facility] 2023-09-05 00:00:00 2023-09-05 00:00:00 Refill Raza Amaya [facility] DEMARCUS?[facility]ITAL[facility] 1.2840.114 350.1.13.10 4.2.7.2.686 [id number] 044 [id number] [facility] 2023-09-01 00:00:00 2023-09-01 00:00:00 Telephone Demetrius Mcnair [facility] 1.20.114 350.1.13.10 4.2.7.2.686 [id number] [id number] [facility] 2023-05-22 00:00:00 2023-05-22 00:00:00 Refill Twin Joseph [facility] DEMARCUS?[facility] 1.2840.114 350.1.13.10 4.2.7.2.686 [id number] 092 [id number] [facility] 2023-05-22 00:00:00 2023-05-22 00:00:00 Telephone OpalTwin cardozo [facility] DEMARCUS?[facility] 1.2.840.114 350.1.13.10 4.2.7.2.686 [id number] [id number] [facility] 2023-05-19 00:00:00 2023-05-19 00:00:00 Telephone ChantalRaza be [facility] EDMARCUS?[facility] 1.2840.114 350.1.13.10 4.2.7.2.686 [id number] 044 [id number] [facility] 2023-05-17 00:00:00 2023-05-17 00:00:00 Refill Nils Larkin [facility] 1.2840.114 350.1.13.10 4.2.7.2.686 [id number] 044 [id number] [facility] 2023-05-17 00:00:00 2023-05-17 00:00:00 Refill Twin Joseph [facility] 1.840.114 350.1.13.10 4.2.7.2.686 [id number] [id number] [facility] 2023-05-16 00:00:00 2023-05-16 00:00:00 Patient Secure Msg Doctor Unassigned, [place] [facility] 1.840.114 350.1.13.10 4.2.7.2.686 [id number] [facility] 2023-05-16 00:00:00 2023-05-16 00:00:00 Patient Secure Msg Doctor Unassigned, [place] [facility] 1.0.114 350.1.13.10 4.2.7.2.686 [id number] [id number] [facility] 2023-05-13 11:00:00 2023-05-13 12:08:32 Office Visit Manish [facility]ayaFormerly [facility] 1.2.840.114 350.1.13.10 4.2.7.2.686 [id number] 044 [id number] [facility] 2023-05-13 11:15:00 2023-05-13 11:30:00 Naturopath Visit Lab, En [facility] 1.0114 350.1.13.10 4.2.7.2.686 [id number] [facility] 2023-05-13 10:40:00 2023-05-13 11:10:12 Outpatient R [facility] [id number] [facility] 2023-05-13 10:40:00 2023-05-13 11:10:12 [facility] 1.114 350.1.13.10 4.2.7.2.686 [id number] 092 [id number] [facility] 2023-05-13 00:00:00 2023-05-13 00:00:00 Orders Only Doctor Unassigned, [place] [facility] 1.114 350.1.13.10 4.2.7.2.686 [id number] [facility] 2023-05-13 00:00:00 2023-05-13 00:00:00 RefNils Alves [facility] DEMARCUS?[facility] 1.114 350.1.13.10 4.2.7.2.686 [id number] [id number] [facility] 2023-05-13 00:00:00 2023-05-13 00:00:00 Refill Opal [facility] DEMARCUS?[facility] 1.114 350.1.13.10 4.2.7.2.686 [id number] [id number] [facility] 2023-05-09 00:00:00 2023-05-09 00:00:00 [facility]phone [facility] 1.2840.114 350.1.13.10 4.2.7.2.686 [id number] [id number] [facility] 2023-04-11 00:00:00 2023-04-11 00:00:00 Refill Tare [facility] DEMARCUS?[facility] 1.2840.114 350.1.13.10 4.2.7.2.686 [id number] [id number] [facility] 2023-03-23 00:00:00 2023-03-23 00:00:00 Refill Trae [facility] DEMARCUS?[facility] 1.2840.114 350.1.13.10 4.2.7.2.686 [id number] [id number] [facility] 2023-03-11 00:00:00 2023-03-11 00:00:00 Telephone Praveena Amayathia [facility] DEMARCUS?[facility] 1.2840.114 350.1.13.10 4.2.7.2.686 [id number] 044 [id number] [facility] 2023-03-04 00:00:00 2023-03-04 00:00:00 Patient Secure Msg Doctor Unassigned, [place] [facility] 1.2840.114 350.1.13.10 4.2.7.2.686 [id number] [id number] [facility] 2023-02-24 00:00:00 2023-02-24 00:00:00 Transition of Care Gretel Jon 1.2.840.114 350.1.13.10 4.2.7.2.686 [id number] [facility] 2023-02-20 07:59:00 2023-02-21 16:04:00 Outpatient U [facility] [id number] [facility] 2023-02-20 07:59:00 2023-02-21 16:04:00 Hospital Encounter Yoko Palacio [facility] 1.2840.114 350.1.13.10 4.2.7.2.686 [id number] [facility] 2023-02-14 00:00:00 2023-02-14 00:00:00 [facility] 1.84.114 350.1.13.10 4.2.7.2.686 [id number] 044 [id number] [facility] 2023-02-13 00:00:00 2023-02-13 00:00:00 RefTwin Keyes [facility] 1.84.114 350.1.13.10 4.2.7.2.686 [id number] 044 [id number] [facility] 2023-02-10 00:00:00 2023-02-10 00:00:00 Refill [facility] 1.84.114 350.1.13.10 4.2.7.2.686 [id number] 044 [id number] [facility] 2023-01-15 00:00:00 2023-01-15 00:00:00 Telephone [facility] 1.284.114 350.1.13.10 4.2.7.2.686 [id number] [id number] [facility] 2023-01-09 00:00:00 2023-01-09 00:00:00 Refill Manish [facility] 1.2840.114 350.1.13.10 4.2.7.2.686 [id number] [id number] [facility] 2023-01-08 00:00:00 2023-01-08 00:00:00 Telephone Twin Joseph [facility] SANDY TRACY?[facility] 1.2840.114 350.1.13.10 4.2.7.2.686 [id number] 092 [id number] [facility] 2022-12-31 00:00:00 2022-12-31 00:00:00 Telephone Twin Joseph [facility] 1.2840.114 350.1.13.10 4.2.7.2.686 [id number] 092 [id number] [facility] 2022-12-27 00:00:00 2022-12-27 00:00:00 Telephone Twin Joseph [facility] 1.2840.114 350.1.13.10 4.2.7.2.686 [id number] [id number] [facility] 2022-12-24 15:40:00 2022-12-24 17:05:36 Outpatient R [facility] [id number] [facility] 2022-12-24 15:40:00 2022-12-24 17:05:36 Office Visit Opal, Twin [place] [facility] 1.2.840.114 350.1.13.10 4.2.7.2.686 [id number] 092 [id number] [facility] 2022-12-19 00:00:00 2022-12-19 00:00:00 Refken Raza Amaya [facility] 1.2.840.114 350.1.13.10 4.2.7.2.686 [id number] [id number] [facility] 2022-12-06 13:58:00 2022-12-06 17:54:00 Emergency X ARVIND CROSS [facility] [id number] [facility] 2022-12-06 13:58:00 2022-12-06 17:54:00 Emergency Arvind Cross [facility] 1.2.840.114 350.1.13.10 4.2.7.2.686 [id number] [facility] 2022-12-06 00:00:00 2022-12-06 00:00:00 Telephone [facility] DEM[facility]US[facility] 1.2840.114 350.1.13.10 4.2.7.2.686 [id number] 044 [id number] [facility] 2022-11-21 00:00:00 2022-11-21 00:00:00 Refill Jose Luis [facility] 1.2840.114 350.1.13.10 4.2.7.2.686 [id number] 044 [id number] [facility] 2022-11-20 00:00:00 2022-11-20 00:00:00 [facility] 1.2840.114 350.1.13.10 4.2.7.2.686 [id number] [facility] 2022-11-19 00:00:00 2022-11-19 00:00:00 Telephone Jose LuisPraveenaRazaEC[facility] DEMARCUS?[facility] 1.2840.114 350.1.13.10 4.2.7.2.686 [id number] 044 [id number] [facility] 2022-11-12 00:00:00 2022-11-12 00:00:00 Refill Kalyn Rod [facility] SANDY TRACY?[facility] 1.2840.114 350.1.13.10 4.2.7.2.686 [id number] [facility] 2022-11-08 00:00:00 2022-11-08 00:00:00 Orders Only Doctor Unassigned, [place] [facility] 1.2840.114 350.1.13.10 4.2.7.2.686 [id number] [facility] 2022 00:00:00 2022 00:00:00 Refill Raza Amaya [facility] 1.2840.114 350.1.13.10 4.2.7.2.686 [id number] 044 [id number] [facility] 2022-10-28 00:00:00 2022-10-28 00:00:00 Refill Ana Li [facility] DEMARCUS?[facility] 1.2840.114 350.1.13.10 4.2.7.2.686 [id number] 044 [id number] [facility] 2022-10-27 00:00:00 2022-10-27 00:00:00 Refill Doctor Unassigned, [place] [facility] 1.2840.114 350.1.13.10 4.2.7.2.686 [id number] [facility] 2022-10-27 00:00:00 2022-10-27 00:00:00 Refill Raza Amaya [facility] 1.2840.114 350.1.13.10 4.2.7.2.686 [id number] 044 [id number] [facility] 2022-10-06 00:00:00 2022-10-06 00:00:00 Refken [facility]ve[facility]At[facility] 1.284.114 350.1.13.10 4.2.7.2.686 [id number] 044 [id number] [facility] 2022-09-19 15:10:00 2022-09-19 23:59:00 Outpatient R [facility] [id number] [facility] 2022-09-19 15:00:00 2022-09-19 15:15:00 Office Visit Marcel Kalyn [facility] DEMARCUS?[facility] 1.84.114 350.1.13.10 4.2.7.2.686 [id number] [facility] 2022-09-10 15:15:00 2022-09-10 15:30:00 [facility]uropath [facility], [facility] 1.84.114 350.1.13.10 4.2.7.2.686 [id number] [facility] 2022-09-10 15:15:00 2022-09-10 14:59:01 [facility] [id number] [facility] 2022-09-10 14:00:00 2022-09-10 14:40:58 [facility] 1.84.114 350.1.13.10 4.2.7.2.686 [id number] [facility] 2022-09-06 00:00:00 2022-09-06 00:00:00 Telephone Demetrius Mcnair [facility] 1..114 350.1.13.10 4.2.7.2.686 [id number] [facility] 2022-09-04 13:15:00 2022-09-04 14:14:12 Outpatient Devan ROD [facility] [id number] [facility] 2022-09-04 13:15:00 2022-09-04 14:14:12 Office Visit Marcel [facility] DEMARCUS?[facility] 1..840.114 350.1.13.10 4.2.7.2.686 [id number] [facility] 2022-09-04 13:40:00 2022-09-04 13:50:00 Imm/Inj Visit Vaccine, En Su Cbc Danial Marcel [facility] DEMARCUS?[facility] 1..840.114 350.1.13.10 4.2.7.2.686 [id number] [facility] 2022-08-22 14:40:00 2022-08-22 15:00:00 Imm/Inj Visit Nurse, En Su [facility] 1..840.114 350.1.13.10 4.2.7.2.686 [id number] [facility] 2022-08-22 14:40:00 2022-08-22 14:40:00 Outpatient R MARCEL [facility] [id number] [facility] 2022-08-05 00:00:00 2022-08-05 00:00:00 Refill Ana Li [facility] 1..840.114 350.1.13.10 4.2.7.2.686 [id number] [facility] 2022-05-22 00:00:00 2022-05-22 00:00:00 Patient Secure Msg Doctor Unassigned, [place] [facility] 1.840.114 350.1.13.10 4.2.7.2.686 [id number] [facility] [facility] 2022-05-13 00:00:00 2022-05-13 00:00:00 Telephone [place] [facility] DEMARCUS?[facility] 1.840.114 350.1.13.10 4.2.7.2.686 [id number] [facility] 2022-05-10 16:00:00 2022-05-10 16:42:37 Outpatient TWIN SALAZAR [facility] [id number] [facility] 2022-05-10 16:00:00 2022-05-10 16:42:37 [facility] [place] [facility] 1.840.114 350..13.10 4.2.7.2.686 [id number] [facility] 2022-05-10 16:00:00 2022-05-10 16:42:37 Outpatient TWIN SALAZAR [facility] [id number] [facility] 2022-05-10 16:00:00 2022-05-10 16:00:00 Outpatient TWIN SALAZAR [facility] [id number] [facility] 2022-05-10 16:00:00 2022-05-10 16:00:00 Outpatient TWIN SALAZAR [facility] [id number] [facility] 2022-05-08 00:00:00 2022-05-08 00:00:00 Telephone Ana Li [facility] DEMARCUS?[facility] 1.840.114 350.1.13.10 4.2.7.2.686 [id number] [facility] 2022-04-20 00:00:00 2022-04-20 00:00:00 Patient Secure Msg Doctor Unassigned, [place] [facility] 1.2840.114 350.1.13.10 4.2.7.2.686 [id number] [facility] 2022-04-20 00:00:00 2022-04-20 00:00:00 Patient Secure Msg Doctor Unassigned, [place] [facility] 1.2840.114 350.1.13.10 4.2.7.2.686 [id number] [facility] 2022-04-11 16:00:00 2022-04-11 17:10:26 Outpatient R ANA LI [facility] [id number] [facility] 2022-04-11 16:00:00 2022-04-11 17:10:26 [facility] 1.2.840.114 350.1.13.10 4.2.7.2.686 [id number] [facility] 2022-04-09 00:00:00 2022-04-09 00:00:00 Refill Nils Larkin [facility] 1.2.840.114 350.1.13.10 4.2.7.2.686 [id number] [facility] 2022-03-12 00:00:00 2022-03-12 00:00:00 [facility]ill [facility] 1.2.840.114 350.1.13.10 4.2.7.2.686 [id number] [facility] 2021-12-25 12:28:42 2021-12-25 23:59:00 [facility] 1.2.840.114 350.1.13.10 4.2.7.2.686 [id number] [facility] 2021-12-25 12:27:51 2021-12-25 12:27:51 Outpatient R RAZA AMAYA [facility] [id number] [facility] 2021-12-25 12:27:51 2021-12-25 12:27:51 Hospital Encounter Raza Amaya [facility] 1.2.840.114 350.1.13.10 4.2.7.2.686 [id number] [facility] 2021-12-12 00:00:00 2021-12-12 00:00:00 Patient Secure Msg Doctor Unassigned, [place] [facility] 1.2.840.114 350.1.13.10 4.2.7.2.686 [id number] [facility] 2021-12-06 11:30:00 2021-12-06 12:23:24 Office Visit Lesly Mueller [facility] 1.2.840.114 350.1.13.10 4.2.7.2.686 [id number] [facility] 2021-12-06 11:30:00 2021-12-06 12:23:24 Outpatient R LESLY [facility]UELLER [facility] [id number] [facility] 2021-12-06 11:30:00 2021-12-06 11:30:00 Outpatient R LESLY [facility]UELLER [facility] [id number] [facility] 2021-11-23 11:30:00 2021-11-23 11:30:00 Outpatient R LESLY MUELLER [facility] [id number] [facility] 2021-11-22 14:30:00 2021-11-22 14:30:00 Office Visit Jacob Wheeler [facility] 1.2.840.114 350.1.13.10 4.2.7.2.686 [id number] [facility] 2021-11-22 14:30:00 2021-11-22 14:30:00 Office Visit Jacob Wheeler [facility] [place] 1.2.840.114 350.1.13.10 4.2.7.2.686 [id number] [facility] 2021-11-22 14:30:00 2021-11-22 14:14:14 Outpatient R JACOB [facility]ELER [facility] [id number] [facility] 2021-11-22 11:30:00 2021-11-22 12:01:41 Outpatient R LESLY MUELLER [facility] [id number] [facility] 2021-11-22 11:30:00 2021-11-22 12:01:41 Office Visit Lesly Mueller [facility] 1.2.840.114 350.1.13.10 4.2.7.2.686 [id number] [facility] 2021-11-15 09:30:00 2021-11-15 11:41:00 Emergency X FARAZ MORRIS [facility] ERT [id number] [facility] 2021-11-15 09:30:00 2021-11-15 11:41:00 Emergency Faraz Morris F [facility] 1.2.840.114 350.1.13.10 4.2.7.2.686 [id number] [facility] 2021-11-12 00:00:00 2021-11-12 00:00:00 Transition of Care Gretel Jon 1.2.840.114 350.1.13.10 4.2.7.2.686 [id number] [facility] 2021-11-06 14:56:00 2021-11-09 15:52:00 Inpatient X JACOB WHEELER [facility] SPL [id number] [facility] 2021-11-06 14:56:00 2021-11-09 15:52:00 Hospital Encounter Jacob Wheeler [facility] 1..840.114 350.1.13.10 4.2.7.2.686 [id number] [facility] 2021-11-06 14:56:00 2021-11-09 15:52:00 Inpatient X JACOB WHEELER [facility] SPL [id number] [facility] 2021-11-06 10:02:00 2021-11-06 13:27:00 Emergency X BECKY ROSS [facility] ERT [id number] [facility] 2021-11-06 10:02:00 2021-11-06 13:27:00 Emergency Becky Ross S [facility] 1..840.114 350.1.13.10 4.2.7.2.686 [id number] [facility] 2021-11-06 09:30:00 2021-11-06 11:07:31 Outpatient R JOSE LUIS RAZA [facility] [id number] [facility] 2021-11-06 09:30:00 2021-11-06 11:07:31 Outpatient R JOSE LUIS [facility]ZA [facility] [id number] [facility] 2021-11-06 09:07:29 2021-11-06 11:07:31 Office Visit Raza Amaya [facility] 1..840.114 350.1.13.10 4.2.7.2.686 [id number] [facility] 2021-11-06 10:02:00 2021-11-06 10:02:00 Emergency X BECKY ROSS [facility] ERT [id number] [facility] 2021-10-25 08:43:00 2021-10-25 23:59:00 Outpatient R CHANTALJERALD [facility]ZA [facility] [id number] [facility] 2021-10-25 08:40:00 2021-10-25 23:59:00 Hospital Encounter Praveena Amayathia [facility] 1..840.114 350.1.13.10 4.2.7.2.686 [id number] [facility] 2021-10-25 09:16:48 2021-10-25 09:50:56 Office Visit Jon Roblero [facility] 1.2.840.114 350.1.13.10 4.2.7.2.686 [id number] [facility] 2021-10-25 09:00:00 2021-10-25 09:50:56 Outpatient R JON ROBLERO [facility] [id number] [facility] 2021-10-25 09:00:00 2021-10-25 09:50:56 Outpatient R JON ROBLERO [facility] [id number] [facility] 2021-10-25 09:00:00 2021-10-25 09:50:56 Outpatient R JON ROBLERO [facility] [id number] [facility] 2021-10-11 09:30:00 2021-10-11 09:30:00 Outpatient JESUS PIZARRO [facility] [id number] [facility] 2021-10-11 09:30:00 2021-10-11 09:30:00 Outpatient JESUS PIZARRO [facility] [id number] [facility] 2021-10-09 00:00:00 2021-10-09 00:00:00 [facility] 1..840.114 350.1.13.10 4.2.7.2.686 [id number] [facility] 2021-10-09 00:00:00 2021-10-09 00:00:00 Telephone Lisa Buckley [facility] 1..840.114 350.1.13.10 4.2.7.2.686 [id number] [facility] 2021-10-05 12:00:00 2021-10-05 23:59:00 [facility] 1.84.114 350.1.13.10 4.2.7.2.686 [id number] [facility] 2021-10-05 11:30:00 2021-10-05 13:55:06 Outpatient R RAZA AMAYA [facility] [id number] [facility] 2021-10-05 11:30:00 2021-10-05 13:55:06 Outpatient R RAZA AMAYA [facility] [id number] [facility] 2021-10-05 11:01:12 2021-10-05 13:55:06 Office Visit Praveena Amayathia [facility] 1..840.114 350.1.13.10 4.2.7.2.686 [id number] [facility] 2021-10-05 12:00:00 2021-10-05 12:00:00 Outpatient R RAZA AMAYA [facility] [id number] [facility] 2021-10-05 08:11:53 2021-10-05 08:54:11 Office Visit Jesus Marquez [facility] BUILD[facility] 1..840.114 350.1.13.10 4.2.7.2.686 [id number] [facility] 2021-10-05 08:00:00 2021-10-05 08:54:11 Outpatient JESUS PIZARRO [facility] [id number] [facility] 2021-10-05 08:00:00 2021-10-05 08:54:11 Outpatient JESUS PIZARRO [facility] [id number] [facility] 2021-10-05 08:00:00 2021-10-05 08:00:00 Outpatient JESUS PIZARRO [facility] [id number] [facility] 2021-10-05 00:00:00 2021-10-05 00:00:00 Prep For Surgery [facility] 1.2.840.114 350.1.13.10 4.2.7.2.686 [id number] [facility] 2021-09-27 10:09:10 2021-09-27 23:59:00 Outpatient RAZA LOCKWOOD [facility] [id number] [facility] 2021-09-27 09:40:00 2021-09-27 23:59:00 [facility] 1.2.840.114 350.1.13.10 4.2.7.2.686 [id number] [facility] 2021-09-27 09:20:00 2021-09-27 09:39:00 [facility] 1.2.840.114 350.1.13.10 4.2.7.2.686 [id number] [facility] 2021-09-27 00:00:00 2021-09-27 09:39:00 Outpatient Devan RAZA AMAYA [facility] [id number] [facility] 2021-09-27 08:45:00 2021-09-27 09:16:10 [facility] [id number] [facility] 2021-09-27 08:56:03 2021-09-27 09:11:03 Naturopath Visit Lab, Raza Medina [facility] 1..840.114 350.1.13.10 4.2.7.2.686 [id number] [facility] 2021-09-27 00:00:00 2021-09-27 00:00:00 Orders Only Doctor Unassigned, [place] [facility] 1.84.114 350.1.13.10 4.2.7.2.686 [id number] [facility] 2021-09-17 00:00:00 2021-09-17 00:00:00 [facility] 1.84.114 350.1.13.10 4.2.7.2.686 [id number] [facility] 2021-09-13 00:00:00 2021-09-13 00:00:00 Outpatient RAZA LOCKWOOD [facility] [id number] [facility] 2021-08-31 00:00:00 2021-08-31 00:00:00 Letter (Out) Doctor Unassigned, [place] [address].84.114 350.1.13.10 4.2.7.2.686 [id number] [facility] 2021-08-31 00:00:00 2021-08-31 00:00:00 Letter (Out) Doctor Unassigned, [place] [address].84.114 350.1.13.10 4.2.7.2.686 [id number] [facility] 2021-08-30 15:00:00 2021-08-30 16:54:13 Outpatient RAZA LOCKWOOD [facility] [id number] [facility] 2021-08-30 14:44:27 2021-08-30 16:54:13 Office Visit Raza Amaya [facility] 1.2.840.114 350.1.13.10 4.2.7.2.686 [id number] [facility] 2021-08-30 15:00:00 2021-08-30 15:00:00 Outpatient R RAZA AMAYA [facility] [id number] [facility] 2021-05-21 02:09:00 2021-05-21 02:09:00 Outpatient Miller_S_AH VFP VFP [id number] [facility] 2020-01-12 07:20:00 2020-01-12 07:20:00 Outpatient Refugio-Mbayo _A_AH VFP VFP [id number] [facility] 2020-01-12 07:20:00 2020-01-12 07:20:00 Outpatient Refugio-Mbayo _A_AH VFP VFP [id number] [facility] 2020-01-12 07:20:00 2020-01-12 07:20:00 Outpatient Refugio-Mbayo _A_AH VFP VFP [id number] [facility] Results Test Description Test Time Test Comments Results Result [id number][facility]-19 21:34:14* Test Item Value Reference Range Interpretation Comme nts NA (test code = 9742793080) 139 mmol/L 135-145 K (test code = 3118151039) 4.9 mmol/L 3.5-5.0 CL (test code = 9991290112) 103 mmol/L 98-108 CO2 TOTAL (test code = 3279233803) 19 mmol/L 23-31 L AGAP (test code = 9926765544) 17 2-16 H BUN (test code = 0402443432) 44 mg/dL 7-23 H GLUCOSE (test code = 4639232094) 90 mg/dL 70-110 CREATININE (test code = 6343861410) 1.53 mg/dL 0.50-1.04 H TOTAL BILI (test code = 0919219878) 0.5 mg/dL 0.1-1.1 CALCIUM (test code = 4701484258) 9.7 mg/dL 8.6-10.6 T PROTEIN (test code = 7262018034) 8.4 g/dL 6.3-8.2 H ALBUMIN (test code = 8744134714) 4.7 g/dL 3.5-5.0 ALK PHOS (test code = 6981407775) 65 U/L 34-122 ALTv (test code = 1742-6) 18 U/L 5-35 AST(SGOT) (test code = 7032918977) 21 U/L 13-40 eGFR (test code = 3083392158) 33.0 mL/min/1.73m2 MINERVA (test code = MINERVA) Association of Glomerular Filtration Rate (GFR) and Staging of Kidney Disease* + --+ --+ ------+| GFR (mL/min/1.73 m2) ?| With Kidney Damage ?| ?Without Kidney Damage+ --------+ --------+ +| ?>90 ?| ?Stage one ?| ? Normal ?+ ---+ ---+ -------+| ?60-89 ?| ?Stage two ?| ? Decreased GFR ? + --+ --+ ------+| ?30-59 ?| ?Stage three ?| ? Stage three ? + --+ --+ ------+| ?15-29 ?| ?Stage four ? | ? Stage four ?+ ---+ ---+ -------+| ?<15 (or dialysis) ? ?| ?Stage five ? | ? Stage five ?+ ---+ ---+ -------+ *Each stage assumes the associated GFR level has been in effect for at least three months. ?Stages 1 to 5, with or without kidney disease, indicate chronic kidney disease. Notes: Determination of stages one and two (with eGFR >59mL/min/1.73 m2) requires estimation of kidney damage for at least three months as defined by structural or functional abnormalities of the kidney, manifested by either:Pathological abnormalities or Markers of kidney damage (including abnormalities in the composition of the blood or urine or abnormalities in imaging tests). Lab Interpretation (test code = 72472-6) Abnormal [facility] WITH [id number] 20:40:41* Test Item Value Reference Range Interpretation Comme nts WBC (test code = 6690-2) 7.53 See_Comment [Automated messa ge] The system which generated this result transmitted reference range: 4.30 - 11.10 10*3/?L. The reference range was not used to interpret this result as normal/abnormal. RBC (test code = 789-8) 3.66 See_Comment L [Automated messa ge] The system which generated this result transmitted reference range: 3.93 - 5.25 10*6/?L. The reference range was not used to interpret this result as normal/abnormal. HGB (test code = 718-7) 10.8 g/dL 11.6-15.0 L HCT (test code = 4544-3) 34.0 % 35.7-45.2 L MCV (test code = 787-2) 92.9 fL 80.6-95.5 MCH (test code = 785-6) 29.5 pg 25.9-32.8 MCHC (test code = 786-4) 31.8 g/dL 31.6-35.1 RDW-SD (test code = 45600-4) 49.1 fL 39.0-49.9 RDW-CV (test code = 788-0) 14.4 % 12.0-15.5 PLT (test code = 777-3) 248 See_Comment [Automated messa ge] The system which generated this result transmitted reference range: 166 - 358 10*3/?L. The reference range was not used to interpret this result as normal/abnormal. MPV (test code = 21290-6) 11.8 fL 9.5-12.9 NRBC/100 WBC (test code = 0338706805) 0.0 See_Comment [Automated [employer] ssage] The system which generated this result transmitted reference range: 0.0 - 10.0 /100 WBCs. The reference range was not used to interpret this result as normal/abnormal. NRBC x10^3 (test code = 5170788826) See_Comment [Automated messa ge] The system which generated this result transmitted reference range: 10*3/?L. The reference range was not used to interpret this result as normal/abnormal. GRAN MAT (NEUT) % (test code = 770-8) 64.7 % IMM GRAN % (test code = 5182286543) 0.10 % LYMPH % (test code = 736-9) 30.1 % MONO % (test code = 5905-5) 4.1 % EOS % (test code = 713-8) 0.5 % BASO % (test code = 706-2) 0.5 % GRAN MAT x10^3(ANC) (test code = 8242325632) 4.86 10*3/uL 1.88-7.09 IMM GRAN x10^3 (test code = 5871347506) 0.00-0.06 LYMPH x10^3 (test code = 731-0) 2.27 10*3/uL 1.32-3.29 MONO x10^3 (test code = 742-7) 0.31 10*3/uL 0.33-0.92 L EOS x10^3 (test code = 711-2) 0.04 10*3/uL 0.03-0.39 BASO x10^3 (test code = 704-7) 0.04 10*3/uL 0.01-0.07 Lab Interpretation (test code = 68992-2) Abnormal [facility] WITH [id number] 20:40:41* Test Item Value Reference Range Interpretation Comme nts WBC (test code = 6690-2) 7.53 See_Comment [Automated messa ge] The system which generated this result transmitted reference range: 4.30 - 11.10 10*3/?L. The reference range was not used to interpret this result as normal/abnormal. RBC (test code = 789-8) 3.66 See_Comment L [Automated messa ge] The system which generated this result transmitted reference range: 3.93 - 5.25 10*6/?L. The reference range was not used to interpret this result as normal/abnormal. HGB (test code = 718-7) 10.8 g/dL 11.6-15.0 L HCT (test code = 4544-3) 34.0 % 35.7-45.2 L MCV (test code = 787-2) 92.9 fL 80.6-95.5 MCH (test code = 785-6) 29.5 pg 25.9-32.8 MCHC (test code = 786-4) 31.8 g/dL 31.6-35.1 RDW-SD (test code = 24057-1) 49.1 fL 39.0-49.9 RDW-CV (test code = 788-0) 14.4 % 12.0-15.5 PLT (test code = 777-3) 248 See_Comment [Automated messa ge] The system which generated this result transmitted reference range: 166 - 358 10*3/?L. The reference range was not used to interpret this result as normal/abnormal. MPV (test code = 78024-6) 11.8 fL 9.5-12.9 NRBC/100 WBC (test code = 5864295752) 0.0 See_Comment [Automated [employer] ssage] The system which generated this result transmitted reference range: 0.0 - 10.0 /100 WBCs. The reference range was not used to interpret this result as normal/abnormal. NRBC x10^3 (test code = 7567378340) See_Comment [Automated messa ge] The system which generated this result transmitted reference range: 10*3/?L. The reference range was not used to interpret this result as normal/abnormal. GRAN MAT (NEUT) % (test code = 770-8) 64.7 % IMM GRAN % (test code = 7379619432) 0.10 % LYMPH % (test code = 736-9) 30.1 % MONO % (test code = 5905-5) 4.1 % EOS % (test code = 713-8) 0.5 % BASO % (test code = 706-2) 0.5 % GRAN MAT x10^3(ANC) (test code = 9174661268) 4.86 10*3/uL 1.88-7.09 IMM GRAN x10^3 (test code = 8664607135) 0.00-0.06 LYMPH x10^3 (test code = 731-0) 2.27 10*3/uL 1.32-3.29 MONO x10^3 (test code = 742-7) 0.31 10*3/uL 0.33-0.92 L EOS x10^3 (test code = 711-2) 0.04 10*3/uL 0.03-0.39 BASO x10^3 (test code = 704-7) 0.04 10*3/uL 0.01-0.07 Lab Interpretation (test code = 93880-0) [facility] [id number] 16:55:00* Test Item Value Reference Range Interpretation Comme nts POCT U SP GRAV (test code = 3255) 1.015 mg/dl 1.005-1.025 POCT PH U (test code = 3254) 5 mg/dl 5-8 POCT U LEUK EST (test code = 3263) NEGATIVE Negative - Negative POCT U NIT (test code = 3262) NEGATIVE Negative - Negative POCT U PROT (test code = 3259) NEGATIVE Negative - Negative POCT U GLU (test code = 3256) NEGATIVE Negative - Negative POCT U KETONE (test code = 3258) POSITIVE Negative - Negative POCT U UROBILI (test code = 3260) NEGATIVE 0.2-1 POCT U BILI (test code = 3261) NEGATIVE Negative - Negative POCT U BLD (test code = 3257) NEGATIVE Negative - Negative POCT U COLOR (test code = 3266) LIGHT YELLOW POCT U APPEAR (test code = 3267) CLEAR Lab Interpretation (test code = 56735-2) Abnormal [facility] URINALYSIS W SPECIFIC [id number] 16:55:00* Test Item Value Reference Range Interpretation Comme nts POCT U SP GRAV (test code = 3255) 1.015 mg/dl 1.005-1.025 POCT PH U (test code = 3254) 5 mg/dl 5-8 POCT U LEUK EST (test code = 3263) NEGATIVE Negative - Negative POCT U NIT (test code = 3262) NEGATIVE Negative - Negative POCT U PROT (test code = 3259) NEGATIVE Negative - Negative POCT U GLU (test code = 3256) NEGATIVE Negative - Negative POCT U KETONE (test code = 3258) POSITIVE Negative - Negative POCT U UROBILI (test code = 3260) NEGATIVE 0.2-1 POCT U BILI (test code = 3261) NEGATIVE Negative - Negative POCT U BLD (test code = 3257) NEGATIVE Negative - Negative POCT U COLOR (test code = 3266) LIGHT YELLOW POCT U APPEAR (test code = 3267) CLEAR Lab Interpretation (test code = 94459-1) [facility] 18:20:49* Test Item Value Reference Range Interpretation Comme nts POCT GLU (test code = 0719555517) 125 mg/dL 70-110 H Lab Interpretation (test cod e = 23748-5) Abnormal [facility] METABOLIC PANEL (NA, K, CL, CO2, GLUCOSE, BUN, CREATININE, CA)2023-02-21 14:01:15* Test Item Value Reference Range Interpretation Comme [facility] NA (test code = 0856186124) 139 mmol/L 135-145 K (test code = 1683751257) 4.3 mmol/L 3.5-5.0 CL (test code = 2062852409) 112 mmol/L 98-108 H CO2 TOTAL (test code = 0369435334) 21 mmol/L 23-31 L AGAP (test code = 9333660476) 6 2-16 BUN (test code = 2521952914) 24 mg/dL 7-23 H GLUCOSE (test code = 7668048281) 77 mg/dL 70-110 CREATININE (test code = 7662375348) 1.39 mg/dL 0.50-1.04 H CALCIUM (test code = 4431325203) 8.4 mg/dL 8.6-10.6 L eGFR (test code = 1849585100) 36.9 mL/min/1.73m2 MINERVA (test code = MINERVA) Association of Glomerular Filtration Rate (GFR) and Staging of Kidney Disease* + --+ --+ ------+| GFR (mL/min/1.73 m2) ?| With Kidney Damage ?| ?Without Kidney Damage+ --------+ --------+ +| ?>90 ?| ?Stage one ?| ? Normal ?+ ---+ ---+ -------+| ?60-89 ?| ?Stage two ?| ? Decreased GFR ? + --+ --+ ------+| ?30-59 ?| ?Stage three ?| ? Stage three ? + --+ --+ ------+| ?15-29 ?| ?Stage four ? | ? Stage four ?+ ---+ ---+ -------+| ?<15 (or dialysis) ? ?| ?Stage five ? | ? Stage five ?+ ---+ ---+ -------+ *Each stage assumes the associated GFR level has been in effect for at least three months. ?Stages 1 to 5, with or without kidney disease, indicate chronic kidney disease. Notes: Determination of stages one and two (with eGFR >59mL/min/1.73 m2) requires estimation of kidney damage for at least three months as defined by structural or functional abnormalities of the kidney, manifested by either:Pathological abnormalities or Markers of kidney damage (including abnormalities in the composition of the blood or urine or abnormalities in imaging tests). Lab Interpretation (test code = 25902-1) [facility] [facility]2023-[facility]31 14:01:15* Test Item Value Reference Range Interpretation Comme [facility] MAGNESIUM (test code = 9612764200) 1.6 mg/dL 1.7-2.4 L Lab Interpretation (test cod e = 14357-8) Abnormal [facility] GLUCOSE (AUTOMATED)2023-02-21 13:21:23* Test Item Value Reference Range Interpretation Comme [facility] POCT GLU (test code = 1616367794) 84 mg/dL 70-110 Lab Interpretation (test cod e = 48936-0) [facility], [facility]lycerides, HDL[facility] - [id number] 10:47:39* Test Item Value Reference Range Interpretation Comme nts CHOL (test code = 5456289549) 153 mg/dL 120-200 HDL (test code = 9551452477) 33 mg/dL >=50 L HDLC RATIO (test code = 6349789177) 4.6 <=4.5 H TRIG (test code = 9743911193) 121 mg/dL 30-170 LDL CHOL (test code = 03160-9) 96 mg/dL <=160 VLDL (test code = 9043877103) 24 mg/dL 5-60 Lab Interpretation (test cod e = 55548-6) Abnormal [facility] GLUCOSE (AUTOMATED)2023-02-21 01:39:09* Test Item Value Reference Range Interpretation Comme nts POCT GLU (test code = 2338317605) 91 mg/dL 70-110 Lab Interpretation (test cod e = 00988-8) Normal [facility] GLUCOSE (AUTOMATED)2023-02-20 22:05:18* Test Item Value Reference Range Interpretation Comme nts POCT GLU (test code = 3112325404) 103 mg/dL 70-110 Lab Interpretation (test cod e = 52506-3) Normal [facility] GLUCOSE (AUTOMATED)2023-02-20 17:13:35* Test Item Value Reference Range Interpretation Comme nts POCT GLU (test code = 2612333079) 156 mg/dL 70-110 H Lab Interpretation (test cod e = 59547-7) [facility] [id number] 22:06:03* Test Item Value Reference Range Interpretation Comments TROPONIN I (test code = 2593176271) 0.003 ng/mL See_Comment [Automated message] The system which generated this result transmitted reference range: <=0.034. The reference range was not used to interpret this result as normal/abnormal. MINERVA (test code = MINERVA) Reference (Normal) Range (defined by the 99th percentile reference limit): <= 0.034 ng/mL Note: Cardiac troponin begins to rise 3-4 hours after the onset of ischemia. Repeat in 4-6 hours if the sample was drawn within 3-4 hours of the onset of the symptom and found normal. Diagnosis of myocardial injury is made with acute changes in cTn concentrations with at least one serial sample above the 99th percentile upper reference limit (URL), taken together with the patient's clinical presentation. Biotin has been reported to cause a negative bias, interpret results relative to patient's use of biotin. Lab Interpretation (test code = 86966-2) Normal [facility]. METABOLIC PANEL (96805)2022-12-06 21:54:38* Test Item Value Reference Range Interpretation Comme nts NA (test code = 5374857425) 137 mmol/L 135-145 K (test code = 5844223700) 5.0 mmol/L 3.5-5.0 CL (test code = 1472228541) 102 mmol/L 98-108 CO2 TOTAL (test code = 4476538340) 23 mmol/L 23-31 AGAP (test code = 8848711780) 2-16 BUN (test code = 4460212732) 31 mg/dL 7-23 H GLUCOSE (test code = 5601443706) 96 mg/dL 70-110 CREATININE (test code = 5310475205) 1.06 mg/dL 0.50-1.04 H TOTAL BILI (test code = 0426080478) 0.5 mg/dL 0.1-1.1 CALCIUM (test code = 5666743815) 9.6 mg/dL 8.6-10.6 T PROTEIN (test code = 4573435173) 8.0 g/dL 6.3-8.2 ALBUMIN (test code = 7335223077) 4.6 g/dL 3.5-5.0 ALK PHOS (test code = 0938517721) 88 U/L 34-122 ALTv (test code = 1742-6) 15 U/L 5-35 AST(SGOT) (test code = 4474852425) 22 U/L 13-40 eGFR (test code = 2459639987) mL/min/1.73m2 MINERVA (test code = MINERVA) Association of Glomerular Filtration Rate (GFR) and Staging of Kidney Disease* + --+ --+ ------+| GFR (mL/min/1.73 m2) ?| With Kidney Damage ?| ?Without Kidney Damage+ --------+ --------+ +| ?>90 ?| ?Stage one ?| ? Normal ?+ ---+ ---+ -------+| ?60-89 ?| ?Stage two ?| ? Decreased GFR ? + --+ --+ ------+| ?30-59 ?| ?Stage three ?| ? Stage three ? + --+ --+ ------+| ?15-29 ?| ?Stage four ? | ? Stage four ?+ ---+ ---+ -------+| ?<15 (or dialysis) ? ?| ?Stage five ? | ? Stage five ?+ ---+ ---+ -------+ *Each stage assumes the associated GFR level has been in effect for at least three months. ?Stages 1 to 5, with or without kidney disease, indicate chronic kidney disease. Notes: Determination of stages one and two (with eGFR >59mL/min/1.73 m2) requires estimation of kidney damage for at least three months as defined by structural or functional abnormalities of the kidney, manifested by either:Pathological abnormalities or Markers of kidney damage (including abnormalities in the composition of the blood or urine or abnormalities in imaging tests). Lab Interpretation (test code = 41106-1) Abnormal [facility] WITH [id number] 21:17:11* Test Item Value Reference Range Interpretation Comme nts WBC (test code = 6690-2) See_Comment [Automated SongFlamea ge] The system which generated this result transmitted reference range: 4.30 - 11.10 10*3/?L. The reference range was not used to interpret this result as normal/abnormal. RBC (test code = 789-8) See_Comment L [Automated SongFlamea ge] The system which generated this result transmitted reference range: 3.93 - 5.25 10*6/?L. The reference range was not used to interpret this result as normal/abnormal. HGB (test code = 718-7) 11.2 g/dL 11.6-15.0 L HCT (test code = 4544-3) 35.6 % 35.7-45.2 L MCV (test code = 787-2) 91.8 fL 80.6-95.5 MCH (test code = 785-6) 28.9 pg 25.9-32.8 MCHC (test code = 786-4) 31.5 g/dL 31.6-35.1 L RDW-SD (test code = 47312-8) 45.0 fL 39.0-49.9 RDW-CV (test code = 788-0) 13.3 % 12.0-15.5 PLT (test code = 777-3) See_Comment [Automated SongFlamea ge] The system which generated this result transmitted reference range: 166 - 358 10*3/?L. The reference range was not used to interpret this result as normal/abnormal. MPV (test code = 61006-1) 11.1 fL 9.5-12.9 NRBC/100 WBC (test code = 9079047143) See_Comment [Automated me ssage] The system which generated this result transmitted reference range: 0.0 - 10.0 /100 WBCs. The reference range was not used to interpret this result as normal/abnormal. NRBC x10^3 (test code = 3594482353) See_Comment [Automated messa ge] The system which generated this result transmitted reference range: 10*3/?L. The reference range was not used to interpret this result as normal/abnormal. GRAN MAT (NEUT) % (test code = 770-8) 60.7 % IMM GRAN % (test code = 6276275087) 0.10 % LYMPH % (test code = 736-9) 27.8 % MONO % (test code = 5905-5) 7.7 % EOS % (test code = 713-8) 2.8 % BASO % (test code = 706-2) 0.9 % GRAN MAT x10^3(ANC) (test code = 8137264377) 4.11 10*3/uL 1.88-7.09 IMM GRAN x10^3 (test code = 9475762301) 0.00-0.06 LYMPH x10^3 (test code = 731-0) 1.88 10*3/uL 1.32-3.29 MONO x10^3 (test code = 742-7) 0.52 10*3/uL 0.33-0.92 EOS x10^3 (test code = 711-2) 0.19 10*3/uL 0.03-0.39 BASO x10^3 (test code = 704-7) 0.06 10*3/uL 0.01-0.07 Lab Interpretation (test code = 95437-5) Abnormal [facility]"
[2023-11-12 16:07] LABS: Absolute Lymphocytes (CBC) 1.6 K/uL (0.7-4.9); Hematocrit 30.3 % (36.0-45.0); Lymphocytes % 22.8 % (15.3-44.8); MCV 87.9 fL (80-100); MPV 9.6 fL (7.6-11.3); Platelets 182 thou/uL (152-406); RBC Red Blood Cell Count 3.44 M/uL (3.86-4.86)
[2023-11-12 16:27] LABS: Potassium 4.7 mEq/L (3.5-5.1); Troponin High Sensitivity 7.7 pg/mL (<58.9)
[2023-11-12 16:30] LABS: Specific Gravity 1.014 (1.005-1.030); Urine Bacteria None Seen /HPF (<20); Urine Bilirubin NEGATIVE (Negative); Urine Blood Negative (Negative); Urine Clarity Clear (Clear); Urine Color Light-Yellow (Yellow); Urine Glucose NEGATIVE (Negative); Urine Protein NEGATIVE (Negative); Urine RBC <5 /HPF (None Seen); Urine Urobilinogen Normal (Normal)
--- NOTE | 2023-11-12 16:53 | RAD REPORT ---
EXAM DESCRIPTION: CT - Head Brain Wo Cont - 11/12/2023 4:38 pm CLINICAL HISTORY: Alteration of awareness/confusion COMPARISON: 2019 TECHNIQUE: Computed axial tomography of the head was obtained. IV contrast was not requested. All CT scans are performed using dose optimization technique as appropriate and may include automated exposure control or mA/KV adjustment according to patient size. FINDINGS: An intracranial bleed is not seen Progression in cerebral atrophy. Ventricles have become more prominent No extra-axial fluid collection is noted. Fluid within the sinuses/ mastoids is not seen. IMPRESSION: Prominence of the ventricles most likely related to cerebral atrophy. Probably less like ly this could represent normal pressure hydrocephalus. This should correlated clinically If patient's symptoms persist MRI of the brain would be recommended
--- NOTE | 2023-11-12 16:55 | RAD REPORT ---
EXAM DESCRIPTION: RAD - Pelvis - 11/12/2023 4:41 pm CLINICAL HISTORY: Pelvic pain status post injury FINDINGS: No fracture or dislocation is seen. Osteoporosis If the patient continues to have symptoms to suggest an occult fracture then MRI would be recommended
--- NOTE | 2023-11-12 16:56 | RAD REPORT ---
EXAM DESCRIPTION: Олег Single View11/12/2023 4:41 pm CLINICAL HISTORY: cough COMPARISON: 2020 FINDINGS: The lungs appear clear of acute infiltrate. The heart is normal size IMPRESSION: No acute abnormalities displayed
--- NOTE | 2023-11-12 17:34 | EDPHYS ---
Physician Documentation [facility] Name: Ana Vang Age: 78 yrs Sex: Female : 1945 Arrival Date: 11/12/2023 Time: 15:27 Bed 2 Private MD: ED Physician Derek Witt HPI: 11/12 15:53 This 78 yrs old Female presents to ER via EMS with complaints of Syncope. ec2 15:53 Patient arrives today for evaluation of progression of weakness and altered mental ec2 status. Patient reportedly has been having increased drowsiness, increased weakness, alteration in mental status. No falls no injuries no trauma, patient been lightheaded as well however has not had a fall. Patient with history of UTIs. No chest pain, no abdominal pain however patient history is limited due to altered mental status.. Historical: - Allergies: 15:30 Sulfa (Sulfonamide Antibiotics); kc6 - PMHx: 15:30 alzhiemer's disease; Anxiety; Depression; Diabetes - NIDDM; Hypertension; Dementia; kc6 Hypercholesterolemia; - PSHx: 15:30 Unable to Obtain; kc6 - Immunization history:: Adult Immunizations unknown. - Social history:: Smoking status: unknown. ROS: 15:53 Constitutional: as per hpi ec2 Exam: 15:53 Constitutional: GEN: NAD Head: atraumatic Eyes: EOMI Ears: External ears are ec2 normal. CV: regular rate LUNGS: no respiratory distress, no wheezes, no rales, no rhonchi ABD: non-distended, soft, nontender, no guarding, not rigid SKIN: no evidence of rashes MSK: no evidence of trauma NEURO: moves all extremities equally Vital Signs: 15:29 BP 163 / 68; Pulse 62; Resp 17 S; Temp 97.4(O); Pulse Ox 100% on R/A; Weight 65 kg (M); kc6 17:40 BP 105 / 73; Pulse 60; Resp 17 S; Pulse Ox 96% on R/A; kc6 21:49 BP 137 / 65; Pulse 70; Resp 16; Pulse Ox 100% ; ls5 MDM: 15:43 Patient medically screened. ec2 15:53 Data reviewed: vital signs. ED course: Patient arrives today for evaluation of ec2 generalized weakness. Examination remarkable for well-appearing nontoxic individual is otherwise in no acute distress who is currently confused. Will obtain lab work, urine studies, CT of head, chest x-ray as well as pelvis x-ray. Currently considering processes such as electrolyte disturbances, anemia, UTI, pneumonia.. 16:20 ED course: EKG independently reviewed and interpreted by me, shows normal sinus rhythm, ec2 rate of 65, no acute ST segment elevations, intervals are nonconcerning. Does have motion artifact noted.. 17:27 ED course: Metabolic profile with renal dysfunction noted with a creatinine of 1.32 and ec2 a GFR 42. CBC is reassuring. Troponin within normal ranges. Chest x-ray shows no acute intrathoracic process. CT scan of the head shows prominent ventricles, patient with known history of dementia, possible NPH. Urine is noninfectious appearing. Pelvis x-ray negative. . 17:28 ED course: Ultimately patient with worsening mental status which has been a general ec2 decline over weeks and months. Possible this may be secondary to NPH, regardless I will admit for further workup and management.. 11/12 15:52 Order name: Basic Metabolic Panel; Complete Time: 17:26 ec2 11/12 15:52 Order name: CBC with Diff; Complete Time: 17: ec2 11/12 15:52 Order name: Troponin HS; Complete Time: 17: ec2 11/12 15:52 Order name: UAM; Complete Time: 17:26 ec2 11/12 19:32 Order name: Urinalysis w/ reflexes EDMS 11/12 19:32 Order name: CBC with Automated Diff EDMS 11/12 19:32 Order name: CBC with Automated Diff EDMS 11/12 19:32 Order name: Comprehensive Metabolic Panel EDMS 11/12 19:32 Order name: Comprehensive Metabolic Panel EDIL 11/12 15:52 Order name: XRAY Chest (1 view); Complete Time: 17:26 ec2 11/12 15:52 Order name: CT Head Brain wo Cont; Complete Time: 17:26 ec2 11/12 15:52 Order name: Pelvis XRAY; Complete Time: 17:26 ec2 11/12 15:52 Order name: EKG; Complete Time: 15:53 ec2 11/12 19:32 Order name: Physical Therapy Consult EDIL 11/12 15:52 Order name: Cardiac monitoring; Complete Time: 16:18 ec2 11/12 15:52 Order name: EKG - Nurse/Tech; Complete Time: 16:18 ec2 11/12 15:52 Order name: IV Saline Lock; Complete Time: 16:18 ec2 11/12 15:52 Order name: Labs collected and sent; Complete Time: 16:18 ec2 11/12 15:52 Order name: O2 Per Protocol; Complete Time: 15:53 ec2 11/12 15:52 Order name: O2 Sat Monitoring; Complete Time: 15:53 ec2 Administered Medications: No medications were administered Disposition Summary: 11/12/23 17:33 Hospitalization Ordered Notes: Hospitalization Status: Inpatient Admission ec2 Provider: Gage Alvares ec2 Location: Telemetry/MedSurg (Inpatient) ec2 Condition: Stable ec2 Problem: an ongoing problem ec2 Symptoms: are unchanged ec2 Bed/Room Type: Standard ec2 Room Assignment: 228(11/12/23 21:37) as6 Diagnosis - Altered mental status, unspecified ec2 Forms: - Medication Reconciliation Form ec2 - SBAR form ec2 - Leadership Thank You Letter ec2 Signatures: Dispatcher [employer] Reza Keller RN RN as6 Ashley Levine RN RN kc6 Derek Witt MD MD ec2 Corrections: (The following items were deleted from the chart) 15:53 15:53 Patient medically screened. ec2 ec2 21:37 17:33 ec2 as6
--- NOTE | 2023-11-12 17:34 | ER ---
Nurse's Notes [facility] Name: Ana Vang Age: 78 yrs Sex: Female : 1945 Arrival Date: 11/12/2023 Time: 15:27 Bed 2 Private MD: Diagnosis: Altered mental status, unspecified Presentation: 11/12 15:29 Chief complaint: EMS states: pt had a syncopal episode yesterday and today. BGL en kc6 route 88, D10 given by EMS, BGL increased to 170. Coronavirus screen: At this time, the client does not indicate any symptoms associated with coronavirus-19. Ebola Screen: No symptoms or risks identified at this time. Initial Sepsis Screen: Does the patient meet any 2 criteria? Altered Mental Status. No. Patient's initial sepsis screen is negative. Does the patient have a suspected source of infection? No. Patient's initial sepsis screen is negative. Risk Assessment: Do you want to hurt yourself or someone else? Patient reports no desire to harm self or others. Onset of symptoms was November 12, 2023. 15:29 Method Of Arrival: EMS: [facility] kc6 15:29 Acuity: MARICHUY 3 kc6 Triage Assessment: 15:30 General: Appears in no apparent distress. comfortable, well groomed, well developed, kc6 Behavior is calm, cooperative, appropriate for age. Pain: Complains of pain in abdomen Pain currently is 3 out of 10 on a pain scale. EENT: No signs and/or symptoms were reported regarding the EENT system. Neuro: Level of Consciousness is awake, alert, obeys commands, Oriented to person, Appropriate for age Reports a syncopal episode. Cardiovascular: Capillary refill < 3 seconds. Respiratory: Airway is patent Trachea midline Respiratory effort is even, unlabored, Respiratory pattern is regular, symmetrical. GI: No signs and/or symptoms were reported involving the gastrointestinal system. : No signs and/or symptoms were reported regarding the genitourinary system. Derm: No signs and/or symptoms reported regarding the dermatologic system. Skin is intact, is healthy with good turgor, Skin is pink, warm \T\ dry. Musculoskeletal: No signs and/or symptoms reported regarding the musculoskeletal system. Circulation, motion, and sensation intact. Capillary refill < 3 seconds, Range of motion: intact in all extremities. Historical: - Allergies: 15:30 Sulfa (Sulfonamide Antibiotics); kc6 - PMHx: 15:30 alzhiemer's disease; Anxiety; Depression; Diabetes - NIDDM; Hypertension; Dementia; kc6 Hypercholesterolemia; - PSHx: 15:30 Unable to Obtain; kc6 - Immunization history:: Adult Immunizations unknown. - Social history:: Smoking status: unknown. Screenin:32 [facility] [place] ED Fall Risk Assessment (Adult) History of falling in the last 3 months, kc6 including since admission No falls in past 3 months (0 pts) Confusion or Disorientation Yes (5 pts) Intoxicated or Sedated No (0 pts) Impaired Gait Yes (1 pt) Mobility Assist Device Used Yes (1 pt) Altered Elimination No (0 pt) Score/Fall Risk Level 0 - 2 = Low Risk. Abuse screen: Denies threats or abuse. Denies injuries from another. Nutritional screening: No deficits noted. Tuberculosis screening: No symptoms or risk factors identified. Assessment: 15:32 Reassessment: please see triage assessment. kc6 16:32 Reassessment: Patient appears in no apparent distress at this time. No changes from kc6 previously documented assessment. Patient and/or family updated on plan of care and expected duration. Pain level reassessed. 17:32 Reassessment: Patient appears in no apparent distress at this time. No changes from kc6 previously documented assessment. Patient and/or family updated on plan of care and expected duration. Pain level reassessed. 18:32 Reassessment: Patient appears in no apparent distress at this time. No changes from kc6 previously documented assessment. Patient and/or family updated on plan of care and expected duration. Pain level reassessed. Vital Signs: 15:29 BP 163 / 68; Pulse 62; Resp 17 S; Temp 97.4(O); Pulse Ox 100% on R/A; Weight 65 kg (M); kc6 17:40 BP 105 / 73; Pulse 60; Resp 17 S; Pulse Ox 96% on R/A; kc6 21:49 BP 137 / 65; Pulse 70; Resp 16; Pulse Ox 100% ; ls5 ED Course: 15:28 Patient arrived in ED. kc6 15:30 Triage completed. kc6 15:30 Arm band placed on. kc6 15:31 Derek Witt MD is Attending Physician. ec2 15:32 Patient has correct armband on for positive identification. Bed in low position. Call kc6 light in reach. Side rails up X2. Adult w/ patient. Client placed on continuous cardiac and pulse oximetry monitoring. NIBP monitoring applied. 15:32 Maintain EMS IV. Dressing intact. Good blood return noted. Site clean \T\ dry. Gauge \T\ carroll 6 site: 22G RFA. Patient maintains SpO2 saturation greater than 95% on room air. 15:33 Ashley Levine, RN is Primary Nurse. kc6 16:18 Straight cath inserted, using sterile technique, 14 Fr. Specimen obtained. Returned kc6 clear yellow urine. Patient tolerated well. 16:40 CT Head Brain wo Cont In Process Unspecified. EDMS 16:43 XRAY Chest (1 view) In Process Unspecified. EDMS 16:43 Pelvis XRAY In Process Unspecified. EDMS 17:33 Gage Alvares MD is Hospitalizing Provider. ec2 22:12 No provider procedures requiring assistance completed. vc1 22:22 Provided Education on: need for admit. as6 22:23 Inserted saline lock: 22 gauge in left upper arm, using aseptic technique. Patient as6 admitted, IV remains in place. Administered Medications: No medications were administered Medication: 22:22 VIS not applicable for this client. as6 Outcome: 17:33 Decision to Hospitalize by Provider. ec2 22:22 Admitted to Med/surg accompanied by nurse, accompanied by tech, family with patient, as6 via stretcher, room 228, with chart, Report called to Eliza BOUCHER 22:22 Condition: stable 22:22 Instructed on the need for admit, 22:23 Patient left the ED. as6 Signatures: Dispatcher [employer] Reza Keller RN RN as6 Zarina Dominguez RN RN vc1 Ashley Levine, SANDER RN kc6 Herve Hoffmann ls5 Derek Witt MD MD ec2 Corrections: (The following items were deleted from the chart) 17:13 16:32 Reassessment: Patient appears in no apparent distress at this time. No changes kc6 from previously documented assessment. Patient and/or family updated on plan of care and expected duration. Pain level reassessed. Patient is alert, oriented x 3, equal unlabored respirations, skin warm/dry/pink. kc6
--- NOTE | 2023-11-12 18:45 | P.HP ---
Certification for Inpatient Patient admitted to: Inpatient With expected LOS: >2 Midnights Practitioner: I am a practitioner with admitting privileges, knowledge of patient current condition, hospital course, and medical plan of care. Services: Services provided to patient in accordance with Admission requirements found in Title 42 Section 412.3 of the Code of Federal Regulations Patient History Date of Service: 11/12/23 Reason for admission: ams , SYNCOPE History of Present Illness: 78-year-old female with past medical history of dementia, hypertension, borderl ine diabetes, who has been pretty functional until 2 weeks ago started having generalized weakness and worsening of altered mental status which has been going on for the last 2 weeks and has been progressively worsening and was brought to ER. Patient had history of recurrent UTIs in the past. Today patient had an episode of syncope . Patient lives with family at home.. Family had a hard time coping with her generalized weakness and syncopal episode and was brought to ER. Patient is pleasantly confused hence most of the history is obtained from the chart review and also talking with the family at the bedside. Denies any fever or chills. No nausea vomiting or diarrhea. Complains of some abdominal discomfort consistent with her constipation. Patient has been increasingly drowsy and difficult ambulation and worsening of dementia and more altered and confused than baseline Patient was assessed in the ER and is admitted for further management. Allergies Sulfa (Sulfonamide Antibiotics) Allergy (Verified 11/14/15 16:08) Hives/Rash Home medications list reviewed: Yes Home Medications: Amlodipine [Norvasc*] 5 mg PO DAILY 03/22/21 Citalopram Hydrobromide [Celexa] 40 mg PO DAILY 03/22/21 Donepezil HCl 10 mg PO BID 03/22/21 Memantine HCl [Namenda*] 10 mg PO BEDTIME 03/22/21 Metformin HCl 1,000 mg PO BID 03/22/21 Amox/Clavulanate [Augmentin 875-125 Tab] 1 each PO BID #14 tab 03/29/21 Atorvastatin Calcium [Lipitor] 40 mg PO BEDTIME #30 tab 03/29/21 traMADol HCL [Ultram*] 50 mg PO TID PRN #20 tab 03/29/21 - Past Medical/Surgical History Diabetic: Yes Past Medical History: Reviewed- Non-Contributory -: NIDDM -: HTN -: CAD -: hyperlipidemia -: anxiety -: depression -: Dementia Past Surgical History: Reviewed- Non-Contributory -: HEART STENT -: HYSTERECTOMY-tumor removal -: CATARACT SX -: sx. left foot -: Amputation digits Psychosocial/ Personal History: Patient is disabled, lives at home with her - Family History Family History: Reviewed- Non-Contributory - Family History Father -: Heart disease, Hypertension Mother -: Heart disease, Hypertension, Lung disease, Stroke, Cancer, Seizures - Social History Smoking Status: Never smoker Alcohol use: No CD- Drugs: No Caffeine use: No Review of Systems is unable to be obtained Physical Examination - Vital Signs Temperature: 98.8 F Blood Pressure: 138/76 Pulse: 78 Respirations: 18 Pulse Ox (%): 96 - Physical Exam General: Alert, Oriented x1, Demented, Confused HEENT: Normocephalic Neck: Supple Respiratory: Clear to auscultation bilaterally, Normal air movement Cardiovascular: Normal pulses, Regular rate/rhythm, Normal S1 S2, No rubs Capillary refill: <2 Seconds Gastrointestinal: Soft and benign, W/out hepatosplenomegaly, No tenderness Musculoskeletal: No clubbing, No swelling Integumentary: No rashes Neurological: Normal strength at 5/5 x4 extr, Normal tone, Dementia Lymphatics: No axilla or inguinal lymphadenopathy - Studies Laboratory Data (last 24 hrs) 11/12/23 11/12/23 15:57 15:57 WBC 6.80 Hgb 10.1 L Hct 30.3 L Plt Count 182 Sodium 134 L Potassium 4.7 BUN 40 H Creatinine 1.32 H Glucose 196 H Imagings Data: darrenrice Reason for Exam: CONFUSED Report Status: Signed EXAM DESCRIPTION: CT - Head Brain Wo Cont - 11/12/2023 4:38 pm CLINICAL HISTORY: Alteration of awareness/confusion COMPARISON: 2019 TECHNIQUE: Computed axial tomography of the head was obtained. IV contrast was not requested. All CT scans are performed using dose optimization technique as appropriate and may include automated exposure control or mA/KV adjustment according to patient size. FINDINGS: An intracranial bleed is not seen Progression in cerebral atrophy. Ventricles have become more prominent No extra-axial fluid collection is noted. Fluid within the sinuses/ mastoids is not seen. IMPRESSION: Prominence of the ventricles most likely related to cerebral atrophy. Probably less likely this could represent normal pressure hydrocephalus. This should correlated clinically Assessment and Plan - Problems (Diagnosis) (1) Acute encephalopathy Current Visit: Yes Status: Acute Plan: Possibly metabolic/related to dehydration Monitor under facility maintenance supervisor neuro vital signs closely CT head negative for any acute changes Patient did not have any history of NPH Continue home medications and titrate as needed (2) Alzheimer's dementia Current Visit: No Status: Chronic Plan: Patient has worsening of symptoms CT showed no acute changes Supportive management Will get a PT eval May need placement/home health (3) Hyponatremia Current Visit: Yes Status: Acute Plan: Possible relative dehydration Start on IV hydration Electrolytes monitor and replace accordingly (4) Acute kidney injury Current Visit: Yes Status: Acute Plan: Renal parameters monitored Started on IV hydration Recurrent UTI Started on empirically antibiotics Will stop antibiotic if cultures are negative Hypertension Diabetes Hyperlipidemia Continue home medications and titrate as needed Discharge Plan: Group Home Plan to discharge in: 48 Hours - Advance Directives Does patient have a Living Will: No Does patient have a Durable POA for Healthcare: No - Code Status/Comfort Care Code Status: Full Code Time Spent Managing Pts Care (In Minutes): 48
[2023-11-12] MEDS ORDERED: MAGNESIUM HYDROXIDE 8% 30 ML PO PRN (19:27)
[2023-11-12] MEDS ORDERED: ONDANSETRON 4 MG/2 ML VIAL IV PRN (19:27)
[2023-11-12 20:51] VITALS: BMI 28.0
[2023-11-12] MEDS: DOCUSATE NA 100 MG CAP PO SCH (21:00)
[2023-11-12] MEDS: MEMANTINE HCL 10 MG TABLET PO SCH (23:03)
[2023-11-12] MEDS: TRAMADOL HCL 50 MG TAB PO PRN (23:03)
[2023-11-12] MEDS: ATORVASTATIN 40 MG TAB PO SCH (23:03)
[2023-11-12] MEDS: DONEPEZIL HCL 5 MG TAB PO SCH (23:04)
[2023-11-12] MEDS: CEFTRIAXONE 1,000 MG in NA CHLORIDE 0.9% 50 ML IVPB SCH (23:07)
[2023-11-12] MEDS: NA CHLORIDE 0.9% 1,000 ML IV SCH (23:08)
[2023-11-12] MEDS ORDERED: DIVALPROEX DR 250 MG TAB PO SCH (23:45)
[2023-11-13] MEDS: TRAZODONE 50 MG TABLET PO SCH ×2 (00:13→21:10)
[2023-11-13] MEDS: clonazePAM 1 MG TAB PO SCH ×2 (00:13→21:10)
[2023-11-13] MEDS: CYCLOBENZAPRINE 10 MG TAB PO SCH ×3 (00:13→21:09)
[2023-11-13 02:49] LABS: Absolute Lymphocytes (CBC) 1.5 K/uL (0.7-4.9); Hematocrit 27.4 % (36.0-45.0); Lymphocytes % 28.8 % (15.3-44.8); MCV 87.2 fL (80-100); MPV 10.2 fL (7.6-11.3); Platelets 176 thou/uL (152-406); RBC Red Blood Cell Count 3.14 M/uL (3.86-4.86)
[2023-11-13 03:06] LABS: Albumin 3.3 g/dL (3.4-5.0); Bilirubin Total 0.2 mg/dL (0.2-1.0); Potassium 4.3 mEq/L (3.5-5.1); Protein, Total 7.1 g/dL (6.4-8.2)
[2023-11-13] MEDS: NA CHLORIDE 0.9% 1,000 ML IV SCH ×4 (06:00→21:10)
[2023-11-13] MEDS: INSULIN REGULAR (HUMAN) 100 UNIT/ML SQ SCH ×4 (07:30→21:00)
[2023-11-13] MEDS ORDERED: CYCLOBENZAPRINE 10 MG TAB PO SCH (09:00)
[2023-11-13] MEDS: ENOXAPARIN 30 MG/0.3 ML SQ SCH (09:07)
[2023-11-13] MEDS: CEFTRIAXONE 1,000 MG in NA CHLORIDE 0.9% 50 ML IVPB SCH (09:08)
[2023-11-13] MEDS: DONEPEZIL HCL 5 MG TAB PO SCH ×2 (09:09→21:10)
[2023-11-13] MEDS: CITALOPRAM 10 MG TABLET PO SCH (09:10)
[2023-11-13] MEDS: DOCUSATE NA 100 MG CAP PO SCH ×2 (09:10→21:10)
[2023-11-13] MEDS: AMLODIPINE 5 MG TAB PO SCH (09:11)
[2023-11-13] MEDS: DIVALPROEX DR 250 MG TAB PO SCH ×2 (09:17→21:35)
--- NOTE | 2023-11-13 11:16 | P.PN ---
Subjective Date of Service: 11/13/23 Chief Complaint: ams , SYNCOPE Pt is resting comfortably in bed with her at bedside. She has dementia. Pt presents with AMS. No other complaints. Review of Systems is unable to be obtained Neurological: Confusion Physical Examination - Vital Signs Temperature: 97.2 F Blood Pressure: 111/55 Pulse: 79 Respirations: 16 Pulse Ox (%): 100 - Physical Exam General: Alert, In no apparent distress, Demented HEENT: Atraumatic, Normocephalic, PERRLA Neck: Supple, 2+ carotid pulse no bruit Respiratory: Clear to auscultation bilaterally, Normal air movement Cardiovascular: No edema, Normal pulses, Normal S1 S2 Capillary refill: <2 Seconds Gastrointestinal: Normal bowel sounds, Soft and benign, Non-distended Musculoskeletal: No clubbing, No swelling Integumentary: No rashes, No breakdown Neurological: Normal gait, Normal speech, Normal strength at 5/5 x4 extr Lymphatics: No axilla or inguinal lymphadenopathy - Studies Laboratory Data (last 24 hrs) 11/12/23 11/12/23 15:57 15:57 WBC 6.80 Hgb 10.1 L Hct 30.3 L Plt Count 182 Sodium 134 L Potassium 4.7 BUN 40 H Creatinine 1.32 H Glucose 196 H Assessment And Plan - Plan Acute encephalopathy: Likely due to metabolic or dehydration. Pt has underlying dementia. Will continue IVF and monitor. Will follow up ammonia. Alzheimer dementia: Will continue supportive care. Hyponatremia: Na is 138. resolved. Will monitor. HADLEY: Cr is 1.23 <- 1.32. Will avoid nephrotoxin and continue IVF Recurrent UTI; Continue iv abx and follow up urine cx. Htn; Continue home med DM II: Continue accuchek, SSI and ADA diet HLD: statin DVT ppx: SCD Dispo: pending hospital course Discharge Plan: Home Plan to discharge in: 24 Hours - Code Status/Comfort Care Code Status Assessed: Yes
[2023-11-13] MEDS ORDERED: TRAZODONE 50 MG TABLET PO SCH (21:00)
[2023-11-13] MEDS ORDERED: clonazePAM 1 MG TAB PO SCH (21:00)
[2023-11-13] MEDS: ATORVASTATIN 40 MG TAB PO SCH (21:10)
[2023-11-13] MEDS: MEMANTINE HCL 10 MG TABLET PO SCH (21:10)
[2023-11-13] MEDS: ROSUVASTATIN 10 MG TAB PO SCH (21:10)
[2023-11-14] MEDS ORDERED: LORazepam 2 MG/ML VIAL IV ONE (00:30)
[2023-11-14 03:53] LABS: Absolute Lymphocytes (CBC) 1.3 K/uL (0.7-4.9); MCV 87.6 fL (80-100); MPV 9.8 fL (7.6-11.3); Platelets 142 thou/uL (152-406); RBC Red Blood Cell Count 2.73 M/uL (3.86-4.86)
[2023-11-14 04:04] LABS: Potassium 4.4 mEq/L (3.5-5.1)
[2023-11-14] MEDS: INSULIN REGULAR (HUMAN) 100 UNIT/ML SQ SCH ×4 (07:30→20:37)
[2023-11-14] MEDS: CEFTRIAXONE 1,000 MG in NA CHLORIDE 0.9% 50 ML IVPB SCH (07:54)
[2023-11-14] MEDS: NA CHLORIDE 0.9% 1,000 ML IV SCH (07:54)
[2023-11-14] MEDS: ENOXAPARIN 30 MG/0.3 ML SQ SCH (09:28)
[2023-11-14] MEDS: DONEPEZIL HCL 5 MG TAB PO SCH ×2 (09:29→20:38)
[2023-11-14] MEDS: CITALOPRAM 10 MG TABLET PO SCH (09:29)
[2023-11-14] MEDS: AMLODIPINE 5 MG TAB PO SCH (09:29)
[2023-11-14] MEDS: DIVALPROEX DR 250 MG TAB PO SCH ×2 (09:30→20:57)
[2023-11-14] MEDS: DOCUSATE NA 100 MG CAP PO SCH ×2 (09:30→20:37)
[2023-11-14] MEDS: CYCLOBENZAPRINE 10 MG TAB PO SCH ×2 (09:30→20:38)
--- NOTE | 2023-11-14 11:21 | P.PN ---
Subjective Date of Service: 11/14/23 Chief Complaint: ams , SYNCOPE Pt is resting comfortably in bed with her and daughter at bedside. She has dementia. Still confused. CT head is concerning for NPH. Consulted Neurology. Pt may need LP. No other complaints. Review of Systems is unable to be obtained General: Unremarkable Eyes: Unremarkable ENT: Unremarkable Respiratory: Unremarkable Cardiovascular: Unremarkable Gastrointestinal: Unremarkable Genitourinary: Unremarkable Musculoskeletal: Unremarkable Neurological: Confusion Lymphatics: Unremarkable Physical Examination - Vital Signs Temperature: 97.7 F Blood Pressure: 112/53 Pulse: 59 Respirations: 16 Pulse Ox (%): 96 - Physical Exam General: Alert, In no apparent distress, Oriented x3 HEENT: Atraumatic, Normocephalic, PERRLA Neck: Supple, 2+ carotid pulse no bruit Respiratory: Clear to auscultation bilaterally, Normal air movement Cardiovascular: No edema, Normal pulses, Normal S1 S2 Capillary refill: <2 Seconds Gastrointestinal: Normal bowel sounds, Soft and benign, Non-distended Musculoskeletal: No clubbing, No swelling Integumentary: No rashes, No breakdown Neurological: Normal gait, Normal speech, Normal strength at 5/5 x4 extr Assessment And Plan - Plan Acute encephalopathy: Likely due to metabolic or dehydration. Pt has underlying dementia. CT head is concerning NPH. Will consult Neurology. pt may need LP. Ammonia level is less than 15. Alzheimer dementia: Will continue supportive care. Hyponatremia: Na is 140. resolved. Will monitor. HADLEY: Cr is 1.07 <- 1.23 <- 1.32. Will avoid nephrotoxin and continue IVF Recurrent UTI; Continue iv abx and follow up urine cx. Htn; Continue home med DM II: Continue accuchek, SSI and ADA diet HLD: statin DVT ppx: SCD Dispo: pending hospital course
--- NOTE | 2023-11-14 15:13 | EKG ---
Test Date: 2023-11-12 Test Time: 15:59:12 Hog Room Supervisor: SALENA MEASUREMENT RESULTS: Intervals: Rate: 65 TN: 140 QRSD: 80 QT: 410 QTc: 426 Alber[place]on: P: 117 TN: 140 QRS: 25 T: -21 INTERPRETIVE STATEMENTS: Normal sinus rhythm with sinus arrhythmia Nonspecific T wave abnormality Abnormal ECG Compared to ECG 03/22/2021 12:51:05 T-wave abnormality now present Sinus bradycardia no longer present Electronically Signed On 11-14-23 15:09:27 REVIEW MANAGER by Raul Barnes
[2023-11-14] MEDS: ACETAZOLAMIDE 500 MG IV IV SCH ×2 (16:10→22:24)
[2023-11-14] MEDS: TRAZODONE 50 MG TABLET PO SCH (20:37)
[2023-11-14] MEDS: ATORVASTATIN 40 MG TAB PO SCH (20:37)
[2023-11-14] MEDS: ROSUVASTATIN 10 MG TAB PO SCH (20:38)
[2023-11-14] MEDS: clonazePAM 1 MG TAB PO SCH (20:38)
[2023-11-14] MEDS: MEMANTINE HCL 10 MG TABLET PO SCH (20:38)
[2023-11-15 03:05] LABS: Absolute Lymphocytes (CBC) 1.5 K/uL (0.7-4.9); Hematocrit 27.6 % (36.0-45.0); Lymphocytes % 28.4 % (15.3-44.8); MCV 88.7 fL (80-100); MPV 9.8 fL (7.6-11.3); Platelets 162 thou/uL (152-406); RBC Red Blood Cell Count 3.11 M/uL (3.86-4.86)
[2023-11-15 03:25] LABS: Potassium 4.1 mEq/L (3.5-5.1)
[2023-11-15] MEDS: INSULIN REGULAR (HUMAN) 100 UNIT/ML SQ SCH ×4 (07:30→21:00)
[2023-11-15] MEDS: DIVALPROEX DR 250 MG TAB PO SCH ×2 (09:00→21:14)
[2023-11-15] MEDS: ACETAZOLAMIDE 500 MG IV IV SCH ×2 (09:00→20:58)
[2023-11-15] MEDS ORDERED: D5 0.45 NS 1,000 ML IV ONE (09:01)
[2023-11-15] MEDS: AMLODIPINE 5 MG TAB PO SCH (10:38)
[2023-11-15] MEDS: DONEPEZIL HCL 5 MG TAB PO SCH ×2 (10:38→20:57)
[2023-11-15] MEDS: CITALOPRAM 10 MG TABLET PO SCH (10:38)
[2023-11-15] MEDS: DOCUSATE NA 100 MG CAP PO SCH ×2 (10:39→20:58)
[2023-11-15] MEDS: CYCLOBENZAPRINE 10 MG TAB PO SCH ×2 (10:39→20:57)
[2023-11-15] MEDS: ENOXAPARIN 30 MG/0.3 ML SQ SCH (10:39)
--- NOTE | 2023-11-15 13:05 | P.PN ---
Subjective Date of Service: 11/15/23 Chief Complaint: ams , SYNCOPE Pt is sleeping comfortably in bed with her at bedside. She has dementia.CT head is concerning for NPH. Consulted Neurology and placed order for LP. No other complaints. Review of Systems is unable to be obtained General: Unremarkable Eyes: Unremarkable ENT: Unremarkable Respiratory: Unremarkable Cardiovascular: Unremarkable Gastrointestinal: Unremarkable Genitourinary: Unremarkable Musculoskeletal: Unremarkable Integumentary: Unremarkable Neurological: Unremarkable Lymphatics: Unremarkable Physical Examination - Vital Signs Temperature: 97.2 F Blood Pressure: 124/68 Pulse: 70 Respirations: 17 Pulse Ox (%): 97 - Physical Exam General: Alert, In no apparent distress, Demented HEENT: Atraumatic, Normocephalic Neck: Supple, 2+ carotid pulse no bruit Respiratory: Clear to auscultation bilaterally, Normal air movement Cardiovascular: No edema, Normal pulses, Regular rate/rhythm, Normal S1 S2 Capillary refill: <2 Seconds Gastrointestinal: Normal bowel sounds, Soft and benign, Non-distended Musculoskeletal: No clubbing, No swelling Integumentary: No rashes, No breakdown, No significant lesion Neurological: Dementia Lymphatics: No axilla or inguinal lymphadenopathy Assessment And Plan - Plan Acute encephalopathy: Likely due to metabolic or dehydration. Pt has underlying dementia. CT head is concerning NPH. Consulted Neurology and physical therapist. Placed order for LP. Will continue diamox 250mg iv BID. Ammonia level is less than 15. Alzheimer dementia: Will continue supportive care. Hyponatremia: Na is 140. resolved. Will monitor. HADLEY: Cr is 1.13 <- 1.07 <- 1.23 <- 1.32. Will avoid nephrotoxin and continue IVF Recurrent UTI; Continue iv abx and follow up urine cx. Htn; Continue home med DM II: Continue accuchek, SSI and ADA diet HLD: statin DVT ppx: SCD Dispo: pending hospital course
[2023-11-15] MEDS ORDERED: WATER FOR INJ,STERILE 10 ML ONE (19:29)
[2023-11-15] MEDS: TRAZODONE 50 MG TABLET PO SCH (20:57)
[2023-11-15] MEDS: clonazePAM 1 MG TAB PO SCH (20:57)
[2023-11-15] MEDS: ROSUVASTATIN 10 MG TAB PO SCH (20:57)
[2023-11-15] MEDS: ATORVASTATIN 40 MG TAB PO SCH (20:58)
[2023-11-15] MEDS: MEMANTINE HCL 10 MG TABLET PO SCH (20:58)
[2023-11-16 03:04] LABS: Absolute Lymphocytes (CBC) 1.4 K/uL (0.7-4.9); Hematocrit 27.3 % (36.0-45.0); Lymphocytes % 25.7 % (15.3-44.8); MCV 88.4 fL (80-100); Platelets 170 thou/uL (152-406); RBC Red Blood Cell Count 3.09 M/uL (3.86-4.86)
[2023-11-16 03:21] LABS: Potassium 3.9 mEq/L (3.5-5.1)
[2023-11-16] MEDS: INSULIN REGULAR (HUMAN) 100 UNIT/ML SQ SCH ×4 (07:30→21:00)
[2023-11-16] MEDS ORDERED: TRAZODONE 50 MG TABLET PO PRN (09:27)
[2023-11-16] MEDS: AMLODIPINE 5 MG TAB PO SCH (09:33)
[2023-11-16] MEDS: DIVALPROEX DR 250 MG TAB PO SCH ×2 (09:36→20:51)
[2023-11-16] MEDS: CITALOPRAM 10 MG TABLET PO SCH (09:36)
[2023-11-16] MEDS: DOCUSATE NA 100 MG CAP PO SCH ×2 (09:36→20:51)
[2023-11-16] MEDS: DONEPEZIL HCL 5 MG TAB PO SCH ×2 (09:36→20:49)
[2023-11-16] MEDS: CYCLOBENZAPRINE 10 MG TAB PO SCH ×2 (09:36→20:49)
[2023-11-16] MEDS: ACETAZOLAMIDE 500 MG IV IV SCH ×2 (09:37→20:48)
[2023-11-16] MEDS: ENOXAPARIN 30 MG/0.3 ML SQ SCH (09:42)
--- NOTE | 2023-11-16 11:59 | P.PN ---
Subjective Date of Service: 11/16/23 Chief Complaint: ams , SYNCOPE Subjective: No new changes Patient is awake, not responding to verbal commands Patient has history of dementia and family members at bedside Not in acute distress vital signs stable <Kane Nash - Last Filed: 11/16/23 12:00> Date of Service: 11/25/23 <Kennedi Weber - Last Filed: 11/25/23 15:10> Review of Systems 10-point ROS is otherwise unremarkable <Kane Nash - Last Filed: 11/16/23 12:00> Physical Examination - Vital Signs Temperature: 97.6 F Blood Pressure: 145/60 Pulse: 60 Respirations: 14 Pulse Ox (%): 98 - Physical Exam General: Alert, Other (Dementia, poor response to verbal commands) HEENT: Atraumatic, Normocephalic Neck: Supple, 2+ carotid pulse no bruit Respiratory: Clear to auscultation bilaterally, Normal air movement Cardiovascular: No edema, Normal pulses Capillary refill: <2 Seconds Gastrointestinal: Normal bowel sounds, Soft and benign Musculoskeletal: No clubbing, No swelling Integumentary: No rashes, No significant lesion Neurological: Normal gait, Normal speech <Kane Nash - Last Filed: 11/16/23 12:00> Assessment And Plan - Current Problems (Diagnosis) (1) Recurrent UTI Current Visit: Yes Status: Acute (2) Hyperlipidemia Current Visit: Yes Status: Acute Qualifiers: Hyperlipidemia type: other hyperlipidemia Qualified Code(s): E78.49 - Other hyperlipidemia; E78.4 - Other hyperlipidemia (3) Acute encephalopathy Current Visit: Yes Status: Acute (4) Acute kidney injury Current Visit: Yes Status: Acute (5) Diabetes mellitus, type II Onset Date: 11/15/15 Current Visit: No Status: Acute (6) Hypertension Current Visit: No Status: Acute (7) Alzheimer's dementia Current Visit: No Status: Chronic - Plan Acute encephalopathy: Likely due to metabolic or dehydration. Pt has underlying dementia. CT head is concerning NPH. Consulted Neurology and physical therapist. Placed order for LP. Will continue diamox 250mg iv BID. Ammonia level is less than 15. Alzheimer dementia: Will continue supportive care.On Donepezil, and Memantine Hyponatremia: Na is 139. resolved. Will monitor. HADLEY: Cr is 1.13 <- 1.07 <- 1.23 <- 1.32. Will avoid nephrotoxin and continue IVF Recurrent UTI; Continue iv abx and follow up urine cx. Htn; Continue home med DM II: Continue accuchek, SSI and ADA diet HLD: statin DVT ppx: SCD Dispo: pending hospital course Discharge Plan: Home Plan to discharge in: 48 Hours - Code Status/Comfort Care Code Status Assessed: Yes (Full code) Code Status: Full Code Physician Review: Patient Assessed, Agree with Above Assessment and Plan Critical Care: No Time Spent Managing PTS Care (In Minutes): 35 (Minutes) <Kane Nash - Last Filed: 11/16/23 12:00> - Plan Pt seen and examined. I agree with the note by the WOOLEN TESTER. Pt needs LP due to possible NPH. <Kennedi Weber - Last Filed: 11/25/23 15:10>
[2023-11-16] MEDS: clonazePAM 1 MG TAB PO SCH (20:50)
[2023-11-16] MEDS: ATORVASTATIN 40 MG TAB PO SCH (20:51)
[2023-11-16] MEDS: MEMANTINE HCL 10 MG TABLET PO SCH (20:51)
[2023-11-16] MEDS: ROSUVASTATIN 10 MG TAB PO SCH (20:51)
[2023-11-17] MEDS: INSULIN REGULAR (HUMAN) 100 UNIT/ML SQ SCH ×4 (07:30→20:19)
[2023-11-17] MEDS: DIVALPROEX DR 250 MG TAB PO SCH ×3 (09:00→20:18)
[2023-11-17] MEDS: DOCUSATE NA 100 MG CAP PO SCH ×3 (09:00→20:17)
[2023-11-17] MEDS: DONEPEZIL HCL 5 MG TAB PO SCH ×3 (09:00→20:17)
[2023-11-17] MEDS: AMLODIPINE 5 MG TAB PO SCH ×2 (09:00→09:13)
[2023-11-17] MEDS: CITALOPRAM 10 MG TABLET PO SCH ×2 (09:00→09:15)
[2023-11-17] MEDS: ENOXAPARIN 30 MG/0.3 ML SQ SCH (09:10)
[2023-11-17] MEDS: CYCLOBENZAPRINE 10 MG TAB PO SCH ×2 (09:13→20:16)
[2023-11-17] MEDS: ACETAZOLAMIDE 500 MG IV IV SCH ×2 (09:16→20:15)
--- NOTE | 2023-11-17 09:41 | P.PN ---
Subjective Date of Service: 11/17/23 Chief Complaint: ams , SYNCOPE is at bedside is primary historian, patient not eating Patient is awake, not responding to verbal commands Patient has history of dementia and family members at bedside Not in acute distress vital signs stable HPI pretty functional until 2 weeks ago started having generalized weakness and worsening of altered mental status which has been going on for the last 2 weeks and has been progressively worsening and was brought to ER. Patient had history of recurrent UTIs in the past. Today patient had an episode of syncope . Patient lives with family at home.. Family had a hard time coping with her generalized weakness and syncopal episode and was brought to ER. Patient is pleasantly confused, Denies any fever or chills. No nausea vomiting or diarrhea. Complains of some abdominal discomfort consistent with her constipation. Patient has been increasingly drowsy and difficult ambulation and worsening of dementia and more altered and confused than baseline - Physical Exam General: Alert, Other (Dementia, poor response to verbal commands) HEENT: Atraumatic, Normocephalic Neck: Supple, 2+ carotid pulse no bruit Respiratory: Clear to auscultation bilaterally, Normal air movement Cardiovascular: No edema, Normal pulses Capillary refill: <2 Seconds Gastrointestinal: Normal bowel sounds, Soft and benign Musculoskeletal: No clubbing, No swelling Integumentary: No rashes, No significant lesion Neurological: Responds to verbal, confused Review of Systems 10-point ROS is otherwise unremarkable (EDper HPI) Physical Examination - Vital Signs Temperature: 97.5 F Blood Pressure: 117/45 Pulse: 52 Respirations: 16 Pulse Ox (%): 99 Assessment And Plan - Plan Assessment plan Recurrent acute cystitis HADLEY: Cr is 1.13 <- 1.07 <- 1.23 <- 1.32. Will avoid nephrotoxin and continue IVF Recurrent UTI; Continue iv abx and follow up urine cx. Stark catheter placed during hospitalization Dementia Neurology consulted for worsening dementia consider MRI Patient is stopped eating Speech, cognition/swallow eval Metabolic encephalopathy secondary to dehydration versus acute on chronic cystitis, versus hyponatremia Acute encephalopathy: Likely due to metabolic or dehydration. Pt has underlying dementia. CT head is concerning NPH. Consulted Neurology and physical therapist. LP Placed order for LP 11/18. Will continue diamox 250mg iv BID. Ammonia level is less than 15. Will discuss need for MRI Anorexia Poor p.o. intake Acute on chronic kidney injury wosening, BUN 24->25 creatinine 1.04-> 1.13 will add gentle IVF Microcytic anemia 10.1-9.4-8.1--9.3-9.1 hct 30.3-27.4-24.0-27-6-27.3 Hyponatremia improved Hyponatremia: Na is 139. resolved. Will monitor. Dementia Alzheimer dementia: Will continue supportive care.On Donepezil, and Memantine Hyperlipidemia Hypertension Htn; Continue home med Diabetes type 2 Accu-Cheks, sliding scale insulin DM II: Continue accuchek, SSI and ADA diet HLD: statin Full code DVT DVT ppx: SCD Dispo: pending hospital course Discharge Plan: Home Plan to discharge in: 48 Hours Discharge Plan: Home - Code Status/Comfort Care Code Status: Full Code Physician Review: Patient Assessed, Agree with Above Assessment and Plan Critical Care: No Time Spent Managing PTS Care (In Minutes): 35
[2023-11-17] MEDS: D5 0.45 NS 1,000 ML IV SCH (10:30)
[2023-11-17] MEDS: TRAMADOL HCL 50 MG TAB PO PRN (15:38)
--- NOTE | 2023-11-17 15:41 | RAD REPORT ---
EXAM DESCRIPTION: MRI - Brain Wo Cont - 11/17/2023 3:23 pm CLINICAL HISTORY: confusion COMPARISON: 11/12/2023 and 05/27/[address] TECHNIQUE: Multiplanar multisequence MRI of the brain performed without IV contrast. FINDINGS: Motion artifact significantly degrades imaging, despite attempts at repeat imaging. No evidence of acute infarct or other diffusion signal abnormality. No evidence of acute intracranial hemorrhage or abnormal extra-axial fluid collections. Moderate parenchymal volume loss. Ventricular prominence somewhat out of proportion to sulcal promine nce, stable in degree compared to the most recent head CT, however appears progressive compared 05/27 CT. Midline structures are unremarkable. Scattered periventricular and deep white matter T2/FLAIR hyperintensities, nonspecific, but suggestiv e of chronic small vessel ischemic changes. No mass effect or midline shift. Major vascular flow voids are preserved. Mastoid air cells and paranasal sinuses are clear. IMPRESSION: No acute intracranial process allowing for the degree of motion. Ventriculomegaly somewhat out proportion relative to the degree of sulcal prominence. This could rela te to centrally predominant volume loss versus normal pressure hydrocephalus. Please correlate clinic ally.
[2023-11-17 20:09] LABS: Specific Gravity 1.018 (1.005-1.030); Urine Bacteria None Seen /HPF (<20); Urine Bilirubin NEGATIVE (Negative); Urine Blood Negative (Negative); Urine Clarity Clear (Clear); Urine Color Light-Yellow (Yellow); Urine Glucose NEGATIVE (Negative); Urine Mucus Slight /HPF (None Seen); Urine Protein NEGATIVE (Negative); Urine RBC <5 /HPF (None Seen); Urine Urobilinogen Normal (Normal); Urine pH 6.5 (5.0-7.0)
[2023-11-17] MEDS: ROSUVASTATIN 10 MG TAB PO SCH (20:15)
[2023-11-17] MEDS: MEMANTINE HCL 10 MG TABLET PO SCH (20:16)
[2023-11-17] MEDS: clonazePAM 1 MG TAB PO SCH (20:17)
[2023-11-17] MEDS: ATORVASTATIN 40 MG TAB PO SCH (20:17)
[2023-11-18 03:55] LABS: Absolute Lymphocytes (CBC) 2.1 K/uL (0.7-4.9); Hematocrit 27.7 % (36.0-45.0); Lymphocytes % 36.4 % (15.3-44.8); MCV 88.8 fL (80-100); MPV 10.6 fL (7.6-11.3); Platelets 161 thou/uL (152-406); RBC Red Blood Cell Count 3.12 M/uL (3.86-4.86)
[2023-11-18 03:57] LABS: Magnesium 1.9 mg/dL (1.6-2.4); Potassium 3.9 mEq/L (3.5-5.1)
[2023-11-18] MEDS: D5 0.45 NS 1,000 ML IV SCH (04:30)
[2023-11-18] MEDS: INSULIN REGULAR (HUMAN) 100 UNIT/ML SQ SCH ×4 (07:30→20:14)
[2023-11-18] MEDS: ENOXAPARIN 30 MG/0.3 ML SQ SCH (09:00)
[2023-11-18] MEDS: AMLODIPINE 5 MG TAB PO SCH (09:44)
[2023-11-18] MEDS: CITALOPRAM 10 MG TABLET PO SCH (09:44)
[2023-11-18] MEDS: CYCLOBENZAPRINE 10 MG TAB PO SCH ×2 (09:46→20:13)
[2023-11-18] MEDS: DONEPEZIL HCL 5 MG TAB PO SCH ×2 (09:46→20:13)
[2023-11-18] MEDS: DOCUSATE NA 100 MG CAP PO SCH ×2 (09:47→19:20)
[2023-11-18] MEDS: DIVALPROEX DR 250 MG TAB PO SCH ×2 (10:10→20:13)
[2023-11-18] MEDS: ACETAZOLAMIDE 500 MG IV IV SCH ×2 (10:10→20:12)
--- NOTE | 2023-11-18 10:20 | P.PN ---
Subjective Date of Service: 11/18/23 Chief Complaint: ams , SYNCOPE Plan for IR LP today, is at bedside is primary historian, patient not eating, Patient is not responding to verbal commands, and family members at bedside Not in acute distress vital signs stable - Physical Exam General: Alert, Other (Dementia, poor response to verbal commands) HEENT: Atraumatic, Normocephalic Neck: Supple, 2+ carotid pulse no bruit Respiratory: Clear to auscultation bilaterally, Normal air movement Cardiovascular: No edema, Normal pulses Capillary refill: <2 Seconds Gastrointestinal: Normal bowel sounds, Soft and benign Musculoskeletal: No clubbing, No swelling Integumentary: No rashes, No significant lesion Neurological: Responds to verbal, confused Review of Systems per HPI Physical Examination - Vital Signs Temperature: 97.1 F Blood Pressure: 115/62 Pulse: 63 Respirations: 16 Pulse Ox (%): 100 Assessment And Plan - Plan Assessment plan hydyrocephalus LP ordered, MRI IMPRESSION: No acute intracranial process allowing for the degree of motion. Ventriculomegaly somewhat out proportion relative to the degree of sulcal prominence. This could relate to centrally predominant volume loss versus normal pressure hydrocephalus. Please correlate clinically. plan for LP, Neuro consulted severe Dementia worsening? Neurology consulted for worsening dementia consider MRI Patient has stopped eating Speech, cognition/swallow eval Metabolic encephalopathy secondary to dehydration versus acute on chronic cystitis, versus hyponatremia Acute encephalopathy: Likely due to metabolic or dehydration. Pt has underlying dementia. CT head is concerning NPH. Consulted Neurology and physical therapist. LP Placed order for LP 11/18. Will continue diamox 250mg iv BID. Ammonia level is less than 15. MRI IMPRESSION: No acute intracranial process allowing for the degree of motion. Ventriculomegaly somewhat out proportion relative to the degree of sulcal prominence. This could relate to centrally predominant volume loss versus normal pressure hydrocephalus. Please correlate clinically. plan for LP, Neuro consulted Recurrent acute cystitis HADLEY: Cr is 1.13 <- 1.07 <- 1.23 <- 1.32. Will avoid nephrotoxin and continue IVF Recurrent UTI; Continue iv abx and follow up urine cx. Stark catheter placed during hospitalization Anorexia Poor p.o. intake Acute on chronic kidney injury wosening, BUN 24->25 creatinine 1.04-> 1.13 will add gentle IVF Microcytic anemia 10.1-9.4-8.1--9.3-9.1 hct 30.3-27.4-24.0-27-6-27.3 Hyponatremia improved Hyponatremia: Na is 139. resolved. Will monitor. Dementia Alzheimer dementia: Will continue supportive care.On Donepezil, and Memantine Hyperlipidemia Hypertension Htn; Continue home med Diabetes type 2 Accu-Cheks, sliding scale insulin DM II: Continue accuchek, SSI and ADA diet HLD: statin Full code DVT DVT ppx: SCD Dispo: pending hospital course Discharge Plan: Home Discharge Plan: Home - Code Status/Comfort Care Code Status: Full Code Physician Review: Patient Assessed, Agree with Above Assessment and Plan Critical Care: No Time Spent Managing PTS Care (In Minutes): 35
[2023-11-18 14:53] LABS: Protime INR 1.08
[2023-11-18] MEDS: ATORVASTATIN 40 MG TAB PO SCH (20:13)
[2023-11-18] MEDS: MEMANTINE HCL 10 MG TABLET PO SCH (20:13)
[2023-11-18] MEDS: clonazePAM 1 MG TAB PO SCH (20:13)
[2023-11-18] MEDS: ROSUVASTATIN 10 MG TAB PO SCH (20:13)
--- NOTE | 2023-11-18 20:17 | CON ---
Reason For Consultation: Consultation called because of worsening altered mental status. History Of Present Illness: Ms. Vang is a 78-year-old right-handed patient with a histor y of moderate dementia, hypertension, diabetes mellitus, who per family, it is her and daught er at the bedside, was at baseline up to 2 weeks ago, but since then had a progressive decline in loyd reness, inability to eat, to mobilize and hydrate. She does have a history of multiple urinary tract infections and was actually brought in after a syncopal episode on the 12 of November. Since comi ng into the hospital, she has been more poorly responsive, not interacting much and eating or doing o rdinary activities. Initially, she would move in the bed, sit up, pull at the covers and turned back and forth, but for the last few days is not on any of that, just sat in bed and only receiving IV hy dration and per the family, pureed foods when put in her mouth while upright, she may swallow a few b ites, but again no interaction verbally. Her laboratory studies were remarkable for slightly low hem oglobin around 9.4, but normal white blood cells, platelets normal, and otherwise coagulation panel w as normal. Her creatinine slightly elevated from dehydration. Creatinine 1.22, blood glucose normal range from 76 to 110, normal calcium, magnesium, and her urinalysis on 2 occasions completely normal . Her urine cultures also unremarkable. Her head CT scan and subsequent brain MRI remarkable for mo derate small vessel ischemic disease. However, it is noted that the ventricles are more prominent an d out of proportion to the sulcal prominence which was stable, but progressive compared to May 27, CT scan. The radiologist suggested the possibility due to the prominent ventricular volume expan doris, the possibility of normal pressure hydrocephalus. The patient has had antiplatelet medications held and tomorrow, which is Friday, she will have high-volume lumbar puncture in addition to CSF to rule out of any infection. CT scan of the head and MRI do not show acute ischemic or hemorrhagic findings ruling out acute strok e as an etiology. In addition, her white blood cell count being normal and urinalysis being normal, suggest that urinary tract infection and systemic infection are not etiologies. In addition, her nika ctrolytes being essentially unremarkable except for mild dehydration also do not explain the patient' s encephalopathy. Past Medical History: As noted. Dyslipidemia, anxiety, depression, coronary artery disease, hyperte nsion, czc-kqenfye-rjgkstyjf diabetes mellitus. Past Surgical History: Cardiac stents, hysterectomy, cataract surgery, left foot surgery, and digit amputation. Allergies: SULFA DRUGS. Medications: At home, Norvasc 5 mg daily, citalopram 40 mg daily, donepezil 10 mg twice daily, meman elaine 10 mg twice daily, metformin 1000 mg twice daily, Augmentin twice daily. She completed Lipitor 40 mg at bedtime, tramadol 50 mg 3 times daily. Social History: The patient lives with , daughter is involved, and reported no alcohol, tobac co, or IV drug use per family. Family History: Hypertension and heart disease in father. Hypertension, heart disease, lung disease , stroke, cancer, and seizures in mother. Review of Systems: Unable to obtain as the patient is not responding verbally to tactile or verbal stimulation. Eyes ma y open and look around briefly and then close. Mouth may open and then close without verbalization. Physical Examination: Vital Signs: Blood pressure 115/62, pulse 63, respiratory rate 16, temperature 97.1, oxygen saturati on 100%. Weight 153 pounds, height 5 feet, BMI 28. General: Ms. Vang is resting in bed. Family is at the bedside. HEENT: Eyes closed. She does have some eye opening to stimulation of the feet and arms. Some mild mouth opening, but no verbalization. She did do some withdrawal of the left lower extremity when the feet were stimulated, that is noted on the right, and she did have normal tone in the upper extremit ies when the arms were moved and pulled on and her fingers and hands were moved. She does have symme tric face. She is normocephalic, atraumatic. Sclerae anicteric. Oropharynx moist. Neck: Supple. Chest: Clear. Heart: Regular. Extremities: No edema or cyanosis in the extremities. Neuro: Unable to assess any coordination or gait and again tone appears normal. Assessment: Ms. Vang is a 78-year-old patient with baseline dementia and about 2 to 3 weeks of dec lining cognitive functioning and responsiveness with syncopal episode and some dehydration. She has multiple comorbidities as noted. MRI of the brain suggests possibility of normal pressure hydrocepha alix and she is scheduled for high volume lumbar puncture tomorrow. Also central nervous system infec tions will be ruled out at that time. Plan: 1.Continue with supportive care with hydration. May address nutritional needs via either NG tube or other means as primary team sees fit. 2.We were continuing current medications crushed and the patient is up swallowing with applesauce co nsistency or as directed by Speech Therapy depending on which may be more appropriate. 3.At some point, an EEG may be helpful to determine the state of her encephalopathy. 4.She should have bed mobilization to reduce the chance of dependent ulcers. 5.She will be followed once the lumbar puncture is done. ALMA/MODL Voice ID: [id number] Report ID: [id number]
[2023-11-19] MEDS: D5 0.45 NS 1,000 ML IV SCH ×2 (02:00→17:42)
[2023-11-19 07:30] LABS: Absolute Lymphocytes (CBC) 1.7 K/uL (0.7-4.9); Hematocrit 27.7 % (36.0-45.0); Lymphocytes % 30.2 % (15.3-44.8); MCV 88.5 fL (80-100); MPV 9.7 fL (7.6-11.3); Platelets 187 thou/uL (152-406); RBC Red Blood Cell Count 3.14 M/uL (3.86-4.86)
[2023-11-19] MEDS: INSULIN REGULAR (HUMAN) 100 UNIT/ML SQ SCH ×4 (07:30→20:31)
[2023-11-19 08:17] LABS: Albumin 2.7 g/dL (3.4-5.0); Bilirubin Total 0.2 mg/dL (0.2-1.0); C-Reactive Protein 14.8 mg/L (<3.00); Magnesium 1.9 mg/dL (1.6-2.4); Potassium 4.1 mEq/L (3.5-5.1); Protein, Total 6.5 g/dL (6.4-8.2)
--- NOTE | 2023-11-19 08:40 | P.PN ---
Subjective Date of Service: 11/19/23 Chief Complaint: ams , SYNCOPE Plan for IR LP today, more alert today, is at bedside is primary historian, patient not eating, Patient is not responding to verbal commands, No acute distress vital signs stable - Physical Exam General: Alert, Other (Dementia, poor response to verbal commands) HEENT: Atraumatic, Normocephalic Neck: Supple, 2+ carotid pulse no bruit Respiratory: Clear to auscultation bilaterally, Normal air movement Cardiovascular: No edema, Normal pulses Capillary refill: <2 Seconds Gastrointestinal: Normal bowel sounds, Soft and benign Musculoskeletal: No clubbing, No swelling Integumentary: No rashes, No significant lesion Neurological: Responds to verbal, confused <Allyssa Glez - Last Filed: 11/19/23 16:28> Date of Service: 11/20/23 <Saeed Pierson - Last Filed: 11/20/23 05:35> Review of Systems per HPI <Allyssa Glez - Last Filed: 11/19/23 16:28> Physical Examination - Vital Signs Temperature: 97.4 F Blood Pressure: 93/48 Pulse: 52 Respirations: 14 Pulse Ox (%): 98 <Allyssa Glez - Last Filed: 11/19/23 16:28> Assessment And Plan - Plan Assessment plan hydyrocephalus (normal pressure hydrocephalus? pendning LP) LP ordered, MRI IMPRESSION: No acute intracranial process allowing for the degree of motion. Ventriculomegaly somewhat out proportion relative to the degree of sulcal prominence. This could relate to centrally predominant volume loss versus normal pressure hydrocephalus. Please correlate clinically. plan for LP (will measure pressure), Neuro consulted LP Opening pressure measured 9 cm H2O. A total of 8 mL clear CSF was obtained. will discuss with Neurology Plan severe Dementia worsening? Neurology consulted for worsening dementia consider MRI Patient has stopped eating Speech, cognition/swallow eval Metabolic encephalopathy secondary to dehydration versus acute on chronic cystitis, versus hyponatremia Acute encephalopathy: Likely due to metabolic or dehydration. Pt has underlying dementia. CT head is concerning NPH. Consulted Neurology and physical therapist. LP Placed order for LP 11/18. Will continue diamox 250mg iv BID. Ammonia level is less than 15. MRI IMPRESSION: No acute intracranial process allowing for the degree of motion. Ventriculomegaly somewhat out proportion relative to the degree of sulcal prominence. This could relate to centrally predominant volume loss versus normal pressure hydrocephalus. Please correlate clinically. plan for LP, Neuro consulted 11-19, will add speech eval, PT eval for passive ROM, NGT for feeding (after speaking with family) Neuro recommendations Plan: 1. Continue with supportive care with hydration. May address nutritional needs via either NG tube or other means as primary team sees fit. 2. We were continuing current medications crushed and the patient is up swallowing with applesauce consistency or as directed by Speech Therapy depending on which may be more appropriate. 3. At some point, an EEG may be helpful to determine the state of her encephalopathy. 4. She should have bed mobilization to reduce the chance of dependent ulcers. 5. She will be followed once the lumbar puncture is done. Recurrent acute cystitis HADLEY: Cr is 1.13 <- 1.07 <- 1.23 <- 1.32. Will avoid nephrotoxin and continue IVF Recurrent UTI; Continue iv abx and follow up urine cx. Stark catheter placed during hospitalization Anorexia Poor p.o. intake Acute on chronic kidney injury wosening, BUN 24->25 creatinine 1.04-> 1.13 will add gentle IVF Microcytic anemia 10.1-9.4-8.1--9.3-9.1 hct 30.3-27.4-24.0-27-6-27.3 Hyponatremia improved Hyponatremia: Na is 139. resolved. Will monitor. Dementia Alzheimer dementia: Will continue supportive care.On Donepezil, and Memantine Hyperlipidemia Hypertension Htn; Continue home med Diabetes type 2 Accu-Cheks, sliding scale insulin DM II: Continue accuchek, SSI and ADA diet HLD: statin Full code DVT DVT ppx: SCD Dispo: pending hospital course Discharge Plan: Home Discharge Plan: Home - Code Status/Comfort Care Code Status: Full Code Physician Review: Patient Assessed, Agree with Above Assessment and Plan Critical Care: No Time Spent Managing PTS Care (In Minutes): 35 <Allyssa Glez - Last Filed: 11/19/23 16:28> Date of Service: 11/19/23 Chart reviewed. Agree with plan of care as mentioned above. Lumbar puncture with an opening pressure of 9 mmHg. This is within normal limits. Lab sent and patient with elevated protein and glucose. Awaiting for Neurology input. 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 However, patient did not really improve much after lumbar puncture. Awaiting for Neurology input regarding patient's clinical condition. Family requesting transfer there is no significant improvement. I ordered a calorie count as patient is more awake alert and the was trying to feed her. She may need PEG tube placement. <Saeed Pierson - Last Filed: 11/20/23 05:35>
[2023-11-19] MEDS: AMLODIPINE 5 MG TAB PO SCH (09:00)
[2023-11-19] MEDS: ENOXAPARIN 30 MG/0.3 ML SQ SCH (09:00)
[2023-11-19] MEDS: ACETAZOLAMIDE 500 MG IV IV SCH (10:02)
[2023-11-19] MEDS: CITALOPRAM 10 MG TABLET PO SCH (10:03)
[2023-11-19] MEDS: CYCLOBENZAPRINE 10 MG TAB PO SCH (10:03)
[2023-11-19] MEDS: DOCUSATE NA 100 MG CAP PO SCH ×2 (10:03→20:31)
[2023-11-19] MEDS: DONEPEZIL HCL 5 MG TAB PO SCH (10:04)
[2023-11-19] MEDS: DIVALPROEX DR 250 MG TAB PO SCH (10:07)
[2023-11-19] MEDS ORDERED: dexAMETHasone 4 MG/ML VIAL IV ONE ×2 (10:48→19:13)
[2023-11-19] MEDS ORDERED: NA CHLORIDE 0.9% 500 ML IV ONE (10:57)
[2023-11-19 11:04] LABS: CSF Glucose 75 mg/dL (40-70)
--- NOTE | 2023-11-19 11:18 | RAD REPORT ---
EXAM DESCRIPTION: RAD - Lumbar Puncture For Dx - 11/19/2023 10:20 am CLINICAL HISTORY: Brain Wo Cont dated 11/17/2023 COMPARISON: MR brain 11/17/2023. TECHNIQUE: The procedure, risks and alternatives to the procedure were discussed with the patient's next of kin in detail. After answering all questions, both oral and written consent were obtained. Ti me-out procedure was performed. The patient was placed in an oblique prone position on the fluoroscopic table. The skin of the lower back was prepped and draped using Betadine in the usual sterile fashion. After anesthetizing the skin and deeper soft tissues with 1% lidocaine, a 22 gauge needle was advanced into the thecal sac at the L3-4 level. Opening pressure measured 9 cm H2O. A total of 8 mL clear CSF was obtained. At the conclusion of the procedure the needle was withdrawn and a sterile bandage placed over the pun cture site. The patient tolerated the procedure well without immediate complications. Post-procedure care and precaution instructions were discussed with the patient before the LP procedure. Fluoroscopy time: 0:32 minute Radiation dose: 6.21 mGy IMPRESSION: Successful fluoroscopic guided lumbar puncture. All obtained fluid was sent to the lab f or studies requested by the referring physician. Opening pressure measured 9 cm H2O.
[2023-11-19 12:48] LABS: Appearance CLEAR (CLEAR); Body Fluid Source CSF; Body Fluid WBC 2 /mm^3; Color of fluid Colorless (COLORLESS)
[2023-11-19] MEDS ORDERED: VALPROATE NA 500 MG/5 ML INJ IV ONE (20:31)
[2023-11-19] MEDS: ROSUVASTATIN 10 MG TAB PO SCH (20:31)
[2023-11-19] MEDS: VALPROATE SODIUM INJ 500 MG in NA CHLORIDE 0.9% 100 ML IV SCH (20:43)
[2023-11-20 07:29] LABS: Absolute Lymphocytes (CBC) 1.1 K/uL (0.7-4.9); Lymphocytes % 16.8 % (15.3-44.8); MCV 88.4 fL (80-100); MPV 10.5 fL (7.6-11.3); Platelets 191 thou/uL (152-406); RBC Red Blood Cell Count 3.28 M/uL (3.86-4.86)
[2023-11-20] MEDS: INSULIN REGULAR (HUMAN) 100 UNIT/ML SQ SCH ×4 (07:30→19:17)
[2023-11-20 07:46] LABS: Albumin 2.7 g/dL (3.4-5.0); Bilirubin Total 0.2 mg/dL (0.2-1.0); Magnesium 1.9 mg/dL (1.6-2.4); Potassium 4.3 mEq/L (3.5-5.1); Protein, Total 7.1 g/dL (6.4-8.2); Thyroid Stimulating Hormone 1.1 uIU/mL (0.358-3.740)
[2023-11-20] MEDS: ENOXAPARIN 30 MG/0.3 ML SQ SCH (08:41)
[2023-11-20] MEDS: DOCUSATE NA 100 MG CAP PO SCH ×2 (08:42→19:16)
[2023-11-20] MEDS: VALPROATE SODIUM INJ 500 MG in NA CHLORIDE 0.9% 100 ML IV SCH ×2 (08:42→20:54)
--- NOTE | 2023-11-20 10:12 | P.PN ---
Subjective Date of Service: 11/20/23 Chief Complaint: ams , SYNCOPE Plan for IR LP today, more alert today, is at bedside is primary historian, patient not eating, Patient is not responding to verbal commands, No acute distress vital signs stable - Physical Exam General: Alert, Other (Dementia, poor response to verbal commands) HEENT: Atraumatic, Normocephalic Neck: Supple, 2+ carotid pulse no bruit Respiratory: Clear to auscultation bilaterally, Normal air movement Cardiovascular: No edema, Normal pulses Capillary refill: <2 Seconds Gastrointestinal: Normal bowel sounds, Soft and benign Musculoskeletal: No clubbing, No swelling Integumentary: No rashes, No significant lesion Neurological: Responds to verbal, confused Physical Examination - Vital Signs Temperature: 98.3 F Blood Pressure: 144/78 Pulse: 59 Respirations: 14 Pulse Ox (%): 99 Assessment And Plan - Plan Assessment plan hydyrocephalus (normal pressure hydrocephalus? pendning LP) LP ordered, MRI IMPRESSION: No acute intracranial process allowing for the degree of motion. Ventriculomegaly somewhat out proportion relative to the degree of sulcal prominence. This could relate to centrally predominant volume loss versus normal pressure hydrocephalus. Please correlate clinically. plan for LP (will measure pressure), Neuro consulted LP Opening pressure measured 9 cm H2O. A total of 8 mL clear CSF was obtained. will discuss with Neurology Plan severe Dementia worsening? Neurology consulted for worsening dementia consider MRI Patient has stopped eating Speech, cognition/swallow eval Metabolic encephalopathy secondary to dehydration versus acute on chronic cystitis, versus hyponatremia Acute encephalopathy: Likely due to metabolic or dehydration. Pt has underlying dementia. CT head is concerning NPH. Consulted Neurology and physical therapist. LP Placed order for LP 11/18. Will continue diamox 250mg iv BID. Ammonia level is less than 15. MRI IMPRESSION: No acute intracranial process allowing for the degree of motion. Ventriculomegaly somewhat out proportion relative to the degree of sulcal prominence. This could relate to centrally predominant volume loss versus normal pressure hydrocephalus. Please correlate clinically. plan for LP, Neuro consulted 11-19, will add speech eval, PT eval for passive ROM, NGT for feeding (after speaking with family) Neuro recommendations Plan: 1. Continue with supportive care with hydration. May address nutritional needs via either NG tube or other means as primary team sees fit. 2. We were continuing current medications crushed and the patient is up swallowing with applesauce consistency or as directed by Speech Therapy depending on which may be more appropriate. 3. At some point, an EEG may be helpful to determine the state of her encephalopathy. 4. She should have bed mobilization to reduce the chance of dependent ulcers. 5. She will be followed once the lumbar puncture is done. Recurrent acute cystitis HADLEY: Cr is 1.13 <- 1.07 <- 1.23 <- 1.32. Will avoid nephrotoxin and continue IVF Recurrent UTI; Continue iv abx and follow up urine cx. Stark catheter placed during hospitalization Anorexia Poor p.o. intake Acute on chronic kidney injury wosening, BUN 24->25 creatinine 1.04-> 1.13 will add gentle IVF Microcytic anemia 10.1-9.4-8.1--9.3-9.1 hct 30.3-27.4-24.0-27-6-27.3 Hyponatremia improved Hyponatremia: Na is 139. resolved. Will monitor. Dementia Alzheimer dementia: Will continue supportive care.On Donepezil, and Memantine Hyperlipidemia Hypertension Htn; Continue home med Diabetes type 2 Accu-Cheks, sliding scale insulin DM II: Continue accuchek, SSI and ADA diet HLD: statin Full code DVT DVT ppx: SCD Dispo: pending hospital course Discharge Plan: Home Physician Review: Patient Assessed, Agree with Above Assessment and Plan
--- NOTE | 2023-11-20 10:15 | P.PN ---
Subjective Date of Service: 11/20/23 Chief Complaint: ams , SYNCOPE more alert today, nonverbal, history of Dementia, is at bedside is primary historian, speech eval, No acute distress vital signs stable, speech eval ordered - Physical Exam General: Alert, Other (Dementia, poor response to verbal commands) HEENT: Atraumatic, Normocephalic Neck: Supple, 2+ carotid pulse no bruit Respiratory: Clear to auscultation bilaterally, Normal air movement Cardiovascular: No edema, Normal pulses Capillary refill: <2 Seconds Gastrointestinal: Normal bowel sounds, Soft and benign Musculoskeletal: No clubbing, No swelling Integumentary: No rashes, No significant lesion Neurological: Responds to verbal, confused Review of Systems PER HPI Physical Examination - Vital Signs Temperature: 98.3 F Blood Pressure: 144/78 Pulse: 59 Respirations: 14 Pulse Ox (%): 99 Assessment And Plan - Plan Assessment plan hydyrocephalus (normal pressure hydrocephalus? pendning LP) LP ordered, MRI IMPRESSION: No acute intracranial process allowing for the degree of motion. Ventriculomegaly somewhat out proportion relative to the degree of sulcal prominence. This could relate to centrally predominant volume loss versus normal pressure hydrocephalus. Please correlate clinically. plan for LP (will measure pressure), Neuro consulted LP Opening pressure measured 9 cm H2O. A total of 8 mL clear CSF was obtained. will discuss with Neurology Plan 11/20 Speech eval Speech eval Patient was more alert today Trial with minced, moist diet with thin liquids, patient had mild delay, no overt signs of aspiration. Patient consuming about 50% of meals severe Dementia worsening? Neurology consulted for worsening dementia consider MRI Patient has stopped eating Speech, cognition/swallow eval Metabolic encephalopathy secondary to dehydration versus acute on chronic cystitis, versus hyponatremia Acute encephalopathy: Likely due to metabolic or dehydration. Pt has underlying dementia. CT head is concerning NPH. Consulted Neurology and physical therapist. LP Placed order for LP 11/18. Will continue diamox 250mg iv BID. Ammonia level is less than 15. MRI IMPRESSION: No acute intracranial process allowing for the degree of motion. Ventriculomegaly somewhat out proportion relative to the degree of sulcal prominence. This could relate to centrally predominant volume loss versus normal pressure hydrocephalus. Please correlate clinically. plan for LP, Neuro consulted 11-19, will add speech eval, PT eval for passive ROM, NGT for feeding (after speaking with family) Neuro recommendations Plan: 1. Continue with supportive care with hydration. May address nutritional needs v ia either NG tube or other means as primary team sees fit. 2. We were continuing current medications crushed and the patient is up swallowing with applesauce consistency or as directed by Speech Therapy depending on which may be more appropriate. 3. At some point, an EEG may be helpful to determine the state of her encephalopathy. 4. She should have bed mobilization to reduce the chance of dependent ulcers. 5. She will be followed once the lumbar puncture is done. Recurrent acute cystitis HADLEY: Cr is 1.13 <- 1.07 <- 1.23 <- 1.32. Will avoid nephrotoxin and continue IVF Recurrent UTI; Continue iv abx and follow up urine cx. Stark catheter placed during hospitalization Anorexia Poor p.o. intake Acute on chronic kidney injuru BUN 24->25 1 creatinine 1.04-> 1.13 01/21 BUN 40 creatinine 1.06 estimated GFR 54 will add gentle IVF Microcytic anemia 10.1-9.4-8.1--9.3-9.1 hct 30.3-27.4-24.0-27-6-27.3 Hyponatremia improved Hyponatremia: Na is 139. resolved. Will monitor. Dementia Alzheimer dementia: Will continue supportive care.On Donepezil, and Memantine Hyperlipidemia Hypertension Htn; Continue home med Diabetes type 2 Accu-Cheks, sliding scale insulin DM II: Continue accuchek, SSI and ADA diet HLD: statin Full code DVT DVT ppx: SCD Dispo: pending hospital course Discharge Plan: Home Discharge Plan: Home - Code Status/Comfort Care Code Status: Full Code Critical Care: No Time Spent Managing PTS Care (In Minutes): 35
[2023-11-20] MEDS: ACETAMINOPHEN 500 MG TAB PO PRN (16:58)
[2023-11-20] MEDS: D5 0.45 NS 1,000 ML IV SCH (16:58)
[2023-11-20] MEDS: acetaZOLAMIDE 250 MG TAB PO SCH (17:19)
[2023-11-20] MEDS: ROSUVASTATIN 10 MG TAB PO SCH (19:17)
[2023-11-20] MEDS: GLUCERNA SHAKE 237 ML CAN PO SCH (20:55)
[2023-11-21] MEDS: INSULIN REGULAR (HUMAN) 100 UNIT/ML SQ SCH ×4 (07:30→21:00)
[2023-11-21 08:27] LABS: Potassium 3.8 mEq/L (3.5-5.1)
--- NOTE | 2023-11-21 08:38 | P.PN ---
Subjective Date of Service: 11/21/23 <Jerry Caro - Last Filed: 11/21/23 17:07> Date of Service: 11/21/23 Chief Complaint: ams , SYNCOPE Subjective: Improving more alert today, nonverbal, history of Dementia, is at bedside is primary historian, eating about 10% meals No acute distress vital signs stable, - Physical Exam General: Alert, Other (Dementia, poor response to verbal commands) HEENT: Atraumatic, Normocephalic Neck: Supple, 2+ carotid pulse no bruit Respiratory: Clear to auscultation bilaterally, Normal air movement Cardiovascular: No edema, Normal pulses Capillary refill: <2 Seconds Gastrointestinal: Normal bowel sounds, Soft and benign Musculoskeletal: No clubbing, No swelling Integumentary: No rashes, No significant lesion Neurological: Responds to verbal, confused <Allyssa Glez - Last Filed: 11/21/23 18:22> Review of Systems per HPI <AlvarozeusAllyssa - Last Filed: 11/21/23 18:22> Physical Examination - Vital Signs Temperature: 97.9 F Blood Pressure: 111/48 Pulse: 66 Respirations: 16 Pulse Ox (%): 99 <AlvarozeusAllyssa Last Filed: 11/21/23 18:22> Assessment And Plan Physician Review: Patient Assessed, Agree with Above Assessment and Plan Physician Review Additional Text: No new changes. She is doing well today. PT/OT consulted. Pending SNF placement. Jerry Caro M.D. <Jerry Caro - Last Filed: 11/21/23 17:07> - Plan Assessment plan hydyrocephalus (normal pressure hydrocephalus? pendning LP) LP ordered, MRI IMPRESSION: No acute intracranial process allowing for the degree of motion. Ventriculomegaly somewhat out proportion relative to the degree of sulcal prominence. This could relate to centrally predominant volume loss versus normal pressure hydrocephalus. Please correlate clinically. plan for LP (will measure pressure), Neuro consulted LP Opening pressure measured 9 cm H2O. A total of 8 mL clear CSF was obtained. will discuss with Neurology Plan 09/21 Plan to DC SNF for PT/OT/Speech therapy discussed code status with , plan to change to DNR/DNI Discussed future plan of care regarding Hospice vs SNF, (he will discuss with family) 11/20 Speech eval Speech eval Patient was more alert today Trial with minced, moist diet with thin liquids, patient had mild delay, no overt signs of aspiration. Patient consuming about 50% of meals severe Dementia worsening? Neurology consulted for worsening dementia consider MRI Patient has stopped eating Speech, cognition/swallow eval Metabolic encephalopathy secondary to dehydration versus acute on chronic cystitis, versus hyponatremia Acute encephalopathy: Likely due to metabolic or dehydration. Pt has underlying dementia. CT head is concerning NPH. Consulted Neurology and physical therapist. LP Placed order for LP 11/18. Will continue diamox 250mg iv BID. Ammonia level is less than 15. MRI IMPRESSION: No acute intracranial process allowing for the degree of motion. Ventriculomegaly somewhat out proportion relative to the degree of sulcal prominence. This could relate to centrally predominant volume loss versus normal pressure hydrocephalus. Please correlate clinically. plan for LP, Neuro consulted 11-19, will add speech eval, PT eval for passive ROM, NGT for feeding (after speaking with family) Neuro recommendations Plan: 1. Continue with supportive care with hydration. May address nutritional needs via either NG tube or other means as primary team sees fit. 2. We were continuing current medications crushed and the patient is up swallowing with applesauce consistency or as directed by Speech Therapy depending on which may be more appropriate. 3. At some point, an EEG may be helpful to determine the state of her ence phalopathy. 4. She should have bed mobilization to reduce the chance of dependent ulcers. 5. She will be followed once the lumbar puncture is done. Recurrent acute cystitis HADLEY: Cr is 1.13 <- 1.07 <- 1.23 <- 1.32. Will avoid nephrotoxin and continue IVF Recurrent UTI; Continue iv abx and follow up urine cx. Stark catheter placed during hospitalization Anorexia Poor p.o. intake eating 10-15% meals, total care with feeds minced diet Acute on chronic kidney injuru BUN 24->25 1 creatinine 1.04-> 1.13 01/21 BUN 40 creatinine 1.06 estimated GFR 54 will add gentle IVF Microcytic anemia 10.1-9.4-8.1--9.3-9.1 hct 30.3-27.4-24.0-27-6-27.3 Hyponatremia improved Hyponatremia: Na is 139. resolved. Will monitor. Dementia Alzheimer dementia: Will continue supportive care.On Donepezil, and Memantine Hyperlipidemia Hypertension Htn; Continue home med Diabetes type 2 Accu-Cheks, sliding scale insulin DM II: Continue accuchek, SSI and ADA diet HLD: statin Full code DVT DVT ppx: SCD Dispo: pending hospital course Discharge Plan: Home Discharge Plan: Half-Way - Code Status/Comfort Care Code Status: Do Not Attempt Resuscitat Physician Review: Patient Assessed, Agree with Above Assessment and Plan Critical Care: No Time Spent Managing PTS Care (In Minutes): 32 <Allyssa Glez - Last Filed: 11/21/23 18:22>
[2023-11-21] MEDS: DOCUSATE NA 100 MG CAP PO SCH ×2 (09:00→21:00)
[2023-11-21] MEDS: GLUCERNA SHAKE 237 ML CAN PO SCH ×2 (09:00→21:38)
[2023-11-21] MEDS: ENOXAPARIN 30 MG/0.3 ML SQ SCH (09:44)
[2023-11-21] MEDS: acetaZOLAMIDE 250 MG TAB PO SCH (09:44)
[2023-11-21] MEDS: VALPROATE SODIUM INJ 500 MG in NA CHLORIDE 0.9% 100 ML IV SCH ×2 (09:45→21:33)
[2023-11-21] MEDS: D5 0.45 NS 1,000 ML IV SCH (12:53)
[2023-11-21] MEDS ORDERED: SIMETHICONE 125 MG TAB PO PRN (14:01)
[2023-11-21] MEDS ORDERED: MAGNES/ALUMIN/SIMET 30ML UCUP PO PRN (14:03)
[2023-11-21] MEDS: ROSUVASTATIN 10 MG TAB PO SCH (21:33)
[2023-11-22] MEDS: INSULIN REGULAR (HUMAN) 100 UNIT/ML SQ SCH ×4 (07:30→21:00)
--- NOTE | 2023-11-22 08:09 | P.PN ---
Subjective Date of Service: 11/22/23 Chief Complaint: ams , SYNCOPE more alert today, nonverbal, history of Dementia, is at bedside is primary historian, eating about 10-20% meals No acute distress vital signs stable, - Physical Exam General: Alert, Other (Dementia, poor response to verbal commands) HEENT: Atraumatic, Normocephalic Neck: Supple, 2+ carotid pulse no bruit Respiratory: Clear to auscultation bilaterally, Normal air movement Cardiovascular: No edema, Normal pulses Capillary refill: <2 Seconds Gastrointestinal: Normal bowel sounds, Soft and benign Musculoskeletal: No clubbing, No swelling Integumentary: No rashes, No significant lesion Neurological: Responds to verbal, confused <Allyssa Glez - Last Filed: 11/22/23 15:39> Date of Service: 11/22/23 <Jerry Caro - Last Filed: 11/22/23 18:32> Review of Systems per HPI <Allyssa Glez - Last Filed: 11/22/23 15:39> Physical Examination - Vital Signs Temperature: 973.8 F Blood Pressure: 131/52 Pulse: 73 Respirations: 16 Pulse Ox (%): 95 <Allyssa Glez - Last Filed: 11/22/23 15:39> Assessment And Plan - Plan Assessment plan hydyrocephalus (normal pressure hydrocephalus? pendning LP) LP ordered, MRI IMPRESSION: No acute intracranial process allowing for the degree of motion. Ventriculomegaly somewhat out proportion relative to the degree of sulcal prominence. This could relate to centrally predominant volume loss versus normal pressure hydrocephalus. Please correlate clinically. plan for LP (will measure pressure), Neuro consulted LP Opening pressure measured 9 cm H2O. A total of 8 mL clear CSF was obtained. will discuss with Neurology Plan 09/21 Plan to DC SNF for PT/OT/Speech therapy discussed code status with , plan to change to DNR/DNI Discussed future plan of care regarding Hospice vs SNF, (he will discuss with family) severe Dementia worsening? Neurology consulted for worsening dementia consider MRI Speech, cognition/swallow eval tolerating Trial with minced, moist diet with thin liquids, patient had mild delay, no overt signs of aspiration. total care, has to be fed, eating 10-20% meals, no signs of aspiration Metabolic encephalopathy secondary to dehydration versus acute on chronic cystitis, versus hyponatremia Hyponatremia improved Hyponatremia: Na is 139. resolved. Will monitor. Acute encephalopathy: Likely due to metabolic or dehydration. Pt has underlying dementia. CT head is concerning NPH. Consulted Neurology and physical therapist. LP Placed order for LP 11/18. Will continue diamox 250mg iv BID. Ammonia level is less than 15. MRI IMPRESSION: No acute intracranial process allowing for the degree of motion. Ventriculomegaly somewhat out proportion relative to the degree of sulcal prominence. This could relate to centrally predominant volume loss versus normal pressure hydrocephalus. Please correlate clinically. Neuro consulted Neuro recommendations Plan: 1. Continue with supportive care with hydration. May address nutritional needs via either NG tube or other means as primary team sees fit. 2. We were continuing current medications crushed and the patient is up swallowing with applesauce consistency or as directed by Speech Therapy depending on which may be more appropriate. 3. At some point, an EEG may be helpful to determine the state of her encephalopathy. 4. She should have bed mobilization to reduce the chance of dependent ulcers. 5. She will be followed once the lumbar puncture is done. Recurrent acute cystitis HADLEY: Cr is 1.13 <- 1.07 <- 1.23 <- 1.32. Will avoid nephrotoxin and continue IVF Recurrent UTI; Continue iv abx and follow up urine cx. Stark catheter placed during hospitalization Acute on chronic kidney injuru BUN 24->25 1 creatinine 1.04-> 1.13 01/21 BUN 40 creatinine 1.06 estimated GFR 54 will add gentle IVF Anorexia Poor p.o. intake eating 10-15% meals, total care with feeds minced diet Microcytic anemia 10.1-9.4-8.1--9.3-9.1 hct 30.3-27.4-24.0-27-6-27.3 Dementia Alzheimer dementia: Will continue supportive care.On Donepezil, and Memantine Hyperlipidemia Hypertension Htn; Continue home med Diabetes type 2 Accu-Cheks, sliding scale insulin DM II: Continue accuchek, SSI and ADA diet HLD: statin DNR DVT DVT ppx: SCD Dispo: SNF for PT/OT/Speech, Discharge Plan: Home Discharge Plan: Halfway - Code Status/Comfort Care Code Status: Do Not Attempt Resuscitat Critical Care: No Time Spent Managing PTS Care (In Minutes): 35 <Allyssa Glez - Last Filed: 12/30/23 15:39> Physician Review: Patient Assessed, Agree with Above Assessment and Plan Physician Review Additional Text: No new changes. Pending SNF placement. All family questions answered to the best my ability. Jerry Caro MD <Jerry Caro - Last Filed: 11/22/23 18:32>
[2023-11-22] MEDS: DOCUSATE NA 100 MG CAP PO SCH ×2 (09:00→21:00)
[2023-11-22 09:32] LABS: Absolute Lymphocytes (CBC) 1.8 K/uL (0.7-4.9); Hematocrit 30.6 % (36.0-45.0); MCV 87.5 fL (80-100); MPV 9.5 fL (7.6-11.3); Platelets 235 thou/uL (152-406); RBC Red Blood Cell Count 3.49 M/uL (3.86-4.86)
[2023-11-22] MEDS: acetaZOLAMIDE 250 MG TAB PO SCH (09:38)
[2023-11-22] MEDS: ENOXAPARIN 30 MG/0.3 ML SQ SCH (09:39)
[2023-11-22] MEDS: VALPROATE SODIUM INJ 500 MG in NA CHLORIDE 0.9% 100 ML IV SCH (09:39)
[2023-11-22] MEDS: GLUCERNA SHAKE 237 ML CAN PO SCH ×2 (09:40→21:00)
[2023-11-22 09:49] LABS: Albumin 2.7 g/dL (3.4-5.0); Bilirubin Total 0.2 mg/dL (0.2-1.0); Magnesium 1.8 mg/dL (1.6-2.4); Potassium 4.1 mEq/L (3.5-5.1); Protein, Total 6.9 g/dL (6.4-8.2)
--- NOTE | 2023-11-22 18:37 | RAD REPORT ---
EXAM DESCRIPTION: RAD - Abdomen 1 View (KUB) - 11/22/2023 6:19 pm CLINICAL HISTORY: Device placement nasogastric tube placement FINDINGS: The tip of a nasogastric tube lies within the distal stomach. The stomach is moderately d istended
[2023-11-22] MEDS: D5 0.45 NS 1,000 ML IV SCH (19:19)
[2023-11-22] MEDS ORDERED: LORazepam 2 MG/ML VIAL IV ONE (20:47)
--- NOTE | 2023-11-22 20:49 | P.PN ---
Date of Service: 11/22/23 Pt attempting to pull NGT secondary to confusion, 0.5mg ativan x 1 ordered
[2023-11-22] MEDS: ROSUVASTATIN 10 MG TAB PO SCH (21:00)
[2023-11-23] MEDS: INSULIN REGULAR (HUMAN) 100 UNIT/ML SQ SCH ×4 (07:30→20:26)
[2023-11-23] MEDS: VALPROATE SODIUM INJ 500 MG in NA CHLORIDE 0.9% 100 ML IV SCH ×2 (07:45→20:22)
[2023-11-23 08:07] LABS: Absolute Lymphocytes (CBC) 1.7 K/uL (0.7-4.9); Hematocrit 31.4 % (36.0-45.0); Lymphocytes % 20.1 % (15.3-44.8); MPV 9.7 fL (7.6-11.3); Platelets 254 thou/uL (152-406)
[2023-11-23 08:28] LABS: Magnesium 1.9 mg/dL (1.6-2.4)
--- NOTE | 2023-11-23 08:37 | P.PN ---
Subjective Date of Service: 11/23/23 Chief Complaint: ams , SYNCOPE Total care for feeds, transfers, ADLS. nonverbal, history of Dementia, is at bedside is primary historian, eating about 10-20% meals No acute distress vital signs stable, NG placed for nutrition, HE 30degrees - Physical Exam General: Alert, Other (Dementia, poor response to verbal commands) HEENT: Atraumatic, Normocephalic Neck: Supple, 2+ carotid pulse no bruit Respiratory: Clear to auscultation bilaterally, Normal air movement Cardiovascular: No edema, Normal pulses Capillary refill: <2 Seconds Gastrointestinal: Normal bowel sounds, Soft and benign Musculoskeletal: No clubbing, No swelling Integumentary: No rashes, No significant lesion Neurological: Responds to verbal, confused <Allyssa Glez - Last Filed: 11/23/23 14:15> Date of Service: 11/23/23 <Jerry Caro - Last Filed: 11/23/23 17:36> Review of Systems per HPI <Allyssa Glez - Last Filed: 11/23/23 14:15> Physical Examination - Vital Signs Temperature: 97.9 F Blood Pressure: 141/78 Pulse: 71 Respirations: 16 Pulse Ox (%): 97 <Allyssa Glez - Last Filed: 11/23/23 14:15> Assessment And Plan - Plan Assessment plan hydyrocephalus (normal pressure hydrocephalus? pendning LP) LP ordered, LP Opening pressure measured 9 cm H2O. A total of 8 mL clear CSF was obtained. MRI IMPRESSION: No acute intracranial process allowing for the degree of motion. Ventriculomegaly somewhat out proportion relative to the degree of sulcal promi nence. This could relate to centrally predominant volume loss versus normal pressure hydrocephalus. Please correlate clinically. LP (will measure pressure), Neuro consulted will discuss with Neurology Plan 09/21 Plan to DC SNF for PT/OT/Speech therapy (will need to discuss Gtube for anorexia) discussed code status with , plan to change to DNR/DNI Discussed future plan of care regarding Hospice vs SNF, (he will discuss with family) placed on Diamox 250 daily per recommendations of Dr. Monzon NPH severe Dementia worsening? Neurology consulted for worsening dementia consider MRI Speech, cognition/swallow eval tolerating Trial with minced, moist diet with thin liquids, patient had mild delay, no overt signs of aspiration. total care, has to be fed, eating 10-20% meals, no signs of aspiration Metabolic encephalopathy secondary to dehydration versus acute on chronic cystitis, versus hyponatremia Hyponatremia improved Hyponatremia: Na is 139. resolved. Will monitor. Acute encephalopathy: Likely due to metabolic or dehydration. Pt has underlying dementia. CT head is concerning NPH. Consulted Neurology and physical therapist. LP Placed order for LP 11/18. Will continue diamox 250mg iv BID. Ammonia level is less than 15. MRI IMPRESSION: No acute intracranial process allowing for the degree of motion. Ventriculomegaly somewhat out proportion relative to the degree of sulcal prominence. This could relate to centrally predominant volume loss versus normal pressure hydrocephalus. Please correlate clinically. Neuro consulted (patient has Neurologist at [facility]) Neuro recommendations Plan: 1. Continue with supportive care with hydration. May address nutritional needs via either NG tube or other means as primary team sees fit. 2. We were continuing current medications crushed and the patient is up swallowing with applesauce consistency or as directed by Speech Therapy depending on which may be more appropriate. 3. At some point, an EEG may be helpful to determine the state of her encephalopathy. 4. She should have bed mobilization to reduce the chance of dependent ulcers. 5. She will be followed once the lumbar puncture is done. Recurrent acute cystitis HADLEY: Cr is 1.13 <- 1.07 <- 1.23 <- 1.32. Will avoid nephrotoxin and continue IVF Recurrent UTI; Continue iv abx and follow up urine cx. Stark catheter placed during hospitalization Acute on chronic kidney injury BUN 24->25 1creatinine 1.04-> 1.13, BUN 35/0.98est GFR 64->BUN 31/0.89 est GFR 67 2 BUN 40 creatinine 1.06 estimated GFR 54 will add gentle IVF Anorexia Poor p.o. intake eating 10-15% meals, total care with feeds minced diet NGT for Nutrition, Ensure BID via NGT, aspiration precautions Microcytic anemia stable 10.1-9.4-8.1--9.3-9.1->10.8/31.4 hct 30.3-27.4-24.0-27-6-27.3 Dementia Alzheimer dementia: Will continue supportive care.On Donepezil, and Memantine Hyperlipidemia Hypertension Htn; Continue home med Diabetes type 2 Accu-Cheks, sliding scale insulin DM II: Continue accuchek, SSI and ADA diet HLD: statin DNR DVT DVT ppx: SCD Dispo: SNF for PT/OT/Speech, Discharge Plan: From Home Discharge Plan: Jail - Code Status/Comfort Care Code Status: Do Not Attempt Resuscitat Critical Care: No Time Spent Managing PTS Care (In Minutes): 35 <Allyssa Glez - Last Filed: 11/23/23 14:15> Physician Review: Patient Assessed, Agree with Above Assessment and Plan Physician Review Additional Text: Per RN, Ms. Vang did not eat much yesterday evening. Her endorses concern with her lack of nutrition. NG tube was placed and tube feeds were started today. Appreciate cinder man recommendations. Jerry Caro M.D. <Jerry Caro - Last Filed: 11/23/23 17:36>
[2023-11-23] MEDS: DOCUSATE NA 100 MG CAP PO SCH ×2 (09:00→21:00)
[2023-11-23] MEDS: ENOXAPARIN 30 MG/0.3 ML SQ SCH (09:31)
[2023-11-23] MEDS: GLUCERNA SHAKE 237 ML CAN PO SCH ×2 (09:32→21:00)
[2023-11-23] MEDS: acetaZOLAMIDE 250 MG TAB PO SCH (09:32)
[2023-11-23] MEDS ORDERED: VITAL HP 1,000 ML BOT FT SCH (11:00)
[2023-11-23] MEDS: D5 0.45 NS 1,000 ML IV SCH (16:09)
[2023-11-23] MEDS: ROSUVASTATIN 10 MG TAB PO SCH (21:00)
[2023-11-23 21:35] LABS: Phosphorus 3.5 mg/dL (2.5-4.9)
[2023-11-23 21:36] LABS: Magnesium 1.8 mg/dL (1.6-2.4); Potassium 4.3 mEq/L (3.5-5.1)
[2023-11-24 06:22] LABS: Absolute Lymphocytes (CBC) 1.9 K/uL (0.7-4.9); Hematocrit 29.8 % (36.0-45.0); Lymphocytes % 17.1 % (15.3-44.8); MCV 86.2 fL (80-100); MPV 9.5 fL (7.6-11.3); Platelets 293 thou/uL (152-406); RBC Red Blood Cell Count 3.46 M/uL (3.86-4.86)
[2023-11-24 06:35] LABS: Potassium 4.5 mEq/L (3.5-5.1)
[2023-11-24] MEDS: INSULIN REGULAR (HUMAN) 100 UNIT/ML SQ SCH ×4 (07:30→21:00)
[2023-11-24] MEDS: VALPROATE SODIUM INJ 500 MG in NA CHLORIDE 0.9% 100 ML IV SCH ×3 (08:43→21:43)
[2023-11-24] MEDS: DOCUSATE NA 100 MG CAP PO SCH ×2 (08:43→21:00)
[2023-11-24] MEDS: acetaZOLAMIDE 250 MG TAB PO SCH (08:43)
[2023-11-24] MEDS: GLUCERNA SHAKE 237 ML CAN PO SCH ×2 (08:44→21:00)
[2023-11-24] MEDS: ENOXAPARIN 40 MG/0.4 ML SQ SCH (08:44)
--- NOTE | 2023-11-24 13:36 | P.PN ---
Subjective Date of Service: 11/24/23 Chief Complaint: ams , SYNCOPE Total care for feeds, transfers, ADLS. nonverbal, history of Dementia, is at bedside is primary historian, eating about 10-20% meals No acute distress vital signs stable, NG placed for nutrition, HE 30degrees - Physical Exam General: Alert, Other (Dementia, poor response to verbal commands) HEENT: Atraumatic, Normocephalic Neck: Supple, 2+ carotid pulse no bruit Respiratory: Clear to auscultation bilaterally, Normal air movement Cardiovascular: No edema, Normal pulses Capillary refill: <2 Seconds Gastrointestinal: Normal bowel sounds, Soft and benign Musculoskeletal: No clubbing, No swelling Integumentary: No rashes, No significant lesion Neurological: Responds to verbal, confused <Allyssa Glez - Last Filed: 11/24/23 18:51> Date of Service: 11/24/23 <Kennedi Weber - Last Filed: 11/24/23 18:58> Review of Systems per HPI <Allyssa Glez - Last Filed: 11/24/23 18:51> Physical Examination - Vital Signs Temperature: 97.6 F Blood Pressure: 127/59 Pulse: 76 Respirations: 16 Pulse Ox (%): 98 <Allyssa Glez - Last Filed: 11/24/23 18:51> Assessment And Plan - Plan Assessment plan hydyrocephalus (normal pressure hydrocephalus? pendning LP) LP ordered, LP Opening pressure measured 9 cm H2O. A total of 8 mL clear CSF was obtained. MRI IMPRESSION: No acute intracranial process allowing for the degree of motion. Ventriculomegaly somewhat out proportion relative to the degree of sulcal prominence. This could relate to centrally predominant volume loss versus normal pressure hydrocephalus. Please correlate clinically. LP (will measure pressure), Neuro consulted will discuss with Neurology Plan 09/21 Plan to DC SNF for PT/OT/Speech therapy (will need to discuss Gtube for anorexia) discussed code status with , plan to change to DNR/DNI Discussed future plan of care regarding Hospice vs SNF, (he will discuss with family) placed on Diamox 250 daily per recommendations of Dr. Monzon NPH severe Dementia worsening? Neurology consulted for worsening dementia consider MRI Speech, cognition/swallow eval tolerating Trial with minced, moist diet with thin liquids, patient had mild delay, no overt signs of aspiration. total care, has to be fed, eating 10-20% meals, no signs of aspiration Metabolic encephalopathy secondary to dehydration versus acute on chronic cystitis, versus hyponatremia Hyponatremia improved Hyponatremia: Na is 139. resolved. Will monitor. Acute encephalopathy: Likely due to metabolic or dehydration. Pt has underlying dementia. CT head is concerning NPH. Consulted Neurology and physical therapist. LP Placed order for LP 11/18. Will continue diamox 250mg iv BID. Ammonia level is less than 15. MRI IMPRESSION: No acute intracranial process allowing for the degree of motion. Ventriculomegaly somewhat out proportion relative to the degree of sulcal prominence. This could relate to centrally predominant volume loss versus normal pressure hydrocephalus. Please correlate clinically. Neuro consulted (patient has Neurologist at [facility]) Neuro recommendations Plan: 1. Continue with supportive care with hydration. May address nutritional needs via either NG tube or other means as primary team sees fit. 2. We were continuing current medications crushed and the patient is up swallowing with applesauce consistency or as directed by Speech Therapy depending on which may be more appropriate. 3. At some point, an EEG may be helpful to determine the state of her encephalopathy. 4. She should have bed mobilization to reduce the chance of dependent ulcers. 5. She will be followed once the lumbar puncture is done. Recurrent acute cystitis HADLEY: Cr is 1.13 <- 1.07 <- 1.23 <- 1.32. Will avoid nephrotoxin and continue IVF Recurrent UTI; Continue iv abx and follow up urine cx. Stark catheter placed during hospitalization Acute on chronic kidney injury BUN 24->25 1creatinine 1.04-> 1.13, BUN 35/0.98est GFR 64->BUN 31/0.89 est GFR 67 2 BUN 40 creatinine 1.06 estimated GFR 54 will add gentle IVF Anorexia Poor p.o. intake eating 10-15% meals, total care with feeds minced diet NGT for Nutrition, Ensure BID via NGT, aspiration precautions Microcytic anemia stable 10.1-9.4-8.1--9.3-9.1->10.8/31.4 hct 30.3-27.4-24.0-27-6-27.3 Dementia Alzheimer dementia: Will continue supportive care.On Donepezil, and Memantine Hyperlipidemia Hypertension Htn; Continue home med Diabetes type 2 Accu-Cheks, sliding scale insulin DM II: Continue accuchek, SSI and ADA diet HLD: statin DNR DVT DVT ppx: SCD Dispo: SNF for PT/OT/Speech, Discharge Plan: From Home Discharge Plan: [facility] - Code Status/Comfort Care Code Status: Do Not Attempt Resuscitat Critical Care: No Time Spent Managing PTS Care (In Minutes): 35 <Allyssa Glez - Last Filed: 11/24/23 18:51> - Plan Pt seen and examined. I agree with the note by the [employer]. Pt is somnolent most of the time. Last lumbar puncture drained only 8cc. Will need repeat LP with removal of about 35 - 40 cc of CSF. <Kennedi Weber - Last Filed: 11/24/23 18:58>
[2023-11-24] MEDS: D5 0.45 NS 1,000 ML IV SCH ×2 (16:02→22:00)
[2023-11-24] MEDS: ROSUVASTATIN 10 MG TAB PO SCH (21:00)
[2023-11-25] MEDS ORDERED: LORAZEPAM 0.5 MG TABLET PO ONE (00:02)
[2023-11-25 02:18] LABS: Absolute Lymphocytes (CBC) 1.8 K/uL (0.7-4.9); Hematocrit 26.2 % (36.0-45.0); Lymphocytes % 17.2 % (15.3-44.8); MCV 88.1 fL (80-100); Platelets 229 thou/uL (152-406); RBC Red Blood Cell Count 2.98 M/uL (3.86-4.86)
[2023-11-25 03:04] LABS: Magnesium 1.7 mg/dL (1.6-2.4); Potassium 3.5 mEq/L (3.5-5.1)
[2023-11-25] MEDS: INSULIN REGULAR (HUMAN) 100 UNIT/ML SQ SCH ×5 (07:30→21:00)
[2023-11-25] MEDS: ENOXAPARIN 40 MG/0.4 ML SQ SCH ×2 (09:00→09:10)
[2023-11-25] MEDS: GLUCERNA SHAKE 237 ML CAN PO SCH ×2 (09:00→21:00)
[2023-11-25] MEDS: VALPROATE SODIUM INJ 500 MG in NA CHLORIDE 0.9% 100 ML IV SCH ×2 (09:10→21:52)
[2023-11-25] MEDS: acetaZOLAMIDE 250 MG TAB PO SCH (09:11)
[2023-11-25] MEDS: DOCUSATE NA 100 MG CAP PO SCH ×2 (09:11→21:00)
[2023-11-25] MEDS ORDERED: D50W 25 GM/50 ML SYRINGE IV PRN (12:13)
[2023-11-25] MEDS ORDERED: GLUCAGON 1 MG/VIAL IM PRN (12:13)
--- NOTE | 2023-11-25 12:33 | P.PN ---
Subjective Date of Service: 11/25/23 Chief Complaint: ams , SYNCOPE Subjective: No new changes Patient is sleepy responding to DPS Patient has history of dementia and family members at bedside Not in acute distress vital signs stable <Kane Nash - Last Filed: 11/25/23 12:33> Date of Service: 11/26/23 <Kennedi Weber - Last Filed: 11/26/23 16:09> Review of Systems 10-point ROS is otherwise unremarkable <Kane Nash - Last Filed: 11/25/23 12:33> Physical Examination - Vital Signs Temperature: 98.2 F Blood Pressure: 139/52 Pulse: 72 Respirations: 18 Pulse Ox (%): 99 - Physical Exam General: Other (lethargic) HEENT: Atraumatic, PERRLA Neck: Supple, 2+ carotid pulse no bruit Respiratory: Clear to auscultation bilaterally, Normal air movement Cardiovascular: Normal pulses, Regular rate/rhythm Capillary refill: <2 Seconds Gastrointestinal: Normal bowel sounds, Non-distended Musculoskeletal: No clubbing, No swelling Integumentary: No rashes, No breakdown Neurological: Dementia (No speech, lethargic, responds to DPS) <Kane Nash - Last Filed: 11/25/23 12:33> Assessment And Plan - Current Problems (Diagnosis) (1) Recurrent UTI Current Visit: Yes Status: Acute (2) Hyperlipidemia Current Visit: Yes Status: Acute Qualifiers: Hyperlipidemia type: other hyperlipidemia Qualified Code(s): E78.49 - Other hyperlipidemia; E78.4 - Other hyperlipidemia (3) Acute encephalopathy Current Visit: Yes Status: Acute (4) Acute kidney injury Current Visit: Yes Status: Acute (5) Diabetes mellitus, type II Onset Date: 11/15/15 Current Visit: No Status: Acute (6) Hypertension Current Visit: No Status: Acute (7) Alzheimer's dementia Current Visit: No Status: Chronic - Plan Acute encephalopathy: Likely due to metabolic or dehydration. Pt has underlying dementia. CT head is concerning NPH. Consulted Neurology and physical therapist. Placed order for LP. Will continue diamox 250mg iv BID. Ammonia level is less than 15. Alzheimer dementia: Will continue supportive care.On Donepezil, and Memantine Hyponatremia: Na is 139. resolved. Will monitor. HADLEY: Cr is 1.13 <- 1.07 <- 1.23 <- 1.32. Will avoid nephrotoxin and continue IVF Recurrent UTI; Continue iv abx and follow up urine cx. Htn; Continue home med DM II: Continue accuchek, SSI and ADA diet HLD: statin DVT ppx: SCD Dispo: pending hospital course Assessment plan hydyrocephalus (normal pressure hydrocephalus? pendning LP) LP ordered, LP Opening pressure measured 9 cm H2O. A total of 8 mL clear CSF was obtained. MRI IMPRESSION: No acute intracranial process allowing for the degree of motion. Ventriculomegaly somewhat out proportion relative to the degree of sulcal prominence. This could relate to centrally predominant volume loss versus normal pressure hydrocephalus. Please correlate clinically. LP (will measure pressure), Neuro consulted will discuss with Neurology Plan 09/21 Plan to DC SNF for PT/OT/Speech therapy (will need to discuss Gtube for anorexia) discussed code status with , plan to change to DNR/DNI Discussed future plan of care regarding Hospice vs SNF, (he will discuss with family) placed on Diamox 250 daily per recommendations of Dr. Monzon NPH severe Dementia worsening? Neurology consulted for worsening dementia consider MRI Speech, cognition/swallow eval tolerating Trial with minced, moist diet with thin liquids, patient had mild delay, no overt signs of aspiration. total care, has to be fed, eating 10-20% meals, no signs of aspiration Metabolic encephalopathy secondary to dehydration versus acute on chronic cystitis, versus hyponatremia Hyponatremia improved Hyponatremia: Na is 139. resolved. Will monitor. Acute encephalopathy: Likely due to metabolic or dehydration. Pt has underlying dementia. CT head is concerning NPH. Consulted Neurology and physical therapist. LP Placed order for LP 11/18. Will continue diamox 250mg iv BID. Ammonia level is less than 15. MRI IMPRESSION: No acute intracranial process allowing for the degree of motion. Ventriculomegaly somewhat out proportion relative to the degree of sulcal prominence. This could relate to centrally predominant volume loss versus normal pressure hydrocephalus. Please correlate clinically. Neuro consulted (patient has Neurologist at [facility]) Neuro recommendations Plan: 1. Continue with supportive care with hydration. May address nutritional needs via either NG tube or other means as primary team sees fit. 2. We were continuing current medications crushed and the patient is up swallowing with applesauce consistency or as directed by Speech Therapy depending on which may be more appropriate. 3. At some point, an EEG may be helpful to determine the state of her encephalopathy. 4. She should have bed mobilization to reduce the chance of dependent ulcers. 5. She will be followed once the lumbar puncture is done. Recurrent acute cystitis HADLEY: Cr is 1.13 <- 1.07 <- 1.23 <- 1.32. Will avoid nephrotoxin and continue IVF Recurrent UTI; Continue iv abx and follow up urine cx. Stark catheter placed during hospitalization Acute on chronic kidney injury BUN 24->25 1creatinine 1.04-> 1.13, BUN 35/0.98est GFR 64->BUN 31/0.89 est GFR 67 2/ BUN 40 creatinine 1.06 estimated GFR 54 will add gentle IVF Anorexia Poor p.o. intake eating 10-15% meals, total care with feeds minced diet NGT for Nutrition, Ensure BID via NGT, aspiration precautions Microcytic anemia stable 10.1-9.4-8.1--9.3-9.1->10.8/31.4 hct 30.3-27.4-24.0-27-6-27.3 Dementia Alzheimer dementia: Will continue supportive care.On Donepezil, and Memantine Hyperlipidemia Hypertension Htn; Continue home med Diabetes type 2 Accu-Cheks, sliding scale insulin DM II: Continue accuchek, SSI and ADA diet HLD: statin DNR DVT DVT ppx: SCD Discharge Plan: Home Plan to discharge in: 48 Hours - Code Status/Comfort Care Code Status Assessed: Yes (DNR) Code Status: Do Not Attempt Resuscitat Physician Review: Patient Assessed, Agree with Above Assessment and Plan Critical Care: No Time Spent Managing PTS Care (In Minutes): 35 (minutes) <Kane Nash - Last Filed: 11/25/23 12:33> - Plan Pt seen and examined. I agree with the note by the PIPE FITTER MAINTENANCE. Will do LP to remove more CSF. The will talk to his kids about goals of care <Kennedi Weber - Last Filed: 11/26/23 16:09>
[2023-11-25] MEDS: NA CHLORIDE 0.9% 1,000 ML IV SCH (13:45)
[2023-11-25] MEDS: ACETAMINOPHEN 500 MG TAB PO PRN (15:12)
[2023-11-25] MEDS: ROSUVASTATIN 10 MG TAB PO SCH (21:00)
[2023-11-26 02:00] LABS: Hematocrit 30.9 % (36.0-45.0); Lymphocytes % 20.6 % (15.3-44.8); MCV 87.1 fL (80-100); MPV 8.8 fL (7.6-11.3); Platelets 217 thou/uL (152-406); RBC Red Blood Cell Count 3.55 M/uL (3.86-4.86)
[2023-11-26 02:15] LABS: Magnesium 1.8 mg/dL (1.6-2.4); Potassium 3.8 mEq/L (3.5-5.1)
[2023-11-26] MEDS: NA CHLORIDE 0.9% 1,000 ML IV SCH ×2 (03:01→23:53)
[2023-11-26] MEDS: INSULIN REGULAR (HUMAN) 100 UNIT/ML SQ SCH ×8 (06:00→20:34)
[2023-11-26] MEDS: VALPROATE SODIUM INJ 500 MG in NA CHLORIDE 0.9% 100 ML IV SCH ×2 (09:00→20:30)
[2023-11-26] MEDS: GLUCERNA SHAKE 237 ML CAN PO SCH ×2 (09:00→20:33)
[2023-11-26] MEDS: acetaZOLAMIDE 250 MG TAB PO SCH (10:55)
[2023-11-26] MEDS: ENOXAPARIN 40 MG/0.4 ML SQ SCH (10:55)
[2023-11-26] MEDS: DOCUSATE NA 100 MG CAP PO SCH ×2 (10:55→20:33)
[2023-11-26] MEDS: ROSUVASTATIN 10 MG TAB PO SCH (20:33)
[2023-11-27 02:42] LABS: Absolute Lymphocytes (CBC) 1.3 K/uL (0.7-4.9); Hematocrit 25.5 % (36.0-45.0); Lymphocytes % 14.1 % (15.3-44.8); MCV 84.8 fL (80-100); MPV 9.3 fL (7.6-11.3); Platelets 258 thou/uL (152-406)
[2023-11-27 02:51] LABS: Magnesium 1.7 mg/dL (1.6-2.4); Potassium 3.9 mEq/L (3.5-5.1)
[2023-11-27] MEDS: INSULIN REGULAR (HUMAN) 100 UNIT/ML SQ SCH ×4 (05:26→12:00)
[2023-11-27] MEDS: GLUCERNA SHAKE 237 ML CAN PO SCH ×2 (09:00→21:00)
[2023-11-27] MEDS: VALPROATE SODIUM INJ 500 MG in NA CHLORIDE 0.9% 100 ML IV SCH ×2 (09:44→21:22)
[2023-11-27] MEDS: DOCUSATE NA 100 MG CAP PO SCH ×2 (09:44→21:00)
[2023-11-27] MEDS: acetaZOLAMIDE 250 MG TAB PO SCH (09:44)
[2023-11-27] MEDS: ENOXAPARIN 40 MG/0.4 ML SQ SCH (09:45)
--- NOTE | 2023-11-27 09:47 | RAD REPORT ---
EXAM DESCRIPTION: RAD - Lumbar Puncture For Dx - 11/27/2023 9:39 am CLINICAL HISTORY: Lumbar Puncture For Dx dated 11/19/2023 COMPARISON: 11/19/2023 TECHNIQUE: The procedure, risks and alternatives to the procedure were discussed with the patient in detail. Consent was obtained. Time-out procedure was performed. The patient was placed in an oblique prone position on the fluoroscopic table. The skin of the lower back was prepped and draped in the usual sterile fashion. After anesthetizing the skin and deeper sof t tissues with 1% lidocaine, a 21 gauge needle was advanced into the thecal sac at the L4-5 level. No te that an attempt was made to access L3-4 but was unsuccessful. At the conclusion of the procedure the needle was withdrawn and a sterile bandage placed over the pun cture site. Fluoroscopy time: 0.3 minutes IMPRESSION: Successful fluoroscopic guided lumbar puncture. Only 20 cc of clear CSF was removed when the needle stopped draining. At this point, the patient had been prone for an extended period of andrea e, was becoming more agitated, and would have required a needle removal and re-access. Due to the dif ficulty in initially achieving access as a result of her scoliosis and degenerative changes, the deci doris was made to discontinue the procedure.
--- NOTE | 2023-11-27 10:02 | P.PN ---
Subjective Date of Service: 11/27/23 Chief Complaint: ams , SYNCOPE Subjective: No new changes, Improving Patient is sleepy responding to DPS Patient has history of dementia and family members at bedside Not in acute distress vital signs stable Review of Systems 10-point ROS is otherwise unremarkable Physical Examination - Vital Signs Temperature: 98.1 F Blood Pressure: 111/53 Pulse: 58 Respirations: 12 Pulse Ox (%): 97 - Physical Exam General: Alert, Oriented x3 HEENT: Atraumatic, Normocephalic Neck: Supple, 2+ carotid pulse no bruit Respiratory: Clear to auscultation bilaterally, Normal air movement Cardiovascular: No edema, Normal pulses Capillary refill: <2 Seconds Gastrointestinal: Normal bowel sounds, Soft and benign Musculoskeletal: No clubbing, No swelling, Other (Bed confined) Integumentary: No rashes, No breakdown Neurological: Other (No speech), Dementia Assessment And Plan - Current Problems (Diagnosis) (1) Recurrent UTI Current Visit: Yes Status: Acute (2) Hyperlipidemia Current Visit: Yes Status: Acute Qualifiers: Hyperlipidemia type: other hyperlipidemia Qualified Code(s): E78.49 - Other hyperlipidemia; E78.4 - Other hyperlipidemia (3) Acute encephalopathy Current Visit: Yes Status: Acute (4) Acute kidney injury Current Visit: Yes Status: Acute (5) Diabetes mellitus, type II Onset Date: 11/15/15 Current Visit: No Status: Acute Qualifiers: Diabetes mellitus fdc insulin use: with ad terminal makeup operator use Diabetes mellitus complication status: with other specified complication Qualified Code(s): E11.69 - Type 2 diabetes mellitus with other specified complication; Z79.4 - FCI (current) use of insulin (6) Hypertension Current Visit: No Status: Acute Qualifiers: Hypertension type: primary hypertension Qualified Code(s): I10 - Essential (primary) hypertension (7) Alzheimer's dementia Current Visit: No Status: Chronic Qualifiers: Alzheimer's disease onset: late onset - Plan Acute encephalopathy: Likely due to metabolic or dehydration. Pt has underlying dementia. CT head is concerning NPH. Consulted Neurology and physical therapist. Placed order for LP. Will continue diamox 250mg iv BID. Ammonia level is less than 15. LP done on 11/27/23- 20 ml fluid removed. Alzheimer dementia: Will continue supportive care.On Donepezil, and Memantine Hyponatremia: Na is 133. resolved. Will monitor. HADLEY: Cr is 1.13 <- 1.07 <- 1.23 <- 1.32.<-0.73 Will avoid nephrotoxin and continue IVF Recurrent UTI; Continue iv abx and follow up urine cx- no growth Htn; Continue home med DM II: Continue accuchek, SSI and ADA diet NPO og Nasogastric feeding with Glucerna at 45 ml /hr. Tolerating. HLD: statin DVT ppx: SCD Dispo: pending hospital course DNR Gastric Feedinding- Glucernal at 45ml/hr DVT DVT ppx: SCD Physician Review: Patient Assessed, Agree with Above Assessment and Plan
--- NOTE | 2023-11-27 12:04 | RAD REPORT ---
EXAM DESCRIPTION: RAD - Abdomen 1 View (KUB) - 11/27/2023 11:58 am CLINICAL HISTORY: Ng tube not flushing COMPARISON: Abdomen 1 View (KUB) dated 11/22/2023 FINDINGS: Distended small bowel centrally. No acute osseous abnormality.Visualized lungs are unremar kable.NG tube tip overlies the distal stomach. IMPRESSION: Nonspecific bowel gas pattern . NG tube overlies the distal stomach in satisfactory posi tion.
--- NOTE | 2023-11-27 12:18 | P.PN ---
Date of Service: 11/26/23 Patient is sleepy responding to DPS Patient has history of dementia and family members at bedside Not in acute distress vital signs stable Review of Systems 10-point ROS is otherwise unremarkable Physical Examination - Vital Signs Reviewed - Physical Exam General: Alert, Oriented x3 HEENT: Atraumatic, Normocephalic Neck: Supple, 2+ carotid pulse no bruit Respiratory: Clear to auscultation bilaterally, Normal air movement Cardiovascular: No edema, Normal pulses Capillary refill: <2 Seconds Gastrointestinal: Normal bowel sounds, Soft and benign Musculoskeletal: No clubbing, No swelling, Other (Bed confined) Integumentary: No rashes, No breakdown Neurological: Other (No speech), Dementia Assessment And Plan - Current Problems (Diagnosis) (1) Recurrent UTI Current Visit: Yes Status: Acute (2) Hyperlipidemia Current Visit: Yes Status: Acute Qualifiers: Hyperlipidemia type: other hyperlipidemia Qualified Code(s): E78.49 - Other hyperlipidemia; E78.4 - Other hyperlipidemia (3) Acute encephalopathy Current Visit: Yes Status: Acute (4) Acute kidney injury Current Visit: Yes Status: Acute (5) Diabetes mellitus, type II Onset Date: 11/15/15 Current Visit: No Status: Acute Qualifiers: Diabetes mellitus skilled nursing insulin use: with long distance operator use Diabetes mellitus complication status: with other specified complication Qualified Code(s): E11.69 - Type 2 diabetes mellitus with other specified complication; Z79.4 - long-term (current) use of insulin (6) Hypertension Current Visit: No Status: Acute Qualifiers: Hypertension type: primary hypertension Qualified Code(s): I10 - Essential (primary) hypertension (7) Alzheimer's dementia Current Visit: No Status: Chronic Qualifiers: Alzheimer's disease onset: late onset - Plan Acute encephalopathy: Likely due to metabolic or dehydration. Pt has underlying dementia. CT head is concerning NPH. Consulted Neurology and physical therapist. Placed order for LP. Will continue diamox 250mg iv BID. Ammonia level is less than 15. LP done on 11/27/23- 20 ml fluid removed. Alzheimer dementia: Will continue supportive care.On Donepezil, and Memantine Hyponatremia: Na is 133. resolved. Will monitor. HADLEY: Cr is 1.13 <- 1.07 <- 1.23 <- Will avoid nephrotoxin and continue IVF Recurrent UTI; Continue iv abx and follow up urine cx- no growth Htn; Continue home med DM II: Continue accuchek, SSI and ADA diet NPO og Nasogastric feeding with Glucerna at 45 ml /hr. Tolerating. HLD: statin DVT ppx: SCD <Kane Nash - Last Filed: 11/27/23 12:17> Pt seen and examined. I agree with the note by the ROLL WEIGHER. Her mental status is not improving. The family will consider hospice care. <Kennedi Weber - Last Filed: 11/29/23 13:36>
--- NOTE | 2023-11-27 17:25 | RAD REPORT ---
EXAM DESCRIPTION: RAD - Abdomen 1 View (KUB) - 11/27/2023 3:24 pm CLINICAL HISTORY: NG tube placement COMPARISON: Abdomen 1 View (KUB) dated 11/27/2023; Abdomen 1 View (KUB) dated 11/22/2023 TECHNIQUE: Single AP view of the abdomen. FINDINGS: Stable mild central small bowel distention. Enteric tube tip projects over the proximal st omach. The side hole appears to be at or slightly above the gastroesophageal junction. No evidence of free air or air-fluid levels. No suspicious calcifications. No significant bony abnormality. IMPRESSION: Enteric tube tip projects over the proximal stomach, side hole appears to be at or sligh tly above the gastroesophageal junction. Stable mild central small-bowel distention.
[2023-11-27] MEDS: ROSUVASTATIN 10 MG TAB PO SCH (21:00)
[2023-11-28] MEDS: NA CHLORIDE 0.9% 1,000 ML IV SCH ×2 (00:54→21:33)
[2023-11-28] MEDS: INSULIN REGULAR (HUMAN) 100 UNIT/ML SQ SCH ×2 (06:00→11:52)
[2023-11-28 07:20] LABS: Absolute Lymphocytes (CBC) 1.1 K/uL (0.7-4.9); Lymphocytes % 17.5 % (15.3-44.8); MCV 86.1 fL (80-100); MPV 9.2 fL (7.6-11.3); Platelets 257 thou/uL (152-406); RBC Red Blood Cell Count 3.49 M/uL (3.86-4.86)
[2023-11-28 07:34] LABS: Magnesium 1.9 mg/dL (1.6-2.4); Potassium 4.2 mEq/L (3.5-5.1)
[2023-11-28] MEDS: ENOXAPARIN 40 MG/0.4 ML SQ SCH (08:48)
[2023-11-28] MEDS: VALPROATE SODIUM INJ 500 MG in NA CHLORIDE 0.9% 100 ML IV SCH ×2 (08:48→21:47)
[2023-11-28] MEDS: DOCUSATE NA 100 MG CAP PO SCH ×2 (09:00→21:00)
[2023-11-28] MEDS: acetaZOLAMIDE 250 MG TAB PO SCH (09:00)
[2023-11-28] MEDS: GLUCERNA SHAKE 237 ML CAN PO SCH ×2 (09:00→21:00)
--- NOTE | 2023-11-28 09:47 | P.PN ---
Subjective Date of Service: 11/28/23 Chief Complaint: ams , SYNCOPE Subjective: No new changes, Improving, Doing well Patient is sleepy responding to DPS Patient has history of dementia at bedside Not in acute distress vital signs stable NG tube blocked yesterday on IVF NS at this time <Kane Nash - Last Filed: 11/28/23 09:36> Date of Service: 11/29/23 <Kennedi Weber - Last Filed: 11/29/23 13:20> Review of Systems 10-point ROS is otherwise unremarkable <Kane Nash - Last Filed: 11/28/23 09:36> Physical Examination - Vital Signs Temperature: 98.0 F Blood Pressure: 161/65 Pulse: 73 Respirations: 16 Pulse Ox (%): 98 - Physical Exam General: Alert, Demented HEENT: Atraumatic, Normocephalic Neck: Supple, 2+ carotid pulse no bruit Respiratory: Clear to auscultation bilaterally, Normal air movement Cardiovascular: No edema, Normal pulses Capillary refill: <2 Seconds Gastrointestinal: Normal bowel sounds, Soft and benign Musculoskeletal: No clubbing, No swelling Integumentary: No rashes, Other (bed confined) <Kane Nash - Last Filed: 11/28/23 09:36> Assessment And Plan - Current Problems (Diagnosis) (1) Recurrent UTI Current Visit: Yes Status: Acute (2) Hyperlipidemia Current Visit: Yes Status: Acute Qualifiers: Hyperlipidemia type: other hyperlipidemia Qualified Code(s): E78.49 - Other hyperlipidemia; E78.4 - Other hyperlipidemia (3) Acute encephalopathy Current Visit: Yes Status: Acute (4) Acute kidney injury Current Visit: Yes Status: Acute (5) Diabetes mellitus, type II Onset Date: 11/15/15 Current Visit: No Status: Acute Qualifiers: Diabetes mellitus detention insulin use: with intermodal customer service use Diabetes mellitus complication status: with other specified complication Qualified Code(s): E11.69 - Type 2 diabetes mellitus with other specified complication; Z79.4 - medical terminologist (current) use of insulin (6) Hypertension Current Visit: No Status: Acute Qualifiers: Hypertension type: primary hypertension Qualified Code(s): I10 - Essential (primary) hypertension (7) Alzheimer's dementia Current Visit: No Status: Chronic Qualifiers: Alzheimer's disease onset: late onset - Plan Acute encephalopathy: Likely due to metabolic or dehydration. Pt has underlying dementia. CT head is concerning NPH. Consulted Neurology and physical therapist. Placed order for LP. Will continue diamox 250mg iv BID. Ammonia level is less than 15. LP done on 11/27/23- 20 ml fluid removed. Alzheimer dementia: Will continue supportive care.On Donepezil, and Memantine Hyponatremia: Na is 133>134. resolved. Will monitor. HADLEY: Cr is 1.13 <- 1.07 <- 1.23 <- 1.32.<-0.73 >0.75 Will avoid nephrotoxin and continue IVF Recurrent UTI; Continue iv abx and follow up urine cx- no growth Htn; Continue home med DM II: Continue accuchek, SSI and ADA diet NGT blocked and it was removed yesterday On IVF NS @50ml/hr Need enteral tube placement for feeding High risk for aspiration if fed orally Aspiration precautions Keep HOB >35 degrees HLD: statin DVT ppx: SCD Dispo: pending hospital course DNR Gastric Feedinding- Glucernal at 45ml/hr DVT DVT ppx: SCD Discharge Plan: Home Plan to discharge in: 48 Hours - Code Status/Comfort Care Code Status Assessed: Yes (DNR) Code Status: Do Not Attempt Resuscitat Physician Review: Patient Assessed, Agree with Above Assessment and Plan Critical Care: No Time Spent Managing PTS Care (In Minutes): 35 (miutes) <Kane Nash - Last Filed: 11/28/23 09:36> - Plan Pt seen and examined. I agree with the note by the FOUR ROLL CALENDER OPERATOR. LP drained 20 cc of CSF. Her mental status has not changed. I told the family to consider hospice care. <Kennedi Weber - Last Filed: 11/29/23 13:20>
[2023-11-28] MEDS: ROSUVASTATIN 10 MG TAB PO SCH (21:00)
[2023-11-29] MEDS: INSULIN REGULAR (HUMAN) 100 UNIT/ML SQ SCH ×4 (06:00→17:00)
[2023-11-29] MEDS: VALPROATE SODIUM INJ 500 MG in NA CHLORIDE 0.9% 100 ML IV SCH ×2 (08:57→20:51)
[2023-11-29] MEDS: DOCUSATE NA 100 MG CAP PO SCH ×2 (09:00→20:51)
[2023-11-29] MEDS: GLUCERNA SHAKE 237 ML CAN PO SCH ×2 (09:00→21:00)
[2023-11-29] MEDS: NA CHLORIDE 0.9% 1,000 ML IV SCH (10:14)
--- NOTE | 2023-11-29 11:44 | RAD REPORT ---
EXAM DESCRIPTION: RAD - Abdomen Single View - 11/29/2023 11:38 am CLINICAL HISTORY: confirm placement of dobhoff tube Pain COMPARISON: No comparisons FINDINGS: Tip of the enteric tube is likely in the proximal duodenum or distal stomach.
--- NOTE | 2023-11-29 11:56 | P.PN ---
Subjective Date of Service: 11/29/23 Chief Complaint: ams , SYNCOPE Subjective: No new changes, Improving Patient is sleepy, not responding to verbal command Patient has history of dementia at bedside Not in acute distress vital signs stable NG tube blocked yesterday on IVF NS at this time <Kane Nash - Last Filed: 11/29/23 11:53> Date of Service: 11/30/23 <Meghan Weberkelley Royce - Last Filed: 11/30/23 11:58> Review of Systems 10-point ROS is otherwise unremarkable <Kane Nash - Last Filed: 11/29/23 11:53> Physical Examination - Vital Signs Temperature: 98.1 F Blood Pressure: 152/52 Pulse: 64 Respirations: 18 Pulse Ox (%): 92 - Physical Exam General: Disheveled HEENT: Atraumatic, Normocephalic Neck: Supple, JVD not distended Respiratory: Clear to auscultation bilaterally, Normal air movement Cardiovascular: No edema, Normal pulses Capillary refill: <2 Seconds Gastrointestinal: Normal bowel sounds, Soft and benign Musculoskeletal: No clubbing, No swelling Integumentary: No rashes, No breakdown Neurological: Other (No speech), Dementia <Kane Nash - Last Filed: 11/29/23 11:53> Assessment And Plan - Current Problems (Diagnosis) (1) Recurrent UTI Current Visit: Yes Status: Acute (2) Hyperlipidemia Current Visit: Yes Status: Acute Qualifiers: Hyperlipidemia type: other hyperlipidemia Qualified Code(s): E78.49 - Other hyperlipidemia; E78.4 - Other hyperlipidemia (3) Acute encephalopathy Current Visit: Yes Status: Acute (4) Acute kidney injury Current Visit: Yes Status: Acute (5) Diabetes mellitus, type II Onset Date: 11/15/15 Current Visit: No Status: Acute Qualifiers: Diabetes mellitus termite exterminator insulin use: with [facility] use Diabetes mellitus complication status: with other specified complication Qualified Code(s): E11.69 - Type 2 diabetes mellitus with other specified complication; Z79.4 - FCI (current) use of insulin (6) Hypertension Current Visit: No Status: Acute Qualifiers: Hypertension type: primary hypertension Qualified Code(s): I10 - Essential (primary) hypertension (7) Alzheimer's dementia Current Visit: No Status: Chronic Qualifiers: Alzheimer's disease onset: late onset - Plan Acute encephalopathy: Likely due to metabolic or dehydration. Pt has underlying dementia. CT head is concerning NPH. Consulted Neurology and physical therapist. Placed order for LP. Will continue diamox 250mg iv BID. Ammonia level is less than 15. LP done on 11/27/23- 20 ml fluid removed. Alzheimer dementia: Will continue supportive care.On Donepezil, and Memantine Hyponatremia: Na is 133>134. resolved. Will monitor. HADLEY: Cr is 1.13 <- 1.07 <- 1.23 <- 1.32.<-0.73 >0.75 Will avoid nephrotoxin and continue IVF Recurrent UTI; Continue iv abx and follow up urine cx- no growth Htn; Continue home med DM II: Continue accuchek, SSI and ADA diet NGT blocked and it was removed yesterday On IVF NS @50ml/hr Ordered -sun tube placement for feeding High risk for aspiration if fed orally Aspiration precautions Keep HOB >35 degrees HLD: statin DVT ppx: SCD Dispo: pending hospital course DNR Gastric Feedinding- Glucernal at 45ml/hr DVT DVT ppx: SCD Physician Review: Patient Assessed, Agree with Above Assessment and Plan <Kane Nash - Last Filed: 11/29/23 11:53> - Plan Pt seen and examined. i agree with the note by the REPAIRER KILN CAR. Her family is considering comfort care <Kennedi Weber - Last Filed: 11/30/23 11:58>
[2023-11-29] MEDS: ENOXAPARIN 40 MG/0.4 ML SQ SCH (12:39)
[2023-11-29] MEDS: acetaZOLAMIDE 250 MG TAB PO SCH (12:39)
[2023-11-29] MEDS: lisinopriL 10 MG TAB PO SCH (12:39)
[2023-11-29] MEDS: ROSUVASTATIN 10 MG TAB PO SCH (20:51)
[2023-11-30] MEDS ORDERED: LORazepam 2 MG/ML VIAL IV ONE (02:28)
[2023-11-30] MEDS: INSULIN REGULAR (HUMAN) 100 UNIT/ML SQ SCH ×4 (06:00→18:00)
[2023-11-30] MEDS: DOCUSATE NA 100 MG CAP PO SCH ×2 (09:00→20:33)
[2023-11-30] MEDS: GLUCERNA SHAKE 237 ML CAN PO SCH ×2 (09:00→20:34)
[2023-11-30] MEDS: lisinopriL 10 MG TAB PO SCH (09:00)
--- NOTE | 2023-11-30 09:01 | P.PN ---
Subjective Date of Service: 11/30/23 Chief Complaint: ams , SYNCOPE Total care for feeds, transfers, ADLS. nonverbal, history of Dementia, is at bedside is primary historian, had elevated for tube feeding - Physical Exam General: Alert, Other (Dementia, poor response to verbal commands) HEENT: Atraumatic, Normocephalic Neck: Supple, 2+ carotid pulse no bruit Respiratory: Clear to auscultation bilaterally, Normal air movement Cardiovascular: No edema, Normal pulses Capillary refill: <2 Seconds Gastrointestinal: Normal bowel sounds, Soft and benign Musculoskeletal: No clubbing, No swelling Integumentary: No rashes, No significant lesion Neurological: Responds to verbal, confused <Allyssa Glez - Last Filed: 11/30/23 15:09> Date of Service: 12/02/23 <Kennedi Weber - Last Filed: 12/02/23 20:43> Review of Systems per HPI <Allyssa Glez - Last Filed: 11/30/23 15:09> Physical Examination - Vital Signs Temperature: 98.2 F Blood Pressure: 157/76 Pulse: 73 Respirations: 24 Pulse Ox (%): 96 <Allyssa Glez - Last Filed: 11/30/23 15:09> Assessment And Plan - Plan Assessment plan hydyrocephalus (normal pressure hydrocephalus? pendning LP) LP ordered, LP Opening pressure measured 9 cm H2O. A total of 8 mL clear CSF was obtained. MRI IMPRESSION: No acute intracranial process allowing for the degree of motion. Ventriculomegaly somewhat out proportion relative to the degree of sulcal prominence. This could relate to centrally predominant volume loss versus normal pressure hydrocephalus. Please correlate clinically. LP (will measure pressure), Neuro consulted will discuss with Neurology Plan 09/21 Plan to DC SNF for PT/OT/Speech therapy (will need to discuss Gtube for anorexia) discussed code status with , plan to change to DNR/DNI Discussed future plan of care regarding Hospice vs SNF, (he will discuss with family) placed on Diamox 250 daily per recommendations of Dr. Monzon NPH Repeat lumbar puncture 11/27/23 20 cc spinal fluid severe Dementia worsening? Neurology consulted for worsening dementia consider MRI Speech, cognition/swallow eval tolerating Trial with minced, moist diet with thin liquids, patient had mild delay, no overt signs of aspiration. total care, has to be fed, eating 10-20% meals, no signs of aspiration Metabolic encephalopathy secondary to dehydration versus acute on chronic cystitis, versus hyponatremia Hyponatremia improved Hyponatremia: Na is 139. resolved. Will monitor. Acute encephalopathy: Likely due to metabolic or dehydration. Pt has underlying dementia. CT head is concerning NPH. Consulted Neurology and physical therapist. LP Placed order for LP 11/18. Will continue diamox 250mg iv BID. Ammonia level is less than 15. MRI IMPRESSION: No acute intracranial process allowing for the degree of motion. Ventriculomegaly somewhat out proportion relative to the degree of sulcal prominence. This could relate to centrally predominant volume loss versus normal pressure hydrocephalus. Please correlate clinically. Neuro consulted (patient has Neurologist at [facility]) Neuro recommendations Plan: 1. Continue with supportive care with hydration. May address nutritional needs via either NG tube or other means as primary team sees fit. 2. We were continuing current medications crushed and the patient is up swallowing with applesauce consistency or as directed by Speech Therapy depending on which may be more appropriate. 3. At some point, an EEG may be helpful to determine the state of her encephalopathy. 4. She should have bed mobilization to reduce the chance of dependent ulcers. 5. She will be followed once the lumbar puncture is done. Recurrent acute cystitis HADLEY: Cr is 1.13 <- 1.07 <- 1.23 <- 1.32. Will avoid nephrotoxin and continue IVF Recurrent UTI; Continue iv abx and follow up urine cx. Stark catheter placed during hospitalization Acute on chronic kidney injury BUN 24->25 1creatinine 1.04-> 1.13, BUN 35/0.98est GFR 64->BUN 31/0.89 est GFR 67 2/28 BUN 40 creatinine 1.06 estimated GFR 54 will add gentle IVF Anorexia Poor p.o. intake eating 10-15% meals, total care with feeds minced diet NGT for Nutrition, Ensure BID via NGT, aspiration precautions KUB 1230 FINDINGS: The tip of a nasogastric tube lies within the distal stomach. The stomach is moderately distended KUB 1/4 IMPRESSION: Nonspecific bowel gas pattern . NG tube overlies the distal stomach in satisfactory position. Ordered -sun tube placement for feeding High risk for aspiration if fed orally Aspiration precautions Keep HOB >35 degrees Microcytic anemia stable 10.1-9.4-8.1--9.3-9.1->10.8/31.4 hct 30.3-27.4-24.0-27-6-27.3 Dementia Alzheimer dementia: Will continue supportive care.On Donepezil, and Memantine Fall precautions, total care Hyperlipidemia Hypertension Htn; Continue home med Diabetes type 2 Accu-Cheks, sliding scale insulin DM II: Continue accuchek, SSI and ADA diet HLD: statin DNR DVT DVT ppx: SCD , Discharge Plan: Home with hospice Discharge Plan: [facility] - Code Status/Comfort Care Comfort Measures: Hospice Care Critical Care: No Time Spent Managing PTS Care (In Minutes): 35 <Allyssa Glez - Last Filed: 11/30/23 15:09> - Plan Pt seen and examined. I agree with the note by the LIFT SLAB OPERATOR. Her family is considering home hospice <Kennedi Weber - Last Filed: 12/02/23 20:43>
[2023-11-30] MEDS: VALPROATE SODIUM INJ 500 MG in NA CHLORIDE 0.9% 100 ML IV SCH ×2 (09:27→20:30)
[2023-11-30] MEDS: acetaZOLAMIDE 250 MG TAB PO SCH (09:27)
[2023-11-30] MEDS: ENOXAPARIN 40 MG/0.4 ML SQ SCH (09:27)
[2023-11-30 11:24] LABS: Hematocrit 28.9 % (36.0-45.0); Lymphocytes % 18.1 % (15.3-44.8); MCV 86.6 fL (80-100); MPV 8.2 fL (7.6-11.3); Platelets 246 thou/uL (152-406); RBC Red Blood Cell Count 3.34 M/uL (3.86-4.86)
[2023-11-30 11:36] LABS: Magnesium 1.6 mg/dL (1.6-2.4); Potassium 3.7 mEq/L (3.5-5.1)
[2023-11-30 13:23] LABS: Blood Morphology Comment NOTED (NOT SEEN); Ovalocytes 1+; Platelet Estimate ADEQ
[2023-11-30] MEDS: NA CHLORIDE 0.9% 1,000 ML IV SCH (13:28)
[2023-11-30] MEDS: ROSUVASTATIN 10 MG TAB PO SCH (20:34)
[2023-11-30 23:01] VITALS: O2SAT 98
[2023-12-01] MEDS: INSULIN REGULAR (HUMAN) 100 UNIT/ML SQ SCH ×3 (06:00→12:00)
--- NOTE | 2023-12-01 08:55 | P.DS ---
Admission Date: 11/12/23 Discharge Date: 12/01/23 Disposition: HOSPICE-HOME Reason for Admission: ams , SYNCOPE Brief History of Present Illness: 78-year-old female with past medical history of dementia, hypertension, borderline diabetes, who has been pretty functional until 2 weeks ago started having generalized weakness and worsening of altered mental status which has been going on for the last 2 weeks and has been progressively worsening and was brought to ER. Patient had history of recurrent UTIs in the past. Today patient had an episode of syncope . Patient lives with family at home.. Family had a hard time coping with her generalized weakness and syncopal episode and was brought to ER. Patient is pleasantly confused hence most of the history is obtained from the chart review and also talking with the family at the bedside - Physical Exam General: Alert, Oriented x1, Demented, Confused HEENT: Normocephalic Neck: Supple Respiratory: Clear to auscultation bilaterally, Normal air movement Cardiovascular: Normal pulses, Regular rate/rhythm, Normal S1 S2, No rubs Capillary refill: <2 Seconds Gastrointestinal: Soft and benign, W/out hepatosplenomegaly, No tenderness Musculoskeletal: No clubbing, No swelling Integumentary: No rashes Neurological: Normal strength at 5/5 x4 extr, Normal tone, Dementia Lymphatics: No axilla or inguinal lymphadenopathy Hospital Course: GOAL: Clear understanding of disease process She as evaluated and treated for: PROBLEM: Assessment hydyrocephalus (normal pressure hydrocephalus) severe Dementia Metabolic encephalopathy secondary to dehydration versus acute on chronic cystitis, versus hyponatremia Anorexia-not eating Recurrent acute cystitis Despite physical therapy, Occupational Therapy, speech therapy, IV antibiotics, diuretics for normal pressure hydrocephalus, treating her hyponatremia, Patient had additional supplementation with NG tube, and -sun tube placement for feeding. With head elevated greater than 35 degrees to prevent aspiration. patient remained confused, and has continued to decline. per family's request. Plan is to discharge home with hospice. is patient's primary caregiver. INSTRUCTIONS: Physician Discharge Instructions: -DC IV and DC home -Follow-up with PCP in 1 to 2 weeks -Please call Dr. Pierson at [phone] if any questions regarding hospital stay -Please call nursing station at [phone] if any nursing or medication questions -Return to the emergency room if symptoms worsen Diet: ADA, low sodium Activity: Fall precautions DME: [facility] to update that DME Date or Referral:11/29 Name of Company: [employer] Influenza Vaccine Indicated: Influenza Vaccine Given: Date Given: Pneumonia Vaccine Indicated: Pneumonia Vaccine Given: Date Given: Vital Signs/Physical Exam: Temp Pulse Resp BP Pulse Ox 98 F 68 18 116/49 L 95 12/01/23 07:33 12/01/23 07:33 12/01/23 07:33 12/01/23 07:33 12/01/23 07:33 Laboratory Data at Discharge: WBC 5.70 thou/uL (4.3-10.9) 11/30/23 10:50 Hgb 9.8 g/dL (12.0-15.0) L 11/30/23 10:50 Hct 28.9 % (36.0-45.0) L 11/30/23 10:50 Plt Count 246 thou/uL (152-406) 11/30/23 10:50 PT 11.9 SECONDS (9.5-12.5) 11/18/23 14:26 INR 1.08 11/18/23 14:26 APTT 32.7 SECONDS (24.3-36.9) 11/18/23 14:26 Sodium 133 mEq/L (136-145) L 11/30/23 10:50 Potassium 3.7 mEq/L (3.5-5.1) 11/30/23 10:50 BUN 27 mg/dL (7-18) H 11/30/23 10:50 Creatinine 0.73 mg/dL (0.55-1.02) 11/30/23 10:50 Glucose 110 mg/dL (74-106) H 11/30/23 10:50 Phosphorus 3.5 mg/dL (2.5-4.9) 11/23/23 20:42 Magnesium 1.6 mg/dL (1.6-2.4) 11/30/23 10:50 Total Bilirubin 0.2 mg/dL (0.2-1.0) 11/22/23 09:21 AST 16 U/L (15-37) 11/22/23 09:21 ALT 21 U/L (13-56) 11/22/23 09:21 Alkaline Phosphatase 54 U/L (45-117) 11/22/23 09:21 Home Medications: Donepezil HCl 10 mg PO BID 03/22/21 Metformin HCl 1,000 mg PO BID 03/22/21 traMADol HCL [Ultram*] 50 mg PO TID PRN #20 tab 03/29/21 Cyclobenzaprine [Flexeril*] 10 mg PO BID 11/12/23 Divalproex Sodium 250 mg PO Q12H 11/12/23 Lisinopril [Zestril] 40 mg PO DAILY 11/12/23 Rosuvastatin [Crestor*] 10 mg PO BEDTIME 11/12/23 Trazodone [Desyrel*] 50 mg PO BEDTIME 11/12/23 clonazePAM [Clonazepam] 1 mg PO BEDTIME 11/12/23 Docusate [Colace Cap*] 100 mg PO BID cap 12/01/23 Glucerna Shake [Glucerna*] 237 ml PO BID can 12/01/23 Insulin -Regular Human [Novolin -R*] See Protocol SQ Q6HR ml 12/01/23 Vital Hp [Vital AF 1.2 Boris Liquid*] 10 ml FT DIRECTED bot 12/01/23 acetaZOLAMIDE [Diamox*] 250 mg PO DAILY 30 Days #30 tab 12/01/23 lisinopriL [Prinivil*] 10 mg PO DAILY tab 12/01/23 New Medications: acetaZOLAMIDE [Diamox*] 250 mg PO DAILY 30 Days #30 tab Physician Discharge Instructions: INSTRUCTIONS: Physician Discharge Instructions: -DC IV and DC to skilled with hospice -Follow-up with your hospice provider -Please call Dr. Pierson at [phone] if any questions regarding hospital stay -Please call nursing station at [phone] if any nursing or medication questions -Return to the emergency room if symptoms worsen Diet: ADA, low sodium Activity: Fall precautions DME: None Date or Referral:11/29 Name of Company: [facility] Services Needed: None Followup: Janneth Amaya NP [Primary Care Provider] -
[2023-12-01] MEDS: NA CHLORIDE 0.9% 1,000 ML IV SCH (09:00)
[2023-12-01] MEDS: GLUCERNA SHAKE 237 ML CAN PO SCH (09:00)
[2023-12-01] MEDS: DOCUSATE NA 100 MG CAP PO SCH (09:00)
[2023-12-01] MEDS: lisinopriL 10 MG TAB PO SCH (09:42)
[2023-12-01] MEDS: ENOXAPARIN 40 MG/0.4 ML SQ SCH (09:42)
[2023-12-01] MEDS: acetaZOLAMIDE 250 MG TAB PO SCH (09:42)
[2023-12-01] MEDS: VALPROATE SODIUM INJ 500 MG in NA CHLORIDE 0.9% 100 ML IV SCH (10:21)
[2023-12-01 17:18] VITALS: BP 117/45; TEMP 98.1
== END 2023-12-01 18:05 | disposition hospice, home (50) | DRG 56 ==
LOC: ER 15:27 → ERHOLD 19:40 → 2ND 21:39
PROVIDERS: ADMIT Family Medicine; ATTEND Hospitalist
PROC: 0T9B70Z Drainage of Bladder with Drainage Device, Via Natural or Artificial Opening (ICD-10-PCS; principal; 2023-11-13)
PROC: 3E0G76Z Introduction of Nutritional Substance into Upper GI, Via Natural or Artificial Opening (ICD-10-PCS; 2023-11-19)
PROC: 009U3ZX Drainage of Spinal Canal, Percutaneous Approach, Diagnostic (ICD-10-PCS; 2023-11-19)
PROC: 0DH67UZ Insertion of Feeding Device into Stomach, Via Natural or Artificial Opening (ICD-10-PCS; 2023-11-22)
DX: G91.2 (Idiopathic) normal pressure hydrocephalus (principal); G93.41 Metabolic encephalopathy; E87.1 Hypo-osmolality and hyponatremia; N17.9 Acute kidney failure, unspecified; N30.00 Acute cystitis without hematuria; E86.0 Dehydration; I12.9 Hypertensive chronic kidney disease with stage 1 through stage 4 chronic kidney disease, or unspecified chronic kidney disease; N18.9 Chronic kidney disease, unspecified; E11.22 Type 2 diabetes mellitus with diabetic chronic kidney disease; E11.69 Type 2 diabetes mellitus with other specified complication; D63.1 Anemia in chronic kidney disease; D50.9 Iron deficiency anemia, unspecified; G30.1 Alzheimer's disease with late onset; F02.C0 Dementia in other diseases classified elsewhere, severe, without behavioral disturbance, psychotic disturbance, mood disturbance, and anxiety; E78.49 Other hyperlipidemia; K59.00 Constipation, unspecified; I25.10 Atherosclerotic heart disease of native coronary artery without angina pectoris; R63.0 Anorexia; Z66 Do not resuscitate; Z88.2 Allergy status to sulfonamides; Z51.5 Encounter for palliative care; Z79.4 Long term (current) use of insulin; Z95.5 Presence of coronary angioplasty implant and graft; Z68.27 Body mass index [BMI] 27.0-27.9, adult; Z79.84 Long term (current) use of oral hypoglycemic drugs; Z90.710 Acquired absence of both cervix and uterus; Z79.899 Other long term (current) drug therapy
CPT/HCPCS: 36415; 51702; 70450; 70551; 71045; 72170; 74018; 77003; 80048; 80053; 81001; 82140; 82533; 82607; 82945; 82947; 83540; 83735; 83880; 84100; 84157; 84439; 84443; 84484; 85025; 85610; 85730; 86140; 87086; 87088; 89050; 92526; 92610; 93005; 97110; 97161; 97530; 99285; J0696; J1100; J1120; J1650; J7030; J7040; J7799